=== PATIENT | male | born 1965 | race Caucasian/White ===

== ENCOUNTER 2016-06-28 14:32 | Emergency (ER) | payer MEDICAID, OTHER ==
[~2016-06-28] VITALS: Ht 182.9 cm; Wt 108.9 kg
[2016-06-28 14:45] VITALS: BP 117/72
[2016-06-28] MEDS ORDERED: ACETAMINOPHEN 500 MG TAB PO ONE ×2 (14:51→15:00)
[2016-06-28 15:30] LABS: Urine Bilirubin Negative (Negative); Urine Blood Negative /uL (Negative); Urine Color Yellow (Yellow); Urine Glucose Normal (Normal); Urine Ketone TRACE (Negative); Urine Mucus FEW (None Seen); Urine Nitrite Negative (Negative); Urine RBC 1 /hpf (0 - 3)
[2016-06-28 17:00] LABS: Basophils # (auto) 0 uL; Basophils % (auto) 0.1 % (0.0-2.0); Eosinophils # (auto) 0 uL; Eosinophils % (auto) 0.4 % (0.0-7.0); Hematocrit 44.9 % (41.0-53.0); Hemoglobin 14.4 g/dL (13.5-17.5); Lymphocytes # (auto) 0.4 uL; Lymphocytes % (auto) 4.3 % (10.0-50.0); Mean Corpuscular Hemoglobin 30.3 pg (28.0-32.0); Mean Corpuscular Hgb Conc. 32.1 g/dL (32.0-36.0); Mean Corpuscular Volume 94.4 fL (80.0-100.0); Mean Platelet Volume 7.9 fL (7.4-10.4); Monocytes # (auto) 0.5 uL; Monocytes % (auto) 5.1 % (0.0-12.0); Neutrophils # (auto) 9.2 uL; Neutrophils % (auto) 90.1 % (37.0-80.0); Platelet Count (auto) 232 10^3/uL (140-450); Red Cell Distribution Width 13.3 % (11.6-16.0); White Blood Cell 10.3 10^3/uL (4.4-10.8)
[2016-06-28 17:08] LABS: Albumin 3.3 g/dL (3.4-5.0); BUN/Creatinine Ratio 13.6; Calcium 8.2 mg/dL (8.5-10.1); Potassium 4.2 mmol/L (3.5-5.1)
[2016-06-28 17:11] LABS: Bilirubin, Total 0.5 mg/dL (0.2-1.0); Total Protein 7.7 g/dL (6.4-8.2)
== END 2016-06-28 22:55 | disposition left against medical advice (07) ==
LOC: ER 14:43
DX: J45.909 Unspecified asthma, uncomplicated (principal); R50.9 Fever, unspecified; Z53.21 Procedure and treatment not carried out due to patient leaving prior to being seen by health care provider
CPT/HCPCS: 36415; 71020; 80053; 81001; 83605; 83735; 84484; 85025; 87040; 93005

== ENCOUNTER → 2023-07-23 | Outpatient (CLI) | payer MEDICAID ==
[~2023-07-23] MED LIST: ALBUTEROL SULF 2.5 MG/0.5ML(0.5%) NEB SOLN ONE
== END | disposition home or self-care (01) ==
LOC: RT 08:47
PROVIDERS: ATTEND Internal Medicine Pulmonary Disease
DX: J44.9 Chronic obstructive pulmonary disease, unspecified (principal)
CPT/HCPCS: 94060; 94727; 94729

== ENCOUNTER 2023-08-29 12:25 | Inpatient (IN) | payer MEDICAID ==
[~2023-08-29] VITALS: Ht 182.9 cm; Wt 98.7 kg
[2023-08-29] MEDS: DexAMETHasone SOD PHOS 10MG/1ML VIAL INJ IV ONE (14:21)
[2023-08-29] MEDS: ALBUTEROL SULF 2.5 MG/0.5ML(0.5%) NEB SOLN HHN ONE (14:31)
[2023-08-29] MEDS: IPRATROPIUM BROM 0.5 MG/2.5ML INH SOL HHN ONE (14:31)
[2023-08-29 14:57] LABS: Basophils # (auto) 0.1 10 ^3/uL (0-0.2); Eosinophils # (auto) 0.3 10 ^3/uL (0-0.8); Eosinophils % (auto) 3.3 % (0.0-7.0); Hematocrit 38.7 % (41.0-53.0); Hemoglobin 12.4 g/dL (13.5-17.5); Lymphocytes # (auto) 1.2 10 ^3/uL (0.4-5.4); Lymphocytes % (auto) 13.2 % (10.0-50.0); Mean Corpuscular Hemoglobin 29.6 pg (28.0-32.0); Mean Corpuscular Volume 92.6 fL (80.0-100.0); Monocytes # (auto) 0.6 10 ^3/uL (0-1.3); Monocytes % (auto) 6.6 % (0.0-12.0); Neutrophils # (auto) 7.1 10 ^3/uL (1.6-8.6); Neutrophils % (auto) 75.9 % (37.0-80.0); Red Blood Cells 4.18 10^6/uL (4.5-5.90); White Blood Cell 9.3 10^3/uL (4.4-10.8)
[2023-08-29 15:06] LABS: Alanine Aminotransferase 11 U/L (7-40); Albumin 3.9 g/dL (3.2-4.8); Alkaline Phosphatase 89 U/L (46-116); Anion Gap 6 (5-15); Aspartate Aminotransferase 18 U/L (13-40); BUN/Creatinine Ratio 11.8 (10.0-20.0); Blood Urea Nitrogen 11 mg/dL (9-23); Calcium 9.3 mg/dL (8.7-10.4); Carbon Dioxide 31 mmol/L (20-30); Chloride 102 mmol/L (98-107); Glucose 285 mg/dL (74-106); Magnesium 2.2 mg/dL (1.6-2.6); Potassium 3.9 mmol/L (3.5-5.1); Sodium 139 mmol/L (136-145)
[2023-08-29 15:07] LABS: Bilirubin, Total 0.7 mg/dL (0.2-1.0); Total Protein 7.2 g/dL (5.7-8.2)
[2023-08-29 15:54] LABS: Lactic Acid w/Reflex 2.3 mmol/L (0.4-2.0)
[2023-08-29] MEDS: FUROSEMIDE 40 MG/4 ML VIAL IV ONE (16:54)
[2023-08-29 16:56] VITALS: PULSE 102; RESP 20; O2SAT 95
[2023-08-29] MEDS ORDERED: DEXTROSE (50%) 50ML SYRG IV PRN (17:15)
[2023-08-29] MEDS ORDERED: ONDANSETRON HCL 4 MG/2 ML VIAL IV PRN (17:15)
[2023-08-29] MEDS ORDERED: NITROGLYCERIN 0.4 MG SL TAB SL PRN (17:15)
[2023-08-29] MEDS ORDERED: MORPHINE SULFATE INJ 2 MG/ml SYRG IV PRN (17:15)
[2023-08-29] MEDS ORDERED: DOCUSATE SOD 100 MG CAP PO PRN (17:15)
[2023-08-29] MEDS: cefTRIAXone 1GM/50ML D5W 50 ML IV ONE (18:31)
[2023-08-29 18:52] VITALS: PULSE 100; RESP 18; O2SAT 90
[2023-08-29] MEDS: AZITHROMYCIN 500MG/ 250ML 250 ML IV ONE (18:53)
[2023-08-29 19:02] VITALS: PULSE 97; RESP 18; O2SAT 99
[2023-08-29] MEDS: IPRATROPIUM BROM 0.5 MG/2.5ML INH SOL NEB SCH (19:02)
[2023-08-29] MEDS: ALBUTEROL SULF 2.5 MG/0.5ML(0.5%) NEB SOLN NEB SCH (19:02)
[2023-08-29 19:13] LABS: Urine Bacteria NONE SEEN /hpf (None Seen); Urine Blood TRACE /uL (Negative); Urine Clarity Clear (Clear); Urine Color Colorless (Yellow); Urine Hyaline Cast FEW /lpf (0 - 2); Urine Protein, UAD Negative (Negative); Urine Specific Gravity 1.007 (1.001-1.035); Urine Urobilinogen Normal (Negative); Urine WBC <1 /hpf (0 - 3); Urine pH 6.5 (5.0-8.0)
[2023-08-29 19:21] VITALS: BP 106/61; PULSE 97; RESP 18; TEMP 97.8; O2SAT 99
[2023-08-29 19:30] VITALS: PULSE 101; RESP 25; O2SAT 94
[2023-08-29] MEDS ORDERED: ATOR40TA52 PO (20:49)
[2023-08-29] MEDS ORDERED: FUR20T PO (20:49)
[2023-08-29] MEDS ORDERED: METO25TA93 PO (20:49)
[2023-08-29] MEDS ORDERED: ALBU108A5 INH (21:00)
[2023-08-29] MEDS ORDERED: IPR002IS NEB (21:00)
[2023-08-29] MEDS ORDERED: ALB5IS INH (21:00)
[2023-08-29] MEDS ORDERED: INSU1INJ19 SC (21:00)
[2023-08-29] MEDS ORDERED: ERGO1CAP12 PO (21:00)
[2023-08-29 21:59] VITALS: BP 117/95; PULSE 103; RESP 19; TEMP 98.3; O2SAT 91
[2023-08-29] MEDS ORDERED: PATIENTS OWN MEDICATION (Atorvastatin Calcium 1 TAB) PO SCH (22:00)
[2023-08-29] MEDS: InsuLIN REG 1unit/0.01ml Soln (100units/ml) SC SCH (22:03)
[2023-08-29] MEDS: methylPREDNISolone SOD SUCC 40 MG/ML VL IV SCH (22:03)
[2023-08-29] MEDS: ACCU-CHEK COMFORT CURVE STRIP VI SCH (22:03)
[2023-08-29] MEDS: SODIUM CHLORIDE 0.9% 500 ML IV ONE (22:26)
[2023-08-30] VITALS (19 sets, daily range): BP systolic 93–119; BP diastolic 59–77; PULSE 75–102; RESP 14–22; TEMP 97.3–98.2; O2SAT 94–100
[2023-08-30] MEDS ORDERED: DEXTROSE (50%) 50ML SYRG IV PRN ×2 (02:30→11:45)
[2023-08-30] MEDS: ACCU-CHEK COMFORT CURVE STRIP VI SCH ×2 (04:15→17:41)
[2023-08-30] MEDS: InsuLIN REG 1unit/0.01ml Soln (100units/ml) SC SCH ×3 (05:11→22:39)
[2023-08-30 05:19] LABS: Basophils # (auto) 0 10 ^3/uL (0-0.2); Basophils % (auto) 0.4 % (0.0-2.0); Eosinophils # (auto) 0 10 ^3/uL (0-0.8); Hematocrit 37.6 % (41.0-53.0); Hemoglobin 12.3 g/dL (13.5-17.5); Lymphocytes # (auto) 0.9 10 ^3/uL (0.4-5.4); Lymphocytes % (auto) 11.9 % (10.0-50.0); Mean Corpuscular Hemoglobin 30.1 pg (28.0-32.0); Mean Corpuscular Hgb Conc. 32.6 g/dL (32.0-36.0); Mean Corpuscular Volume 92.2 fL (80.0-100.0); Monocytes # (auto) 0.4 10 ^3/uL (0-1.3); Monocytes % (auto) 5.5 % (0.0-12.0); Neutrophils # (auto) 5.9 10 ^3/uL (1.6-8.6); Neutrophils % (auto) 82.2 % (37.0-80.0); Nucleated Red Blood Cells % 0.1 %; Red Blood Cells 4.08 10^6/uL (4.5-5.90); Red Cell Distribution Width 13.7 % (11.8-14.3); White Blood Cell 7.2 10^3/uL (4.4-10.8)
[2023-08-30 05:37] LABS: Alanine Aminotransferase 10 U/L (7-40); Albumin 3.8 g/dL (3.2-4.8); Alkaline Phosphatase 89 U/L (46-116); Anion Gap 5 (5-15); Aspartate Aminotransferase 13 U/L (13-40); BUN/Creatinine Ratio 12.5 (10.0-20.0); Bilirubin, Total 0.4 mg/dL (0.2-1.0); Blood Urea Nitrogen 10 mg/dL (9-23); Carbon Dioxide 30 mmol/L (20-30); Chloride 103 mmol/L (98-107); Glucose 194 mg/dL (74-106); Potassium 4.8 mmol/L (3.5-5.1); Sodium 138 mmol/L (136-145); Total Protein 6.9 g/dL (5.7-8.2)
[2023-08-30] MEDS: PANTOPRAZOLE 40 MG TAB PO SCH (09:44)
[2023-08-30] MEDS: AZITHROMYCIN 500MG/ 250ML 250 ML IV SCH (09:45)
[2023-08-30] MEDS: FUROSEMIDE 20 MG/2 ML VIAL IV SCH (09:49)
[2023-08-30] MEDS: cefTRIAXone 1GM/50ML D5W 50 ML IV SCH (09:50)
[2023-08-30] MEDS: NICOTINE 21MG/24 HR TOPICAL PATCH TD ONE (13:11)
[2023-08-30] MEDS: IPRATROPIUM BROM 0.5 MG/2.5ML INH SOL NEB SCH (14:53)
[2023-08-30] MEDS: ALBUTEROL SULF 2.5 MG/0.5ML(0.5%) NEB SOLN NEB SCH (14:53)
[2023-08-30] MEDS: TEMAZEPAM 15 MG CAP PO PRN (22:32)
[2023-08-30] MEDS: ATORVASTATIN 20 MG TAB PO SCH (22:32)
[2023-08-30] MEDS: INSULIN LANTUS (GLARGINE) 1 /0.01ml (100units/ml) SC SCH (22:40)
[2023-08-31] VITALS (19 sets, daily range): BP systolic 97–124; BP diastolic 62–73; PULSE 63–108; RESP 18–22; TEMP 97.4–98.8; O2SAT 92–100
[2023-08-31] MEDS: IPRATROPIUM BROM 0.5 MG/2.5ML INH SOL NEB PRN (00:39)
[2023-08-31] MEDS: IPRATROPIUM BROM 0.5 MG/2.5ML INH SOL NEB SCH (01:49)
[2023-08-31] MEDS: ALBUTEROL SULF 2.5 MG/0.5ML(0.5%) NEB SOLN NEB SCH (01:49)
[2023-08-31 05:54] LABS: Basophils # (auto) 0 10 ^3/uL (0-0.2); Basophils % (auto) 0.4 % (0.0-2.0); Eosinophils # (auto) 0 10 ^3/uL (0-0.8); Eosinophils % (auto) 0.1 % (0.0-7.0); Hematocrit 37.2 % (41.0-53.0); Hemoglobin 11.7 g/dL (13.5-17.5); Lymphocytes % (auto) 10.5 % (10.0-50.0); Mean Corpuscular Hemoglobin 29.5 pg (28.0-32.0); Mean Corpuscular Hgb Conc. 31.5 g/dL (32.0-36.0); Mean Corpuscular Volume 93.8 fL (80.0-100.0); Monocytes # (auto) 0.5 10 ^3/uL (0-1.3); Monocytes % (auto) 5.1 % (0.0-12.0); Neutrophils # (auto) 7.6 10 ^3/uL (1.6-8.6); Neutrophils % (auto) 83.9 % (37.0-80.0); Red Blood Cells 3.96 10^6/uL (4.5-5.90); Red Cell Distribution Width 14.2 % (11.8-14.3); White Blood Cell 9.1 10^3/uL (4.4-10.8)
[2023-08-31 06:06] LABS: Chloride 103 mmol/L (98-107); Potassium 4.9 mmol/L (3.5-5.1); Sodium 135 mmol/L (136-145)
[2023-08-31 06:07] LABS: Anion Gap 4 (5-15); Calcium 9.3 mg/dL (8.7-10.4); Carbon Dioxide 28 mmol/L (20-30)
[2023-08-31 06:12] LABS: BUN/Creatinine Ratio 15.3 (10.0-20.0); Blood Urea Nitrogen 17 mg/dL (9-23)
[2023-08-31 06:17] LABS: Glucose 347 mg/dL (74-106)
[2023-08-31] MEDS ORDERED: METOPROLOL SUCCINATE XL 50 MG TAB PO SCH (07:00)
[2023-08-31] MEDS ORDERED: GLIP5TAB12 PO (09:28)
[2023-08-31] MEDS ORDERED: SPIR25TA8 PO (09:28)
[2023-08-31] MEDS ORDERED: IRBE300T79 PO (09:28)
[2023-08-31] MEDS ORDERED: BUDE1AER5 INH (09:28)
[2023-08-31] MEDS ORDERED: MONT-8 PO (09:29)
[2023-08-31] MEDS ORDERED: EMPA1TAB3 PO (09:33)
[2023-08-31] MEDS: NICOTINE 21MG/24 HR TOPICAL PATCH TD SCH (09:40)
[2023-08-31] MEDS: ACETAMINOPHEN 325 MG TAB PO PRN (12:20)
[2023-08-31] MEDS: methylPREDNISolone SOD SUCC 40 MG/ML VL IV ONE (13:25)
[2023-08-31] MEDS: INSULIN LANTUS (GLARGINE) 1 /0.01ml (100units/ml) SC SCH (22:34)
[2023-09-01] VITALS (18 sets, daily range): BP systolic 105–124; BP diastolic 59–79; PULSE 65–105; RESP 16–20; TEMP 97.2–98; O2SAT 91–100
[2023-09-01] MEDS: AZITHROMYCIN 250 MG TAB PO SCH (10:13)
[2023-09-01] MEDS: POTASSIUM CHL 10 Meq TABLET PO ONE (11:16)
[2023-09-01] MEDS: FUROSEMIDE 20 MG/2 ML VIAL IV ONE (11:16)
[2023-09-02] VITALS (19 sets, daily range): BP systolic 93–116; BP diastolic 62–76; PULSE 63–106; RESP 1–20; TEMP 97.4–98.4; O2SAT 92–100
[2023-09-02 05:23] LABS: Chloride 104 mmol/L (98-107); Potassium 4.2 mmol/L (3.5-5.1); Sodium 139 mmol/L (136-145)
[2023-09-02 05:24] LABS: Anion Gap 4 (5-15); Carbon Dioxide 31 mmol/L (20-30)
[2023-09-02 05:25] LABS: Calcium 9.3 mg/dL (8.5-10.1)
[2023-09-02 05:29] LABS: BUN/Creatinine Ratio 19.4 (10.0-20.0); Blood Urea Nitrogen 21 mg/dL (9-23)
[2023-09-02 05:36] LABS: Glucose 170 mg/dL (74-106)
[2023-09-02] MEDS: predniSONE 20 MG TAB PO SCH (09:48)
[2023-09-02] MEDS: SPIRONOLACTONE 25 MG TAB PO ONE (12:48)
[2023-09-02] MEDS: SACUBITRIL-VALSARTAN 24mg/26mg TAB PO SCH (22:09)
[2023-09-03] VITALS (12 sets, daily range): BP systolic 95–110; BP diastolic 54–67; PULSE 86–95; RESP 18–20; TEMP 98.1–98.5; O2SAT 94–98
[2023-09-03 06:18] LABS: Anion Gap 1 (5-15); Carbon Dioxide 33 mmol/L (20-30); Chloride 105 mmol/L (98-107); Potassium 3.8 mmol/L (3.5-5.1); Sodium 139 mmol/L (136-145)
[2023-09-03 06:20] LABS: Calcium 8.6 mg/dL (8.5-10.1)
[2023-09-03 06:24] LABS: Glucose 202 mg/dL (74-106)
[2023-09-03 06:25] LABS: BUN/Creatinine Ratio 16.5 (10.0-20.0); Blood Urea Nitrogen 15 mg/dL (9-23)
[2023-09-03] MEDS: SPIRONOLACTONE 25 MG TAB PO SCH (08:51)
[2023-09-03] MEDS: EMPAGLIFLOZIN 10 MG TAB PO SCH (08:52)
[2023-09-03] MEDS: FUROSEMIDE 40 MG TAB PO SCH (08:52)
[2023-09-03] MEDS ORDERED: SACU1TAB PO (12:20)
[2023-09-03] MEDS ORDERED: ALB5IS INH (12:20)
[2023-09-03] MEDS ORDERED: BUDE1AER5 INH (12:20)
[2023-09-03] MEDS ORDERED: EMPA1TAB3 PO (12:25)
== END 2023-09-03 16:46 | disposition home or self-care (01) | DRG 137 ==
LOC: ER 12:25 → TELE 17:20 → TELE-WESTW 20:46 → WEST WING 08-31 23:53
PROVIDERS: ADMIT Nurse Practitioner Family; ATTEND Nurse Practitioner Acute Care
DX: J15.69 Pneumonia due to other Gram-negative bacteria (principal); J96.01 Acute respiratory failure with hypoxia; I50.23 Acute on chronic systolic (congestive) heart failure; I42.0 Dilated cardiomyopathy; E87.20 Acidosis, unspecified; J45.901 Unspecified asthma with (acute) exacerbation; I42.8 Other cardiomyopathies; J44.0 Chronic obstructive pulmonary disease with (acute) lower respiratory infection; I11.0 Hypertensive heart disease with heart failure; J44.1 Chronic obstructive pulmonary disease with (acute) exacerbation; J98.11 Atelectasis; E11.9 Type 2 diabetes mellitus without complications; E66.9 Obesity, unspecified; Z96.641 Presence of right artificial hip joint; I45.10 Unspecified right bundle-branch block; F17.290 Nicotine dependence, other tobacco product, uncomplicated; E11.65 Type 2 diabetes mellitus with hyperglycemia; I50.82 Biventricular heart failure; Z68.29 Body mass index [BMI] 29.0-29.9, adult; Z79.4 Long term (current) use of insulin
CPT/HCPCS: 36415; 71045; 80048; 80053; 81001; 82962; 83036; 83605; 83735; 83880; 84484; 85025; 87040; 87070; 87205; 93005; 93306; 94640; 96374; 96375; 97110; 97116; 97163; 97530; G0378; J1100; J1815

== ENCOUNTER → 2023-10-19 | Outpatient (CLI) | payer MEDICAID ==
[~2023-10-19] VITALS: Ht 182.9 cm; Wt 102.1 kg
[~2023-10-19] MED LIST changes: +ADENOSINE 86 MG in GIVE UN-DILUTED 0 ML IV ONE; +ADENOSINE 90 MG/30 ML INJ IV ONE; +ALB5IS INH; +ALBU108A5 INH; -ALBUTEROL SULF 2.5 MG/0.5ML(0.5%) NEB SOLN ONE; +ATOR40TA52 PO; +AZITTAB PO; +BUDE1AER5 INH; +EMPA1TAB3 PO; +ERGO1CAP12 PO; +FLUT1AER3 IN; +FUR20T PO; +GLIP5TAB21 PO; +INSU1INJ19 SC; +IPR002IS NEB; +IPRA0.00 IN; +METO25TA93 PO; +MONT-8 PO; +SACU1TAB PO; +SPIR25TA8 PO
== END | disposition home or self-care (01) ==
LOC: Rad HDHVI 13:43
PROVIDERS: ATTEND Internal Medicine Cardiovascular Disease
DX: I50.9 Heart failure, unspecified (principal); R07.89 Other chest pain; J45.50 Severe persistent asthma, uncomplicated; E11.9 Type 2 diabetes mellitus without complications; F17.210 Nicotine dependence, cigarettes, uncomplicated
CPT/HCPCS: 78452; 93005; 94640; 96374; 96375; A9500; J0153

== ENCOUNTER 2023-10-28 10:00 | Emergency (ER) | payer MEDICAID ==
[~2023-10-28] VITALS: Ht 182.9 cm; Wt 104.2 kg
[~2023-10-28 10:00] MED LIST changes: -ADENOSINE 86 MG in GIVE UN-DILUTED 0 ML IV ONE; -ADENOSINE 90 MG/30 ML INJ IV ONE
[2023-10-28 10:50] LABS: Basophils # (auto) 0.1 10 ^3/uL (0-0.2); Basophils % (auto) 1.4 % (0.0-2.0); Eosinophils # (auto) 0.2 10 ^3/uL (0-0.8); Eosinophils % (auto) 3.7 % (0.0-7.0); Hematocrit 47.8 % (41.0-53.0); Hemoglobin 15.6 g/dL (13.5-17.5); Lymphocytes # (auto) 1.6 10 ^3/uL (0.4-5.4); Lymphocytes % (auto) 28.6 % (10.0-50.0); Mean Corpuscular Hemoglobin 30.8 pg (28.0-32.0); Mean Corpuscular Hgb Conc. 32.6 g/dL (32.0-36.0); Mean Corpuscular Volume 94.3 fL (80.0-100.0); Monocytes # (auto) 0.6 10 ^3/uL (0-1.3); Monocytes % (auto) 9.8 % (0.0-12.0); Neutrophils # (auto) 3.3 10 ^3/uL (1.6-8.6); Neutrophils % (auto) 56.5 % (37.0-80.0); Nucleated Red Blood Cells % 0.1 %; Red Blood Cells 5.07 10^6/uL (4.5-5.90); Red Cell Distribution Width 16.3 % (11.8-14.3); White Blood Cell 5.8 10^3/uL (4.4-10.8)
[2023-10-28] MEDS: IPRATROPIUM BROM 0.5 MG/2.5ML INH SOL NEB ONE (10:50)
[2023-10-28 11:04] LABS: Chloride 103 mmol/L (98-107); Potassium 4.2 mmol/L (3.5-5.1); Sodium 140 mmol/L (136-145)
[2023-10-28 11:05] LABS: Anion Gap 7 (5-15); Calcium 10.1 mg/dL (8.5-10.1); Carbon Dioxide 30 mmol/L (20-30)
[2023-10-28 11:10] LABS: BUN/Creatinine Ratio 12.8 (10.0-20.0); Blood Urea Nitrogen 15 mg/dL (9-23); Glucose 152 mg/dL (74-106)
[2023-10-28] MEDS: MAGNESIUM SULFATE 1GM/100ML 100 ML IV ONE (11:18)
[2023-10-28] MEDS: methylPREDNISolone SOD SUCC 125 MG/2 ML VL IV ONE (11:18)
[2023-10-28 11:32] VITALS: BP 101/66; PULSE 87; RESP 18; TEMP 97.8; O2SAT 97
== END 2023-10-28 13:02 | disposition left against medical advice (07) ==
LOC: ER 10:00
DX: J45.901 Unspecified asthma with (acute) exacerbation (principal); J98.4 Other disorders of lung; E11.9 Type 2 diabetes mellitus without complications
CPT/HCPCS: 36415; 71045; 80048; 84484; 85025; 85379; 94640; 96365; 96375; 99284; J2930; J3475; J7644

== ENCOUNTER 2023-11-25 19:08 | Inpatient (IN) | payer MEDICAID ==
[~2023-11-25] VITALS: Ht 188 cm; Wt 108.4 kg
[2023-11-25] MEDS: DexAMETHasone SOD PHOS 10MG/1ML VIAL INJ IM ONE (21:39)
[2023-11-25] MEDS: IPRATROPIUM BROM 0.5 MG/2.5ML INH SOL NEB ONE (21:50)
[2023-11-25] MEDS: ALBUTEROL SULF 2.5 MG/0.5ML(0.5%) NEB SOLN NEB ONE (21:50)
[2023-11-25 21:53] LABS: Alanine Aminotransferase 13 U/L (7-40); Albumin 4.6 g/dL (3.2-4.8); Alkaline Phosphatase 77 U/L (46-116); Anion Gap 7 (5-15); Aspartate Aminotransferase 21 U/L (13-40); BUN/Creatinine Ratio 9.5 (10.0-20.0); Bilirubin, Total 0.7 mg/dL (0.2-1.0); Blood Urea Nitrogen 12 mg/dL (9-23); CRP High Sensitivity 0.05 mg/dL (<1.0); Carbon Dioxide 29 mmol/L (20-30); Chloride 102 mmol/L (98-107); Glucose 144 mg/dL (74-106); Potassium 3.6 mmol/L (3.5-5.1); Sodium 138 mmol/L (136-145); Total Protein 7.8 g/dL (5.7-8.2)
[2023-11-25 22:03] LABS: Basophils # (auto) 0.1 10 ^3/uL (0-0.2); Basophils % (auto) 1.3 % (0.0-2.0); Eosinophils # (auto) 0.3 10 ^3/uL (0-0.8); Eosinophils % (auto) 5.2 % (0.0-7.0); Hematocrit 51.6 % (41.0-53.0); Lymphocytes # (auto) 1.6 10 ^3/uL (0.4-5.4); Mean Corpuscular Hemoglobin 31.5 pg (28.0-32.0); Mean Corpuscular Hgb Conc. 32.9 g/dL (32.0-36.0); Mean Corpuscular Volume 95.6 fL (80.0-100.0); Monocytes # (auto) 0.6 10 ^3/uL (0-1.3); Monocytes % (auto) 10.6 % (0.0-12.0); Neutrophils # (auto) 3.5 10 ^3/uL (1.6-8.6); Neutrophils % (auto) 56.9 % (37.0-80.0); Nucleated Red Blood Cells % 0.1 %; Red Cell Distribution Width 15.2 % (11.8-14.3); White Blood Cell 6.1 10^3/uL (4.4-10.8)
[2023-11-25 22:47] LABS: Lactic Acid w/Reflex 2.1 mmol/L (0.4-2.0)
[2023-11-25 23:01] LABS: Erythrocyte Sedimentation Rate 1 mm/hr (0-20)
[2023-11-25] MEDS ORDERED: VANCOMYCIN PER PHARMACY 0 MG IV SCH (23:30)
[2023-11-25] MEDS: PIPERACILLIN-TAZOB 3.375GM 100 ML IV ONE (23:49)
[2023-11-26] VITALS (11 sets, daily range): BP systolic 95–107; BP diastolic 66–74; PULSE 75–100; RESP 18–21; TEMP 97.9–98.9; O2SAT 93–100
[2023-11-26] MEDS ORDERED: ONDANSETRON HCL 4 MG/2 ML VIAL IV PRN (00:30)
[2023-11-26] MEDS ORDERED: DOCUSATE SOD 100 MG CAP PO PRN (00:30)
[2023-11-26] MEDS ORDERED: ACETAMINOPHEN 325 MG TAB PO PRN (00:30)
[2023-11-26] MEDS ORDERED: MORPHINE SULFATE INJ 2 MG/ml SYRG IV PRN (00:30)
[2023-11-26] MEDS ORDERED: HYDROcodone-ACET 5/325MG TAB PO PRN (00:30)
[2023-11-26] MEDS ORDERED: DEXTROSE (50%) 50ML SYRG IV PRN (00:30)
[2023-11-26] MEDS ORDERED: NITROGLYCERIN 0.4 MG SL TAB SL PRN (00:30)
[2023-11-26] MEDS: IPRATROPIUM BROM 0.5 MG/2.5ML INH SOL NEB PRN (01:02)
[2023-11-26] MEDS: ALBUTEROL SULF 2.5 MG/0.5ML(0.5%) NEB SOLN NEB PRN (01:02)
[2023-11-26] MEDS: VANCOMYCIN 1GM/200ML 200 ML IV ONE (01:56)
[2023-11-26 04:56] LABS: Basophils # (auto) 0 10 ^3/uL (0-0.2); Basophils % (auto) 0.6 % (0.0-2.0); Eosinophils # (auto) 0 10 ^3/uL (0-0.8); Eosinophils % (auto) 0.1 % (0.0-7.0); Hematocrit 49.3 % (41.0-53.0); Hemoglobin 16.1 g/dL (13.5-17.5); Lymphocytes # (auto) 0.3 10 ^3/uL (0.4-5.4); Lymphocytes % (auto) 6.8 % (10.0-50.0); Mean Corpuscular Hemoglobin 30.9 pg (28.0-32.0); Mean Corpuscular Hgb Conc. 32.6 g/dL (32.0-36.0); Mean Corpuscular Volume 94.7 fL (80.0-100.0); Monocytes # (auto) 0.1 10 ^3/uL (0-1.3); Monocytes % (auto) 1.8 % (0.0-12.0); Neutrophils # (auto) 4.1 10 ^3/uL (1.6-8.6); Neutrophils % (auto) 90.7 % (37.0-80.0); Red Blood Cells 5.21 10^6/uL (4.5-5.90); Red Cell Distribution Width 15.6 % (11.8-14.3); White Blood Cell 4.5 10^3/uL (4.4-10.8)
[2023-11-26 05:15] LABS: Alanine Aminotransferase 13 U/L (7-40); Albumin 4.6 g/dL (3.2-4.8); Alkaline Phosphatase 78 U/L (46-116); Anion Gap 7 (5-15); Aspartate Aminotransferase 19 U/L (13-40); BUN/Creatinine Ratio 10.6 (10.0-20.0); Bilirubin, Total 0.6 mg/dL (0.2-1.0); Blood Urea Nitrogen 17 mg/dL (9-23); Calcium 9.6 mg/dL (8.5-10.1); Carbon Dioxide 28 mmol/L (20-30); Chloride 99 mmol/L (98-107); Potassium 4.5 mmol/L (3.5-5.1); Sodium 134 mmol/L (136-145); Total Protein 7.7 g/dL (5.7-8.2)
[2023-11-26 05:21] LABS: Glucose 269 mg/dL (74-106)
[2023-11-26] MEDS: ACCU-CHEK COMFORT CURVE STRIP VI SCH (07:16)
[2023-11-26] MEDS: InsuLIN REG 1unit/0.01ml Soln (100units/ml) SC SCH ×2 (07:16→22:00)
[2023-11-26] MEDS: ENOXAPARIN SOD 40 MG/0.4 ML SYRINGE SC SCH (12:37)
[2023-11-26] MEDS: ASCORBIC ACID 500 MG TAB PO SCH (12:37)
[2023-11-26] MEDS: cefTRIAXone 1GM/50ML D5W 50 ML IV SCH (12:37)
[2023-11-26] MEDS: ZINC SULFATE 220mg CAP or TAB PO SCH (12:37)
[2023-11-26] MEDS: VANCOMYCIN 1GM/200ML 200 ML IV SCH (16:31)
[2023-11-26] MEDS: ATORVASTATIN 20 MG TAB PO SCH (21:48)
[2023-11-27] VITALS (9 sets, daily range): BP systolic 100–114; BP diastolic 61–67; PULSE 70–95; RESP 18–21; TEMP 97.7–98.5; O2SAT 94–100
[2023-11-27 06:53] LABS: Urine Bacteria None Seen /hpf (None Seen)
[2023-11-27 06:54] LABS: Basophils # (auto) 0.1 10 ^3/uL (0-0.2); Basophils % (auto) 1.1 % (0.0-2.0); Eosinophils # (auto) 0.1 10 ^3/uL (0-0.8); Eosinophils % (auto) 1.7 % (0.0-7.0); Hematocrit 46.8 % (41.0-53.0); Hemoglobin 15.4 g/dL (13.5-17.5); Lymphocytes # (auto) 1.9 10 ^3/uL (0.4-5.4); Lymphocytes % (auto) 25.5 % (10.0-50.0); Mean Corpuscular Hemoglobin 31.5 pg (28.0-32.0); Mean Corpuscular Hgb Conc. 32.9 g/dL (32.0-36.0); Mean Corpuscular Volume 95.7 fL (80.0-100.0); Monocytes # (auto) 0.8 10 ^3/uL (0-1.3); Monocytes % (auto) 10.3 % (0.0-12.0); Neutrophils # (auto) 4.6 10 ^3/uL (1.6-8.6); Neutrophils % (auto) 61.4 % (37.0-80.0); Nucleated Red Blood Cells % 0.2 %; Red Blood Cells 4.88 10^6/uL (4.5-5.90); Red Cell Distribution Width 15.4 % (11.8-14.3); White Blood Cell 7.6 10^3/uL (4.4-10.8)
[2023-11-27 07:05] LABS: Alanine Aminotransferase 14 U/L (7-40); Alkaline Phosphatase 74 U/L (46-116); Anion Gap 4 (5-15); BUN/Creatinine Ratio 19.2 (10.0-20.0); Blood Urea Nitrogen 23 mg/dL (9-23); Calcium 9.3 mg/dL (8.7-10.4); Carbon Dioxide 30 mmol/L (20-30); Chloride 103 mmol/L (98-107); Potassium 4.6 mmol/L (3.5-5.1); Sodium 137 mmol/L (136-145)
[2023-11-27 07:06] LABS: Albumin 4.1 g/dL (3.2-4.8)
[2023-11-27 07:07] LABS: Aspartate Aminotransferase 22 U/L (13-40); Bilirubin, Total 0.4 mg/dL (0.2-1.0)
[2023-11-27 07:20] LABS: Glucose 168 mg/dL (74-106)
[2023-11-27 07:31] LABS: Urine Blood TRACE /uL (Negative); Urine Clarity Clear (Clear); Urine Color Light-Yellow (Yellow); Urine Protein, UAD TRACE (Negative); Urine Specific Gravity 1.022 (1.001-1.035); Urine Urobilinogen Normal (Negative); Urine WBC 1 /hpf (0 - 3); Urine pH 5.5 (5.0-9.0)
== END 2023-11-27 13:15 | disposition home or self-care (01) | DRG 383 ==
LOC: ER 19:08 → OVERFLOW 11-26 00:37 → WEST WING 11-26 14:55
PROVIDERS: ADMIT Nurse Practitioner Family; ATTEND Family Medicine
DX: L03.116 Cellulitis of left lower limb (principal); N17.0 Acute kidney failure with tubular necrosis; E44.0 Moderate protein-calorie malnutrition; E87.20 Acidosis, unspecified; L97.529 Non-pressure chronic ulcer of other part of left foot with unspecified severity; E11.21 Type 2 diabetes mellitus with diabetic nephropathy; S91.302A Unspecified open wound, left foot, initial encounter; I50.32 Chronic diastolic (congestive) heart failure; E11.621 Type 2 diabetes mellitus with foot ulcer; E11.40 Type 2 diabetes mellitus with diabetic neuropathy, unspecified; E11.65 Type 2 diabetes mellitus with hyperglycemia; I11.0 Hypertensive heart disease with heart failure; J45.909 Unspecified asthma, uncomplicated; X58.XXXA Exposure to other specified factors, initial encounter; G89.29 Other chronic pain; Z79.899 Other long term (current) drug therapy; Y93.89 Activity, other specified; Y92.89 Other specified places as the place of occurrence of the external cause; Y99.8 Other external cause status; Z82.49 Family history of ischemic heart disease and other diseases of the circulatory system; Z83.3 Family history of diabetes mellitus; Z68.30 Body mass index [BMI] 30.0-30.9, adult
CPT/HCPCS: 36415; 71045; 73700; 73718; 80053; 81001; 82962; 83036; 83605; 85025; 85652; 86141; 93925; 94640; G0378; J1100; J1815; J2543

== ENCOUNTER 2023-12-13 23:57 | Emergency (ER) | payer MEDICAID ==
[~2023-12-13] VITALS: Ht 182.9 cm; Wt 105.0 kg
[2023-12-14] MEDS: IPRATROPIUM BROM 0.5 MG/2.5ML INH SOL NEB ONE (00:38)
[2023-12-14] MEDS: ALBUTEROL SULF 2.5 MG/0.5ML(0.5%) NEB SOLN NEB ONE (00:38)
[2023-12-14 00:48] LABS: Basophils # (auto) 0.1 10 ^3/uL (0-0.2); Basophils % (auto) 1.3 % (0.0-2.0); Eosinophils # (auto) 0.3 10 ^3/uL (0-0.8); Eosinophils % (auto) 4.3 % (0.0-7.0); Hematocrit 53.2 % (41.0-53.0); Hemoglobin 17.6 g/dL (13.5-17.5); Lymphocytes % (auto) 30.2 % (10.0-50.0); Mean Corpuscular Hemoglobin 31.7 pg (28.0-32.0); Mean Corpuscular Hgb Conc. 33.1 g/dL (32.0-36.0); Mean Corpuscular Volume 95.9 fL (80.0-100.0); Monocytes # (auto) 0.7 10 ^3/uL (0-1.3); Monocytes % (auto) 10.6 % (0.0-12.0); Neutrophils # (auto) 3.6 10 ^3/uL (1.6-8.6); Neutrophils % (auto) 53.6 % (37.0-80.0); Nucleated Red Blood Cells % 0.1 %; Red Blood Cells 5.55 10^6/uL (4.5-5.90); Red Cell Distribution Width 14.7 % (11.8-14.3); White Blood Cell 6.6 10^3/uL (4.4-10.8)
[2023-12-14 01:03] LABS: INR 1.03 (0.9-1.15); Prothrombin Time 10.9 sec (9.3-11.8)
[2023-12-14 01:04] LABS: Alanine Aminotransferase 22 U/L (7-40); Albumin 4.5 g/dL (3.2-4.8); Alkaline Phosphatase 85 U/L (46-116); Anion Gap 4 (5-15); Aspartate Aminotransferase 30 U/L (13-40); BUN/Creatinine Ratio 13.4 (10.0-20.0); Bilirubin, Total 0.4 mg/dL (0.2-1.0); Blood Urea Nitrogen 16 mg/dL (9-23); Calcium 10.4 mg/dL (8.7-10.4); Carbon Dioxide 33 mmol/L (20-30); Chloride 104 mmol/L (98-107); Glucose 197 mg/dL (74-106); Potassium 3.7 mmol/L (3.5-5.1); Sodium 141 mmol/L (136-145); Total Protein 7.6 g/dL (5.7-8.2)
[2023-12-14] MEDS ORDERED: IPRA0.00 IN (03:23)
[2023-12-14] MEDS ORDERED: PRED20TA2 PO (03:23)
[2023-12-14] MEDS ORDERED: AZITTAB PO (03:23)
[2023-12-14 04:00] VITALS: BP 118/72; PULSE 94; RESP 18; TEMP 98; O2SAT 98
[2023-12-15] MEDS ORDERED: IRBE300T43 PO (11:14)
[2023-12-15] MEDS ORDERED: FURO40TA4 PO (11:14)
== END 2023-12-14 04:08 | disposition home or self-care (01) ==
LOC: ER 23:57
DX: J45.901 Unspecified asthma with (acute) exacerbation (principal)
CPT/HCPCS: 36415; 71045; 80053; 83880; 84484; 85025; 85379; 85610; 85730; 93005; 94640; 99285; J7644

== ENCOUNTER 2023-12-14 07:34 | Inpatient (IN) | payer MEDICAID ==
[2023-12-14] VITALS (10 sets, daily range): BP systolic 109–124; BP diastolic 73–78; PULSE 68–103; RESP 16–20; TEMP 98.1–98.2; O2SAT 95–98
[~2023-12-14] VITALS: Ht 182.9 cm; Wt 108.0 kg
[~2023-12-14 07:34] MED LIST changes: +PRED20TA2 PO
[2023-12-14] MEDS: methylPREDNISolone SOD SUCC 125 MG/2 ML VL IV ONE (08:28)
[2023-12-14] MEDS: ALBUTEROL SULF 2.5 MG/0.5ML(0.5%) NEB SOLN NEB ONE (08:34)
[2023-12-14] MEDS: IPRATROPIUM BROM 0.5 MG/2.5ML INH SOL NEB ONE (08:34)
[2023-12-14] MEDS ORDERED: MORPHINE SULFATE INJ 2 MG/ml SYRG IV PRN (11:30)
[2023-12-14] MEDS ORDERED: ACETAMINOPHEN 325 MG TAB PO PRN (11:30)
[2023-12-14] MEDS ORDERED: ONDANSETRON HCL 4 MG/2 ML VIAL IV PRN (11:30)
[2023-12-14] MEDS ORDERED: DEXTROSE (50%) 50ML SYRG IV PRN (11:30)
[2023-12-14] MEDS ORDERED: HYDROcodone-ACET 5/325MG TAB PO PRN (11:30)
[2023-12-14] MEDS ORDERED: DOCUSATE SOD 100 MG CAP PO PRN (11:30)
[2023-12-14] MEDS: AZITHROMYCIN 500MG/ 250ML 250 ML IV ONE (11:51)
[2023-12-14] MEDS: InsuLIN REG 1unit/0.01ml Soln (100units/ml) SC SCH (11:53)
[2023-12-14] MEDS: ACCU-CHEK COMFORT CURVE STRIP VI SCH (11:53)
[2023-12-14] MEDS: LEVALBUTEROL HCL 1.25 MG/3 ML NEB NEB SCH (12:12)
[2023-12-14] MEDS: IPRATROPIUM BROM 0.5 MG/2.5ML INH SOL NEB SCH (12:12)
[2023-12-14] MEDS: SACUBITRIL-VALSARTAN 24mg/26mg TAB PO SCH (21:36)
[2023-12-14] MEDS: ATORVASTATIN 20 MG TAB PO SCH (21:36)
[2023-12-14] MEDS ORDERED: METOPROLOL SUCCINATE XL 50 MG TAB PO SCH (22:00)
[2023-12-14] MEDS ORDERED: PATIENTS OWN MEDICATION (Atorvastatin Calcium 1 TAB) PO SCH (22:00)
[2023-12-15] VITALS (18 sets, daily range): BP systolic 99–113; BP diastolic 53–95; PULSE 88–102; RESP 17–20; TEMP 97.4–98.5; O2SAT 92–100
[2023-12-15 06:38] LABS: Basophils # (auto) 0 10 ^3/uL (0-0.2); Basophils % (auto) 0.5 % (0.0-2.0); Eosinophils # (auto) 0 10 ^3/uL (0-0.8); Eosinophils % (auto) 0.1 % (0.0-7.0); Hematocrit 46.2 % (41.0-53.0); Hemoglobin 15.6 g/dL (13.5-17.5); Lymphocytes # (auto) 1.2 10 ^3/uL (0.4-5.4); Lymphocytes % (auto) 14.9 % (10.0-50.0); Mean Corpuscular Hemoglobin 32.2 pg (28.0-32.0); Mean Corpuscular Hgb Conc. 33.8 g/dL (32.0-36.0); Mean Corpuscular Volume 95.4 fL (80.0-100.0); Monocytes # (auto) 0.8 10 ^3/uL (0-1.3); Monocytes % (auto) 9.9 % (0.0-12.0); Neutrophils # (auto) 5.8 10 ^3/uL (1.6-8.6); Neutrophils % (auto) 74.6 % (37.0-80.0); Red Blood Cells 4.85 10^6/uL (4.5-5.90); Red Cell Distribution Width 14.4 % (11.8-14.3); White Blood Cell 7.8 10^3/uL (4.4-10.8)
[2023-12-15 06:52] LABS: Alanine Aminotransferase 17 U/L (7-40); Alkaline Phosphatase 66 U/L (46-116); Anion Gap 5 (5-15); Aspartate Aminotransferase 18 U/L (13-40); BUN/Creatinine Ratio 19.4 (10.0-20.0); Bilirubin, Total 0.6 mg/dL (0.2-1.0); Blood Urea Nitrogen 20 mg/dL (9-23); Calcium 9.3 mg/dL (8.7-10.4); Carbon Dioxide 27 mmol/L (20-30); Chloride 104 mmol/L (98-107); Glucose 247 mg/dL (74-106); Potassium 3.9 mmol/L (3.5-5.1); Sodium 136 mmol/L (136-145); Total Protein 6.5 g/dL (5.7-8.2)
[2023-12-15] MEDS: INSULIN GLARGINE 30 UNIT SC SCH (10:00)
[2023-12-15] MEDS: EMPAGLIFLOZIN PO SCH (10:00)
[2023-12-15] MEDS: FUROSEMIDE 20 MG/2 ML VIAL IV SCH (10:00)
[2023-12-15] MEDS ORDERED: FURO40TA4 PO (11:14)
[2023-12-15] MEDS ORDERED: IRBE300T43 PO (11:14)
[2023-12-15] MEDS: MONTELUKAST SODIUM 10 MG TAB PO SCH (11:31)
[2023-12-15] MEDS: methylPREDNISolone SOD SUCC 40 MG/ML VL IV SCH (11:33)
[2023-12-15] MEDS: AZITHROMYCIN 500MG/ 250ML 250 ML IV SCH (11:33)
[2023-12-15] MEDS: SPIRONOLACTONE 25 MG TAB PO SCH (12:41)
[2023-12-15] MEDS: DAKINS QUARTER STR 0.125% (NaHypochlorite) 473 ML TOPICAL SOL TOP SCH (21:31)
[2023-12-16 01:00] VITALS: BP 97/60; PULSE 74; RESP 18; TEMP 97.3; O2SAT 99
[2023-12-16 05:00] VITALS: BP 100/64; PULSE 76; RESP 18; TEMP 96.5; O2SAT 96
[2023-12-16 08:10] VITALS: BP 105/69; PULSE 88; RESP 19; TEMP 97.8; O2SAT 96
[2023-12-16] MEDS ORDERED: AZIT500T66 PO (09:49)
[2023-12-16] MEDS ORDERED: PRED20TA2 PO (09:49)
[2023-12-16] MEDS ORDERED: ALBUAER3 IN (09:49)
[2023-12-16 11:16] VITALS: PULSE 94; RESP 16; O2SAT 96
[2023-12-16 11:21] VITALS: PULSE 92; RESP 16; O2SAT 100
[2023-12-16 11:59] VITALS: BP 105/69; TEMP 36.6
== END 2023-12-16 13:14 | disposition home or self-care (01) | DRG 194 ==
LOC: ER 07:34 → OVERFLOW 11:29 → EAST 17:32
PROVIDERS: ADMIT Nurse Practitioner Family; ATTEND Family Medicine
DX: I11.0 Hypertensive heart disease with heart failure (principal); J96.20 Acute and chronic respiratory failure, unspecified whether with hypoxia or hypercapnia; E87.20 Acidosis, unspecified; J44.1 Chronic obstructive pulmonary disease with (acute) exacerbation; E44.0 Moderate protein-calorie malnutrition; J45.901 Unspecified asthma with (acute) exacerbation; I50.43 Acute on chronic combined systolic (congestive) and diastolic (congestive) heart failure; E11.21 Type 2 diabetes mellitus with diabetic nephropathy; E11.40 Type 2 diabetes mellitus with diabetic neuropathy, unspecified; F17.210 Nicotine dependence, cigarettes, uncomplicated; Z83.3 Family history of diabetes mellitus; Z82.49 Family history of ischemic heart disease and other diseases of the circulatory system; Z91.199 Patient's noncompliance with other medical treatment and regimen due to unspecified reason; Z68.32 Body mass index [BMI] 32.0-32.9, adult; Z79.899 Other long term (current) drug therapy; Z79.4 Long term (current) use of insulin
CPT/HCPCS: 36415; 80053; 82962; 85025; 94640; 96365; 96366; 96375; G0378; J1815

== ENCOUNTER 2023-12-27 11:57 | Emergency (ER) | payer MEDICAID ==
[~2023-12-27] VITALS: Ht 182.9 cm; Wt 109.8 kg
[~2023-12-27 11:57] MED LIST changes: +ALBUAER3 IN; +AZIT500T66 PO; -AZITTAB PO; -BUDE1AER5 INH; -ERGO1CAP12 PO; -FLUT1AER3 IN; -FUR20T PO; +FURO40TA4 PO; -GLIP5TAB21 PO; -IPR002IS NEB; -IPRA0.00 IN; +IRBE300T43 PO
[2023-12-27 13:17] LABS: Basophils # (auto) 0 10 ^3/uL (0-0.2); Basophils % (auto) 0.5 % (0.0-2.0); Eosinophils # (auto) 0 10 ^3/uL (0-0.8); Hematocrit 45.1 % (41.0-53.0); Hemoglobin 14.9 g/dL (13.5-17.5); Lymphocytes # (auto) 0.5 10 ^3/uL (0.4-5.4); Lymphocytes % (auto) 4.9 % (10.0-50.0); Mean Corpuscular Hemoglobin 31.7 pg (28.0-32.0); Mean Corpuscular Hgb Conc. 33.1 g/dL (32.0-36.0); Mean Corpuscular Volume 95.7 fL (80.0-100.0); Monocytes # (auto) 0.5 10 ^3/uL (0-1.3); Monocytes % (auto) 4.7 % (0.0-12.0); Neutrophils # (auto) 8.8 10 ^3/uL (1.6-8.6); Neutrophils % (auto) 89.9 % (37.0-80.0); Nucleated Red Blood Cells % 0.2 %; Red Blood Cells 4.71 10^6/uL (4.5-5.90); Red Cell Distribution Width 14.7 % (11.8-14.3); White Blood Cell 9.8 10^3/uL (4.4-10.8)
[2023-12-27 13:25] LABS: Alanine Aminotransferase 64 U/L (7-40); Alkaline Phosphatase 80 U/L (46-116); Anion Gap 6 (5-15); Aspartate Aminotransferase 65 U/L (13-40); Blood Urea Nitrogen 18 mg/dL (9-23); Calcium 9.6 mg/dL (8.5-10.1); Carbon Dioxide 29 mmol/L (20-30); Chloride 101 mmol/L (98-107); Glucose 189 mg/dL (74-106); Potassium 4.1 mmol/L (3.5-5.1); Sodium 136 mmol/L (136-145)
[2023-12-27 13:26] LABS: Albumin 4.2 g/dL (3.2-4.8); Bilirubin, Total 0.9 mg/dL (0.2-1.0); Total Protein 6.6 g/dL (5.7-8.2)
[2023-12-27] MEDS: IPRATROPIUM BROM 0.5 MG/2.5ML INH SOL NEB ONE ×2 (15:14→18:14)
[2023-12-27] MEDS: ALBUTEROL SULF 2.5 MG/0.5ML(0.5%) NEB SOLN NEB ONE ×2 (15:14→18:14)
[2023-12-27] MEDS: methylPREDNISolone SOD SUCC 125 MG/2 ML VL IV ONE (16:23)
[2023-12-27] MEDS: FUROSEMIDE 40 MG/4 ML VIAL IV ONE (16:31)
[2023-12-27 16:33] VITALS: BP 114/76; PULSE 103; TEMP 98.5
[2023-12-27] MEDS ORDERED: ALBU108A5 IN (17:35)
[2023-12-27 18:14] VITALS: RESP 20; O2SAT 94
== END 2023-12-27 20:03 | disposition home or self-care (01) ==
LOC: ER 11:57
DX: J45.901 Unspecified asthma with (acute) exacerbation (principal); I50.9 Heart failure, unspecified; E11.9 Type 2 diabetes mellitus without complications; Z98.890 Other specified postprocedural states; Z79.899 Other long term (current) drug therapy
CPT/HCPCS: 36415; 71045; 80053; 83735; 83880; 84484; 85025; 85379; 93005; 94640; 96374; 96375; 99285; J1940; J2919; J7644

== ENCOUNTER 2024-01-03 09:29 | Inpatient (IN) | payer MEDICAID ==
[~2024-01-03] VITALS: Ht 182.9 cm; Wt 114.5 kg
[2024-01-03] VITALS (9 sets, daily range): BP systolic 136; BP diastolic 92; PULSE 106–124; RESP 18–24; TEMP 98.7; O2SAT 96–100
[~2024-01-03 09:29] MED LIST changes: +ALBU108A5 IN
[2024-01-03] MEDS: IPRATROPIUM BROM 0.5 MG/2.5ML INH SOL HHN ONE (11:51)
[2024-01-03] MEDS: ALBUTEROL SULF 2.5 MG/0.5ML(0.5%) NEB SOLN HHN ONE (11:51)
[2024-01-03 12:13] LABS: Basophils # (auto) 0 10 ^3/uL (0-0.2); Basophils % (auto) 0.1 % (0.0-2.0); Eosinophils # (auto) 0 10 ^3/uL (0-0.8); Hematocrit 44.6 % (41.0-53.0); Hemoglobin 14.7 g/dL (13.5-17.5); Lymphocytes # (auto) 0.5 10 ^3/uL (0.4-5.4); Lymphocytes % (auto) 7.9 % (10.0-50.0); Mean Corpuscular Hemoglobin 32.2 pg (28.0-32.0); Mean Corpuscular Volume 97.6 fL (80.0-100.0); Monocytes # (auto) 0.3 10 ^3/uL (0-1.3); Monocytes % (auto) 3.7 % (0.0-12.0); Neutrophils # (auto) 6.1 10 ^3/uL (1.6-8.6); Neutrophils % (auto) 88.3 % (37.0-80.0); Nucleated Red Blood Cells % 0.1 %; Red Blood Cells 4.57 10^6/uL (4.5-5.90); Red Cell Distribution Width 14.9 % (11.8-14.3); White Blood Cell 6.9 10^3/uL (4.4-10.8)
[2024-01-03 12:27] LABS: Chloride 104 mmol/L (98-107); Potassium 4.5 mmol/L (3.5-5.1); Sodium 140 mmol/L (136-145)
[2024-01-03 12:28] LABS: Anion Gap 11 (5-15); Calcium 9.5 mg/dL (8.5-10.1); Carbon Dioxide 25 mmol/L (20-30)
[2024-01-03 12:33] LABS: BUN/Creatinine Ratio 12.5 (10.0-20.0); Blood Urea Nitrogen 17 mg/dL (9-23)
[2024-01-03 12:35] LABS: Glucose 388 mg/dL (74-106)
[2024-01-03] MEDS: FUROSEMIDE 40 MG/4 ML VIAL IV ONE (13:08)
[2024-01-03] MEDS: methylPREDNISolone SOD SUCC 125 MG/2 ML VL IV ONE (13:32)
[2024-01-03] MEDS ORDERED: ONDANSETRON HCL 4 MG/2 ML VIAL IV PRN (14:00)
[2024-01-03] MEDS ORDERED: HYDROcodone-ACET 5/325MG TAB PO PRN (14:00)
[2024-01-03] MEDS ORDERED: ACETAMINOPHEN 325 MG TAB PO PRN (14:00)
[2024-01-03] MEDS ORDERED: DOCUSATE SOD 100 MG CAP PO PRN (14:00)
[2024-01-03] MEDS ORDERED: DEXTROSE (50%) 50ML SYRG IV PRN (14:00)
[2024-01-03] MEDS: SODIUM CHLOR 0.9% PF (SALINE LOCK) 10ML VIAL/SYR IV SCH (14:31)
[2024-01-03] MEDS: methylPREDNISolone SOD SUCC 40 MG/ML VL IV SCH (14:32)
[2024-01-03] MEDS ORDERED: MORPHINE SULFATE INJ 2 MG/ml SYRG IV PRN (14:45)
[2024-01-03] MEDS: ALBUTEROL SULF 2.5 MG/0.5ML(0.5%) NEB SOLN NEB PRN (15:34)
[2024-01-03] MEDS: IPRATROPIUM BROM 0.5 MG/2.5ML INH SOL NEB PRN (15:35)
[2024-01-03] MEDS: ACCU-CHEK COMFORT CURVE STRIP VI SCH (15:35)
[2024-01-03] MEDS: InsuLIN REG 1unit/0.01ml Soln (100units/ml) SC SCH (15:39)
[2024-01-03] MEDS: NITROGLYCERIN 0.4 MG SL TAB SL PRN (16:55)
[2024-01-03] MEDS: MAGNESIUM SULFATE 1GM/100ML 100 ML IV SCH (16:59)
[2024-01-03] MEDS ORDERED: NITROGLYCERIN 0.4 MG SL TAB SL PRN (17:00)
[2024-01-03] MEDS: ATORVASTATIN 20 MG TAB PO SCH (21:34)
[2024-01-03] MEDS: LORazepam 0.5 MG TAB PO PRN (21:37)
[2024-01-03] MEDS: CARVEDILOL 3.125 MG TAB PO SCH (21:40)
[2024-01-04] VITALS (20 sets, daily range): BP systolic 104–148; BP diastolic 73–97; PULSE 59–105; RESP 18–22; TEMP 97.5–98.3; O2SAT 94–100
[2024-01-04] MEDS ORDERED: ERGO1CAP12 PO (02:07)
[2024-01-04] MEDS ORDERED: GLIP5TAB21 PO (02:07)
[2024-01-04] MEDS ORDERED: LORA-622 PO (02:09)
[2024-01-04] MEDS: ALBUTEROL SULF 2.5 MG/0.5ML(0.5%) NEB SOLN NEB SCH (02:11)
[2024-01-04] MEDS: IPRATROPIUM BROM 0.5 MG/2.5ML INH SOL NEB SCH (02:11)
[2024-01-04 09:06] LABS: Alanine Aminotransferase 83 U/L (7-40); Albumin 4.1 g/dL (3.2-4.8); Alkaline Phosphatase 95 U/L (46-116); Anion Gap 6 (5-15); Aspartate Aminotransferase 64 U/L (13-40); BUN/Creatinine Ratio 21.8 (10.0-20.0); Blood Urea Nitrogen 19 mg/dL (9-23); Calcium 8.9 mg/dL (8.5-10.1); Carbon Dioxide 27 mmol/L (20-30); Chloride 103 mmol/L (98-107); Glucose 95 mg/dL (74-106); Sodium 136 mmol/L (136-145)
[2024-01-04 09:07] LABS: Total Protein 6.8 g/dL (5.7-8.2)
[2024-01-04] MEDS: ASPirin 81 mg TAB PO SCH (09:16)
[2024-01-04] MEDS: FUROSEMIDE 40 MG/4 ML VIAL IV SCH (09:17)
[2024-01-04 10:11] LABS: Basophils # (auto) 0 10 ^3/uL (0-0.2); Basophils % (auto) 0.3 % (0.0-2.0); Eosinophils # (auto) 0 10 ^3/uL (0-0.8); Hematocrit 45.3 % (41.0-53.0); Lymphocytes # (auto) 0.6 10 ^3/uL (0.4-5.4); Mean Corpuscular Hemoglobin 31.8 pg (28.0-32.0); Mean Corpuscular Volume 96.4 fL (80.0-100.0); Monocytes # (auto) 0.4 10 ^3/uL (0-1.3); Monocytes % (auto) 3.6 % (0.0-12.0); Neutrophils # (auto) 10.9 10 ^3/uL (1.6-8.6); Neutrophils % (auto) 91.1 % (37.0-80.0); Nucleated Red Blood Cells % 0.1 %; Red Cell Distribution Width 14.8 % (11.8-14.3); White Blood Cell 11.9 10^3/uL (4.4-10.8)
[2024-01-04] MEDS: methylPREDNISolone SOD SUCC 40 MG/ML VL IV ONE (14:15)
[2024-01-04] MEDS ORDERED: IOHEXOL 350 MG/ML 100ML IJ ONE (14:20)
[2024-01-04] MEDS: ENOXAPARIN SOD 40 MG/0.4 ML SYRINGE SC ONE (17:52)
[2024-01-04] MEDS: AZITHROMYCIN 500MG/ 250ML 250 ML IV ONE (17:52)
[2024-01-04] MEDS ORDERED: levoFLOXacin 750MG 150 ML IV ONE (19:30)
[2024-01-04] MEDS ORDERED: DEXTROSE (50%) 50ML SYRG IV PRN (20:15)
[2024-01-04] MEDS: levoFLOXacin 750MG 150 ML IV SCH (21:03)
[2024-01-04] MEDS: methylPREDNISolone SOD SUCC 40 MG/ML VL IV SCH (21:03)
[2024-01-04] MEDS: INSULIN LANTUS (GLARGINE) 1 /0.01ml (100units/ml) SC ONE (21:10)
[2024-01-04 21:35] LABS: COVID19 ANTIGEN SOFIA FIA NEGATIVE (NEGATIVE); Rapid Influenza A Negative (Negative); Rapid Influenza B Negative (Negative)
[2024-01-04] MEDS: ACCU-CHEK COMFORT CURVE STRIP VI SCH (23:47)
[2024-01-04] MEDS: InsuLIN REG 1unit/0.01ml Soln (100units/ml) SC SCH (23:48)
[2024-01-05] VITALS (19 sets, daily range): BP systolic 105–118; BP diastolic 66–81; PULSE 83–98; RESP 16–21; TEMP 97.6–98.4; O2SAT 93–100
[2024-01-05 07:17] LABS: Basophils # (auto) 0 10 ^3/uL (0-0.2); Basophils % (auto) 0.1 % (0.0-2.0); Eosinophils # (auto) 0 10 ^3/uL (0-0.8); Hematocrit 44.1 % (41.0-53.0); Hemoglobin 14.5 g/dL (13.5-17.5); Lymphocytes # (auto) 0.7 10 ^3/uL (0.4-5.4); Mean Corpuscular Hemoglobin 32.3 pg (28.0-32.0); Mean Corpuscular Hgb Conc. 32.8 g/dL (32.0-36.0); Mean Corpuscular Volume 98.4 fL (80.0-100.0); Monocytes # (auto) 0.6 10 ^3/uL (0-1.3); Monocytes % (auto) 5.8 % (0.0-12.0); Neutrophils # (auto) 8.7 10 ^3/uL (1.6-8.6); Neutrophils % (auto) 87.1 % (37.0-80.0); Nucleated Red Blood Cells % 0.1 %; Red Blood Cells 4.48 10^6/uL (4.5-5.90); Red Cell Distribution Width 14.8 % (11.8-14.3)
[2024-01-05 07:39] LABS: Chloride 102 mmol/L (98-107); Potassium 4.8 mmol/L (3.5-5.1); Sodium 134 mmol/L (136-145)
[2024-01-05 07:40] LABS: Anion Gap 6 (5-15); Calcium 8.9 mg/dL (8.5-10.1); Carbon Dioxide 26 mmol/L (20-30)
[2024-01-05 07:45] LABS: BUN/Creatinine Ratio 26.1 (10.0-20.0); Blood Urea Nitrogen 24 mg/dL (9-23); Glucose 96 mg/dL (74-106)
[2024-01-05] MEDS ORDERED: AZITHROMYCIN 500MG/ 250ML 250 ML IV SCH (10:00)
[2024-01-05] MEDS: ENOXAPARIN SOD 40 MG/0.4 ML SYRINGE SC SCH (10:17)
[2024-01-05] MEDS ORDERED: IRBE75TA30 PO (16:32)
[2024-01-05] MEDS ORDERED: ACET-6 PO (16:38)
[2024-01-05] MEDS ORDERED: BUDE1AER15 INH (16:38)
[2024-01-05] MEDS ORDERED: IPRA0.00 INH (16:38)
[2024-01-05] MEDS ORDERED: [UNRECOGNIZED DRUG - CODE] EACHNOSTRI (16:38)
[2024-01-05] MEDS ORDERED: IPR002IS INH (16:38)
[2024-01-05] MEDS ORDERED: ALBU0.084 NEB (16:38)
[2024-01-05] MEDS: INSULIN LANTUS (GLARGINE) 1 /0.01ml (100units/ml) SC SCH (21:42)
[2024-01-06] VITALS (21 sets, daily range): BP systolic 108–139; BP diastolic 63–90; PULSE 52–101; RESP 16–22; TEMP 97.4–98.6; O2SAT 95–100
[2024-01-06 06:57] LABS: Basophils # (auto) 0 10 ^3/uL (0-0.2); Basophils % (auto) 0.1 % (0.0-2.0); Eosinophils # (auto) 0 10 ^3/uL (0-0.8); Hematocrit 44.5 % (41.0-53.0); Hemoglobin 14.8 g/dL (13.5-17.5); Lymphocytes # (auto) 0.6 10 ^3/uL (0.4-5.4); Lymphocytes % (auto) 6.1 % (10.0-50.0); Mean Corpuscular Hemoglobin 32.6 pg (28.0-32.0); Mean Corpuscular Hgb Conc. 33.2 g/dL (32.0-36.0); Monocytes # (auto) 0.4 10 ^3/uL (0-1.3); Monocytes % (auto) 4.2 % (0.0-12.0); Neutrophils # (auto) 8.4 10 ^3/uL (1.6-8.6); Neutrophils % (auto) 89.6 % (37.0-80.0); Nucleated Red Blood Cells % 0.1 %; Red Blood Cells 4.53 10^6/uL (4.5-5.90); Red Cell Distribution Width 14.5 % (11.8-14.3); White Blood Cell 9.4 10^3/uL (4.4-10.8)
[2024-01-06 07:00] LABS: Chloride 104 mmol/L (98-107); Potassium 4.8 mmol/L (3.5-5.1); Sodium 136 mmol/L (136-145)
[2024-01-06 07:01] LABS: Anion Gap 7 (5-15); Calcium 8.9 mg/dL (8.5-10.1); Carbon Dioxide 25 mmol/L (20-30)
[2024-01-06 07:06] LABS: BUN/Creatinine Ratio 25.8 (10.0-20.0); Blood Urea Nitrogen 23 mg/dL (9-23); Glucose 124 mg/dL (74-106)
[2024-01-07] VITALS (14 sets, daily range): BP systolic 107–138; BP diastolic 65–88; PULSE 78–104; RESP 16–22; TEMP 36.3; O2SAT 96–100
[2024-01-07 06:32] LABS: Basophils # (auto) 0 10 ^3/uL (0-0.2); Basophils % (auto) 0.3 % (0.0-2.0); Eosinophils # (auto) 0 10 ^3/uL (0-0.8); Hematocrit 42.4 % (41.0-53.0); Hemoglobin 14.1 g/dL (13.5-17.5); Lymphocytes # (auto) 0.4 10 ^3/uL (0.4-5.4); Lymphocytes % (auto) 4.9 % (10.0-50.0); Mean Corpuscular Hemoglobin 31.8 pg (28.0-32.0); Mean Corpuscular Hgb Conc. 33.3 g/dL (32.0-36.0); Mean Corpuscular Volume 95.5 fL (80.0-100.0); Monocytes # (auto) 0.3 10 ^3/uL (0-1.3); Monocytes % (auto) 3.8 % (0.0-12.0); Neutrophils # (auto) 7.1 10 ^3/uL (1.6-8.6); Nucleated Red Blood Cells % 0.3 %; Red Blood Cells 4.44 10^6/uL (4.5-5.90); Red Cell Distribution Width 14.3 % (11.8-14.3); White Blood Cell 7.8 10^3/uL (4.4-10.8)
[2024-01-07 06:55] LABS: Anion Gap 6 (5-15); Carbon Dioxide 29 mmol/L (20-30); Chloride 101 mmol/L (98-107); Potassium 4.3 mmol/L (3.5-5.1); Sodium 136 mmol/L (136-145)
[2024-01-07 06:56] LABS: Calcium 8.8 mg/dL (8.5-10.1)
[2024-01-07 07:01] LABS: BUN/Creatinine Ratio 25.5 (10.0-20.0); Blood Urea Nitrogen 25 mg/dL (9-23)
[2024-01-07 07:02] LABS: Glucose 235 mg/dL (74-106)
[2024-01-07] MEDS ORDERED: PRED20TA2 PO (16:02)
[2024-01-07] MEDS ORDERED: LEVO750T40 PO (16:02)
== END 2024-01-07 14:40 | disposition home or self-care (01) | DRG 141 ==
LOC: ER 09:29 → TELE 14:35 → TELE-WESTW 01-04 01:58
PROVIDERS: ADMIT Internal Medicine Pulmonary Disease; ATTEND Internal Medicine Pulmonary Disease
DX: J45.901 Unspecified asthma with (acute) exacerbation (principal); J96.01 Acute respiratory failure with hypoxia; I50.23 Acute on chronic systolic (congestive) heart failure; J44.1 Chronic obstructive pulmonary disease with (acute) exacerbation; I11.0 Hypertensive heart disease with heart failure; E66.01 Morbid (severe) obesity due to excess calories; E11.65 Type 2 diabetes mellitus with hyperglycemia; Z87.891 Personal history of nicotine dependence; Z68.34 Body mass index [BMI] 34.0-34.9, adult; Z79.899 Other long term (current) drug therapy; Z79.4 Long term (current) use of insulin
CPT/HCPCS: 36415; 71045; 71275; 80048; 80053; 82962; 83036; 83880; 84484; 85025; 87081; 87426; 87804; 93005; 93306; 93970; 94640; 94644; 96365; 96375; G0378; J1815; J1956

== ENCOUNTER 2024-03-14 22:35 | Inpatient (IN) | payer MEDICAID ==
[~2024-03-14] VITALS: Ht 182.9 cm; Wt 91.8 kg
[~2024-03-14 22:35] MED LIST changes: +ACET-6 PO; +ALBU0.084 NEB; -ALBU108A5 IN; -ALBUAER3 IN; -AZIT500T66 PO; +BUDE1AER15 INH; +ERGO1CAP12 PO; +GLIP5TAB21 PO; +IPR002IS INH; +IPRA0.00 INH; -IRBE300T43 PO; +IRBE75TA30 PO; +LEVO750T40 PO; +LORA-622 PO
[2024-03-14 23:19] LABS: Eosinophils # (auto) 0.1 10 ^3/uL (0-0.8); Hemoglobin 15.4 g/dL (13.5-17.5); Lymphocytes # (auto) 1.2 10 ^3/uL (0.4-5.4); Monocytes # (auto) 0.2 10 ^3/uL (0-1.3); Monocytes % (auto) 3.1 % (0.0-12.0); Nucleated Red Blood Cells % 0.2 %
[2024-03-14 23:20] LABS: Basophils # (auto) 0 10 ^3/uL (0-0.2); Basophils % (auto) 0.6 % (0.0-2.0); Eosinophils % (auto) 1.2 % (0.0-7.0); Hematocrit 44.6 % (41.0-53.0); Lymphocytes % (auto) 17.7 % (10.0-50.0); Mean Corpuscular Hemoglobin 36.2 pg (28.0-32.0); Mean Corpuscular Hgb Conc. 34.6 g/dL (32.0-36.0); Mean Corpuscular Volume 104.6 fL (80.0-100.0); Neutrophils # (auto) 5.1 10 ^3/uL (1.6-8.6); Neutrophils % (auto) 77.4 % (37.0-80.0); Platelet Count (auto) 164 10^3/uL (140-450); Red Blood Cells 4.26 10^6/uL (4.5-5.90); Red Cell Distribution Width 18.8 % (11.8-14.3); White Blood Cell 6.6 10^3/uL (4.4-10.8)
[2024-03-14 23:32] LABS: INR 1.11 (0.9-1.15); Partial Thromboplastin Time 22.7 SEC (24.5-34.5); Prothrombin Time 11.7 sec (9.3-11.8)
[2024-03-14 23:36] LABS: Alanine Aminotransferase 32 U/L (7-40); Albumin 4.4 g/dL (3.2-4.8); Alkaline Phosphatase 107 U/L (46-116); Anion Gap 8 (5-15); Aspartate Aminotransferase 78 U/L (13-40); BUN/Creatinine Ratio 3.2 (10.0-20.0); Bilirubin, Total 1.6 mg/dL (0.2-1.0); Blood Urea Nitrogen 6 mg/dL (9-23); Carbon Dioxide 32 mmol/L (20-30); Chloride 97 mmol/L (98-107); Glucose 204 mg/dL (74-106); Lipase 56 U/L (12-53); Potassium 3.8 mmol/L (3.5-5.1); Sodium 137 mmol/L (136-145)
[2024-03-14 23:41] LABS: Calcium 14.4 mg/dL (8.7-10.4)
[2024-03-14] MEDS: methylPREDNISolone SOD SUCC 125 MG/2 ML VL IV ONE (23:59)
[2024-03-15] VITALS (11 sets, daily range): BP systolic 124; BP diastolic 75; PULSE 113–141; RESP 18–29; O2SAT 90–100
[2024-03-15] MEDS: metroNIDAZOLE 500MG/100ML 100 ML IV ONE
[2024-03-15] MEDS: VANCOMYCIN 1GM/200ML 200 ML IV ONE (00:15)
[2024-03-15] MEDS: POLYETHYLENE GLYCOL 17 GM PWDR PO ONE (00:45)
[2024-03-15] MEDS: SODIUM CHLORIDE 0.9% 1,000 ML IV ONE ×2 (00:45→02:39)
[2024-03-15] MEDS: MORPHINE SULFATE 4 MG/ML SYR/VIAL IV ONE ×2 (01:20→10:45)
[2024-03-15] MEDS: ONDANSETRON HCL 4 MG/2 ML VIAL IV ONE (01:21)
[2024-03-15] MEDS: FUROSEMIDE 40 MG/4 ML VIAL IV ONE (01:21)
[2024-03-15] MEDS: CALCITONIN 400unit/2ml Vial (200unit/ml) SC ONE (01:21)
[2024-03-15] MEDS: METOPROLOL TARTRATE 1MG/1ML-5ML VIAL IV ONE (02:39)
[2024-03-15] MEDS ORDERED: VANCOMYCIN PER PHARMACY 0 MG IV SCH (09:30)
[2024-03-15] MEDS ORDERED: DOCUSATE SOD 100 MG CAP PO PRN (10:30)
[2024-03-15] MEDS ORDERED: NITROGLYCERIN 0.4 MG SL TAB SL PRN (10:30)
[2024-03-15] MEDS ORDERED: SODIUM CHLORIDE 0.9% 1,000 ML IV SCH (10:30)
[2024-03-15] MEDS ORDERED: DEXTROSE (50%) 50ML SYRG IV PRN (10:30)
[2024-03-15] MEDS: PANTOPRAZOLE 40 MG/10 ML VIAL INJ IV ONE ×2 (10:45→12:37)
[2024-03-15] MEDS ORDERED: MORPHINE SULFATE INJ 2 MG/ml SYRG IV PRN (10:45)
[2024-03-15] MEDS: LEVALBUTEROL HCL 1.25 MG/3 ML NEB NEB ONE (11:18)
[2024-03-15] MEDS: IPRATROPIUM BROM 0.5 MG/2.5ML INH SOL NEB ONE (11:18)
[2024-03-15 11:44] LABS: Urine Bacteria None Seen /hpf (None Seen)
[2024-03-15 12:00] LABS: Blood Alcohol < 3.0 mg/dL (<10); Magnesium 2.1 mg/dL (1.6-2.6)
[2024-03-15 12:01] LABS: Phosphorus 8.7 mg/dL (2.4-5.1)
[2024-03-15 12:04] LABS: Calcium 15.3 mg/dL (8.7-10.4); Lactic Acid w/Reflex 3.5 mmol/L (0.4-2.0)
[2024-03-15 12:29] LABS: Urine Blood 1+ /uL (Negative); Urine Clarity Clear (Clear); Urine Color Yellow (Yellow); Urine Hyaline Cast MANY /lpf (0 - 2); Urine Mucus FEW (None Seen); Urine Protein, UAD 1+ (Negative); Urine Specific Gravity 1.025 (1.001-1.035); Urine Urobilinogen Normal (Negative); Urine WBC 2 /hpf (0 - 3)
[2024-03-15] MEDS ORDERED: PIPERACILLIN-TAZOB 3.375GM 100 ML IV ONE (12:30)
[2024-03-15] MEDS: VANCOMYCIN 1GM/200ML 200 ML IV SCH (12:37)
[2024-03-15] MEDS: ACCU-CHEK COMFORT CURVE STRIP VI SCH (12:38)
[2024-03-15] MEDS: InsuLIN REG 1unit/0.01ml Soln (100units/ml) SC SCH (12:39)
[2024-03-15] MEDS: SODIUM CHLORIDE 0.9% 1,000 ML IV SCH ×2 (12:43→18:05)
[2024-03-15] MEDS: IPRATROPIUM BROM 0.5 MG/2.5ML INH SOL NEB SCH (14:22)
[2024-03-15] MEDS: LEVALBUTEROL HCL 1.25 MG/3 ML NEB NEB SCH (14:22)
[2024-03-15] MEDS: PAMIDRONATE DISODIUM 90 MG in SOD CHL 0.45% 1,000 ML IV ONE (15:00)
[2024-03-15] MEDS: methylPREDNISolone SOD SUCC 125 MG/2 ML VL IV SCH (15:52)
[2024-03-15] MEDS: CEFEPIME 2GM/50ML NS 50 ML IV SCH (15:53)
[2024-03-15] MEDS ORDERED: PIPERACILLIN-TAZOB 3.375GM 100 ML IV SCH (18:00)
[2024-03-15] MEDS: MORPHINE SULFATE INJ 2 MG/ml SYRG IV PRN (20:01)
[2024-03-15] MEDS: PANTOPRAZOLE 40 MG/10 ML VIAL INJ IV SCH (21:41)
[2024-03-16] VITALS (42 sets, daily range): BP systolic 76–114; BP diastolic 39–66; PULSE 112–163; RESP 15–28; TEMP 98.1–100; O2SAT 92–100
[2024-03-16] MEDS: ONDANSETRON HCL 4 MG/2 ML VIAL IV PRN (00:57)
[2024-03-16 03:30] LABS: Hemoglobin 14.2 g/dL (13.5-17.5); Mean Corpuscular Hemoglobin 36.5 pg (28.0-32.0); Platelet Count (auto) 108 10^3/uL (140-450)
[2024-03-16 03:32] LABS: Hematocrit 41.8 % (41.0-53.0); Mean Corpuscular Volume 107.3 fL (80.0-100.0); Red Blood Cells 3.89 10^6/uL (4.5-5.90); White Blood Cell 6.2 10^3/uL (4.4-10.8)
[2024-03-16 03:35] LABS: Alanine Aminotransferase 56 U/L (7-40); Alkaline Phosphatase 87 U/L (46-116); Carbon Dioxide 29 mmol/L (20-30); Chloride 101 mmol/L (98-107)
[2024-03-16 03:36] LABS: Albumin 3.7 g/dL (3.2-4.8); Anion Gap 7 (5-15); Aspartate Aminotransferase 281 U/L (13-40); BUN/Creatinine Ratio 7.4 (10.0-20.0); Bilirubin, Total 1.7 mg/dL (0.2-1.0); Blood Urea Nitrogen 22 mg/dL (9-23); Glucose 106 mg/dL (74-106); Sodium 137 mmol/L (136-145); Total Protein 6.7 g/dL (5.7-8.2)
[2024-03-16 03:42] LABS: Calcium 13.3 mg/dL (8.7-10.4); Potassium 5.8 mmol/L (3.5-5.1)
[2024-03-16 03:45] LABS: Basophils % (manual) 0 (0.0-2.0); Blast Cells 0; Eosinophils % (manual) 0 (0-7); Metamyelocytes % 0; Myelocytes % 0; Promyelocytes % 0; Reactive Lymphocytes 0
[2024-03-16 03:56] LABS: Band Neutrophils % (manual) 4; Lymphocytes % (manual) 9 (10.0-50.0); Macrocytosis Moderate; Monocytes % (manual) 7 (0-12); Platelet Estimate Decreased
[2024-03-16] MEDS: SODIUM CHLORIDE 0.9% 2,000 ML IV ONE (07:30)
[2024-03-16] MEDS: SODIUM CHLORIDE 0.9% 500 ML IV ONE (08:06)
[2024-03-16] MEDS ORDERED: ROCURONIUM 10MG/ML 10ML VIAL IV ONE (11:25)
[2024-03-16] MEDS ORDERED: ETOMIDATE (2MG/ML) 20ML VIAL IV ONE (11:25)
[2024-03-16] MEDS ORDERED: fentaNYL CITRATE 100 MCG/2 ML VL ONE (13:10)
[2024-03-16] MEDS ORDERED: EPINEPHrine HCL 1 MG/1 ML AMP ONE (13:14)
[2024-03-16] MEDS: fentaNYL Drip 2500mCg/250mlNS 250 ML IV SCH (15:30)
[2024-03-16] MEDS: MIDAZOLAM DRIP 50 mg/50mL 50 ML IV SCH (15:30)
[2024-03-16] MEDS: NOREPINEPHRINE 8 MG/250ML KIT 250 ML IV SCH (15:54)
[2024-03-16] MEDS: SODIUM CHLORIDE 0.9% 1,000 ML IV SCH (16:00)
[2024-03-16] MEDS ORDERED: CALCIUM GLUC 1,000mg/50ml-NS 50 ML IV ONE (16:00)
[2024-03-16] MEDS: ceFAZolin 2 GM/D5W100ml 100 ML IV ONE (16:10)
[2024-03-16] MEDS: NOREPINEPHRINE 8 MG/250ML KIT 250 ML IV ONE ×2 (16:12→16:17)
[2024-03-16] MEDS: ONDANSETRON HCL 4 MG/2 ML VIAL ONE (16:18)
[2024-03-16 16:56] LABS: Base Excess -3.9 mmol/L (-2.0-3.0)
[2024-03-16 17:06] LABS: Alanine Aminotransferase 53 U/L (7-40); Alkaline Phosphatase 78 U/L (46-116); Anion Gap 5 (5-15); Aspartate Aminotransferase 249 U/L (13-40); BUN/Creatinine Ratio 10.6 (10.0-20.0); Blood Urea Nitrogen 29 mg/dL (9-23); Calcium 10.1 mg/dL (8.7-10.4); Carbon Dioxide 26 mmol/L (20-30); Chloride 107 mmol/L (98-107); Glucose 155 mg/dL (74-106); Magnesium 1.8 mg/dL (1.6-2.6); Sodium 138 mmol/L (136-145)
[2024-03-16 17:07] LABS: Albumin 3.2 g/dL (3.2-4.8); Bilirubin, Total 1.3 mg/dL (0.2-1.0); Phosphorus 7.3 mg/dL (2.4-5.1)
[2024-03-16 17:08] LABS: Total Protein 5.8 g/dL (5.7-8.2)
[2024-03-16 17:15] LABS: Lactic Acid w/Reflex 2.2 mmol/L (0.4-2.0); Potassium 6.2 mmol/L (3.5-5.1)
[2024-03-16] MEDS: ALBUTEROL SULF 2.5 MG/0.5ML(0.5%) NEB SOLN ONE (17:46)
[2024-03-16] MEDS: ALBUTEROL SULF 2.5 MG/0.5ML(0.5%) NEB SOLN NEB ONE (17:57)
[2024-03-16] MEDS: FUROSEMIDE 40 MG/4 ML VIAL IV ONE ×2 (18:01→18:05)
[2024-03-16] MEDS: SODIUM BICARB 8.4% 50Meq/50ml SYR INJ IV ONE (18:04)
[2024-03-16] MEDS: metroNIDAZOLE 500MG/100ML 100 ML IV ONE (18:04)
[2024-03-16] MEDS: DEXTROSE (50%) 50ML SYRG IV ONE ×2 (18:06)
[2024-03-16] MEDS: InsuLIN REG 1unit/0.01ml Soln (100units/ml) IV ONE ×2 (18:07→18:08)
[2024-03-16] MEDS: POVIDONE IODINE 10 % TOPICAL OINT 30GM TOP ONE (18:09)
[2024-03-16 19:12] LABS: Base Excess 11.5 mmol/L (-2.0-3.0)
[2024-03-16] MEDS: CEFEPIME 2GM/50ML NS 50 ML IV SCH (20:00)
[2024-03-16 20:44] LABS: Base Excess -1.2 mmol/L (-2.0-3.0)
[2024-03-16] MEDS: PHENYLEPHRINE IV 250 ML IV SCH (21:45)
[2024-03-16 22:12] LABS: Hemoglobin 12.3 g/dL (13.5-17.5)
[2024-03-16 22:14] LABS: Mean Corpuscular Hemoglobin 35.7 pg (28.0-32.0); Mean Corpuscular Hgb Conc. 33.3 g/dL (32.0-36.0); Mean Corpuscular Volume 107.3 fL (80.0-100.0); Platelet Count (auto) 126 10^3/uL (140-450); Red Blood Cells 3.45 10^6/uL (4.5-5.90); White Blood Cell 8.1 10^3/uL (4.4-10.8)
[2024-03-16 22:21] LABS: Chloride 109 mmol/L (98-107); Potassium 5.1 mmol/L (3.5-5.1); Sodium 140 mmol/L (136-145)
[2024-03-16 22:22] LABS: Anion Gap 4 (5-15); Calcium 9.4 mg/dL (8.7-10.4); Carbon Dioxide 27 mmol/L (20-30)
[2024-03-16 22:27] LABS: BUN/Creatinine Ratio 12.3 (10.0-20.0); Blood Urea Nitrogen 30 mg/dL (9-23); Glucose 131 mg/dL (74-106); Magnesium 1.8 mg/dL (1.6-2.6)
[2024-03-16] MEDS: VANCOMYCIN 1GM/200ML 200 ML IV SCH (22:27)
[2024-03-16] MEDS: metroNIDAZOLE 500MG/100ML 100 ML IV SCH (22:28)
[2024-03-16 22:29] LABS: Basophils % (manual) 0 (0.0-2.0); Blast Cells 0; Metamyelocytes % 0; Myelocytes % 0; Promyelocytes % 0; Reactive Lymphocytes 0
[2024-03-16 22:45] LABS: Band Neutrophils % (manual) 20; Lymphocytes % (manual) 2 (10.0-50.0)
[2024-03-16 22:46] LABS: Eosinophils % (manual) 0 (0-7); Macrocytosis Moderate; Monocytes % (manual) 12 (0-12); Platelet Estimate Decreased
[2024-03-17] VITALS (108 sets, daily range): BP systolic 74–135; BP diastolic 38–122; PULSE 86–152; RESP 22–25; TEMP 91–102.7; O2SAT 92–100
[2024-03-17] MEDS: ACETAMINOPHEN 650 MG RECT SUPP PR PRN (00:15)
[2024-03-17 01:53] LABS: Urine Bacteria None Seen /hpf (None Seen)
[2024-03-17 02:05] LABS: Urine Amorphous Crystal FEW /hpf (None Seen); Urine Blood 3+ /uL (Negative); Urine Clarity Turbid (Clear); Urine Color Yellow (Yellow); Urine Hyaline Cast FEW /lpf (0 - 2); Urine Protein, UAD 1+ (Negative); Urine Specific Gravity 1.018 (1.001-1.035); Urine Urobilinogen Normal (Negative); Urine WBC 4 /hpf (0 - 3)
[2024-03-17 02:10] LABS: Protein, Urine 128.7 mg/dL (0.0-11.9)
[2024-03-17 02:12] LABS: Creatinine, Urine 87.39 mg/dL (30.0-125.0); Urine Protein/Creatinine Ratio 1.47
[2024-03-17 02:13] LABS: Creatinine, Urine 86.18 mg/dL (30.0-125.0)
[2024-03-17 05:17] LABS: Eosinophils # (auto) 0 10 ^3/uL (0-0.8); Lymphocytes # (auto) 0.2 10 ^3/uL (0.4-5.4); Mean Corpuscular Hgb Conc. 33.4 g/dL (32.0-36.0); Monocytes # (auto) 0.6 10 ^3/uL (0-1.3); White Blood Cell 8.2 10^3/uL (4.4-10.8)
[2024-03-17 05:20] LABS: Basophils # (auto) 0.1 10 ^3/uL (0-0.2); Basophils % (auto) 0.9 % (0.0-2.0); Hematocrit 35.1 % (41.0-53.0); Hemoglobin 11.7 g/dL (13.5-17.5); Lymphocytes % (auto) 2.6 % (10.0-50.0); Mean Corpuscular Volume 107.9 fL (80.0-100.0); Neutrophils # (auto) 7.3 10 ^3/uL (1.6-8.6); Neutrophils % (auto) 89.5 % (37.0-80.0); Platelet Count (auto) 115 10^3/uL (140-450); Red Blood Cells 3.25 10^6/uL (4.5-5.90); Red Cell Distribution Width 19.3 % (11.8-14.3)
[2024-03-17 05:33] LABS: INR 1.18 (0.9-1.15); Partial Thromboplastin Time 29.1 SEC (24.5-34.5); Prothrombin Time 12.4 sec (9.3-11.8)
[2024-03-17 05:39] LABS: Alanine Aminotransferase 37 U/L (7-40); Alkaline Phosphatase 59 U/L (46-116); Anion Gap 6 (5-15); Aspartate Aminotransferase 170 U/L (13-40); BUN/Creatinine Ratio 13.7 (10.0-20.0); Bilirubin, Total 1.1 mg/dL (0.2-1.0); Blood Urea Nitrogen 28 mg/dL (9-23); Calcium 8.7 mg/dL (8.7-10.4); Carbon Dioxide 24 mmol/L (20-30); Chloride 109 mmol/L (98-107); Glucose 195 mg/dL (74-106); Magnesium 1.8 mg/dL (1.6-2.6); Phosphorus 3.8 mg/dL (2.4-5.1); Potassium 4.9 mmol/L (3.5-5.1); Sodium 139 mmol/L (136-145); Total Protein 5.4 g/dL (5.7-8.2)
[2024-03-17 07:21] LABS: Base Excess -3.5 mmol/L (-2.0-3.0)
[2024-03-17 08:16] LABS: Amphetamine Screen, Urine Neg (NEGATIVE); Barbiturate Scree,Urine Neg (NEGATIVE); Benzodiazephine Screen, Urine Pos (NEGATIVE); Cannabinoid Screen, Urine Neg (NEGATIVE); Cocaine Screen, Urine Neg (NEGATIVE); Opiate Scree,Urine Neg (NEGATIVE); Phencyclidine Screen, Urine Neg (NEGATIVE)
[2024-03-17 08:16] LABS: Triglycerides 185 mg/dL (< 150)
[2024-03-17 08:17] LABS: LDL Cholesterol 20 mg/dL (< 100)
[2024-03-17 08:18] LABS: Cholesterol 98 mg/dL (< 200); HDL Cholesterol 32 mg/dL (40-59)
[2024-03-17] MEDS ORDERED: BUDE1AER5 IN (10:00)
[2024-03-17] MEDS ORDERED: FURO20TA3 PO (10:00)
[2024-03-17] MEDS ORDERED: CLINIMIX PER PHARMACY 0 ML IV SCH (15:45)
[2024-03-17] MEDS: ENOXAPARIN SOD 40 MG/0.4 ML SYRINGE SC ONE (16:31)
[2024-03-17] MEDS: FUROSEMIDE 40 MG/4 ML VIAL IV ONE (16:32)
[2024-03-17] MEDS: cefTRIAXone 1GM/50ML D5W 50 ML IV ONE (16:32)
[2024-03-17] MEDS: AMINO ACID INFUSION IN D10W 1,000 ML IV SCH (19:34)
[2024-03-17] MEDS: methylPREDNISolone SOD SUCC 40 MG/ML VL IV SCH (21:49)
[2024-03-17] MEDS: ENOXAPARIN SOD 120 MG/0.8 ML SYRINGE SC SCH (21:49)
[2024-03-18] VITALS (112 sets, daily range): BP systolic 84–256; BP diastolic 44–231; PULSE 83–107; RESP 18–25; TEMP 98.2–100.2; O2SAT 89–99
[2024-03-18] MEDS: InsuLIN REG 1unit/0.01ml Soln (100units/ml) SC SCH (00:04)
[2024-03-18] MEDS ORDERED: TPN PER PHARMACY 0 ML IV SCH (05:00)
[2024-03-18 05:38] LABS: Basophils # (auto) 0 10 ^3/uL (0-0.2); Eosinophils # (auto) 0 10 ^3/uL (0-0.8); Hemoglobin 10.5 g/dL (13.5-17.5); Monocytes # (auto) 0.9 10 ^3/uL (0-1.3); Neutrophils # (auto) 11.1 10 ^3/uL (1.6-8.6); White Blood Cell 12.3 10^3/uL (4.4-10.8)
[2024-03-18 05:40] LABS: Basophils % (auto) 0.2 % (0.0-2.0); Hematocrit 31.2 % (41.0-53.0); Lymphocytes # (auto) 0.3 10 ^3/uL (0.4-5.4); Lymphocytes % (auto) 2.1 % (10.0-50.0); Mean Corpuscular Hgb Conc. 33.8 g/dL (32.0-36.0); Mean Corpuscular Volume 106.6 fL (80.0-100.0); Monocytes % (auto) 6.9 % (0.0-12.0); Neutrophils % (auto) 90.8 % (37.0-80.0); Nucleated Red Blood Cells % 0.6 %; Platelet Count (auto) 118 10^3/uL (140-450); Red Blood Cells 2.92 10^6/uL (4.5-5.90); Red Cell Distribution Width 19.1 % (11.8-14.3)
[2024-03-18 05:59] LABS: Alanine Aminotransferase 40 U/L (7-40); Alkaline Phosphatase 59 U/L (46-116); Anion Gap 7 (5-15); BUN/Creatinine Ratio 21.8 (10.0-20.0); Blood Urea Nitrogen 24 mg/dL (9-23); Calcium 8.3 mg/dL (8.7-10.4); Carbon Dioxide 25 mmol/L (20-30); Chloride 112 mmol/L (98-107); Glucose 270 mg/dL (74-106); Magnesium 2.1 mg/dL (1.6-2.6); Potassium 3.8 mmol/L (3.5-5.1); Sodium 144 mmol/L (136-145)
[2024-03-18 06:00] LABS: Aspartate Aminotransferase 137 U/L (13-40); Bilirubin, Total 0.7 mg/dL (0.2-1.0); Phosphorus 1.2 mg/dL (2.4-5.1); Total Protein 5.5 g/dL (5.7-8.2)
[2024-03-18] MEDS: cefTRIAXone 1GM/50ML D5W 50 ML IV SCH (07:21)
[2024-03-18] MEDS: FUROSEMIDE 40 MG/4 ML VIAL IV SCH (07:21)
[2024-03-18 08:08] LABS: Base Excess -0.6 mmol/L (-2.0-3.0)
[2024-03-18] MEDS ORDERED: ENOXAPARIN SOD 40 MG/0.4 ML SYRINGE SC SCH (10:00)
[2024-03-18] MEDS ORDERED: CLINIMIX PER PHARMACY 0 ML IV SCH (10:15)
[2024-03-18] MEDS: POTASSIUM PHOSPHATE 22 MEQ in SODIUM CHL 0.9% 100 ML IV ONE (11:26)
[2024-03-18] MEDS: SODIUM PHOSPHATES 20 MEQ in SODIUM CHL 0.9% 100 ML IV ONE (15:00)
[2024-03-18] MEDS: AMINO ACID INFUSION IN D10W 1,000 ML IV SCH (19:57)
[2024-03-18] MEDS: ENOXAPARIN SOD 120 MG/0.8 ML SYRINGE SC SCH (21:27)
[2024-03-18] MEDS: VANCOMYCIN 1GM/200ML 200 ML IV SCH (21:30)
[2024-03-19] VITALS (111 sets, daily range): BP systolic 78–157; BP diastolic 38–108; PULSE 79–118; RESP 15–28; TEMP 89.4–100.2; O2SAT 88–100
[2024-03-19 05:33] LABS: Basophils # (auto) 0 10 ^3/uL (0-0.2); Eosinophils # (auto) 0 10 ^3/uL (0-0.8); Hemoglobin 9.7 g/dL (13.5-17.5); Lymphocytes # (auto) 0.2 10 ^3/uL (0.4-5.4); Monocytes # (auto) 0.6 10 ^3/uL (0-1.3)
[2024-03-19 05:35] LABS: Basophils % (auto) 0.3 % (0.0-2.0); Hematocrit 28.7 % (41.0-53.0); Lymphocytes % (auto) 2.2 % (10.0-50.0); Mean Corpuscular Hgb Conc. 33.8 g/dL (32.0-36.0); Mean Corpuscular Volume 106.5 fL (80.0-100.0); Monocytes % (auto) 6.7 % (0.0-12.0); Neutrophils # (auto) 8.1 10 ^3/uL (1.6-8.6); Neutrophils % (auto) 90.8 % (37.0-80.0); Nucleated Red Blood Cells % 0.7 %; Platelet Count (auto) 129 10^3/uL (140-450); Red Cell Distribution Width 19.4 % (11.8-14.3); White Blood Cell 8.9 10^3/uL (4.4-10.8)
[2024-03-19 05:52] LABS: Alanine Aminotransferase 33 U/L (7-40); Alkaline Phosphatase 50 U/L (46-116); Anion Gap 6 (5-15); Aspartate Aminotransferase 63 U/L (13-40); BUN/Creatinine Ratio 29.2 (10.0-20.0); Bilirubin, Total 0.7 mg/dL (0.2-1.0); Blood Urea Nitrogen 26 mg/dL (9-23); Calcium 7.8 mg/dL (8.7-10.4); Carbon Dioxide 28 mmol/L (20-30); Chloride 112 mmol/L (98-107); Glucose 271 mg/dL (74-106); Magnesium 2.1 mg/dL (1.6-2.6); Phosphorus 0.8 mg/dL (2.4-5.1); Potassium 3.9 mmol/L (3.5-5.1); Sodium 146 mmol/L (136-145); Total Protein 5.4 g/dL (5.7-8.2)
[2024-03-19] MEDS ORDERED: DEXTROSE (50%) 50ML SYRG IV PRN (08:15)
[2024-03-19] MEDS: methylPREDNISolone SOD SUCC 40 MG/ML VL IV SCH (08:36)
[2024-03-19 08:42] LABS: Base Excess -2.6 mmol/L (-2.0-3.0)
[2024-03-19] MEDS: POTASSIUM PHOSPHATE 26.4 MEQ in SODIUM CHL 0.9% 100 ML IV ONE (08:51)
[2024-03-19] MEDS: D5W 5% 1,000 ML IV SCH (08:51)
[2024-03-19] MEDS: InsuLIN REG 1unit/0.01ml Soln (100units/ml) SC SCH ×2 (10:55→16:37)
[2024-03-19] MEDS: ACCU-CHEK COMFORT CURVE STRIP VI SCH ×2 (10:55→16:34)
[2024-03-19] MEDS ORDERED: DEXTROSE (50%) 50ML SYRG IV SCH (15:30)
[2024-03-20] VITALS (108 sets, daily range): BP systolic 76–138; BP diastolic 47–100; PULSE 81–132; RESP 8–33; TEMP 60.8–100.2; O2SAT 68–100
[2024-03-20 06:38] LABS: Alanine Aminotransferase 26 U/L (7-40); Albumin 3.1 g/dL (3.2-4.8); Alkaline Phosphatase 56 U/L (46-116); Anion Gap 4 (5-15); Aspartate Aminotransferase 40 U/L (13-40); BUN/Creatinine Ratio 37.2 (10.0-20.0); Bilirubin, Total 0.6 mg/dL (0.2-1.0); Blood Urea Nitrogen 29 mg/dL (9-23); Calcium 7.4 mg/dL (8.7-10.4); Carbon Dioxide 28 mmol/L (20-30); Chloride 111 mmol/L (98-107); Glucose 248 mg/dL (74-106); Magnesium 2.1 mg/dL (1.6-2.6); Phosphorus 0.8 mg/dL (2.4-5.1); Potassium 4.1 mmol/L (3.5-5.1); Sodium 143 mmol/L (136-145)
[2024-03-20 06:39] LABS: Hemoglobin 10.5 g/dL (13.5-17.5); Total Protein 5.5 g/dL (5.7-8.2)
[2024-03-20 06:41] LABS: Hematocrit 30.6 % (41.0-53.0); Mean Corpuscular Hemoglobin 36.4 pg (28.0-32.0); Mean Corpuscular Hgb Conc. 34.1 g/dL (32.0-36.0); Mean Corpuscular Volume 106.8 fL (80.0-100.0); Platelet Count (auto) 171 10^3/uL (140-450); Red Blood Cells 2.87 10^6/uL (4.5-5.90); Red Cell Distribution Width 19.2 % (11.8-14.3); White Blood Cell 10.8 10^3/uL (4.4-10.8)
[2024-03-20 06:54] LABS: Base Excess 1.2 mmol/L (-2.0-3.0)
[2024-03-20 06:57] LABS: Basophils % (manual) 0 (0.0-2.0); Blast Cells 0; Eosinophils % (manual) 0 (0-7); Metamyelocytes % 0; Myelocytes % 0; Promyelocytes % 0; Reactive Lymphocytes 0
[2024-03-20 08:58] LABS: Band Neutrophils % (manual) 3; Lymphocytes % (manual) 6 (10.0-50.0); Monocytes % (manual) 7 (0-12)
[2024-03-20 08:59] LABS: Anisocytosis Slight; Macrocytosis Moderate; Platelet Estimate Adequate; Polychromasia Slight; Tear Drop Cells FR
[2024-03-20] MEDS ORDERED: POTASSIUM PHOSPHATE 26.4 MEQ in SODIUM CHL 0.9% 100 ML IV ONE (09:30)
[2024-03-20] MEDS: CEFEPIME 2GM/50ML NS 50 ML IV SCH (14:19)
[2024-03-20] MEDS: FUROSEMIDE 40 MG/4 ML VIAL IV SCH (21:37)
[2024-03-21] VITALS (93 sets, daily range): BP systolic 79–143; BP diastolic 37–96; PULSE 79–117; RESP 7–39; TEMP 98.1–101.5; O2SAT 71–100
[2024-03-21 06:36] LABS: Alanine Aminotransferase 22 U/L (7-40); Albumin 3.1 g/dL (3.2-4.8); Alkaline Phosphatase 59 U/L (46-116); Anion Gap 8 (5-15); Aspartate Aminotransferase 30 U/L (13-40); BUN/Creatinine Ratio 35.5 (10.0-20.0); Blood Urea Nitrogen 22 mg/dL (9-23); Calcium 7.2 mg/dL (8.7-10.4); Carbon Dioxide 28 mmol/L (20-30); Chloride 109 mmol/L (98-107); Glucose 157 mg/dL (74-106); Potassium 3.5 mmol/L (3.5-5.1); Sodium 145 mmol/L (136-145)
[2024-03-21 06:37] LABS: Bilirubin, Total 0.6 mg/dL (0.2-1.0); Phosphorus 0.8 mg/dL (2.4-5.1); Total Protein 5.6 g/dL (5.7-8.2)
[2024-03-21 09:16] LABS: Base Excess 2.1 mmol/L (-2.0-3.0)
[2024-03-21] MEDS: POTASSIUM PHOSPHATE 44 MEQ in D5W 5% 250 ML IV ONE (11:06)
[2024-03-21] MEDS: NICOTINE 21MG/24 HR TOPICAL PATCH TD SCH (11:54)
[2024-03-21] MEDS: CALCIUM GLUC 1,000mg/50ml-NS 50 ML IV ONE (13:00)
[2024-03-21] MEDS ORDERED: VANCOMYCIN 1GM/200ML 200 ML IV SCH (22:00)
[2024-03-21] MEDS: VANCOMYCIN 1GM/200ML 200 ML IV SCH (22:33)
[2024-03-22] VITALS (105 sets, daily range): BP systolic 76–144; BP diastolic 33–79; PULSE 73–92; RESP 13–32; TEMP 97.9–100.8; O2SAT 95–100
[2024-03-22] MEDS: PROPOFOL 100 ML IV ONE (01:24)
[2024-03-22] MEDS: ROCURONIUM 10MG/ML 10ML VIAL IV ONE (01:24)
[2024-03-22] MEDS: MIDAZOLAM DRIP 50 mg/50mL 50 ML IV ONE (01:24)
[2024-03-22 06:24] LABS: Alanine Aminotransferase 16 U/L (7-40); Albumin 2.9 g/dL (3.2-4.8); Alkaline Phosphatase 60 U/L (46-116); Anion Gap 6 (5-15); Aspartate Aminotransferase 21 U/L (13-40); BUN/Creatinine Ratio 38.9 (10.0-20.0); Blood Urea Nitrogen 21 mg/dL (9-23); Calcium 6.7 mg/dL (8.7-10.4); Carbon Dioxide 29 mmol/L (20-30); Chloride 109 mmol/L (98-107); Glucose 222 mg/dL (74-106); Magnesium 1.9 mg/dL (1.6-2.6); Potassium 3.8 mmol/L (3.5-5.1); Sodium 144 mmol/L (136-145)
[2024-03-22 06:25] LABS: Bilirubin, Total 0.5 mg/dL (0.2-1.0); Phosphorus 1.4 mg/dL (2.4-5.1); Total Protein 5.3 g/dL (5.7-8.2)
[2024-03-22 06:51] LABS: Base Excess 3.5 mmol/L (-2.0-3.0)
[2024-03-22 06:54] LABS: Basophils # (auto) 0 10 ^3/uL (0-0.2); Basophils % (auto) 0.2 % (0.0-2.0); Eosinophils # (auto) 0 10 ^3/uL (0-0.8); Eosinophils % (auto) 0.1 % (0.0-7.0); Hematocrit 27.8 % (41.0-53.0); Hemoglobin 9.1 g/dL (13.5-17.5); Lymphocytes # (auto) 0.8 10 ^3/uL (0.4-5.4); Lymphocytes % (auto) 5.7 % (10.0-50.0); Mean Corpuscular Hemoglobin 34.8 pg (28.0-32.0); Mean Corpuscular Hgb Conc. 32.8 g/dL (32.0-36.0); Monocytes # (auto) 0.5 10 ^3/uL (0-1.3); Monocytes % (auto) 3.6 % (0.0-12.0); Neutrophils # (auto) 12.7 10 ^3/uL (1.6-8.6); Neutrophils % (auto) 90.4 % (37.0-80.0); Nucleated Red Blood Cells % 0.4 %; Platelet Count (auto) 254 10^3/uL (140-450); Red Blood Cells 2.62 10^6/uL (4.5-5.90); Red Cell Distribution Width 19.2 % (11.8-14.3)
[2024-03-22] MEDS: PROPOFOL 100 ML IV SCH (09:00)
[2024-03-22] MEDS: CALCIUM GLUC 1,000mg/50ml-NS 50 ML IV ONE (12:00)
[2024-03-22] MEDS: POTASSIUM PHOSPHATE 22 MEQ in SODIUM CHL 0.9% 100 ML IV SCH (12:00)
[2024-03-23] VITALS (109 sets, daily range): BP systolic 89–173; BP diastolic 36–153; PULSE 74–127; RESP 10–31; TEMP 97.7–100.4; O2SAT 96–100
[2024-03-23 04:18] LABS: Basophils # (auto) 0 10 ^3/uL (0-0.2); Basophils % (auto) 0.1 % (0.0-2.0); Eosinophils # (auto) 0 10 ^3/uL (0-0.8); Hematocrit 26.7 % (41.0-53.0); Hemoglobin 8.9 g/dL (13.5-17.5); Lymphocytes # (auto) 0.7 10 ^3/uL (0.4-5.4); Lymphocytes % (auto) 4.7 % (10.0-50.0); Mean Corpuscular Hemoglobin 35.6 pg (28.0-32.0); Mean Corpuscular Hgb Conc. 33.4 g/dL (32.0-36.0); Mean Corpuscular Volume 106.8 fL (80.0-100.0); Monocytes # (auto) 0.7 10 ^3/uL (0-1.3); Monocytes % (auto) 4.6 % (0.0-12.0); Neutrophils # (auto) 13.4 10 ^3/uL (1.6-8.6); Neutrophils % (auto) 90.6 % (37.0-80.0); Nucleated Red Blood Cells % 0.3 %; Platelet Count (auto) 308 10^3/uL (140-450); Red Cell Distribution Width 18.7 % (11.8-14.3); White Blood Cell 14.8 10^3/uL (4.4-10.8)
[2024-03-23 04:44] LABS: Alanine Aminotransferase 14 U/L (7-40); Albumin 3.1 g/dL (3.2-4.8); Alkaline Phosphatase 60 U/L (46-116); Anion Gap 5 (5-15); Aspartate Aminotransferase 19 U/L (13-40); BUN/Creatinine Ratio 30.5 (10.0-20.0); Bilirubin, Total 0.4 mg/dL (0.2-1.0); Blood Urea Nitrogen 18 mg/dL (9-23); Calcium 6.7 mg/dL (8.7-10.4); Carbon Dioxide 30 mmol/L (20-30); Chloride 110 mmol/L (98-107); Glucose 171 mg/dL (74-106); Magnesium 1.9 mg/dL (1.6-2.6); Phosphorus 1.2 mg/dL (2.4-5.1); Potassium 3.7 mmol/L (3.5-5.1); Sodium 145 mmol/L (136-145); Total Protein 5.5 g/dL (5.7-8.2)
[2024-03-23 07:31] LABS: Base Excess 4.8 mmol/L (-2.0-3.0)
[2024-03-23] MEDS: CALCIUM GLUC 1,000mg/50ml-NS 50 ML IV ONE ×2 (10:19→12:26)
[2024-03-23] MEDS: POTASSIUM PHOSPHATE 22 MEQ in SODIUM CHL 0.9% 100 ML IV ONE ×2 (10:44→14:34)
[2024-03-23] MEDS: VANCOMYCIN 1GM/200ML 200 ML IV SCH (10:47)
[2024-03-24] VITALS (109 sets, daily range): BP systolic 79–150; BP diastolic 37–140; PULSE 69–116; RESP 11–32; TEMP 98.9–99.9; O2SAT 95–100
[2024-03-24 04:37] LABS: Basophils # (auto) 0 10 ^3/uL (0-0.2); Eosinophils # (auto) 0 10 ^3/uL (0-0.8); Mean Corpuscular Hemoglobin 34.9 pg (28.0-32.0); Monocytes # (auto) 0.8 10 ^3/uL (0-1.3); Nucleated Red Blood Cells % 0.3 %
[2024-03-24 04:48] LABS: Basophils % (auto) 0.1 % (0.0-2.0); Eosinophils % (auto) 0.2 % (0.0-7.0); Hematocrit 24.8 % (41.0-53.0); Hemoglobin 8.2 g/dL (13.5-17.5); Lymphocytes # (auto) 1.1 10 ^3/uL (0.4-5.4); Lymphocytes % (auto) 8.6 % (10.0-50.0); Mean Corpuscular Volume 105.8 fL (80.0-100.0); Monocytes % (auto) 6.2 % (0.0-12.0); Neutrophils # (auto) 10.8 10 ^3/uL (1.6-8.6); Neutrophils % (auto) 84.9 % (37.0-80.0); Platelet Count (auto) 335 10^3/uL (140-450); Red Blood Cells 2.34 10^6/uL (4.5-5.90); Red Cell Distribution Width 18.2 % (11.8-14.3); White Blood Cell 12.7 10^3/uL (4.4-10.8)
[2024-03-24 04:59] LABS: Alanine Aminotransferase 11 U/L (7-40); Albumin 2.9 g/dL (3.2-4.8); Alkaline Phosphatase 48 U/L (46-116); Anion Gap 5 (5-15); Aspartate Aminotransferase 18 U/L (13-40); Bilirubin, Total 0.4 mg/dL (0.2-1.0); Blood Urea Nitrogen 18 mg/dL (9-23); Calcium 6.9 mg/dL (8.7-10.4); Carbon Dioxide 31 mmol/L (20-31); Chloride 109 mmol/L (98-107); GFR African American 186 mL/min; GFR Non-African American 153 mL/min; Glucose 217 mg/dL (74-106); Magnesium 1.8 mg/dL (1.6-2.6); Potassium 3.5 mmol/L (3.5-5.1); Sodium 145 mmol/L (136-145); Total Protein 5.4 g/dL (5.7-8.2)
[2024-03-24 06:25] LABS: Base Excess 6.5 mmol/L (-2.0-3.0)
[2024-03-24] MEDS: CALCIUM GLUC 1,000mg/50ml-NS 50 ML IV ONE (14:03)
[2024-03-24] MEDS: POTASSIUM PHOSPHATE 44 MEQ in D5W 5% 250 ML IV ONE (15:13)
[2024-03-24] MEDS ORDERED: Glucerna 1.2 Cal 1Liter BOTTLE GT SCH (17:00)
[2024-03-24] MEDS: MICAFUNGIN SODIUM 100 MG in SODIUM CHL 0.9% 100 ML IV SCH (21:38)
[2024-03-24] MEDS: MAGNESIUM SULFATE 1GM/100ML 100 ML IV ONE ×2 (23:47→23:57)
[2024-03-25] VITALS (109 sets, daily range): BP systolic 80–164; BP diastolic 42–155; PULSE 73–121; RESP 13–97; TEMP 98.2–100.2; O2SAT 22–100
[2024-03-25 04:59] LABS: Basophils # (auto) 0 10 ^3/uL (0-0.2); Basophils % (auto) 0.2 % (0.0-2.0); Eosinophils # (auto) 0 10 ^3/uL (0-0.8); Eosinophils % (auto) 0.2 % (0.0-7.0); Lymphocytes # (auto) 1.1 10 ^3/uL (0.4-5.4); Nucleated Red Blood Cells % 0.2 %
[2024-03-25 05:04] LABS: Hematocrit 24.8 % (41.0-53.0); Hemoglobin 8.6 g/dL (13.5-17.5); Lymphocytes % (auto) 9.4 % (10.0-50.0); Mean Corpuscular Hemoglobin 36.2 pg (28.0-32.0); Mean Corpuscular Hgb Conc. 34.6 g/dL (32.0-36.0); Mean Corpuscular Volume 104.7 fL (80.0-100.0); Monocytes # (auto) 0.9 10 ^3/uL (0-1.3); Monocytes % (auto) 7.5 % (0.0-12.0); Neutrophils # (auto) 9.9 10 ^3/uL (1.6-8.6); Neutrophils % (auto) 82.7 % (37.0-80.0); Platelet Count (auto) 325 10^3/uL (140-450); Red Blood Cells 2.36 10^6/uL (4.5-5.90); Red Cell Distribution Width 17.8 % (11.8-14.3)
[2024-03-25 05:16] LABS: Alanine Aminotransferase 11 U/L (7-40); Albumin 3.1 g/dL (3.2-4.8); Alkaline Phosphatase 47 U/L (46-116); Anion Gap 7 (5-15); Aspartate Aminotransferase 21 U/L (13-40); BUN/Creatinine Ratio 31.9 (10.0-20.0); Blood Urea Nitrogen 15 mg/dL (9-23); Calcium 7.2 mg/dL (8.7-10.4); Carbon Dioxide 31 mmol/L (20-31); Chloride 107 mmol/L (98-107); Glucose 145 mg/dL (74-106); Magnesium 1.8 mg/dL (1.6-2.6); Sodium 145 mmol/L (136-145); Triglycerides 132 mg/dL (< 150)
[2024-03-25 05:17] LABS: Bilirubin, Total 0.4 mg/dL (0.2-1.0); Total Protein 5.6 g/dL (5.7-8.2)
[2024-03-25] MEDS: MAGNESIUM SULFATE 1GM/100ML 100 ML IV ONE (07:00)
[2024-03-25] MEDS: POTASSIUM CHL 20MEQ/100ML 100 ML IV SCH (08:11)
[2024-03-25] MEDS: POTASSIUM PHOSPHATE 22 MEQ in SODIUM CHL 0.9% 100 ML IV ONE (09:18)
[2024-03-25 09:55] LABS: Base Excess 2.4 mmol/L (-2.0-3.0)
[2024-03-25] MEDS: MORPHINE SULFATE INJ 2 MG/ml SYRG IV ONE (20:17)
[2024-03-25] MEDS: diphenhdrAMINE HCL 50 MG/1 ML VL IV PRN (23:26)
[2024-03-26] VITALS (76 sets, daily range): BP systolic 86–125; BP diastolic 51–102; PULSE 56–124; RESP 9–22; TEMP 98.1–100.2; O2SAT 93–100
[2024-03-26] MEDS: MORPHINE SULFATE INJ 2 MG/ml SYRG IV PRN (01:25)
[2024-03-26 05:13] LABS: Potassium 3.2 mmol/L (3.5-5.1)
[2024-03-26 05:14] LABS: Calcium 7.2 mg/dL (8.7-10.4)
[2024-03-26 05:19] LABS: BUN/Creatinine Ratio 31.5 (10.0-20.0)
[2024-03-26 05:21] LABS: Albumin 3.1 g/dL (3.2-4.8); Phosphorus 1.5 mg/dL (2.4-5.1)
[2024-03-26] MEDS: POTASSIUM PHOSPHATE 22 MEQ in SODIUM CHL 0.9% 100 ML IV ONE (09:30)
[2024-03-26] MEDS: CALCIUM GLUC 1,000mg/50ml-NS 50 ML IV SCH (11:11)
[2024-03-26] MEDS: POTASSIUM CHL 20MEQ/100ML 100 ML IV SCH (11:39)
[2024-03-26 20:36] LABS: Basophils # (auto) 0 10 ^3/uL (0-0.2); Basophils % (auto) 0.2 % (0.0-2.0); Eosinophils # (auto) 0 10 ^3/uL (0-0.8); Hematocrit 29.3 % (41.0-53.0); Hemoglobin 9.5 g/dL (13.5-17.5); Lymphocytes # (auto) 0.3 10 ^3/uL (0.4-5.4); Lymphocytes % (auto) 2.4 % (10.0-50.0); Mean Corpuscular Hemoglobin 34.3 pg (28.0-32.0); Mean Corpuscular Hgb Conc. 32.4 g/dL (32.0-36.0); Monocytes # (auto) 0.5 10 ^3/uL (0-1.3); Monocytes % (auto) 3.9 % (0.0-12.0); Neutrophils # (auto) 12.7 10 ^3/uL (1.6-8.6); Neutrophils % (auto) 93.5 % (37.0-80.0); Nucleated Red Blood Cells % 0.1 %; Platelet Count (auto) 358 10^3/uL (140-450); Red Blood Cells 2.77 10^6/uL (4.5-5.90); Red Cell Distribution Width 18.3 % (11.8-14.3); White Blood Cell 13.6 10^3/uL (4.4-10.8)
[2024-03-26 20:59] LABS: Anion Gap 8 (5-15); Carbon Dioxide 27 mmol/L (20-31); Chloride 103 mmol/L (98-107); Sodium 138 mmol/L (136-145)
[2024-03-26 21:00] LABS: Calcium 7.5 mg/dL (8.7-10.4)
[2024-03-26 21:05] LABS: BUN/Creatinine Ratio 39.7 (10.0-20.0); Blood Urea Nitrogen 25 mg/dL (9-23); Glucose 301 mg/dL (74-106); Potassium 5.2 mmol/L (3.5-5.1)
[2024-03-27] VITALS (20 sets, daily range): BP systolic 101–140; BP diastolic 54–82; PULSE 59–118; RESP 14–22; TEMP 98.4–98.8; O2SAT 94–100
[2024-03-27 07:44] LABS: Eosinophils # (auto) 0 10 ^3/uL (0-0.8); Eosinophils % (auto) 0.3 % (0.0-7.0); Hemoglobin 9.2 g/dL (13.5-17.5); Neutrophils # (auto) 10.1 10 ^3/uL (1.6-8.6); White Blood Cell 12.1 10^3/uL (4.4-10.8)
[2024-03-27 07:49] LABS: Basophils # (auto) 0.1 10 ^3/uL (0-0.2); Basophils % (auto) 0.4 % (0.0-2.0); Hematocrit 27.8 % (41.0-53.0); Lymphocytes % (auto) 8.2 % (10.0-50.0); Mean Corpuscular Hemoglobin 35.1 pg (28.0-32.0); Mean Corpuscular Volume 106.3 fL (80.0-100.0); Neutrophils % (auto) 83.1 % (37.0-80.0); Nucleated Red Blood Cells % 0.1 %; Platelet Count (auto) 341 10^3/uL (140-450); Red Blood Cells 2.62 10^6/uL (4.5-5.90); Red Cell Distribution Width 18.4 % (11.8-14.3)
[2024-03-27 07:58] LABS: Alanine Aminotransferase 11 U/L (7-40); Albumin 3.3 g/dL (3.2-4.8); Alkaline Phosphatase 50 U/L (46-116); Anion Gap 7 (5-15); Aspartate Aminotransferase 24 U/L (13-40); BUN/Creatinine Ratio 28.8 (10.0-20.0); Blood Urea Nitrogen 17 mg/dL (9-23); Calcium 7.7 mg/dL (8.7-10.4); Carbon Dioxide 28 mmol/L (20-31); Chloride 104 mmol/L (98-107); Magnesium 2.1 mg/dL (1.6-2.6); Potassium 3.7 mmol/L (3.5-5.1); Sodium 139 mmol/L (136-145)
[2024-03-27 07:59] LABS: Phosphorus 1.8 mg/dL (2.4-5.1); Total Protein 5.9 g/dL (5.7-8.2)
[2024-03-27 08:01] LABS: Glucose 156 mg/dL (74-106)
[2024-03-27 08:08] LABS: Bilirubin, Total 0.5 mg/dL (0.2-1.0)
[2024-03-27] MEDS: MAGNESIUM SULFATE 1GM/100ML 100 ML IV SCH ×2 (17:00→22:18)
[2024-03-27] MEDS: CALCIUM GLUC 1,000mg/50ml-NS 50 ML IV ONE (19:53)
[2024-03-27] MEDS: POTASSIUM PHOSPHATE 22 MEQ in SODIUM CHL 0.9% 100 ML IV ONE (22:18)
[2024-03-28] VITALS (19 sets, daily range): BP systolic 95–117; BP diastolic 55–71; PULSE 62–109; RESP 16–21; TEMP 97.8–98.4; O2SAT 90–100
[2024-03-28 07:14] LABS: Basophils # (auto) 0.1 10 ^3/uL (0-0.2); Hemoglobin 9.1 g/dL (13.5-17.5); Lymphocytes # (auto) 0.9 10 ^3/uL (0.4-5.4); Monocytes # (auto) 0.9 10 ^3/uL (0-1.3)
[2024-03-28 07:20] LABS: Basophils % (auto) 0.8 % (0.0-2.0); Eosinophils # (auto) 0.1 10 ^3/uL (0-0.8); Eosinophils % (auto) 0.5 % (0.0-7.0); Hematocrit 26.9 % (41.0-53.0); Lymphocytes % (auto) 8.1 % (10.0-50.0); Mean Corpuscular Hemoglobin 35.8 pg (28.0-32.0); Mean Corpuscular Hgb Conc. 33.7 g/dL (32.0-36.0); Mean Corpuscular Volume 106.1 fL (80.0-100.0); Monocytes % (auto) 8.8 % (0.0-12.0); Neutrophils # (auto) 8.7 10 ^3/uL (1.6-8.6); Neutrophils % (auto) 81.8 % (37.0-80.0); Nucleated Red Blood Cells % 0.4 %; Platelet Count (auto) 326 10^3/uL (140-450); Red Blood Cells 2.54 10^6/uL (4.5-5.90); White Blood Cell 10.6 10^3/uL (4.4-10.8)
[2024-03-28 07:44] LABS: Alanine Aminotransferase 13 U/L (7-40); Albumin 3.2 g/dL (3.2-4.8); Alkaline Phosphatase 55 U/L (46-116); Anion Gap 7 (5-15); Aspartate Aminotransferase 21 U/L (13-40); BUN/Creatinine Ratio 34.9 (10.0-20.0); Blood Urea Nitrogen 22 mg/dL (9-23); Calcium 8.2 mg/dL (8.7-10.4); Carbon Dioxide 29 mmol/L (20-31); Chloride 100 mmol/L (98-107); Glucose 213 mg/dL (74-106); Magnesium 1.9 mg/dL (1.6-2.6); Potassium 3.7 mmol/L (3.5-5.1); Sodium 136 mmol/L (136-145)
[2024-03-28 07:45] LABS: Bilirubin, Total 0.5 mg/dL (0.2-1.0); Phosphorus 2.3 mg/dL (2.4-5.1); Total Protein 5.5 g/dL (5.7-8.2)
[2024-03-28] MEDS ORDERED: POTASSIUM PHOSPHATE 22 MEQ in SODIUM CHL 0.9% 100 ML IV ONE (11:00)
[2024-03-28] MEDS ORDERED: GASTROGRAFIN 120 ML SOL ONE (12:02)
[2024-03-29] VITALS (21 sets, daily range): BP systolic 93–113; BP diastolic 59–75; PULSE 62–115; RESP 14–21; TEMP 97.4–98.5; O2SAT 91–100
[2024-03-29 06:26] LABS: Eosinophils # (auto) 0 10 ^3/uL (0-0.8)
[2024-03-29 06:28] LABS: Basophils # (auto) 0 10 ^3/uL (0-0.2); Basophils % (auto) 0.4 % (0.0-2.0); Eosinophils % (auto) 0.3 % (0.0-7.0); Hemoglobin 9.4 g/dL (13.5-17.5); Lymphocytes # (auto) 1.2 10 ^3/uL (0.4-5.4); Lymphocytes % (auto) 10.6 % (10.0-50.0); Mean Corpuscular Hemoglobin 35.9 pg (28.0-32.0); Mean Corpuscular Hgb Conc. 33.7 g/dL (32.0-36.0); Mean Corpuscular Volume 106.7 fL (80.0-100.0); Monocytes % (auto) 8.6 % (0.0-12.0); Neutrophils # (auto) 9.2 10 ^3/uL (1.6-8.6); Neutrophils % (auto) 80.1 % (37.0-80.0); Nucleated Red Blood Cells % 0.8 %; Platelet Count (auto) 335 10^3/uL (140-450); Red Blood Cells 2.63 10^6/uL (4.5-5.90); White Blood Cell 11.5 10^3/uL (4.4-10.8)
[2024-03-29 06:33] LABS: Alanine Aminotransferase 11 U/L (7-40); Albumin 3.4 g/dL (3.2-4.8); Alkaline Phosphatase 58 U/L (46-116); Anion Gap 7 (5-15); Aspartate Aminotransferase 17 U/L (13-40); BUN/Creatinine Ratio 30.5 (10.0-20.0); Bilirubin, Total 0.5 mg/dL (0.2-1.0); Blood Urea Nitrogen 18 mg/dL (9-23); Calcium 8.7 mg/dL (8.7-10.4); Carbon Dioxide 28 mmol/L (20-31); Chloride 99 mmol/L (98-107); Glucose 188 mg/dL (74-106); Magnesium 2.1 mg/dL (1.6-2.6); Phosphorus 2.5 mg/dL (2.4-5.1); Potassium 3.4 mmol/L (3.5-5.1); Sodium 134 mmol/L (136-145)
[2024-03-29] MEDS: POTASSIUM EFFERVESENT TAB 25 MEQ PO ONE (12:16)
[2024-03-29] MEDS: POTASSIUM PHOSPHATE 22 MEQ in SODIUM CHL 0.9% 100 ML IV ONE (17:07)
[2024-03-29] MEDS: VANCOMYCIN 1.25GM/250ML 250 ML IV SCH (18:22)
[2024-03-30] VITALS (19 sets, daily range): BP systolic 95–101; BP diastolic 55–64; PULSE 85–115; RESP 16–20; TEMP 97.5–98.5; O2SAT 92–100
[2024-03-30 06:43] LABS: Alanine Aminotransferase 10 U/L (7-40); Albumin 3.2 g/dL (3.2-4.8); Alkaline Phosphatase 57 U/L (46-116); Anion Gap 8 (5-15); Aspartate Aminotransferase 16 U/L (13-40); BUN/Creatinine Ratio 20.9 (10.0-20.0); Blood Urea Nitrogen 14 mg/dL (9-23); Calcium 8.7 mg/dL (8.7-10.4); Carbon Dioxide 24 mmol/L (20-31); Chloride 99 mmol/L (98-107); GFR African American 157 mL/min; GFR Non-African American 130 mL/min; Glucose 233 mg/dL (74-106); Magnesium 2.1 mg/dL (1.6-2.6); Phosphorus 2.6 mg/dL (2.4-5.1); Sodium 131 mmol/L (136-145)
[2024-03-30 06:44] LABS: Bilirubin, Total 0.5 mg/dL (0.2-1.0); Total Protein 5.9 g/dL (5.7-8.2)
[2024-03-30 07:21] LABS: Basophils # (auto) 0 10 ^3/uL (0-0.2); Basophils % (auto) 0.4 % (0.0-2.0); Eosinophils # (auto) 0 10 ^3/uL (0-0.8); Eosinophils % (auto) 0.4 % (0.0-7.0); Hematocrit 27.8 % (41.0-53.0); Hemoglobin 9.1 g/dL (13.5-17.5); Lymphocytes # (auto) 1.2 10 ^3/uL (0.4-5.4); Mean Corpuscular Hemoglobin 35.5 pg (28.0-32.0); Mean Corpuscular Hgb Conc. 32.5 g/dL (32.0-36.0); Mean Corpuscular Volume 109.2 fL (80.0-100.0); Monocytes # (auto) 1.1 10 ^3/uL (0-1.3); Monocytes % (auto) 10.2 % (0.0-12.0); Nucleated Red Blood Cells % 1.1 %; Platelet Count (auto) 315 10^3/uL (140-450); Red Blood Cells 2.55 10^6/uL (4.5-5.90); Red Cell Distribution Width 18.7 % (11.8-14.3); White Blood Cell 10.4 10^3/uL (4.4-10.8)
[2024-03-30] MEDS: METOCLOPRAMIDE HCL 5MG/ml INJ 2ml VIAL IV ONE (12:05)
[2024-03-30] MEDS: METOCLOPRAMIDE HCL 5MG/ml INJ 2ml VIAL IV SCH (14:18)
[2024-03-31] VITALS (19 sets, daily range): BP systolic 95–122; BP diastolic 55–77; PULSE 96–121; RESP 16–22; TEMP 97.7–98.2; O2SAT 92–100
[2024-03-31 06:49] LABS: Monocytes # (auto) 0.9 10 ^3/uL (0-1.3); Nucleated Red Blood Cells % 0.7 %
[2024-03-31 06:54] LABS: Basophils # (auto) 0.1 10 ^3/uL (0-0.2); Basophils % (auto) 0.7 % (0.0-2.0); Eosinophils # (auto) 0.1 10 ^3/uL (0-0.8); Eosinophils % (auto) 0.7 % (0.0-7.0); Hematocrit 26.4 % (41.0-53.0); Hemoglobin 9.1 g/dL (13.5-17.5); Lymphocytes # (auto) 1.3 10 ^3/uL (0.4-5.4); Lymphocytes % (auto) 12.4 % (10.0-50.0); Mean Corpuscular Hemoglobin 36.8 pg (28.0-32.0); Mean Corpuscular Hgb Conc. 34.5 g/dL (32.0-36.0); Mean Corpuscular Volume 106.7 fL (80.0-100.0); Monocytes % (auto) 8.6 % (0.0-12.0); Neutrophils # (auto) 8.2 10 ^3/uL (1.6-8.6); Neutrophils % (auto) 77.6 % (37.0-80.0); Platelet Count (auto) 288 10^3/uL (140-450); Red Blood Cells 2.47 10^6/uL (4.5-5.90); Red Cell Distribution Width 18.1 % (11.8-14.3); White Blood Cell 10.5 10^3/uL (4.4-10.8)
[2024-03-31 07:02] LABS: Alanine Aminotransferase 10 U/L (7-40); Albumin 3.3 g/dL (3.2-4.8); Alkaline Phosphatase 62 U/L (46-116); Anion Gap 9 (5-15); Aspartate Aminotransferase 14 U/L (13-40); BUN/Creatinine Ratio 28.3 (10.0-20.0); Bilirubin, Total 0.5 mg/dL (0.2-1.0); Blood Urea Nitrogen 17 mg/dL (9-23); Calcium 9.2 mg/dL (8.7-10.4); Carbon Dioxide 24 mmol/L (20-31); Chloride 100 mmol/L (98-107); Glucose 153 mg/dL (74-106); Magnesium 1.6 mg/dL (1.6-2.6); Phosphorus 2.6 mg/dL (2.4-5.1); Potassium 3.6 mmol/L (3.5-5.1); Sodium 133 mmol/L (136-145); Total Protein 5.6 g/dL (5.7-8.2)
[2024-03-31] MEDS: methylPREDNISolone SOD SUCC 40 MG/ML VL IV SCH (13:16)
[2024-04-01] VITALS (21 sets, daily range): BP systolic 95–107; BP diastolic 55–74; PULSE 101–125; RESP 16–20; TEMP 97.2–98.8; O2SAT 92–100
[2024-04-01 07:42] LABS: Chloride 100 mmol/L (98-107); Potassium 3.7 mmol/L (3.5-5.1); Sodium 130 mmol/L (136-145)
[2024-04-01 07:43] LABS: Anion Gap 8 (5-15); Calcium 9.5 mg/dL (8.7-10.4); Carbon Dioxide 22 mmol/L (20-31)
[2024-04-01 07:48] LABS: BUN/Creatinine Ratio 19.4 (10.0-20.0); Blood Urea Nitrogen 12 mg/dL (9-23); Glucose 252 mg/dL (74-106)
[2024-04-01 07:49] LABS: Magnesium 1.7 mg/dL (1.6-2.6)
[2024-04-01 07:51] LABS: Phosphorus 3.7 mg/dL (2.4-5.1)
[2024-04-01] MEDS: ACETAMINOPHEN/CODEINE#3 (300/30mg) TAB PO PRN (15:15)
[2024-04-02] VITALS (22 sets, daily range): BP systolic 93–104; BP diastolic 60–71; PULSE 100–124; RESP 16–20; TEMP 97.2–98.8; O2SAT 95–100
[2024-04-02] MEDS ORDERED: DEXTROSE (50%) 50ML SYRG IV PRN (13:15)
[2024-04-02] MEDS: ACCU-CHEK COMFORT CURVE STRIP VI SCH (17:29)
[2024-04-02] MEDS: InsuLIN REG 1unit/0.01ml Soln (100units/ml) SC SCH ×2 (17:30→23:46)
[2024-04-03] VITALS (14 sets, daily range): BP systolic 99–121; BP diastolic 7–78; PULSE 60–118; RESP 14–20; TEMP 37; O2SAT 94–100
[2024-04-03] MEDS: FUROSEMIDE 40 MG TAB PO SCH (10:00)
== END 2024-04-03 19:11 | disposition home health service (06) | DRG 710 ==
LOC: ER 22:35 → TELE 03-15 10:36 → DOU IN ICU 03-16 15:15 → ICU CENTRL 03-16 15:27 → ICU WEST 03-22 13:53 → TELE-CENTR 03-26 16:16 → CENTRAL 03-29 16:50
PROVIDERS: ADMIT Internal Medicine; ATTEND Internal Medicine
PROC: 0D1B0Z4 Bypass Ileum to Cutaneous, Open Approach (ICD-10-PCS; 2024-03-16)
PROC: 5A1955Z Respiratory Ventilation, Greater than 96 Consecutive Hours (ICD-10-PCS; 2024-03-16)
PROC: 0DBB0ZZ Excision of Ileum, Open Approach (ICD-10-PCS; 2024-03-16)
PROC: 0D9670Z Drainage of Stomach with Drainage Device, Via Natural or Artificial Opening (ICD-10-PCS; 2024-03-16)
PROC: 0BH17EZ Insertion of Endotracheal Airway into Trachea, Via Natural or Artificial Opening (ICD-10-PCS; 2024-03-16)
PROC: 0DBK0ZZ Excision of Ascending Colon, Open Approach (ICD-10-PCS; 2024-03-16)
PROC: 0DBL0ZZ Excision of Transverse Colon, Open Approach (ICD-10-PCS; 2024-03-16)
PROC: 0DBH0ZZ Excision of Cecum, Open Approach (ICD-10-PCS; 2024-03-16)
PROC: 03HY32Z Insertion of Monitoring Device into Upper Artery, Percutaneous Approach (ICD-10-PCS; principal; 2024-03-16 11:51)
PROC: 0B978ZZ Drainage of Left Main Bronchus, Via Natural or Artificial Opening Endoscopic (ICD-10-PCS; 2024-03-20)
PROC: 0B9D8ZX Drainage of Right Middle Lung Lobe, Via Natural or Artificial Opening Endoscopic, Diagnostic (ICD-10-PCS; 2024-03-20)
DX: A41.9 Sepsis, unspecified organism (principal); J96.21 Acute and chronic respiratory failure with hypoxia; N17.0 Acute kidney failure with tubular necrosis; R65.21 Severe sepsis with septic shock; K55.049 Acute infarction of large intestine, extent unspecified; I48.92 Unspecified atrial flutter; D68.59 Other primary thrombophilia; E87.1 Hypo-osmolality and hyponatremia; E86.0 Dehydration; I48.91 Unspecified atrial fibrillation; K59.31 Toxic megacolon; I42.0 Dilated cardiomyopathy; I50.23 Acute on chronic systolic (congestive) heart failure; D69.6 Thrombocytopenia, unspecified; J44.1 Chronic obstructive pulmonary disease with (acute) exacerbation; J45.901 Unspecified asthma with (acute) exacerbation; K63.89 Other specified diseases of intestine; K85.90 Acute pancreatitis without necrosis or infection, unspecified; E83.52 Hypercalcemia; E87.8 Other disorders of electrolyte and fluid balance, not elsewhere classified; E66.9 Obesity, unspecified; E87.5 Hyperkalemia; K56.50 Intestinal adhesions [bands], unspecified as to partial versus complete obstruction; E78.5 Hyperlipidemia, unspecified; F17.200 Nicotine dependence, unspecified, uncomplicated; D53.9 Nutritional anemia, unspecified; I13.0 Hypertensive heart and chronic kidney disease with heart failure and stage 1 through stage 4 chronic kidney disease, or unspecified chronic kidney disease; E11.22 Type 2 diabetes mellitus with diabetic chronic kidney disease; N18.9 Chronic kidney disease, unspecified; N20.0 Calculus of kidney; J98.11 Atelectasis; I45.10 Unspecified right bundle-branch block; Z83.3 Family history of diabetes mellitus; Z82.49 Family history of ischemic heart disease and other diseases of the circulatory system; Z68.31 Body mass index [BMI] 31.0-31.9, adult; Z79.4 Long term (current) use of insulin; Z79.899 Other long term (current) drug therapy
CPT/HCPCS: 36415; 36600; 71045; 74018; 74176; 74250; 80048; 80053; 80061; 80069; 80202; 80307; 80320; 81001; 82306; 82310; 82378; 82565; 82570; 82607; 82805; 82962; 83036; 83605; 83690; 83735; 83880; 83970; 84100; 84132; 84156; 84300; 84443; 84478; 85007; 85025; 85027; 85048; 85610; 85730; 86850; 86900; 86901; 87040; 87045; 87070; 87075; 87077; 87081; 87086; 87205; 87427; 92507; 93005; 93306; 94002; 94003; 94640; 97110; 97116; 97163; 97530; 99291; G0378; J0171; J0692; J1815; J2248; J2405; J2470; J2704; J3480; J3490; J7060

== ENCOUNTER 2024-04-04 18:29 | Emergency (ER) | payer MEDICAID ==
[~2024-04-04] VITALS: Ht 182.9 cm; Wt 95.0 kg
[~2024-04-04 18:29] MED LIST changes: -ALBU0.084 NEB; -BUDE1AER15 INH; +BUDE1AER5 IN; +FURO20TA3 PO; -FURO40TA4 PO
[2024-04-04 18:41] VITALS: BP 126/88; PULSE 84; RESP 20; TEMP 98; O2SAT 98
[2024-04-04] MEDS: OXYCODONE W/ ACETAMINOPHEN 5/325MG TABLET PO ONE (22:07)
== END 2024-04-04 22:30 | disposition home or self-care (01) ==
LOC: ER 18:29 → EDBD 18:29 → ER 22:30
DX: K94.19 Other complications of enterostomy (principal); I50.9 Heart failure, unspecified; E11.9 Type 2 diabetes mellitus without complications; J45.909 Unspecified asthma, uncomplicated; Z98.890 Other specified postprocedural states; Z87.891 Personal history of nicotine dependence; Z79.899 Other long term (current) drug therapy; Z79.84 Long term (current) use of oral hypoglycemic drugs; Z79.4 Long term (current) use of insulin

== ENCOUNTER → 2024-09-12 | Outpatient (CLI) | payer MEDICAID ==
[~2024-09-12] VITALS: Ht 182.9 cm; Wt 99.8 kg
[~2024-09-12] MED LIST changes: -ATOR40TA52 PO; -EMPA1TAB3 PO; -ERGO1CAP12 PO; -FURO20TA3 PO; -GLIP5TAB21 PO; -IRBE75TA30 PO; -LEVO750T40 PO; +LIDOCAINE W/ EPINEPHRINE 1% 20ML VIAL ONE; -LORA-622 PO; -METO25TA93 PO; -PRED20TA2 PO; -SACU1TAB PO; +SODI325T PO; -SPIR25TA8 PO
--- NOTE | 2024-09-19 14:50 | DVHSR ---
APPROVED REPORT Exam: Nuclear Stress Test Indication: Cardiomyopathy Ht: 6 ft 0 in Wt: 220 lbs BSA: 2.22 m2 HR: 82 bpm BP: 104/74 mmHg BMI: 29.83 Rhythm: NSR, RBBB, Left ventricular hypertrophy Medical History Medical History: HTN, Diabetes, Cardiomyopathy, CHF, Chest pain, Smoking, COPD Medications: Corlanor, Entresto, Albuterol inh, Insulin, Sodium Bicarb, Coreg, Digoxin Allergies: No known drug allergies Stress Test Details Stress Test: Exercise stress testing was performed using a Elias protocol. HR Resting HR: 82 bpmMax Heart Rate (APMHR): 162.784135 bpm Max HR Achieved: 148 bpmTarget HR (85% APMHR): 137.796043 bpm % of APMHR: 91.36 Recovery HR: 98 bpm HR response to stress: Accelerated BP Resting BP: 104/74 mmHg Max BP: 198/100 mmHg Recovery BP: 143/84 mmHg BP response to stress: Exaggerated response ECG Resting ECG: NSR, RBBB, Left ventricular hypertrophy Stress ECG: Sinus Tachycardia, RBBB Arrhythmia: PACs, PVCs Recovery ECG: Sinus Rhythm, RBBB Clinical Reason for Termination: Fatigue, Target HR achieved Stress Symptoms: Fatigue, Dyspnea Exercise duration: 4 min 40 sec Exercise capacity: 7.0 METs Fatigue and dyspnea improved during recovery. Stress ECG Conclusion ISCHEMIC CM EF <20% INFERIOR FIXED DEFECT PARTIAL INFRIOR REVERSIBLE DEFECT NM EXAM: Myocardial Perfusion REST/STRESS Imaging Protocol: Rest Tc-99m/Stress Tc-99m 1 day Resting Data Rest SPECT myocardial perfusion imaging was performed in supine position 30 minutes following the int ravenous injection of 10.7 mCi of Tc-99m Sestamibi. Time of rest injection: 0904 Time of rest imagin Administration Route: IV Administration Site: Right Arm Exercise Stress At peak stress, the patient was injected intravenously with 32.9 mCi of Tc-99m Sestamibi. Time of stress injection: 1005 Time of stress imagin Administration Route: IV Administration Site: Right Arm Heart Rate at time of stress injection: 146 bpm. Patient continued to exercise for 1 minute(s). Gated Stress SPECT was performed 15 minutes after stress injection. The images were gated to evaluate regional wall motion and calculate left ventricular ejection fracti on. Comments Cardiolite injection at 3 minutes, 18 seconds into test. Study Data Post stress, the left ventricular ejection was 14%.. Nuclear Conclusion ISCHEMIC CM EF <20% INFERIOR FIXED DEFECT PARTIAL INFRIOR REVERSIBLE DEFECT
== END | disposition home or self-care (01) ==
LOC: Rad HDHVI 08:40
PROVIDERS: ATTEND Internal Medicine Cardiovascular Disease
DX: E11.40 Type 2 diabetes mellitus with diabetic neuropathy, unspecified (principal); J44.9 Chronic obstructive pulmonary disease, unspecified; I11.0 Hypertensive heart disease with heart failure; I50.33 Acute on chronic diastolic (congestive) heart failure; R07.89 Other chest pain; F17.200 Nicotine dependence, unspecified, uncomplicated; E11.9 Type 2 diabetes mellitus without complications; I25.5 Ischemic cardiomyopathy; I45.10 Unspecified right bundle-branch block; R00.0 Tachycardia, unspecified; R53.83 Other fatigue; I49.3 Ventricular premature depolarization
CPT/HCPCS: 78452; 93017; A9500; 96374; 96375

== ENCOUNTER → 2024-09-13 | Day surgery (SDC) | payer MEDICAID ==
[2024-09-08 09:48] LABS: Urine Bacteria None Seen /hpf (None Seen)
[2024-09-08 10:25] LABS: Urine Blood 2+ /uL (Negative); Urine Clarity Clear (Clear); Urine Color Yellow (Yellow); Urine Mucus FEW (None Seen); Urine Protein, UAD 1+ (Negative); Urine Specific Gravity 1.027 (1.001-1.035); Urine Squamous Epithelial Cell FEW /hpf (<5); Urine Urobilinogen Normal (Negative); Urine WBC 2 /HPF (0-3); Urine pH 5.5 (5.0-9.0)
[2024-09-08 10:26] LABS: Basophils # (auto) 0.1 10 ^3/uL (0-0.2); Basophils % (auto) 1.2 % (0.0-2.0); Eosinophils # (auto) 0.3 10 ^3/uL (0-0.8); Eosinophils % (auto) 3.7 % (0.0-7.0); Hematocrit 37.9 % (41.0-53.0); Hemoglobin 12.5 g/dL (13.5-17.5); Lymphocytes # (auto) 1.2 10 ^3/uL (0.4-5.4); Lymphocytes % (auto) 17.3 % (10.0-50.0); Mean Corpuscular Hemoglobin 31.2 pg (28.0-32.0); Mean Corpuscular Volume 94.5 fL (80.0-100.0); Monocytes # (auto) 0.6 10 ^3/uL (0-1.3); Monocytes % (auto) 8.9 % (0.0-12.0); Neutrophils # (auto) 4.9 10 ^3/uL (1.6-8.6); Neutrophils % (auto) 68.9 % (37.0-80.0); Nucleated Red Blood Cells % 0.1 %; Platelet Count (auto) 233 10^3/uL (140-450); Red Blood Cells 4.01 10^6/uL (4.5-5.90); White Blood Cell 7.1 10^3/uL (4.4-10.8)
[2024-09-08 10:35] LABS: Partial Thromboplastin Time 24.7 SEC (24.5-34.5); Prothrombin Time 10.6 sec (9.3-11.8)
[2024-09-08 11:03] LABS: Alanine Aminotransferase 23 U/L (7-40); Albumin 5.1 g/dL (3.2-4.8); Alkaline Phosphatase 114 U/L (46-116); Anion Gap 13 (5-15); Aspartate Aminotransferase 43 U/L (13-40); BUN/Creatinine Ratio 16.1 (10.0-20.0); Bilirubin, Total 0.4 mg/dL (0.2-1.0); Blood Urea Nitrogen 18 mg/dL (9-23); Calcium 10.6 mg/dL (8.7-10.4); Carbon Dioxide 25 mmol/L (20-31); Chloride 95 mmol/L (98-107); Glucose 188 mg/dL (74-106); Potassium 4.6 mmol/L (3.5-5.1); Sodium 133 mmol/L (136-145); Total Protein 8.2 g/dL (5.7-8.2)
[~2024-09-13] VITALS: Ht 182.9 cm; Wt 101.6 kg
[~2024-09-13] MED LIST changes: -LIDOCAINE W/ EPINEPHRINE 1% 20ML VIAL ONE; +ONDANSETRON HCL 4 MG/2 ML VIAL ONE; +PROPOFOL 10 MG/ML 20 ML IV ONE; +ceFAZolin 2 GM/D5W100ml 0 ML IV ONE; +fentaNYL CITRATE 100 MCG/2 ML VL ONE
[2024-09-13 10:49] VITALS: TEMP 97.6
[2024-09-13] MEDS: InsuLIN REG 1unit/0.01ml Soln (100units/ml) IV ONE (11:30)
--- NOTE | 2024-09-13 12:44 | DVHOP2 ---
Operative Report - 2 Report Details Date: 09/13/24 Preop Diagnosis: 1. Left foot exostectomy 2. Left foot chronic ulcer 3. Left foot pain Postop Diagnosis: Left foot exostosis Surgeon: Clarissa Main MD Anesthesiologist: See anesthesia Anesthesia: General Consent: The patient was informed of the risks and benefits of the procedure. These include but are not limited to complications of anesthesia, postoperative infection, incomplete relief of symptoms, recurrence of symptoms, damage to blood vessels, nerves and tendons, deep venous thrombosis, pulmonary embolism and possible need for repeat surgery in the future. Complications: None Estimated Blood Loss: Minimal Fluids: See anesthesia Findings: Consistent with diagnosis Indications for Surgery: Worsening left foot wound with exostosis Name of Procedure Performed 1. Right foot I&D to bone (43165) 2. Right foot midfoot exostectomy (47132) Procedure Details Procedure Details: PRE-PROCEDURE INFORMATION: In the pre-op holding area, the extremity to be operated on was clearly marked and the patient verified correct laterality of the marking. The patient was transferred to the OR table and placed in a supine position. A timeout was performed in which identification of the correct patient, procedure, location, and materials was done. The left foot and leg were prepped and draped in normal sterile fashion. DESCRIPTION OF PROCEDURE: Attention was directed to the left foot where chronic ulcer was located. An incision was made over this area and was deepened through blunt dissection. The incision was deepened to the level of abscess and bone. Care was taken to the dissection to avoid any neurovascular and tendinous struc tures. The incision was deepened to the bone, and the abscess appeared to be purulent fluid consistent with pus. The cortices of the bone was then removed with Chris an all necrotic tissue. After the abscess was drained, the area was irrigated with 3 L normal saline using cysto tubing. Then using an MIS bur, a midfoot exostectomy was performed and the bone fragment was removed to prevent pressure when patient is ambulating. The incision from the exostectomy was closed with 4-0 nylon. The wound was dressed with a Betadine-soaked gauze. The wound will heal via secondary intention. POSTOPERATIVE INFORMATION: The patient tolerated the above noted procedure and anesthesia well and was transferred to the PACU with vital signs stable, and vascular status intact with capillary refill intact to all digits. Postoperative instructions reviewed in detail with the patient with written instructions provided. Patient will return to clinic in approximately 10-14 days for first postoperative visit. Patient has the number of the clinic and was instructed to call prior to that time should any problems, questions, or concerns arise. Condition Good Disposition Home CLARISSA MAIN DPM Sep 13, 2024 12:44
[2024-09-13 13:15] VITALS: BP 116/87; PULSE 89; RESP 16; O2SAT 98
== END | disposition home or self-care (01) ==
LOC: SUR 10:37
PROVIDERS: ATTEND Podiatrist
DX: E11.621 Type 2 diabetes mellitus with foot ulcer (principal); L97.521 Non-pressure chronic ulcer of other part of left foot limited to breakdown of skin; M89.9 Disorder of bone, unspecified; E11.65 Type 2 diabetes mellitus with hyperglycemia; E11.40 Type 2 diabetes mellitus with diabetic neuropathy, unspecified; Z79.4 Long term (current) use of insulin; J45.909 Unspecified asthma, uncomplicated; Z87.891 Personal history of nicotine dependence
CPT/HCPCS: 28005; 28104; 36415; 80053; 81001; 82962; 85025; 85610; 85730; J1815; J2405; J2704; J3010; L3260

== ENCOUNTER 2024-10-20 20:44 | Inpatient (IN) | payer MEDICAID ==
[~2024-10-20] VITALS: Ht 182.9 cm; Wt 114.0 kg
[~2024-10-20 20:44] MED LIST changes: -ONDANSETRON HCL 4 MG/2 ML VIAL ONE; -PROPOFOL 10 MG/ML 20 ML IV ONE; -ceFAZolin 2 GM/D5W100ml 0 ML IV ONE; -fentaNYL CITRATE 100 MCG/2 ML VL ONE
--- NOTE | 2024-10-20 22:08 | ED.PDOC ---
SOB-HPI HPI Comments 59 year old male came to ER due to shortness of breath. Patient is morbidly obese, does have history of diabetes, asthma and congestive heart failure. States for the past few days he has been having productive cough with yellowish sputum, nasal congestion, chest tightness, shortness of breath and wheezing. Nebulizers taken has offered temporary relief. Persistence prompted patient to come to the ER. Patient is saturating 95% on room air Chief Complaint: Cough Time Seen by MD: 22:07 Primary Care Provider: LOS Cruz notes: Nurses Notes Information Source: Patient Mode of Arrival: EMS Severity: Moderate Timing: Hours Duration: Since onset Context: At Rest, With Light Exertion PE Risk Factors: None History of: Asthma, CHF Prehospital treatment: None Modifying Factors: Nothing Associated Signs and Symptoms: Wheeze, Cough, Nasal Congestion, Chest Pain Quality: Tightness Radiation: No Radiation If cough with SOB: Productive, Yellow Past Medical History PAST MEDICAL HISTORY: Asthma, CHF, DM Surgical History: Hernia Repair Family History Family History: Reviewed,noncontributory to illness Social History Smoker: Non-Smoker, Quit Less Than 1 Year, Cigarettes, Cigar Alcohol: Occasionally Drugs: Denies Drug Use Lives In: Home Constitutional: denies: chills, diaphoresis, fatigue, fever, malaise, sweats, weakness, others EENTM: reports: nose congestion; denies: blurred vision, double vision, ear bleeding, ear discharge, ear drainage, ear pain, ear ringing, eye pain, eye redness, hearing loss, mouth pain, mouth swelling, nasal discharge, nose bleeding, nose pain, photophobia, tearing, throat pain, throat swelling, voice changes, others Respiratory: reports: cough, SOB at rest, shortness of breath; denies: hemoptysis, orthopnea, SOB with excertion, stridor, wheezing, others Cardiovascular: reports: chest pain; denies: dizzy spells, diaphoresis, Dyspnea on exertion, edema, irregular heart beat, left arm pain, lightheadedness, palpitations, PND, syncope, others Gastrointestinal: denies: abdomen distended, abdominal pain, blood streaked bowels, constipated, diarrhea, dysphagia, difficulty swallowing, hematemesis, melena, nausea, poor appetite, poor fluid intake, rectal bleeding, rectal pain, vomiting, others Genitourinary: denies: burning, dysuria, flank pain, frequency, hematuria, incontinence, penile discharge, penile sore, pain, testicle pain, testicle swelling, urgency, others Neurological: denies: dizziness, fainting, headache, left sided numbness, left sided weakness, numbness, paresthesia, pre-existing deficit, right sided numbness, right sided weakness, seizure, speech problems, tingling, tremors, weakness, others Musculoskeletal: denies: back pain, gout, joint pain, joint swelling, muscle pain, muscle stiffness, neck pain, others Integumetry: denies: bruises, change in color, change in hair/nails, dryness, laceration, lesions, lumps, rash, wounds, others Allergic/Immunocompromised: denies: Difficulty Healing, Frequent Infections, Hives, Itching, others Hematologic/Lymphatic: denies: anemia, blood clots, easy bleeding, easy bruising, swollen glands, others Endocrine: denies: excessive hunger, excessive sweating, excessive thirst, excessive urination, flushing, intolerance to cold, intolerance to heat, unexplained weight gain, unexplained weight loss, others Psychiatric: denies: anxiety, bipolar disorder, depression, hopeless, panic disorder, schizophrenia, sleepless, suicidal, others Physical Exam General Appearance: No Apparent Distress, Normal HEENT: Normal ENT Inspection, Pharynx Normal, TMs Normal Neck: Full Range of Motion, Non-Tender, Normal, Normal Inspection Respiratory: Chest Non-Tender, No Accessory Muscle Use, No Respiratory Distress, Wheezing Cardiovascular: No Edema, No JVD, No Murmur, No Gallop, Normal Peripheral Pulses, Regular Rate/Rhythm Breast Exam: Deferred Gastrointestinal: No Organomegaly, Non Tender, No Pulsatile Mass, Normal Bowel Sounds, Soft Genitalia: Deferred Pelvic: Deferred Rectal: Deferred Extremities: No calf tenderness, Normal capillary refill, Normal inspection, Normal range of motion, Non-tender, No pedal edema Musculoskeletal : Apperance: Normal Neurologic: Alert, medical office technician II-XII nml as Tested, No Motor Deficits, Normal Affect, Normal Mood, No Sensory Deficits Cerebellar Function: Normal Reflexes: Normal Skin: Dry, Normal Color, Warm Lymphatic: No Adenopathy Was a procedure done? Was a procedure done?: No Differential Dx Differential Diagnosis: Asthma, Bronchitis, COPD, Pneumonia, Respiratory Distress, Pharyngitis, URI X-Ray, Labs, Meds, VS Vital Signs Date Time Temp Pulse Resp B/P (MAP) Pulse Ox O2 Delivery O2 Flow Rate FiO2 10/20/24 22:24 20 96 Room Air* 0 21 10/20/24 21:53 99.1 117 18 135/87 (103) 95 99.1 10/20/24 21:53 18 95 Room Air* 0 21 Lab Test 10/20/24 22:24 Range/Units White Blood Count 9.0 4.4-10.8 10^3/uL Red Blood Count 3.93 L 4.5-5.90 10^6/uL Hemoglobin 12.0 L 13.5-17.5 g/dL Hematocrit 37.7 L 41.0-53.0 % Mean Corpuscular Volume 96.1 80.0-100.0 fL Mean Corpuscular Hemoglobin 30.5 28.0-32.0 pg Mean Corpuscular Hemoglobin Concent 31.8 L 32.0-36.0 g/dL Red Cell Distribution Width 14.9 H 11.8-14.3 % Platelet Count 189 140-450 10^3/uL Mean Platelet Volume 7.8 6.9-10.8 fL Neutrophils (%) (Auto) 90.7 H 37.0-80.0 % Lymphocytes (%) (Auto) 4.4 L 10.0-50.0 % Monocytes (%) (Auto) 4.3 0.0-12.0 % Eosinophils (%) (Auto) 0.0 0.0-7.0 % Basophils (%) (Auto) 0.6 0.0-2.0 % Neutrophils # (Auto) 8.2 1.6-8.6 10 ^3/uL Lymphocytes # (Auto) 0.4 0.4-5.4 10 ^3/uL Monocytes # (Auto) 0.4 0-1.3 10 ^3/uL Eosinophils # (Auto) 0 0-0.8 10 ^3/uL Basophils # (Auto) 0.1 0-0.2 10 ^3/uL Nucleated Red Blood Cells 0.1 % Sodium Level 136 136-145 mmol/L Potassium Level 4.7 3.5-5.1 mmol/L Chloride Level 101 98-107 mmol/L Carbon Dioxide Level 23 20-31 mmol/L Anion Gap 12 5-15 Blood Urea Nitrogen 19 9-23 mg/dL Creatinine 1.45 H 0.700-1.30 mg/dL Glomerular Filtration Rate Calc 56 >90 mL/min BUN/Creatinine Ratio 13.1 10.0-20.0 Serum Glucose 518 *H 74-106 mg/dL Calcium Level 10.2 8.7-10.4 mg/dL Total Bilirubin 0.4 0.2-1.0 mg/dL Aspartate Amino Transferase (AST) 69 H 13-40 U/L Alanine Aminotransferase (ALT) 59 H 7-40 U/L Alkaline Phosphatase 178 H 46-116 U/L Troponin I High Sensitivity 36 </=54 ng/L B-Type Natriuretic Peptide 1040.20 0-100 pg/mL Total Protein 7.9 5.7-8.2 g/dL Albumin 4.9 H 3.2-4.8 g/dL Current Medications Medications (Trade) Dose Ordered Sig/Juan Miguel Route Start Time Stop Time Status Last Admin Albuterol (Ventolin Medneb) 5 mg ONCE ONCE NEB 10/20/24 22:00 10/20/24 22:01 DC 10/20/24 22:26 Ipratropium Delta (Atrovent Medneb) 0.5 mg ONCE ONCE NEB 10/20/24 22:00 10/20/24 22:01 DC 10/20/24 22:25 Prednisone 40 mg ONCE ONCE PO 10/20/24 22:00 10/20/24 22:01 DC 10/20/24 22:30 Time of 1ST Reevaluation: 22:01 Reevaluation 1ST: Unchanged Patient Education/Counseling: Diagnosis, Treatment Family Education/Counseling: No Family Present Departure 1 Departure Time of Disposition: 00:39 Impression: Primary Impression: Acute bronchospasm Additional Impression: Diabetes mellitus with hyperglycemia Disposition: 01 HOME / SELF CARE / HOMELESS Condition: Fair e-Prescriptions Insulin Glargine-Yfgn (Insulin Glargine) 100 Unit/Ml Inj 30 UNIT SC DAILY for 90 Days, #1 INJ 5 Refills Prov: RHETT CHATTERJEE MD 10/20/24 Azithromycin (Azithromycin) 500 Mg Tab 1 TAB PO DAILY for 7 Days, #7 TAB Prov: RHETT CHATTERJEE MD 10/20/24 Albuterol Sulfate (Albuterol Sulfate Hfa) 108 Mcg/Act Aer 108 MCG IN Q6HP PRN, #1 AER Prov: RHETT CHATTERJEE MD 10/20/24 Albuterol Sulfate (Albuterol Sulfate) 0.083 % Neb 1 VIAL NEB Q4HPRN PRN, #50 VIAL Prov: RHETT CHATTERJEE MD 10/20/24 Discharged With: Self Critical Care Note Critical Care Time?: Yes (35 min-critical care time only) Critical care comment: Shortness a breath Stability Stability form required: No Heart Score Heart Score: Heart Score Response (Comments) Value History N/A 0 EKG N/A 0 Age N/A 0 Risk Factors N/A 0 Troponin N/A 0 Total 0 I personally scribed for RHETT CHATTERJEE MD ([email or web address]) on 10/20/24 at 22:08. Electronically submitted by Jose Ojeda ([facility]). RHETT CHATTERJEE MD Oct 20, 2024 22:08
[2024-10-20] MEDS: IPRATROPIUM BROM 0.5 MG/2.5ML INH SOL NEB ONE (22:25)
[2024-10-20] MEDS: ALBUTEROL SULF 2.5 MG/0.5ML(0.5%) NEB SOLN NEB ONE (22:26)
[2024-10-20] MEDS: predniSONE 20 MG TAB PO ONE (22:30)
[2024-10-20 22:32] LABS: Basophils # (auto) 0.1 10 ^3/uL (0-0.2); Basophils % (auto) 0.6 % (0.0-2.0); Eosinophils # (auto) 0 10 ^3/uL (0-0.8); Hematocrit 37.7 % (41.0-53.0); Lymphocytes # (auto) 0.4 10 ^3/uL (0.4-5.4); Lymphocytes % (auto) 4.4 % (10.0-50.0); Mean Corpuscular Hemoglobin 30.5 pg (28.0-32.0); Mean Corpuscular Hgb Conc. 31.8 g/dL (32.0-36.0); Mean Corpuscular Volume 96.1 fL (80.0-100.0); Monocytes # (auto) 0.4 10 ^3/uL (0-1.3); Monocytes % (auto) 4.3 % (0.0-12.0); Neutrophils # (auto) 8.2 10 ^3/uL (1.6-8.6); Neutrophils % (auto) 90.7 % (37.0-80.0); Nucleated Red Blood Cells % 0.1 %; Platelet Count (auto) 189 10^3/uL (140-450); Red Blood Cells 3.93 10^6/uL (4.5-5.90); Red Cell Distribution Width 14.9 % (11.8-14.3)
--- NOTE | 2024-10-20 22:32 | DVH ---
CHEST RADIOGRAPH Indication: SOB Technique: Single frontal view of the chest was obtained Comparison: XY CHEST XRAY 1 VIEW on DOS: 03/26/24, XY CHEST XRAY 1 VIEW on DOS: 03/25/24, XY CHEST XRAY 1 VIEW on DOS: 03/24/24 Findings/ IMPRESSION: Mild cardiomegaly otherwise no active cardiopulmonary disease.
[2024-10-20 22:53] LABS: Anion Gap 12 (5-15); BUN/Creatinine Ratio 13.1 (10.0-20.0); Bilirubin, Total 0.4 mg/dL (0.2-1.0); Blood Urea Nitrogen 19 mg/dL (9-23); Calcium 10.2 mg/dL (8.7-10.4); Carbon Dioxide 23 mmol/L (20-31); Chloride 101 mmol/L (98-107); Potassium 4.7 mmol/L (3.5-5.1); Sodium 136 mmol/L (136-145); Total Protein 7.9 g/dL (5.7-8.2)
[2024-10-20 22:57] LABS: Alanine Aminotransferase 59 U/L (7-40); Albumin 4.9 g/dL (3.2-4.8); Alkaline Phosphatase 178 U/L (46-116); Aspartate Aminotransferase 69 U/L (13-40)
[2024-10-20 22:58] LABS: Glucose 518 mg/dL (74-106)
[2024-10-20] MEDS ORDERED: InsuLIN REG 1unit/0.01ml Soln (100units/ml) SC ONE (23:15)
[2024-10-20] MEDS ORDERED: AZIT500T66 PO (23:39)
[2024-10-20] MEDS ORDERED: ALBU108A5 IN (23:39)
[2024-10-20] MEDS ORDERED: ALBU0.084 NEB (23:39)
[2024-10-20] MEDS ORDERED: INSU100I70 SC (23:42)
[2024-10-21] VITALS (19 sets, daily range): BP systolic 115–142; BP diastolic 76–88; PULSE 108–115; RESP 17–22; TEMP 97.5–98.3; O2SAT 92–100
[2024-10-21] MEDS: AZITHROMYCIN 250 MG TAB PO ONE (01:45)
[2024-10-21] MEDS: ALBUTEROL SULF 2.5 MG/0.5ML(0.5%) NEB SOLN NEB ONE (01:51)
[2024-10-21] MEDS: InsuLIN REG 1unit/0.01ml Soln (100units/ml) SC ONE (02:06)
[2024-10-21] MEDS ORDERED: HYDROcodone-ACET 5/325MG TAB PO PRN (02:30)
[2024-10-21] MEDS ORDERED: ACETAMINOPHEN 325 MG TAB PO PRN (02:30)
[2024-10-21] MEDS ORDERED: ONDANSETRON HCL 4 MG/2 ML VIAL IV PRN (02:30)
[2024-10-21] MEDS ORDERED: TEMAZEPAM 15 MG CAP PO PRN (02:30)
[2024-10-21] MEDS ORDERED: MORPHINE SULFATE INJ 2 MG/ml SYRG IV PRN (02:30)
[2024-10-21] MEDS ORDERED: DEXTROSE (50%) 50ML SYRG IV PRN (02:30)
[2024-10-21] MEDS ORDERED: MAALOX PLUS or MAALOX 30 ML PO PRN (02:30)
[2024-10-21] MEDS ORDERED: DOCUSATE SOD 100 MG CAP PO PRN (02:30)
[2024-10-21] MEDS ORDERED: LORazepam 0.5 MG TAB PO PRN (02:30)
--- NOTE | 2024-10-21 03:16 | DVHHP2 ---
History of Present Illness Reason for Visit: shortness of breath cough History of Present Illness 59-year-old male with a past medical history of COPD CHF hypertension and diabetes comes to the ED with complaints of cough sore throat for the past three days also concerns of shortness of breath and worsening COPD exacerbation patient was evaluated in the ED and recommended for further evaluation management and treatment on an inpatient basis Cardiovascular: HTN Pulmonary: COPD Endocrine: Diabetes Review of Systems Constitutional: Yes: Weakness; No: Fever, Chills, Sweats, Malaise, Other Eyes: No: Pain, Vision change, Conjunctivae inflammation, Eyelid inflammation, Other, Redness ENT: No: Ear pain, Ear discharge, Nose pain, Nose discharge, Nose congestion, Mouth pain, Mouth swelling, Throat pain, Throat swelling, Other Respiratory: Cough, Shortness of breath, SOB with excertion; No: Dry, Wheezing, Hemoptysis, Pleuritic Pain, Sputum, Wheezing, Other Cardiovascular: No: Chest Pain, Palpitations, Orthopnea, Paroxysmal Noc. Dyspnea, Edema, Lt Headedness, Other Gastrointestinal: No: Nausea, Vomiting, Abdominal Pain, Diarrhea, Constipation, Melena, Hematochezia, Other Genitourinary: No Dysuria, No Frequency, No Incontinence, No Hematuria, No Retention, No Other Musculoskeletal: No: other, neck pain, shoulder pain, arm pain, back pain, hand pain, leg pain, foot pain Skin: No: Rash, Lesions, Jaundice, Bruising, Other Neurological: No: Weakness, Numbness, Incoordination, Change in speech, Confusion, Seizures, Other Allergies: Coded Allergies: NO KNOWN ALLERGIES (Unverified , 03/23/16) Exam Vital Signs Vital Signs Date Time Temp Pulse Resp B/P (MAP) Pulse Ox O2 Delivery O2 Flow Rate FiO2 10/21/24 01:48 18 97 Room Air* 0 21 10/21/24 01:28 111 10/21/24 01:28 98.7 125/88 (100) 98.7 Exam General: Normal body habitus, no acute distress. Skin: No rashes, lumps, ulcers, blisters, purpura or petechiae; no nail abnormalities. HEENT: Sclerae clear, PERRL, normal hearing, gums without lesions or bleeding, oropharynx clear without erythema or exudate. Neck: Supple without enlargement of the thyroid, or lymphadenopathy. Chest: Normal size and shape, no tenderness, lung gamble clear to auscultation and percussion, nonlabored breathing. Heart: No jugular venous distention, normal carotid upstroke without bruits, PMI normal, S1 and S2 normal without murmur or gallop, no varicosities noted. Abdomen: Soft, scaphoid, no tenderness or masses, no hernias, normal bowel sounds, no hepatosplenomegaly. Pelvic/Rectal: No hernias, heme negative stool, no rectal masses. Lymphatics: No cervical, submandibular, supraclavicular, axillary, or inguinal adenopathy. Extremities: Peripheral pulses full and symmetric without bruits, no clubbing, cyanosis or edema. Neurologic: Alert and oriented, memory normal, cranial nerves II-XII are intact; the tendon reflexes are normal and symmetric; normal sensation to pinprick, light touch and proprioception; normal gait; no tremor; normal strength and fine motor control bilaterally; normal plantar flexion of toes bilaterally. Labs/Xrays Labs Test 10/21/24 01:25 10/20/24 22:24 Range/Units POC Glucose 351 H 70-106 mg/dl White Blood Count 9.0 4.4-10.8 10^3/uL Red Blood Count 3.93 L 4.5-5.90 10^6/uL Hemoglobin 12.0 L 13.5-17.5 g/dL Hematocrit 37.7 L 41.0-53.0 % Mean Corpuscular Volume 96.1 80.0-100.0 fL Mean Corpuscular Hemoglobin 30.5 28.0-32.0 pg Mean Corpuscular Hemoglobin Concent 31.8 L 32.0-36.0 g/dL Red Cell Distribution Width 14.9 H 11.8-14.3 % Platelet Count 189 140-450 10^3/uL Mean Platelet Volume 7.8 6.9-10.8 fL Neutrophils (%) (Auto) 90.7 H 37.0-80.0 % Lymphocytes (%) (Auto) 4.4 L 10.0-50.0 % Monocytes (%) (Auto) 4.3 0.0-12.0 % Eosinophils (%) (Auto) 0.0 0.0-7.0 % Basophils (%) (Auto) 0.6 0.0-2.0 % Neutrophils # (Auto) 8.2 1.6-8.6 10 ^3/uL Lymphocytes # (Auto) 0.4 0.4-5.4 10 ^3/uL Monocytes # (Auto) 0.4 0-1.3 10 ^3/uL Eosinophils # (Auto) 0 0-0.8 10 ^3/uL Basophils # (Auto) 0.1 0-0.2 10 ^3/uL Nucleated Red Blood Cells 0.1 % Sodium Level 136 136-145 mmol/L Potassium Level 4.7 3.5-5.1 mmol/L Chloride Level 101 98-107 mmol/L Carbon Dioxide Level 23 20-31 mmol/L Anion Gap 12 5-15 Blood Urea Nitrogen 19 9-23 mg/dL Creatinine 1.45 H 0.700-1.30 mg/dL Glomerular Filtration Rate Calc 56 >90 mL/min BUN/Creatinine Ratio 13.1 10.0-20.0 Serum Glucose 518 *H 74-106 mg/dL Calcium Level 10.2 8.7-10.4 mg/dL Total Bilirubin 0.4 0.2-1.0 mg/dL Aspartate Amino Transferase (AST) 69 H 13-40 U/L Alanine Aminotransferase (ALT) 59 H 7-40 U/L Alkaline Phosphatase 178 H 46-116 U/L Troponin I High Sensitivity 36 </=54 ng/L B-Type Natriuretic Peptide 1040.20 0-100 pg/mL Total Protein 7.9 5.7-8.2 g/dL Albumin 4.9 H 3.2-4.8 g/dL Assessment/Plan Assessment/Plan admitted to [facility] COPD Exacerbation: Continue bronchodilator therapy Continue systemic steroids p.r.n. duo neb treatments CHF Exacerbation elevated BNP on admission continuing diuretic therapy Uncontrolled Type 2 Diabetes with Hyperglycemia: Insulin therapy aggressive sliding scale diabetic diet suspected pharyngitis IV antibiotic covered over for confirmation COVID strep flu swabs order Billing Information: ICD-10: J44.1 - COPD with acute exacerbation ICD-10: I50.9 - Heart failure, unspecified ICD-10: E11.65 - Type 2 diabetes mellitus with hyperglycemia ICD-10: J02.9 - Acute pharyngitis, unspecified Plan discussed with: Patient My Orders Orders - MISHEL KHALIL MD Procedure Category Date Status Time Rapid Strep Screen - LAB 10/21/24 Logged Throat 02:23 Covid19 Antigen Rcista LAB 10/21/24 Logged Rapid Influenza A&B LAB 10/21/24 Logged 02:23 Glucose Blood PHA 10/21/24 In Process (Accu-Chek Comfort 07:00 Insulin R (Human) PHA 10/21/24 In Process (Insulin R) 07:00 Insulin R (Human) PHA 10/21/24 In Process (Insulin R) 22:00 Dextrose 50% Syringe PHA 10/21/24 In Process 02:30 Ceftriaxone 1gm/50ml PHA 10/21/24 In Process D5w (Rocephin) 10:00 Azithromycin Tablet PHA 10/21/24 In Process (Zithromax Tablet) 22:00 Albuterol Medneb PHA 10/21/24 In Process (Ventolin Medneb) 02:30 Ipratropium Medneb PHA 10/21/24 In Process (Atrovent Medneb) 02:30 Cont Med Neb Intial Tx RT 10/21/24 Logged 02:23 Furosemide Injection PHA 10/21/24 In Process (Lasix Injection) 10:00 Admit ADMIT 10/21/24 Transmitted 02:23 Code Status CODE 10/21/24 Transmitted 02:23 Vital Signs ANNABEL 10/21/24 In Process 02:23 Review Orders With ANNABEL 10/21/24 In Process Adm. 02:23 Consistent DIET 10/21/24 Transmitted Carb(Ccho)Diabetes Breakfast Lorazepam Tablet PHA 10/21/24 In Process (Ativan Tablet) 02:30 Alum & Mag PHA 10/21/24 In Process Hydrox-Simethicone 02:30 Docusate Sodium PHA 10/21/24 In Process Capsule (Colace 02:30 Acetaminophen Tablet PHA 10/21/24 In Process (Tylenol Tablet) 02:30 Temazepam (Restoril) PHA 10/21/24 In Process 02:30 Notify Md Of Changes ANNABEL 10/21/24 In Process From Base 02:23 Advance Directive ANNABEL 10/21/24 In Process 02:23 Patient Condition ORDERS 10/21/24 Transmitted 02:23 Allergies ANNABEL 10/21/24 In Process 02:23 Hydrocodone-Acet PHA 10/21/24 In Process 5/325mg Tab ([place] 02:30 Ondansetron Hcl PHA 10/21/24 In Process (Zofran) 02:30 Morphine Sulfate PHA 10/21/24 In Process Injection 02:30 Oxygen By Nasal RT 10/21/24 Transmitted Cannula 02:23 Date of Service: Oct 21, 2024 Billing Provider: MISHEL KHALIL MD Common Visit Codes: [id number] INP/OBS CARE (HIGH) MISHEL KHALIL MD Oct 21, 2024 03:16
[2024-10-21] MEDS: ALBUTEROL SULF 2.5 MG/0.5ML(0.5%) NEB SOLN NEB PRN (03:55)
[2024-10-21] MEDS: IPRATROPIUM BROM 0.5 MG/2.5ML INH SOL NEB PRN (03:55)
[2024-10-21 04:51] LABS: Rapid Strep A Screen-Throat Negative
[2024-10-21] MEDS: FUROSEMIDE 40 MG/4 ML VIAL IV ONE (05:22)
[2024-10-21 05:24] LABS: COVID19 ANTIGEN SOFIA FIA NEGATIVE (NEGATIVE); Rapid Influenza A Negative (Negative); Rapid Influenza B Negative (Negative)
[2024-10-21] MEDS: ACCU-CHEK COMFORT CURVE STRIP VI SCH (06:59)
[2024-10-21] MEDS: InsuLIN REG 1unit/0.01ml Soln (100units/ml) SC SCH ×2 (07:04→21:20)
[2024-10-21] MEDS: cefTRIAXone 1GM/50ML D5W 50 ML IV SCH (10:18)
[2024-10-21] MEDS: FUROSEMIDE 40 MG/4 ML VIAL IV SCH (10:18)
[2024-10-21] MEDS ORDERED: APIX5TAB PO (12:20)
--- NOTE | 2024-10-21 14:22 | DVHPN2 ---
Reviewed: Care Plan, H&P, Labs, Medications, Previous Orders, Radiology Changes from previous H/P or p: No Changes Eyes: No Pain, No Vision change, No Conjunctivae inflammation, No Eyelid inflammation, No Other, No Redness ENT: No Ear pain, No Ear discharge, No Nose pain, No Nose discharge, No Nose congestion, No Mouth pain, No Mouth swelling, No Throat pain, No Throat swelling, No Other Cardiovascular: No Chest Pain, No Palpitations, No Orthopnea, No Paroxysmal Noc. Dyspnea, No Edema, No Lt Headedness, No Other Respiratory: Cough; No Dry; Shortness of breath, SOB with excertion; No Wheezing, No Hemoptysis, No Pleuritic Pain, No Sputum, No Other Gastrointestinal: No Nausea, No Vomiting, No Abdominal Pain, No Diarrhea, No Constipation, No Melena, No Hematochezia, No Other Genitourinary: No Dysuria, No Frequency, No Incontinence, No Hematuria, No Retention, No Other Musculoskeletal: No other, No neck pain, No shoulder pain, No arm pain, No back pain, No hand pain, No leg pain, No foot pain Skin: No Rash, No Lesions, No Jaundice, No Bruising, No Other Objective Vitals Vital Signs Date Time Temp Pulse Resp B/P (MAP) Pulse Ox O2 Delivery O2 Flow Rate FiO2 10/21/24 10:18 126/80 10/21/24 09:25 97.5 111 18 98 97.5 10/21/24 08:42 Room Air 0.0 10/21/24 08:42 21 Medications Current Medications Medications Dose Ordered Sig/Juan Miguel Route Start Time Stop Time Status Last Admin Dose Admin Diagnostic Test (Pha) 1 strip ACHS 10/21/24 07:00 10/21/24 11:17 1 STRIP Insulin Human Regular AC SC 10/21/24 07:00 10/21/24 11:19 4 UNITS Insulin Human Regular HS SC 10/21/24 22:00 Dextrose 50 ml UD PRN IV 10/21/24 02:30 Ceftriaxone Sodium 50 ml @ 100 mls/hr DAILY IV 10/21/24 10:00 10/21/24 10:18 100 MLS/HR Azithromycin 500 mg HS PO 10/21/24 22:00 Albuterol 2.5 mg Q6HP PRN NEB 10/21/24 02:30 10/21/24 08:42 2.5 MG Ipratropium [place] 0.5 mg Q6HPRN PRN NEB 10/21/24 02:30 10/21/24 08:42 0.5 MG Furosemide 40 mg DAILY IV 10/21/24 10:00 10/21/24 10:18 40 MG Lorazepam 0.5 mg Q6HP PRN PO 10/21/24 02:30 Al Hydrox/Mg Hydrox/Simethicone 30 ml Q6HP PRN PO 10/21/24 02:30 Docusate Sodium 100 mg BIDPRN PRN PO 10/21/24 02:30 Acetaminophen 650 mg Q6HP PRN PO 10/21/24 02:30 Temazepam 15 mg QHSP PRN PO 10/21/24 02:30 Acetaminophen/ Hydrocodone Bitart 1 tab Q4HP PRN PO 10/21/24 02:30 Ondansetron HCl 4 mg Q4HP PRN IV 10/21/24 02:30 Morphine Sulfate 2 mg Q4HPRN PRN IV 10/21/24 02:30 Laboratory Results Laboratory Tests 10/20/24 22:24 Chemistry Test 10/20/24 22:24 Albumin 4.9 g/dL (3.2-4.8) H Calcium Level 10.2 mg/dL (8.7-10.4) Total Protein 7.9 g/dL (5.7-8.2) Cardiac Markers Test 10/20/24 22:24 B-Type Natriuretic Peptide 1040.20 pg/mL (0-100) LFT Test 10/20/24 22:24 Alanine Aminotransferase (ALT) 59 U/L (7-40) H Alkaline Phosphatase 178 U/L (46-116) H Aspartate Amino Transferase (AST) 69 U/L (13-40) H Total Bilirubin 0.4 mg/dL (0.2-1.0) Labs and/or images reviewed: Labs reviewed by me, Image(s) reviewed by me Assessment/Plan Assessment/Plan Acute hypoxic respiratory failure: Oxygen by nasal cannula Acute COPD exacerbation: Albuterol Atrovent Possible community-acquired pneumonia: Rocephin azithromycin Uncontrolled diabetes: Insulin sliding scale, we will check A1c Acute exacerbation of CHF BNP 1046, Lasix Flu test negative COVID test negative Hypertension Time spent 50 minutes Patient is full code Advanced care planning time 20 mts Plan discussed with: Patient Date of Service: Oct 21, 2024 Billing Provider: KIAN JOYNER MD Common Visit Codes: [id number] INP/OBS CARE(HIGH) Secondary Visit Codes: [id number] CARE PLAN 30 MINUTES KIAN JOYNER MD Oct 21, 2024 14:22
[2024-10-21] MEDS: AZITHROMYCIN 250 MG TAB PO SCH (21:06)
[2024-10-21] MEDS: ALBUTEROL SULF 2.5 MG/0.5ML(0.5%) NEB SOLN NEB SCH (22:42)
[2024-10-21] MEDS: IPRATROPIUM BROM 0.5 MG/2.5ML INH SOL NEB SCH (22:42)
[2024-10-22] VITALS (18 sets, daily range): BP systolic 95–165; BP diastolic 21–75; PULSE 72–125; RESP 16–20; TEMP 97.2–98; O2SAT 93–100
--- NOTE | 2024-10-22 12:00 | DVHPN2 ---
Reviewed: Care Plan, H&P, Labs, Medications, Previous Orders, Radiology Changes from previous H/P or p: No Changes Eyes: No Pain, No Vision change, No Conjunctivae inflammation, No Eyelid inflammation, No Other, No Redness ENT: No Ear pain, No Ear discharge, No Nose pain, No Nose discharge, No Nose congestion, No Mouth pain, No Mouth swelling, No Throat pain, No Throat swelling, No Other Cardiovascular: No Chest Pain, No Palpitations, No Orthopnea, No Paroxysmal Noc. Dyspnea, No Edema, No Lt Headedness, No Other Respiratory: Cough; No Dry; Shortness of breath, SOB with excertion; No Wheezing, No Hemoptysis, No Pleuritic Pain, No Sputum, No Other Gastrointestinal: No Nausea, No Vomiting, No Abdominal Pain, No Diarrhea, No Constipation, No Melena, No Hematochezia, No Other Genitourinary: No Dysuria, No Frequency, No Incontinence, No Hematuria, No Retention, No Other Musculoskeletal: No other, No neck pain, No shoulder pain, No arm pain, No back pain, No hand pain, No leg pain, No foot pain Skin: No Rash, No Lesions, No Jaundice, No Bruising, No Other Objective Vitals Vital Signs Date Time Temp Pulse Resp B/P (MAP) Pulse Ox O2 Delivery O2 Flow Rate FiO2 10/22/24 10:06 110/73 10/22/24 09:42 115 20 100 10/22/24 09:32 Room Air* 0 21 10/22/24 09:00 97.2 97.2 Intake/Output Intake and Output 10/22/24 07:00 Intake Total 1700 ml Balance 1700 ml Intake Oral 1700 ml # Voids 4 Medications Current Medications Medications Dose Ordered Sig/Juan Miguel Route Start Time Stop Time Status Last Admin Dose Admin Diagnostic Test (Pha) 1 strip ACHS 10/21/24 07:00 10/22/24 10:52 1 STRIP Insulin Human Regular AC SC 10/21/24 07:00 10/22/24 10:57 8 UNITS Insulin Human Regular HS SC 10/21/24 22:00 10/21/24 21:20 4 UNITS Dextrose 50 ml UD PRN IV 10/21/24 02:30 Ceftriaxone Sodium 50 ml @ 100 mls/hr DAILY IV 10/21/24 10:00 10/22/24 10:06 100 MLS/HR Azithromycin 500 mg HS PO 10/21/24 22:00 10/21/24 21:06 500 MG Albuterol 2.5 mg Q6HP PRN NEB 10/21/24 02:30 10/21/24 19:25 2.5 MG Ipratropium [place] 0.5 mg Q6HPRN PRN NEB 10/21/24 02:30 10/21/24 19:25 0.5 MG Furosemide 40 mg DAILY IV 10/21/24 10:00 10/22/24 10:06 40 MG Lorazepam 0.5 mg Q6HP PRN PO 10/21/24 02:30 Al Hydrox/Mg Hydrox/Simethicone 30 ml Q6HP PRN PO 10/21/24 02:30 Docusate Sodium 100 mg BIDPRN PRN PO 10/21/24 02:30 Acetaminophen 650 mg Q6HP PRN PO 10/21/24 02:30 Temazepam 15 mg QHSP PRN PO 10/21/24 02:30 Acetaminophen/ Hydrocodone Bitart 1 tab Q4HP PRN PO 10/21/24 02:30 Ondansetron HCl 4 mg Q4HP PRN IV 10/21/24 02:30 Morphine Sulfate 2 mg Q4HPRN PRN IV 10/21/24 02:30 Ipratropium [place] 0.5 mg Q4HR NEB 10/21/24 22:00 10/22/24 09:32 0.5 MG Albuterol 2.5 mg Q4HR NEB 10/21/24 22:00 10/22/24 09:32 2.5 MG Laboratory Results Laboratory Tests 10/20/24 22:24 Microbiology Microbiology Date/Time Source Procedure Growth Status 10/21/24 04:35 Throat Nose/Throat Culture - Preliminary Resulted Labs and/or images reviewed: Labs reviewed by me, Image(s) reviewed by me Assessment/Plan Assessment/Plan Acute hypoxic respiratory failure: Oxygen by nasal cannula Acute COPD exacerbation: Albuterol Atrovent Possible community-acquired pneumonia: Rocephin azithromycin Uncontrolled diabetes: Insulin sliding scale, we will check A1c Acute exacerbation of CHF BNP 1046, Lasix Flu test negative COVID test negative Hypertension Time spent 50 minutes Patient is full code Advanced care planning time 20 mts Plan discussed with: Patient My Orders Orders - KIAN JOYNER MD Procedure Category Date Status Time * Wound Consult CONS 10/21/24 Transmitted Ipratropium Medneb PHA 10/21/24 In Process (Atrovent Medneb) 22:00 Albuterol Medneb PHA 10/21/24 In Process (Ventolin Medneb) 22:00 Date of Service: Oct 22, 2024 Billing Provider: KIAN JOYNER MD Common Visit Codes: [id number] INP/OBS CARE(HIGH) KIAN JOYNER MD Oct 22, 2024 12:00
[2024-10-23] VITALS (16 sets, daily range): BP systolic 98–139; BP diastolic 59–77; PULSE 80–114; RESP 18–22; TEMP 97.9–98.9; O2SAT 91–100
[2024-10-23] MEDS ORDERED: PRED20TA2 PO (13:09)
[2024-10-23] MEDS ORDERED: LEVO500T91 PO (13:09)
[2024-10-23] MEDS ORDERED: POTA-180 PO (13:09)
[2024-10-23] MEDS ORDERED: FURO1TAB31 PO (13:09)
--- NOTE | 2024-10-23 13:09 | DVHPN2 ---
Reviewed: Care Plan, H&P, Labs, Medications, Previous Orders, Radiology Changes from previous H/P or p: No Changes Eyes: No Pain, No Vision change, No Conjunctivae inflammation, No Eyelid inflammation, No Other, No Redness ENT: No Ear pain, No Ear discharge, No Nose pain, No Nose discharge, No Nose congestion, No Mouth pain, No Mouth swelling, No Throat pain, No Throat swelling, No Other Cardiovascular: No Chest Pain, No Palpitations, No Orthopnea, No Paroxysmal Noc. Dyspnea, No Edema, No Lt Headedness, No Other Respiratory: Cough; No Dry; Shortness of breath, SOB with excertion; No Wheezing, No Hemoptysis, No Pleuritic Pain, No Sputum, No Other Gastrointestinal: No Nausea, No Vomiting, No Abdominal Pain, No Diarrhea, No Constipation, No Melena, No Hematochezia, No Other Genitourinary: No Dysuria, No Frequency, No Incontinence, No Hematuria, No Retention, No Other Musculoskeletal: No other, No neck pain, No shoulder pain, No arm pain, No back pain, No hand pain, No leg pain, No foot pain Skin: No Rash, No Lesions, No Jaundice, No Bruising, No Other Objective Vitals Vital Signs Date Time Temp Pulse Resp B/P (MAP) Pulse Ox O2 Delivery O2 Flow Rate FiO2 10/23/24 10:04 109/61 10/23/24 10:01 107 20 100 10/23/24 09:54 Room Air 0.0 10/23/24 09:54 21 10/23/24 09:00 97.9 97.9 Intake/Output Intake and Output 10/23/24 07:00 Intake Total 2250 ml Balance 2250 ml Intake Oral 2200 ml IV Total 50 ml # Voids 8 Medications Current Medications Medications Dose Ordered Sig/Juan Miguel Route Start Time Stop Time Status Last Admin Dose Admin Diagnostic Test (Pha) 1 strip ACHS 10/21/24 07:00 10/23/24 11:37 1 STRIP Insulin Human Regular AC SC 10/21/24 07:00 10/23/24 11:38 4 UNITS Insulin Human Regular HS SC 10/21/24 22:00 10/22/24 22:57 2 UNITS Dextrose 50 ml UD PRN IV 10/21/24 02:30 Ceftriaxone Sodium 50 ml @ 100 mls/hr DAILY IV 10/21/24 10:00 10/23/24 10:03 100 MLS/HR Azithromycin 500 mg HS PO 10/21/24 22:00 10/22/24 21:57 500 MG Albuterol 2.5 mg Q6HP PRN NEB 10/21/24 02:30 10/23/24 08:36 2.5 MG Ipratropium [place] 0.5 mg Q6HPRN PRN NEB 10/21/24 02:30 10/23/24 08:36 0.5 MG Furosemide 40 mg DAILY IV 10/21/24 10:00 10/23/24 10:04 40 MG Lorazepam 0.5 mg Q6HP PRN PO 10/21/24 02:30 Al Hydrox/Mg Hydrox/Simethicone 30 ml Q6HP PRN PO 10/21/24 02:30 Docusate Sodium 100 mg BIDPRN PRN PO 10/21/24 02:30 Acetaminophen 650 mg Q6HP PRN PO 10/21/24 02:30 Temazepam 15 mg QHSP PRN PO 10/21/24 02:30 Acetaminophen/ Hydrocodone Bitart 1 tab Q4HP PRN PO 10/21/24 02:30 Ondansetron HCl 4 mg Q4HP PRN IV 10/21/24 02:30 Morphine Sulfate 2 mg Q4HPRN PRN IV 10/21/24 02:30 Ipratropium [place] 0.5 mg Q4HR NEB 10/21/24 22:00 10/23/24 09:54 0.5 MG Albuterol 2.5 mg Q4HR NEB 10/21/24 22:00 10/23/24 09:54 2.5 MG Laboratory Results Laboratory Tests 10/20/24 22:24 Microbiology Microbiology Date/Time Source Procedure Growth Status 10/21/24 04:35 Throat Nose/Throat Culture - Final Complete Labs and/or images reviewed: Labs reviewed by me, Image(s) reviewed by me Assessment/Plan Assessment/Plan Acute hypoxic respiratory failure: Oxygen by nasal cannula Acute COPD exacerbation: Albuterol Atrovent Possible community-acquired pneumonia: Rocephin azithromycin Uncontrolled diabetes: Insulin sliding scale, we will check A1c Acute exacerbation of CHF BNP 1046, Lasix Flu test negative COVID test negative Hypertension Time spent 50 minutes Patient is full code Advanced care planning time 20 mts Plan discussed with: Patient My Orders Orders - KIAN JOYNER MD Procedure Category Date Status Time Cleanse Wound W/ ANNABEL 10/22/24 In Process Sterile Gauze 12:58 Date of Service: Oct 23, 2024 Billing Provider: KIAN JOYNER MD Common Visit Codes: [id number] INP/OBS CARE(HIGH) KIAN JOYNER MD Oct 23, 2024 13:09
--- NOTE | 2024-10-23 13:12 | DVHDS2 ---
Discharge Summary Date of Admission Oct 21, 2024 at 02:23 Date of Discharge: Oct 23, 2024 Admitting Diagnosis Shortness of breaths Wounds: None Labs/Diagnostic Data: Laboratory Results Test 10/23/24 11:14 10/21/24 04:35 10/21/24 04:34 10/20/24 22:24 POC Glucose 173 mg/dl (70-106) Group A Streptococcus Rapid Negative Influenza Type A Antigen Negative (Negative) Influenza Type B Antigen Negative (Negative) SARS-CoV-2 Antigen (Rapid) Negative (NEGATIVE) White Blood Count 9.0 10^3/uL (4.4-10.8) Red Blood Count 3.93 10^6/uL (4.5-5.90) Hemoglobin 12.0 g/dL (13.5-17.5) Hematocrit 37.7 % (41.0-53.0) Mean Corpuscular Volume 96.1 fL (80.0-100.0) Mean Corpuscular Hemoglobin 30.5 pg (28.0-32.0) Mean Corpuscular Hemoglobin Concent 31.8 g/dL (32.0-36.0) Red Cell Distribution Width 14.9 % (11.8-14.3) Platelet Count 189 10^3/uL (140-450) Mean Platelet Volume 7.8 fL (6.9-10.8) Neutrophils (%) (Auto) 90.7 % (37.0-80.0) Lymphocytes (%) (Auto) 4.4 % (10.0-50.0) Monocytes (%) (Auto) 4.3 % (0.0-12.0) Eosinophils (%) (Auto) 0.0 % (0.0-7.0) Basophils (%) (Auto) 0.6 % (0.0-2.0) Neutrophils # (Auto) 8.2 10 ^3/uL (1.6-8.6) Lymphocytes # (Auto) 0.4 10 ^3/uL (0.4-5.4) Monocytes # (Auto) 0.4 10 ^3/uL (0-1.3) Eosinophils # (Auto) 0 10 ^3/uL (0-0.8) Basophils # (Auto) 0.1 10 ^3/uL (0-0.2) Nucleated Red Blood Cells 0.1 % Sodium Level 136 mmol/L (136-145) Potassium Level 4.7 mmol/L (3.5-5.1) Chloride Level 101 mmol/L (98-107) Carbon Dioxide Level 23 mmol/L (20-31) Anion Gap 12 (5-15) Blood Urea Nitrogen 19 mg/dL (9-23) Creatinine 1.45 mg/dL (0.700-1.30) Glomerular Filtration Rate Calc 56 mL/min (>90) BUN/Creatinine Ratio 13.1 (10.0-20.0) Serum Glucose 518 mg/dL (74-106) Calcium Level 10.2 mg/dL (8.7-10.4) Total Bilirubin 0.4 mg/dL (0.2-1.0) Aspartate Amino Transferase (AST) 69 U/L (13-40) Alanine Aminotransferase (ALT) 59 U/L (7-40) Alkaline Phosphatase 178 U/L (46-116) Troponin I High Sensitivity 36 ng/L (</=54) B-Type Natriuretic Peptide 1040.20 pg/mL (0-100) Total Protein 7.9 g/dL (5.7-8.2) Albumin 4.9 g/dL (3.2-4.8) Other Laboratory Tests 10/20/24 22:24 Brief Hx & Hospital Course: 81-year-old male with COPD diabetes CHF came in for shortness of breaths flu test negative COVID test negative. Treated with albuterol Atrovent Solu-Medrol for COPD exacerbation and Rocephin azithromycin for possible community-acquired pneumonia. At the time of discharge patient is afebrile on room air. Discharged home on Levaquin prednisone Lasix and potassium he will follow up with his primary Dr. Consults/Reason for consult None Operations or Procedures None Condition at Discharge: Fair Final Diagnosis/Problems List Acute hypoxic respiratory failure: Oxygen by nasal cannula Acute COPD exacerbation: Albuterol Atrovent Possible community-acquired pneumonia: Rocephin azithromycin Uncontrolled diabetes: Insulin sliding scale, we will check A1c Acute exacerbation of CHF BNP 1046, Lasix Flu test negative COVID test negative Hypertension Discharge Disposition: Home Discharge Instruct/Medications Diet: Cardiac 2g Na,low cholest Activity: Light activity Follow Up/Referral: Resume all previous home medications Use new medications as prescribed Follow up with the primary Dr Medications: Prednisone Levaquin Lasix Potassium Transmitted to pharmacy 35 (Time taken for discharge summary 35 minutes) Discharge Statement: "Patient was advised to return to the ER or call 911 if any headaches, dizziness, shortness of breath, chest pain, abdominal pain, bleeding, fevers, or worsening of medical condition. Patient was counseled about treatment plan, medications, possible side effects, patientverbalized understanding. All questions were answered to the best of my ability. This discharge took greater then 30 minutes in planning, reviewing documentation, counseling the patient, and discussing with other team members." ASSESSMENT ASSESSMENT Assessment Acute hypoxic respiratory failure: Oxygen by nasal cannula Acute COPD exacerbation: Albuterol Atrovent Possible community-acquired pneumonia: Rocephin azithromycin Uncontrolled diabetes: Insulin sliding scale, we will check A1c Acute exacerbation of CHF BNP 1046, Lasix Flu test negative COVID test negative Hypertension Date of Service: Oct 23, 2024 Billing Provider: KIAN JOYNER MD Common Visit Codes: [id number] DISCH DAY >30min KIAN JOYNER MD Oct 23, 2024 13:12
== END 2024-10-23 15:30 | disposition home or self-care (01) | DRG 140 ==
LOC: ER 20:44 → OVERFLOW 10-21 02:23 → WEST WING 10-21 15:00
PROVIDERS: ADMIT Family Medicine; ATTEND Family Medicine
DX: J44.1 Chronic obstructive pulmonary disease with (acute) exacerbation (principal); J96.01 Acute respiratory failure with hypoxia; I50.33 Acute on chronic diastolic (congestive) heart failure; J15.69 Pneumonia due to other Gram-negative bacteria; I11.0 Hypertensive heart disease with heart failure; J15.9 Unspecified bacterial pneumonia; E11.65 Type 2 diabetes mellitus with hyperglycemia; J98.01 Acute bronchospasm; Z20.822 Contact with and (suspected) exposure to COVID-19; J44.0 Chronic obstructive pulmonary disease with (acute) lower respiratory infection
CPT/HCPCS: 36415; 71045; 80053; 82962; 83880; 84484; 85025; 87070; 87426; 87804; 87880; 94640; 99291; G0378; J1815

== ENCOUNTER → 2024-12-01 | Outpatient (CLI) | payer MEDICAID ==
[~2024-12-01] MED LIST changes: +ALBU0.084 NEB; +ALBU108A5 IN; +APIX5TAB PO; +AZIT500T66 PO; +FURO1TAB31 PO; +INSU100I70 SC; +LEVO500T91 PO; +POTA-180 PO; +PRED20TA2 PO
== END | disposition home or self-care (01) ==
LOC: Rad HDHVI 12:54
PROVIDERS: ATTEND Internal Medicine Cardiovascular Disease
DX: I08.1 Rheumatic disorders of both mitral and tricuspid valves (principal); I42.9 Cardiomyopathy, unspecified
CPT/HCPCS: 93306

== ENCOUNTER 2025-01-22 18:07 | Inpatient (IN) | payer MEDICAID ==
[~2025-01-22] VITALS: Ht 182.9 cm; Wt 95.1 kg
[2025-01-22] MEDS: AZITHROMYCIN 500MG/ 250ML 250 ML IV ONE (03:00)
[2025-01-22] MEDS: ALBUTEROL SULF 2.5 MG/0.5ML(0.5%) NEB SOLN NEB ONE ×2 (18:38→22:25)
[2025-01-22] MEDS: IPRATROPIUM BROM 0.5 MG/2.5ML INH SOL NEB ONE ×2 (18:39→22:25)
--- NOTE | 2025-01-22 19:13 | ED.PDOC ---
History of Present Illness HPI Comments 59 y/o overweight M is BIBA for c/c shortness of breath, wheezing, and diffused chest wall tightness. 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 Significant asthma, CHF - on Lasix, COPD - on Albuterol and Atrovent, DM, HTN, hypoxic respiratory failure, and former tobacco abuse. Found on scene with expiratory wheezes, bilaterally, and tachycardic. Positive improvement following 1x breathing treatment en route. Upon arrival to ED, patient states on feeling better but still having symptoms. Denies any cough, congestion, fever, chills, extremity swelling, or further associated symptoms. Chief Complaint: Shortness of Breath Time Seen by MD: 18:20 Primary Care Provider: LOS Reviewed Notes: Nurses Notes, R&D Lab Technician Notes, Medications, Allergies Allergies: Coded Allergies: NO KNOWN ALLERGIES (Unverified , 03/23/16) Home Meds Active Scripts Prednisone (Prednisone) 20 Mg Tab, 20 MG PO DAILY, #10 MG Prov:KIAN JOYNER MD 10/23/24 Levofloxacin Hemihydrate (LEVAQUIN 500 MG) 500 Mg Tab, 1 TAB PO DAILY, #10 TAB Prov:KIAN JOYNER MD 10/23/24 Potassium Chloride (Potassium Chloride ER) 20 Meq Tab, 20 MEQ PO DAILY, #30 TAB Prov:KIAN JOYNER MD 10/23/24 Furosemide (Lasix) 40 Mg Tab, 40 MG PO DAILY, #30 TAB Prov:KIAN JOYNER MD 10/23/24 Insulin Glargine-Yfgn (Insulin Glargine) 100 Unit/Ml Inj, 30 UNIT SC DAILY for 90 Days, #1 INJ 5 Refills Prov:RHETT CHATTERJEE MD 10/20/24 Azithromycin (Azithromycin) 500 Mg Tab, 1 TAB PO DAILY for 7 Days, #7 TAB Prov:RHETT CHATTERJEE MD 10/20/24 Albuterol Sulfate (Albuterol Sulfate Hfa) 108 Mcg/Act Aer, 108 MCG IN Q6HP PRN, #1 AER Prov:RHETT CHATTERJEE MD 10/20/24 Albuterol Sulfate (Albuterol Sulfate) 0.083 % Neb, 1 VIAL NEB Q4HPRN PRN, #50 VIAL Prov:RHETT CHATTERJEE MD 10/20/24 Albuterol Sulfate (Ventolin) 2.5 Mg/0.5 Ml Nb, 1 VIAL INH TID for 30 Days, #1 INH 1 Refill Prov:JAN CONNER NP 09/03/23 Reported Medications Apixaban Base (ELIQUIS) 5 Mg Tab, 1 TAB PO BID 10/21/24 Sodium Bicarbonate (Sodium Bicarbonate) 325 Mg Tab, PO DAILY, TAB 09/08/24 Budesonide-Formoterol Fumarate (Budesonide/Formoterol Fum 80-4.5 Mcg/Act) 1 Aer Aer, 2 AER IN BID, AER 03/17/24 Acetaminophen (Acetaminophen Extra Stren) 500 Mg Tab, 1 TAB PO Q6-8HR PRN for PAIN 01/05/24 Ipratropium-Albuterol (Ipratropium Jamieson/Albut) 1 Sangeeta Sangeeta, 1 SANGEETA INH UD 01/05/24 Ipratropium [place]ies[place] (Ipratropium Jamieson) 0.02 % Sangeeta, 1 VIAL INH Q6HR 01/05/24 Montelukast Sodium (MONTELUKAST SODIUM) 10 Mg Tab, 1 TAB PO DAILY 08/31/23 Insulin Glargine (Basaglar Kwikpen) 100 Unit/Ml Inj, 30 UNITS SC DAILY 08/29/23 Albuterol Sulfate (Albuterol Sulfate Hfa) 108 Mcg/Act Aer, 1 PUFF INH Q4HR PRN for WHEEZING 08/29/23 Information Source: Patient, Emergency Med Personnel Mode of Arrival: EMS Severity: Moderate Timing: Minutes Duration: Since onset Prehospital treatment: 12 Lead EKG, Breathing Tx, Java User Interface Developer Past Medical History PAST MEDICAL HISTORY: Asthma, CHF (Lasix), COPD (on Albuterol and Atrovent ), DM, HTN Past Medical History (Other): Acute hypoxic respiratory failure Surgical History: Hernia Repair Family History Family History: Reviewed,noncontributory to illness Social History Smoker: Non-Smoker, Quit Less Than 1 Year, Cigarettes, Cigar Alcohol: Occasionally Drugs: Denies Drug Use Lives In: Home All Other Systems: Reviewed and Negative (Comprehensive systems review obtained and negative except for what is stated in the HPI.) Physical Exam General Appearance: No Apparent Distress, Normal HEENT: Normal ENT Inspection, Pharynx Normal, TMs Normal Neck: Full Range of Motion, Non-Tender, Normal, Normal Inspection Respiratory: Chest Non-Tender, Expiration (Bilateral expiratory wheezes), No Accessory Muscle Use, No Respiratory Distress, Wheezing (Bilateral, expiratory) Cardiovascular: No Edema, No JVD, No Murmur, No Gallop, Normal Peripheral Pulses, Tachycardia, Other (Regular rhythm ) Breast Exam: Deferred Gastrointestinal: No Organomegaly, Non Tender, No Pulsatile Mass, Normal Bowel Sounds, Soft, Other (Colostomy in RLQ) Genitalia: Deferred Pelvic: Deferred Rectal: Deferred Extremities: No calf tenderness, Normal capillary refill, Normal inspection, Normal range of motion, Non-tender, No pedal edema Musculoskeletal : Apperance: Normal Neurologic: Alert, earth science teacher II-XII nml as Tested, No Motor Deficits, Normal Affect, Normal Mood, No Sensory Deficits Cerebellar Function: Normal Reflexes: Normal Skin: Dry, Normal Color, Warm Lymphatic: No Adenopathy Was a procedure done? Was a procedure done?: No EKG EKG : Pulse Rate (adult): 114 [place]: Normal Cardiac Rhythm: ST Block: None Hypertrophy: None ST: Normal Differential Dx Considerations may include: acute asthma exacerbation, acute CHF exacerbation, acute COPD exacerbation, URI, PNA, MN, PE, among others X-Ray, Labs, Meds, VS Vital Signs Date Time Temp Pulse Resp B/P (MAP) Pulse Ox O2 Delivery O2 Flow Rate FiO2 01/22/25 19:13 114 01/22/25 18:42 14 96 Room Air* 0 21 01/22/25 18:33 114 01/22/25 18:31 98.0 117 24 126/86 (99) 96 98.0 Lab Test 01/22/25 19:50 01/22/25 18:54 01/22/25 18:53 Range/Units Troponin I High Sensitivity 57 *H 55 *H </=54 ng/L White Blood Count 5.1 4.4-10.8 10^3/uL Red Blood Count 4.34 L 4.5-5.90 10^6/uL Hemoglobin 13.7 13.5-17.5 g/dL Hematocrit 40.5 L 41.0-53.0 % Mean Corpuscular Volume 93.2 80.0-100.0 fL Mean Corpuscular Hemoglobin 31.6 28.0-32.0 pg Mean Corpuscular Hemoglobin Concent 33.9 32.0-36.0 g/dL Red Cell Distribution Width 14.4 H 11.8-14.3 % Platelet Count 169 140-450 10^3/uL Mean Platelet Volume 7.4 6.9-10.8 fL Neutrophils (%) (Auto) 59.4 37.0-80.0 % Lymphocytes (%) (Auto) 25.9 10.0-50.0 % Monocytes (%) (Auto) 9.7 0.0-12.0 % Eosinophils (%) (Auto) 2.0 0.0-7.0 % Basophils (%) (Auto) 3.0 H 0.0-2.0 % Neutrophils # (Auto) 3.0 1.6-8.6 10 ^3/uL Lymphocytes # (Auto) 1.3 0.4-5.4 10 ^3/uL Monocytes # (Auto) 0.5 0-1.3 10 ^3/uL Eosinophils # (Auto) 0.1 0-0.8 10 ^3/uL Basophils # (Auto) 0.2 0-0.2 10 ^3/uL Nucleated Red Blood Cells 0.0 % Sodium Level 129 L 136-145 mmol/L Potassium Level 3.8 3.5-5.1 mmol/L Chloride Level 93 L 98-107 mmol/L Carbon Dioxide Level 23 20-31 mmol/L Anion Gap 13 5-15 Blood Urea Nitrogen 14 9-23 mg/dL Creatinine 1.17 0.700-1.30 mg/dL Glomerular Filtration Rate Calc 72 >90 mL/min BUN/Creatinine Ratio 12.0 10.0-20.0 Serum Glucose 443 *H 74-106 mg/dL Calcium Level 9.9 8.7-10.4 mg/dL Magnesium Level 1.8 1.6-2.6 mg/dL Total Bilirubin 0.5 0.2-1.0 mg/dL Aspartate Amino Transferase (AST) 160 H 13-40 U/L Alanine Aminotransferase (ALT) 78 H 7-40 U/L Alkaline Phosphatase 264 H 46-116 U/L B-Type Natriuretic Peptide 266.36 0-100 pg/mL Total Protein 6.9 5.7-8.2 g/dL Albumin 4.2 3.2-4.8 g/dL Blood Gas Specimen Type Venous Blood Gas Sample Site Other Blood Gas Patient Temperature 37.0 Arterial Blood Date Drawn [id number] Casey Test N/a Venous Blood pH 7.398 7.320-7.430 Venous Blood pCO2 at Patient Temp 41.8 38.0-54.0 mmHg Venous Blood pO2 at Patient Temp 44.6 23.0-48.0 mmHg Venous Blood HCO3 25.2 22.0-29.0 mmol/L Venous Bld O2 Saturation (Measured) 77.9 60.0-85.0 % Venous Blood Base Excess 0.3 -2.0-3.0 mmol/L Venous Blood Total Hemoglobin 14.6 13.5-17.5 g/dL Venous Blood Oxyhemoglobin 77.0 0.0-79.0 % Venous Blood Carboxyhemoglobin 0.5 0.5-1.5 % Venous Blood Methemoglobin 0.6 0.0-1.5 % Blood Gas Liter Flow 6.00 Blood Gas Modality Vbg - n/a Blood Gas Spontaneous Rate 20 FiO2 % 40.0 Specimen Drawn By Blood Gas Comments Pt is on medneb tx Current Medications Medications (Trade) Dose Ordered Sig/Juan Miguel Route Start Time Stop Time Status Last Admin Albuterol (Ventolin Medneb) 5 mg ONCE ONCE NEB 01/22/25 18:30 01/22/25 18:31 DC 01/22/25 18:38 Ipratropium [place] (Atrovent Medneb) 0.5 mg ONCE ONCE NEB 01/22/25 18:30 01/22/25 18:31 DC 01/22/25 18:39 Time of 1ST Reevaluation: 18:50 Reevaluation 1ST: Unchanged Patient Education/Counseling: Diagnosis, Treatment, Other (need for admission ) Family Education/Counseling: No Family Present SEPSIS Sepsis Screen Date sepsis recognized/suspect: Jan 22, 2025 Time Sepsis recognized/suspect: 1806 Recent Procedure: No On Antibiotic Therapy: No Respiratory Rate >20: No Heart Rate >90: Yes Temp<36 C (96.8 F) or >38.3 C: No SBP <90 or MAP <65 mmHG: No New Acute Mental Status Change: No Is the patient on CPAP, BIPAP,: No Physician Orders Troponin-I Hs (01/23/25 00:00) Troponin-I Hs (01/23/25 03:00) Troponin-I Hs (01/23/25 06:00) Heplock Iv (01/22/25 18:24) Chest Portable (01/22/25 18:24) Java User Interface Developer (01/22/25 18:24) Electrocardigram (01/22/25 18:24) Venous Blood Gas (01/22/25 18:24) Albuterol Medneb (Ventolin Medneb) (01/22/25 21:45) Ipratropium Medneb (Atrovent Medneb) (01/22/25 21:45) Vital Signs Date Time Temp Pulse Resp B/P (MAP) Pulse Ox O2 Delivery O2 Flow Rate FiO2 01/22/25 19:13 114 01/22/25 18:42 14 96 Room Air* 0 21 01/22/25 18:33 114 01/22/25 18:31 98.0 117 24 126/86 (99) 96 98.0 Laboratory Tests Test 01/22/25 18:54 White Blood Count 5.1 10^3/uL (4.4-10.8) Medications Medications Dose Ordered Sig/Juan Miguel Route Start Time Stop Time Status Last Admin Dose Admin Albuterol 5 mg ONCE ONCE NEB 01/22/25 18:30 01/22/25 18:31 DC 01/22/25 18:38 Ipratropium [place] 0.5 mg ONCE ONCE NEB 01/22/25 18:30 01/22/25 18:31 DC 01/22/25 18:39 Departure 1 Departure Time of Disposition: 21:48 Impression: Primary Impression: ACS (acute coronary syndrome) Additional Impressions: Acute hypoxic respiratory failure Asthma exacerbation Diabetes mellitus with hyperglycemia Disposition: 09 ADMITTED INPATIENT Admit to: Tele Condition: Guarded Comments Shortness of Breath with Chest Tightness in 59-year-old Male Chief Complaint: Shortness of breath and chest tightness for 2 days History of Present Illness: Patient is a 59-year-old male with a history of asthma, hypertension, and type 2 diabetes who presents to the Emergency Department with complaints of shortness of breath for the past two days associated with chest tightness. The patient reports progressive worsening of symptoms. He is currently in mild respiratory distress with significant bilateral wheezing noted on examination, though without accessory muscle use. The patient's blood glucose is severely elevated at 443 mg/dL, suggesting poor glycemic control. Additionally, the patient has an elevated troponin level, indicating possible cardiac involvement. Review of Systems: Respiratory: Positive for shortness of breath, chest tightness, and wheezing. No hemoptysis or cough reported. Cardiovascular: Positive for chest tightness. No palpitations, syncope, or edema reported. Constitutional: No fever, chills, or weight changes reported. Remainder of systems: Deferred or negative. Medications: Home medications not specifically mentioned in metal alloy scientist. Medications administered in ED: - Albuterol nebulizer treatment (multiple) - Prednisone - IV fluids - Insulin Allergies: No known allergies documented in metal alloy scientist. Past Medical History: 1. Asthma 2. Hypertension 3. Type 2 Diabetes Mellitus Physical Exam: General: Patient in mild respiratory distress. Respiratory: Significant bilateral wheezing present. No accessory muscle use observed. Cardiovascular: Not specifically documented in metal alloy scientist. Remainder of physical exam: Not specifically documented in metal alloy scientist. Lab Results: CBC: Unremarkable Chemistry Panel: - Sodium: 129 mEq/L (Low) - Chloride: 93 mEq/L (Low) - Glucose: 443 mg/dL (Severely elevated) Cardiac Enzymes: - Troponin: 55 ng/L (Elevated) Liver Function Tests: - AST: 160 U/L (Elevated) - ALT: 78 U/L (Elevated) - Alkaline Phosphatase: 264 U/L (Elevated) Imaging and Other Relevant Results: Chest X-ray: Cardiomegaly noted. Otherwise unremarkable. No infiltrates, effusions, or pneumothorax identified. Medical Decision Making: Summary Statement: 59-year-old male with history of asthma, hypertension, and type 2 diabetes presenting with acute shortness of breath, chest tightness, bilateral wheezing, severe hyperglycemia, elevated troponin, and abnormal liver function tests. Problem List: 1. Asthma/COPD exacerbation with respiratory failure 2. Uncontrolled type 2 diabetes with severe hyperglycemia 3. Elevated troponin 4. Hyponatremia and hypochloremia 5. Abnormal liver function tests 6. Cardiomegaly on chest X-ray Differential Diagnosis: Asthma exacerbation, COPD exacerbation, acute coronary syndrome, diabetic ketoacidosis, pneumonia, heart failure exacerbation, pulmonary embolism, acute liver injury. ED Course: Patient received multiple breathing treatments with albuterol, prednisone for airway inflammation, IV fluids for hydration, and insulin to address severe hyperglycemia. Despite interventions, patient continued to experience shortness of breath and wheezing on reevaluation, indicating need for hospital admission. Assessment and Plan: 1. Asthma/COPD Exacerbation with Respiratory Failure: - Continue bronchodilator therapy with albuterol nebulizer treatments - Administer systemic corticosteroids (prednisone) - Consider adding ipratropium bromide to nebulizer treatments - Monitor oxygen saturation and respiratory status - Possible need for BiPAP if condition worsens 2. Type 2 Diabetes with Severe Hyperglycemia (Glucose 443 mg/dL): - Continue IV insulin therapy with regular monitoring of blood glucose levels - Assess for diabetic ketoacidosis with serum ketones and arterial blood gas - Adjust home diabetic regimen upon discharge - Endocrinology consultation recommended 3. Elevated Troponin (55 ng/L): - Serial cardiac enzymes to trend troponin levels - ECG monitoring - Cardiology consultation to evaluate for possible acute coronary syndrome - Consider stress test or cardiac catheterization if clinically indicated 4. Electrolyte Abnormalities (Hyponatremia, Hypochloremia): - Cautious IV fluid administration - Serial electrolyte monitoring - Evaluate for underlying causes 5. Abnormal Liver Function Tests: - Further evaluation of elevated AST, ALT, and alkaline phosphatase - Consider hepatology consultation if levels continue to rise - Assess for medication-induced liver injury 6. Disposition: Admit to inpatient medical service for management of respiratory failure and uncontrolled diabetes. Additional Notes: Patient admitted for asthma/COPD exacerbation with respiratory failure and uncontrolled hyperglycemia Billing Information: ICD-10: J45.901 - Unspecified asthma with (acute) exacerbation ICD-10: J96.00 - Acute respiratory failure, unspecified whether with hypoxia or hypercapnia ICD-10: E11.65 - Type 2 diabetes mellitus with hyperglycemia ICD-10: I10 - Essential (primary) hypertension ICD-10: E87.1 - Hyponatremia Critical Care Note Critical Care Time?: Yes (35 min-critical care time only) Critical care comment: Total critical care time: Approximately 36 minutes Due to a high probability of clinically significant, life threatening deterioration, the patient required my highest level of preparedness to intervene emergently and I personally spent this critical care time directly and personally managing the patient. This critical care time included obtaining a history; examining the patient; pulse oximetry; ordering and review of studies; arranging urgent treatment with development of a management plan; evaluation of patient's response to treatment; frequent reassessment; and, discussions with other providers. This critical care time was performed to assess and manage the high probability of imminent, life-threatening deterioration that could result in multi-organ failure. It was exclusive of separately billable procedures and treating other patients. Stability Stability form required: No Heart Score Heart Score: Heart Score Response (Comments) Value History Moderate Suspicious 1 EKG Normal 0 Age 45-64 1 Risk Factors >3 or Hx ASHD 2 Troponin 1-2 x's Normal limit 1 Total 5 I personally scribed for RHETT CHATTERJEE MD ([email or web address]) on 01/22/25 at 19:13. Electronically submitted by Pantera Nam ([email or web address]). RHETT CHATTERJEE MD Jan 22, 2025 19:13
[2025-01-22 19:16] LABS: Hematocrit 40.5 % (41.0-53.0); Hemoglobin 13.7 g/dL (13.5-17.5); Mean Corpuscular Hemoglobin 31.6 pg (28.0-32.0); Mean Corpuscular Volume 93.2 fL (80.0-100.0); Nucleated Red Blood Cells % 0.0 %
[2025-01-22 19:30] LABS: Alanine Aminotransferase 78 U/L (7-40); Albumin 4.2 g/dL (3.2-4.8); Alkaline Phosphatase 264 U/L (46-116); Anion Gap 13 (5-15); BUN/Creatinine Ratio 12.0 (10.0-20.0); Bilirubin, Total 0.5 mg/dL (0.2-1.0); Blood Urea Nitrogen 14 mg/dL (9-23); Calcium 9.9 mg/dL (8.7-10.4); Carbon Dioxide 23 mmol/L (20-31); Chloride 93 mmol/L (98-107); Magnesium 1.8 mg/dL (1.6-2.6); Potassium 3.8 mmol/L (3.5-5.1); Sodium 129 mmol/L (136-145); Total Protein 6.9 g/dL (5.7-8.2)
[2025-01-22 19:32] LABS: Glucose 443 mg/dL (74-106)
--- NOTE | 2025-01-22 20:47 | DVH ---
EXAM: XY CHEST PORTABLE CLINICAL HISTORY: SOB TECHNIQUE: Single AP view of the chest WID: COMPARISON: XY CHEST XRAY 1 VIEW on DOS: 10/20/24 FINDINGS: Lines and tubes: None Chest: Mild cardiomegaly. No pulmonary vascular congestion. No pleural effusion, pneumothorax, or consolidation. The osseous structures are grossly intact. IMPRESSION: Mild cardiomegaly without CHF or pneumonia.
[2025-01-22] MEDS ORDERED: MORPHINE SULFATE INJ 2 MG/ml SYRG IV PRN (23:00)
[2025-01-22] MEDS ORDERED: ONDANSETRON HCL 4 MG/2 ML VIAL IV PRN (23:00)
[2025-01-22] MEDS ORDERED: NITROGLYCERIN 0.4 MG SL TAB SL PRN (23:00)
[2025-01-22] MEDS ORDERED: ACETAMINOPHEN 325 MG TAB PO PRN (23:00)
--- NOTE | 2025-01-22 23:07 | DVHHP2 ---
History of Present Illness Reason for Visit: Shortness of breath History of Present Illness 59-year-old male presents for evaluation of shortness for breath. Patient reports a two day history of worsening shortness for breath with associated cough with grayish/greenish phlegm. Denies fever or chills. He states being sent by urgent care for further evaluation. Reports some chest tightness. No swelling. No other acute complaints reported. Past Medical History CHF, COPD, diabetes mellitus, hypertension Past Surgical History Hernia repair Family History Noncontributory Smoke: Quit ALCOHOL: occassional Drugs: None Review of Systems Review of Systems Review of systems are currently negative otherwise addressed in HPI. Allergies: Coded Allergies: NO KNOWN ALLERGIES (Unverified , 03/23/16) Exam Vital Signs Vital Signs Date Time Temp Pulse Resp B/P (MAP) Pulse Ox O2 Delivery O2 Flow Rate FiO2 01/22/25 19:13 114 01/22/25 18:42 14 96 Room Air* 0 21 01/22/25 18:31 98.0 126/86 (99) 98.0 Exam Gen: 59-year-old male in mild distress Skin: Warm, dry, normal color and texture, no rash. HEENT: Normocephalic atraumatic, mucous membranes moist and pink. Neck: Cervical and supraclavicular nodes normal without enlargement, trachea is midline, thyroid gland is normal without masses. Pulmonary: Bilateral wheeze Cardiac: Regular rate and rhythm. No murmur Abdomen: Soft, nontender, nondistended, bowel sounds present all 4 quadrants, no guarding, no rigidity, no organomegaly. Extremities: No cyanosis, clubbing, no edema Neuro: Cranial nerves II through XII grossly intact, normal affect and speech, no focal motor deficits. Labs/Xrays ORDERING PHYSICIAN: RHETT CHATTERJEE MD PROCEDURE(s): CXRP - CHEST PORTABLE REASON: SOB ORDER NUMBER(s): [id number], ACCESSION NUMBER(s): [id number] EXAM: XY CHEST PORTABLE CLINICAL HISTORY: SOB TECHNIQUE: Single AP view of the chest WID: COMPARISON: XY CHEST XRAY 1 VIEW on DOS: 10/20/24 FINDINGS: Lines and tubes: None Chest: Mild cardiomegaly. No pulmonary vascular congestion. No pleural effusion, pneumothorax, or consolidation. The osseous structures are grossly intact. IMPRESSION: Mild cardiomegaly without CHF or pneumonia. Labs Test 01/22/25 19:50 01/22/25 18:54 01/22/25 18:53 Range/Units Troponin I High Sensitivity 57 *H </=54 ng/L White Blood Count 5.1 4.4-10.8 10^3/uL Red Blood Count 4.34 L 4.5-5.90 10^6/uL Hemoglobin 13.7 13.5-17.5 g/dL Hematocrit 40.5 L 41.0-53.0 % Mean Corpuscular Volume 93.2 80.0-100.0 fL Mean Corpuscular Hemoglobin 31.6 28.0-32.0 pg Mean Corpuscular Hemoglobin Concent 33.9 32.0-36.0 g/dL Red Cell Distribution Width 14.4 H 11.8-14.3 % Platelet Count 169 140-450 10^3/uL Mean Platelet Volume 7.4 6.9-10.8 fL Neutrophils (%) (Auto) 59.4 37.0-80.0 % Lymphocytes (%) (Auto) 25.9 10.0-50.0 % Monocytes (%) (Auto) 9.7 0.0-12.0 % Eosinophils (%) (Auto) 2.0 0.0-7.0 % Basophils (%) (Auto) 3.0 H 0.0-2.0 % Neutrophils # (Auto) 3.0 1.6-8.6 10 ^3/uL Lymphocytes # (Auto) 1.3 0.4-5.4 10 ^3/uL Monocytes # (Auto) 0.5 0-1.3 10 ^3/uL Eosinophils # (Auto) 0.1 0-0.8 10 ^3/uL Basophils # (Auto) 0.2 0-0.2 10 ^3/uL Nucleated Red Blood Cells 0.0 % D-Dimer, Quantitative 0.46 0.0-0.49 mg/L FEU Sodium Level 129 L 136-145 mmol/L Potassium Level 3.8 3.5-5.1 mmol/L Chloride Level 93 L 98-107 mmol/L Carbon Dioxide Level 23 20-31 mmol/L Anion Gap 13 5-15 Blood Urea Nitrogen 14 9-23 mg/dL Creatinine 1.17 0.700-1.30 mg/dL Glomerular Filtration Rate Calc 72 >90 mL/min BUN/Creatinine Ratio 12.0 10.0-20.0 Serum Glucose 443 *H 74-106 mg/dL Calcium Level 9.9 8.7-10.4 mg/dL Magnesium Level 1.8 1.6-2.6 mg/dL Total Bilirubin 0.5 0.2-1.0 mg/dL Aspartate Amino Transferase (AST) 160 H 13-40 U/L Alanine Aminotransferase (ALT) 78 H 7-40 U/L Alkaline Phosphatase 264 H 46-116 U/L B-Type Natriuretic Peptide 266.36 0-100 pg/mL Total Protein 6.9 5.7-8.2 g/dL Albumin 4.2 3.2-4.8 g/dL Blood Gas Specimen Type Venous Blood Gas Sample Site Other Blood Gas Patient Temperature 37.0 Arterial Blood Date Drawn [id number] Casey Test N/a Venous Blood pH 7.398 7.320-7.430 Venous Blood pCO2 at Patient Temp 41.8 38.0-54.0 mmHg Venous Blood pO2 at Patient Temp 44.6 23.0-48.0 mmHg Venous Blood HCO3 25.2 22.0-29.0 mmol/L Venous Bld O2 Saturation (Measured) 77.9 60.0-85.0 % Venous Blood Base Excess 0.3 -2.0-3.0 mmol/L Venous Blood Total Hemoglobin 14.6 13.5-17.5 g/dL Venous Blood Oxyhemoglobin 77.0 0.0-79.0 % Venous Blood Carboxyhemoglobin 0.5 0.5-1.5 % Venous Blood Methemoglobin 0.6 0.0-1.5 % Blood Gas Liter Flow 6.00 Blood Gas Modality Vbg - n/a Blood Gas Spontaneous Rate 20 FiO2 % 40.0 Specimen Drawn By Blood Gas Comments Pt is on medneb tx SEPSIS Sepsis Screen Date sepsis recognized/suspect: Jan 22, 2025 Time Sepsis recognized/suspect: 1806 Recent Procedure: No On Antibiotic Therapy: No Respiratory Rate >20: No Heart Rate >90: Yes Temp<36 C (96.8 F) or >38.3 C: No SBP <90 or MAP <65 mmHG: No New Acute Mental Status Change: No Is the patient on CPAP, BIPAP,: No Physician Orders Troponin-I Hs (01/23/25 00:00) Troponin-I Hs (01/23/25 03:00) Troponin-I Hs (01/23/25 06:00) Heplock Iv (01/22/25 18:24) Chest Portable (01/22/25 18:24) Drift Miner (01/22/25 18:24) Electrocardigram (01/22/25 18:24) Venous Blood Gas (01/22/25 18:24) Vital Signs Date Time Temp Pulse Resp B/P (MAP) Pulse Ox O2 Delivery O2 Flow Rate FiO2 01/22/25 19:13 114 01/22/25 18:42 14 96 Room Air* 0 21 01/22/25 18:33 114 01/22/25 18:31 98.0 117 24 126/86 (99) 96 98.0 Laboratory Tests Test 01/22/25 18:54 White Blood Count 5.1 10^3/uL (4.4-10.8) Medications Medications Dose Ordered Sig/Juan Miguel Route Start Time Stop Time Status Last Admin Dose Admin Albuterol 5 mg ONCE ONCE NEB 01/22/25 18:30 01/22/25 18:31 DC 01/22/25 18:38 5 MG Albuterol 5 mg ONCE ONCE NEB 01/22/25 21:45 01/22/25 21:46 DC 01/22/25 22:25 5 MG Ipratropium [place] 0.5 mg ONCE ONCE NEB 01/22/25 18:30 01/22/25 18:31 DC 01/22/25 18:39 0.5 MG Ipratropium [place] 0.5 mg ONCE ONCE NEB 01/22/25 21:45 01/22/25 21:46 DC 01/22/25 22:25 0.5 MG Assessment/Plan Assessment/Plan Assessment Acute on chronic hypoxic respiratory failure COPD exacerbation Uncontrolled diabetes mellitus Mild troponin elevation, demand ischemia Plan Admit the patient to telemetry to the hospitalist Pravin fuchs Resume home medications Continue treatment per orders. Plan discussed with: Patient Date of Service: Jan 22, 2025 Billing Provider: HAM RODRIGUES Common Visit Codes: [id number] INP/OBS CARE (HIGH) HAM RODRIGUES Jan 22, 2025 23:07
[2025-01-23] VITALS (18 sets, daily range): BP systolic 99–126; BP diastolic 55–86; PULSE 50–114; RESP 14–20; TEMP 97.6–98.7; O2SAT 94–100
[2025-01-23] MEDS: MORPHINE SULFATE 4 MG/ML SYR/VIAL IV ONE (02:12)
[2025-01-23] MEDS: ONDANSETRON HCL 4 MG/2 ML VIAL IV ONE (02:13)
[2025-01-23] MEDS: SODIUM CHLORIDE 0.9% 500 ML IV ONE (02:13)
[2025-01-23] MEDS: predniSONE 20 MG TAB PO ONE (02:24)
[2025-01-23] MEDS: InsuLIN REG 1unit/0.01ml Soln (100units/ml) SC ONE ×2 (02:27→17:13)
[2025-01-23] MEDS: HYDROcodone-ACET 5/325MG TAB PO PRN (03:08)
[2025-01-23] MEDS: PANTOPRAZOLE 40 MG TAB PO SCH (05:20)
[2025-01-23] MEDS: IPRATROPIUM BROM 0.5 MG/2.5ML INH SOL NEB PRN (06:36)
[2025-01-23] MEDS: BUDESONIDE (INHALATION) 0.5 MG/2 ML NEB NEB SCH (06:36)
[2025-01-23] MEDS: ALBUTEROL SULF 2.5 MG/0.5ML(0.5%) NEB SOLN NEB PRN (06:36)
[2025-01-23 07:07] LABS: Hematocrit 42.2 % (41.0-53.0); Hemoglobin 14.2 g/dL (13.5-17.5); Mean Corpuscular Hemoglobin 31.7 pg (28.0-32.0); Mean Corpuscular Volume 94.0 fL (80.0-100.0); Nucleated Red Blood Cells % 0.1 %
[2025-01-23 07:13] LABS: Potassium 4.0 mmol/L (3.5-5.1)
[2025-01-23 07:14] LABS: Anion Gap 12 (5-15); Carbon Dioxide 24 mmol/L (20-31)
[2025-01-23 07:15] LABS: Calcium 10.4 mg/dL (8.7-10.4)
[2025-01-23 07:20] LABS: BUN/Creatinine Ratio 15.7 (10.0-20.0); Blood Urea Nitrogen 17 mg/dL (9-23)
[2025-01-23 07:23] LABS: Chloride 96 mmol/L (98-107); Glucose 257 mg/dL (74-106); Sodium 132 mmol/L (136-145)
[2025-01-23] MEDS ORDERED: AZITHROMYCIN 500MG/ 250ML 250 ML IV SCH (10:00)
[2025-01-23] MEDS: APIXABAN 5 MG TAB PO SCH (10:16)
[2025-01-23] MEDS: methylPREDNISolone SOD SUCC 40 MG/ML VL IV SCH (10:16)
[2025-01-23] MEDS: FUROSEMIDE 40 MG TAB PO SCH (10:16)
[2025-01-23] MEDS: SACUBITRIL-VALSARTAN 24mg/26mg TAB PO SCH (10:17)
--- NOTE | 2025-01-23 10:53 | DVHPN2 ---
Subjective Continues to complain of shortness of breath with chest discomfort Reviewed: Care Plan, H&P, Labs, Medications, Previous Orders, Radiology Changes from previous H/P or p: No Changes Objective Vitals Vital Signs Date Time Temp Pulse Resp B/P (MAP) Pulse Ox O2 Delivery O2 Flow Rate FiO2 01/23/25 10:16 102/75 01/23/25 09:30 98.1 102 20 96 98.1 01/23/25 08:00 Room Air* 0 21 Intake/Output Intake and Output 01/23/25 07:00 Intake Total 250 ml Balance 250 ml Intake Oral 0 ml IV Total 250 ml General Appearance: Alert, Oriented X3, Cooperative, mild distress HEENT: Atraumatic Lungs: Other (Decreased air entry bilateral with diffuse expiratory wheezing) Cardiovascular: Normal S1, Normal S2, Other (Tachycardia) Abdomen: Normal bowel sounds, Soft, No tenderness Neuro: Normal speech, Cranial nerves 3-12 NL Psych/Mental Status: Mental status NL, Mood NL Medications Current Medications Medications Dose Ordered Sig/Juan Miguel Route Start Time Stop Time Status Last Admin Dose Admin Azithromycin 250 ml @ 125 mls/hr DAILY IV 01/23/25 10:00 Hold Apixaban 5 mg BID PO 01/23/25 10:00 01/23/25 10:16 5 MG Albuterol 2.5 mg Q6HPRN PRN NEB 01/22/25 23:00 01/23/25 06:36 2.5 MG Ipratropium [place] 0.5 mg Q6HPRN PRN NEB 01/22/25 23:00 01/23/25 06:36 0.5 MG Budesonide 0.5 mg BID NEB 01/23/25 10:00 01/23/25 06:36 0.5 MG Furosemide 40 mg DAILY PO 01/23/25 10:00 01/23/25 10:16 40 MG Methylprednisolone Sodium Succinate 40 mg BID IV 01/23/25 10:00 01/23/25 10:16 40 MG Pantoprazole Sodium 40 mg DAILY@0600 PO 01/23/25 06:00 01/23/25 05:20 40 MG Atorvastatin Calcium 40 mg HS PO 01/23/25 22:00 Sacubitril/ Valsartan 1 tab BID PO 01/23/25 10:00 01/23/25 10:17 1 TAB Acetaminophen/ Hydrocodone Bitart 1 tab Q4HP PRN PO 01/22/25 23:00 01/23/25 03:08 1 TAB Ondansetron HCl 4 mg Q4HP PRN IV 01/22/25 23:00 Acetaminophen 650 mg Q6HP PRN PO 01/22/25 23:00 Nitroglycerin 0.4 mg Q5MINP PRN SL 01/22/25 23:00 Morphine Sulfate 2 mg Q30M PRN IV 01/22/25 23:00 Aspirin 81 mg DAILY PO 01/23/25 10:00 01/23/25 10:17 81 MG Laboratory Results Laboratory Tests 01/23/25 06:45 Chemistry Test 01/22/25 18:54 01/23/25 06:45 Albumin 4.2 g/dL (3.2-4.8) Calcium Level 9.9 mg/dL (8.7-10.4) 10.4 mg/dL (8.7-10.4) Magnesium Level 1.8 mg/dL (1.6-2.6) Total Protein 6.9 g/dL (5.7-8.2) Coagulation Test 01/22/25 18:54 D-Dimer, Quantitative 0.46 mg/L FEU (0.0-0.49) Cardiac Markers Test 01/22/25 18:54 B-Type Natriuretic Peptide 266.36 pg/mL (0-100) LFT Test 01/22/25 18:54 Alanine Aminotransferase (ALT) 78 U/L (7-40) H Alkaline Phosphatase 264 U/L (46-116) H Aspartate Amino Transferase (AST) 160 U/L (13-40) H Total Bilirubin 0.5 mg/dL (0.2-1.0) Blood Gas Results Test 01/22/25 18:53 FiO2 % 40.0 Labs and/or images reviewed: Labs reviewed by me, Image(s) reviewed by me Assessment/Plan Assessment/Plan A 59-year-old male patient; with multiple comorbidities; who presented to emergency department with shortness of breath and chest discomfort. # Chest discomfort; to rule out ACS # Asthma/COPD exacerbation # Chronic systolic heart failure with unspecified arrhythmias; unclear if in exacerbation or not # Secondary hypercoagulable status; on home apixaban # Elevated troponin; most likely type 2 [place]; demand ischemia # Uncontrolled diabetes mellitus with history of diabetic foot ulcers # Hypertensive heart disease with heart failure # History of alcohol and tobacco use disorder; quite one year ago # Elevated LFTs; most likely related to above # RAJ; most likely vasomotor nephropathy # Dyslipidemia # Prolonged QTc # Overweight # PAD Reviewed available lab work and imaging study Continue home medications including apixaban and statin Continue antihypertensive medications and adjust according to blood pressure measurements Continue insulin therapy and adjust according to blood glucose measurements Consulted cardiology Dr. Dockery; primary regional wildlife agent Continue nebulizers and IV steroids Switched azithromycin to doxycycline due to prolonged QTc; continue IV ceftriaxone Avoid QTc prolonging agents Continue diuresis Avoid hepato/nephrotoxic agents Telemetry Continue monitoring Goals of care discussed with the patient for 20 minutes Late Entry. This medical document was created using an electronic medical record system with computerized dictation system. Although this document has been carefully reviewed, there might still be some phonetic and typographical errors. These areas are purely typographical due to imperfections of the software programs, and do not reflect any compromise in the patient's medical care. Plan discussed with: Patient, Other (Nurse) My Orders Orders - CATARINA GONZALES MD Procedure Category Date Status Time * Cardiology Consult CONS 01/23/25 Transmitted 10:48 Date of Service: Jan 23, 2025 Billing Provider: CATARINA GONZALES MD Common Visit Codes: [id number] INP/OBS CARE(HIGH) Secondary Visit Codes: [id number] CARE PLAN 30 MINUTES (20 minutes) CATARINA GONZALES MD Jan 23, 2025 10:53
[2025-01-23] MEDS ORDERED: DEXTROSE (50%) 50ML SYRG IV PRN ×3 (11:00→16:45)
--- NOTE | 2025-01-23 11:05 | ECG ---
[facility] Test Date: 2025-01-22 Test Time: 18:33:33 Pat Name: RAND HELM Department: ED Room: 0293T B Gender: M Operating Room Surgical Technician: patty : 1965 Requested By: RHETT CHATTERJEE Order Number: [id number] Reading MD: Ruben Valentine Measurements Intervals [place] Rate: 114 P: 245 MT: 422 QRS: -84 QRSD: 168 T: 93 QT: 464 QTc: 640 Interpretive Statements Sinus or ectopic atrial tachycardia Right atrial enlargement Right bundle branch block LVH with IVCD and secondary repol abnrm Inferior infarct, acute Prolonged QT interval Electronically Signed On 01-24-2025 17:50:51 PDT by Ruben Valentine Please click the below link to view image of tracing.
[2025-01-23] MEDS ORDERED: ACCU-CHEK COMFORT CURVE STRIP VI SCH (11:30)
[2025-01-23] MEDS ORDERED: InsuLIN REG 1unit/0.01ml Soln (100units/ml) SC SCH ×3 (11:30→22:00)
--- NOTE | 2025-01-23 12:32 | DVHPN2 ---
Progress Note - Dictate Date Seen: Jan 23, 2025 Medical Necessity Reason Pt with a Central, PICC or Fol: No Subjective PT WITH SS COMPLEX SOB COUGH PRODUCTIVE WHEEZING PMH: HTN DIABETES COPD HX OF COLITIS ORGANIC HD HFrEF EF <20% [facility] 2023 NO SIGNIFICANT EPICARDIAL DISEASE PAD vital signs Vital Sign Date Time Temp Pulse Resp B/P (MAP) Pulse Ox O2 Delivery O2 Flow Rate FiO2 01/23/25 12:05 103 16 100 01/23/25 11:59 Room Air* 0 21 01/23/25 10:16 102/75 01/23/25 09:30 98.1 98.1 Total Intake and Output 01/22/25 01/22/25 01/23/25 15:00 23:00 07:00 Intake Total 250 ml Balance 250 ml medications Current Medications Medications Dose Ordered Sig/Juan Miguel Route Start Time Stop Time Status Last Admin Dose Admin Apixaban 5 mg BID PO 01/23/25 10:00 01/23/25 10:16 5 MG Albuterol 2.5 mg Q6HPRN PRN NEB 01/22/25 23:00 01/23/25 11:59 2.5 MG Ipratropium [place] 0.5 mg Q6HPRN PRN NEB 01/22/25 23:00 01/23/25 11:59 0.5 MG Budesonide 0.5 mg BID NEB 01/23/25 10:00 01/23/25 06:36 0.5 MG Furosemide 40 mg DAILY PO 01/23/25 10:00 01/23/25 10:16 40 MG Methylprednisolone Sodium Succinate 40 mg BID IV 01/23/25 10:00 01/23/25 10:16 40 MG Pantoprazole Sodium 40 mg DAILY@0600 PO 01/23/25 06:00 01/23/25 05:20 40 MG Atorvastatin Calcium 40 mg HS PO 01/23/25 22:00 Sacubitril/ Valsartan 1 tab BID PO 01/23/25 10:00 01/23/25 10:17 1 TAB Acetaminophen/ Hydrocodone Bitart 1 tab Q4HP PRN PO 01/22/25 23:00 01/23/25 03:08 1 TAB Ondansetron HCl 4 mg Q4HP PRN IV 01/22/25 23:00 Acetaminophen 650 mg Q6HP PRN PO 01/22/25 23:00 Nitroglycerin 0.4 mg Q5MINP PRN SL 01/22/25 23:00 Morphine Sulfate 2 mg Q30M PRN IV 01/22/25 23:00 Aspirin 81 mg DAILY PO 01/23/25 10:00 01/23/25 10:17 81 MG Diagnostic Test (Pha) 1 strip ACHS 01/23/25 11:30 Insulin Human Regular AC SC 01/23/25 11:30 Insulin Human Regular HS SC 01/23/25 22:00 Dextrose 50 ml UD PRN IV 01/23/25 11:00 Ceftriaxone Sodium 50 ml @ 100 mls/hr DAILY@09 IV 01/24/25 09:00 laboratory and microbiology Laboratory Tests 01/23/25 06:45 Test 01/23/25 06:45 Range/Units Serum Glucose 257 #H 74-106 mg/dL Problem List SS COMPLEX SOB COUGH PRODUCTIVE WHEEZING PMH: HTN DIABETES COPD HX OF COLITIS ORGANIC HD HFrEF EF <20% [facility] 2023 NO SIGNIFICANT EPICARDIAL DISEASE PAD Assessment/Plan CARDIOLITE INFERIOR REVERSIBILITY WOULD TREAT COPD/ COUGH WITH ABX CONSIDER [facility] ON WEDNESDAY Plan discussed with: Patient PHIL BUSH MD Jan 23, 2025 12:32
[2025-01-23] MEDS: cefTRIAXone 1GM/50ML D5W 50 ML IV ONE (14:25)
[2025-01-23] MEDS: DOXYCYCLINE 100MG/100ML 100 ML IV ONE (15:22)
[2025-01-23] MEDS: ACCU-CHEK COMFORT CURVE STRIP VI SCH ×2 (16:44→18:00)
[2025-01-23] MEDS: InsuLIN REG 1unit/0.01ml Soln (100units/ml) SC SCH (18:00)
[2025-01-23] MEDS: ATORVASTATIN 20 MG TAB PO SCH (21:15)
[2025-01-23] MEDS: INSULIN LANTUS (GLARGINE) 1 /0.01ml (100units/ml) SC SCH (21:59)
[2025-01-24] VITALS (12 sets, daily range): BP systolic 91–108; BP diastolic 50–79; PULSE 70–109; RESP 16–20; TEMP 97.6–98.7; O2SAT 96–100
[2025-01-24] MEDS: INSULIN LANTUS (GLARGINE) 1 /0.01ml (100units/ml) SC SCH (07:00)
[2025-01-24 08:25] LABS: Hematocrit 45.1 % (41.0-53.0); Hemoglobin 15.2 g/dL (13.5-17.5); Mean Corpuscular Hemoglobin 31.2 pg (28.0-32.0); Mean Corpuscular Volume 92.6 fL (80.0-100.0); Nucleated Red Blood Cells % 0.0 %
[2025-01-24 08:45] LABS: Albumin 4.5 g/dL (3.2-4.8); Alkaline Phosphatase 90 U/L (46-116); Anion Gap 13 (5-15); BUN/Creatinine Ratio 17.9 (10.0-20.0); Blood Urea Nitrogen 22 mg/dL (9-23); Calcium 10.3 mg/dL (8.7-10.4); Potassium 4.6 mmol/L (3.5-5.1); Total Protein 7.4 g/dL (5.7-8.2)
[2025-01-24 08:46] LABS: Carbon Dioxide 20 mmol/L (20-31); Chloride 96 mmol/L (98-107); Sodium 129 mmol/L (136-145)
[2025-01-24 08:47] LABS: Alanine Aminotransferase 56 U/L (7-40); Bilirubin, Total 1.3 mg/dL (0.2-1.0); Glucose 109 mg/dL (74-106)
--- NOTE | 2025-01-24 09:54 | DVHPN2 ---
Subjective Decreasing shortness of breath and chest discomfort Reviewed: Care Plan, H&P, Labs, Medications, Previous Orders, Radiology Changes from previous H/P or p: Changes Objective Vitals Vital Signs Date Time Temp Pulse Resp B/P (MAP) Pulse Ox O2 Delivery O2 Flow Rate FiO2 01/24/25 08:52 92/53 01/24/25 06:54 100 16 100 01/24/25 06:44 Room Air 01/24/25 06:44 0 21 01/24/25 05:00 97.6 97.6 Intake/Output Intake and Output 01/24/25 07:00 Intake Total 2500 ml Balance 2500 ml Intake Oral 2500 ml # Voids 7 General Appearance: Alert, Oriented X3, Cooperative, mild distress HEENT: Atraumatic Lungs: Other (Decreased air entry bilateral with scattered expiratory wheezing) Cardiovascular: Normal S1, Normal S2, Other (Tachycardia) Abdomen: Normal bowel sounds, Soft, No tenderness Neuro: Normal speech, Cranial nerves 3-12 NL Psych/Mental Status: Mental status NL, Mood NL Medications Current Medications Medications Dose Ordered Sig/Juan Miguel Route Start Time Stop Time Status Last Admin Dose Admin Apixaban 5 mg BID PO 01/23/25 10:00 01/24/25 08:51 5 MG Albuterol 2.5 mg Q6HPRN PRN NEB 01/22/25 23:00 01/24/25 06:44 2.5 MG Ipratropium [place] 0.5 mg Q6HPRN PRN NEB 01/22/25 23:00 01/24/25 06:44 0.5 MG Budesonide 0.5 mg BID NEB 01/23/25 10:00 01/24/25 06:44 0.5 MG Furosemide 40 mg DAILY PO 01/23/25 10:00 01/23/25 10:16 40 MG Methylprednisolone Sodium Succinate 40 mg BID IV 01/23/25 10:00 01/24/25 08:51 40 MG Pantoprazole Sodium 40 mg DAILY@0600 PO 01/23/25 06:00 01/24/25 05:57 40 MG Atorvastatin Calcium 40 mg HS PO 01/23/25 22:00 01/23/25 21:15 40 MG Sacubitril/ Valsartan 1 tab BID PO 01/23/25 10:00 01/23/25 21:23 1 TAB Acetaminophen/ Hydrocodone Bitart 1 tab Q4HP PRN PO 01/22/25 23:00 01/23/25 03:08 1 TAB Ondansetron HCl 4 mg Q4HP PRN IV 01/22/25 23:00 Acetaminophen 650 mg Q6HP PRN PO 01/22/25 23:00 Nitroglycerin 0.4 mg Q5MINP PRN SL 01/22/25 23:00 Morphine Sulfate 2 mg Q30M PRN IV 01/22/25 23:00 Aspirin 81 mg DAILY PO 01/23/25 10:00 01/24/25 08:51 81 MG Ceftriaxone Sodium 50 ml @ 100 mls/hr DAILY@09 IV 01/24/25 09:00 Insulin Human Regular ACHS SC 01/23/25 17:00 01/23/25 17:00 Cancel Dextrose 50 ml UD PRN IV 01/23/25 13:30 Cancel Diagnostic Test (Pha) 1 strip IQ4HR 01/23/25 18:00 01/24/25 08:51 1 STRIP Insulin Human Regular IQ4HR SC 01/23/25 18:00 01/24/25 08:59 4 UNITS Dextrose 50 ml UD PRN IV 01/23/25 16:45 Insulin Glargine 20 units BID@0700,2200 [place] 01/24/25 07:00 Laboratory Results Laboratory Tests 01/24/25 07:57 Chemistry Test 01/24/25 07:57 Albumin 4.5 g/dL (3.2-4.8) Calcium Level 10.3 mg/dL (8.7-10.4) Total Protein 7.4 g/dL (5.7-8.2) LFT Test 01/24/25 07:57 Alanine Aminotransferase (ALT) 56 U/L (7-40) H Alkaline Phosphatase 90 U/L (46-116) Aspartate Amino Transferase (AST) 69 U/L (13-40) H Total Bilirubin 1.3 mg/dL (0.2-1.0) H Labs and/or images reviewed: Labs reviewed by me, Image(s) reviewed by me Assessment/Plan Assessment/Plan A 59-year-old male patient; with multiple comorbidities; who presented to emergency department with shortness of breath and chest discomfort. # Chest discomfort; to rule out ACS # Asthma/COPD exacerbation # Chronic systolic heart failure with unspecified arrhythmias; unclear if in exacerbation or not # Secondary hypercoagulable status; on home apixaban # Elevated troponin; scheduled for left heart catheterization tomorrow # Uncontrolled diabetes mellitus with history of diabetic foot ulcers # Hypertensive heart disease with heart failure # History of alcohol and tobacco use disorder; quite one year ago # Elevated LFTs; most likely related to above # RAJ; most likely vasomotor nephropathy # Leukocytosis; most likely reactive due to IV steroids # Dyslipidemia # Prolonged QTc # Overweight # PAD Reviewed available lab work and imaging study Continue home medications including apixaban and statin Continue antihypertensive medications and adjust according to blood pressure measurements Continue insulin therapy and adjust according to blood glucose measurements Cardiology Dr. Dockery is following; left heart catheterization planned tomorrow; will keep NPO after midnight Continue nebulizers and IV steroids; decreased the dose of IV steroids Switched azithromycin to doxycycline due to prolonged QTc; continue IV ceftriaxone Avoid QTc prolonging agents Continue diuresis Avoid hepato/nephrotoxic agents Telemetry Continue monitoring Late Entry. This medical document was created using an electronic medical record system with computerized dictation system. Although this document has been carefully reviewed, there might still be some phonetic and typographical errors. These areas are purely typographical due to imperfections of the software programs, and do not reflect any compromise in the patient's medical care. Plan discussed with: Patient, Other (Nurse) My Orders Orders - CATARINA GONZALES MD Procedure Category Date Status Time Ceftriaxone 1gm/50ml PHA 01/24/25 In Process D5w (Rocephin) 09:00 Glucose Blood PHA 01/23/25 In Process (Accu-Chek Comfort 18:00 Insulin R (Human) PHA 01/23/25 In Process (Insulin R) 18:00 Dextrose 50% Syringe PHA 01/23/25 In Process 16:45 Insulin Lantus PHA 01/24/25 In Process (Glargine) (Lantus) 07:00 Code Status CODE 01/24/25 Transmitted 09:32 Date of Service: Jan 24, 2025 Billing Provider: CATARINA GONZALES MD Common Visit Codes: [id number] INP/OBS CARE(HIGH) CATARINA GONZALES MD Jan 24, 2025 09:54
[2025-01-24] MEDS: cefTRIAXone 1GM/50ML D5W 50 ML IV SCH (10:29)
[2025-01-24] MEDS: INSULIN LANTUS (GLARGINE) 1 /0.01ml (100units/ml) SC ONE (12:39)
--- NOTE | 2025-01-24 12:58 | DVHPN2 ---
Progress Note - Dictate Date Seen: Jan 24, 2025 Medical Necessity Reason Pt with a Central, PICC or Fol: No Subjective PT WITH SS COMPLEX SOB COUGH PRODUCTIVE WHEEZING PMH: HTN DIABETES COPD HX OF COLITIS ORGANIC HD HFrEF EF <20% [facility] 2023 NO SIGNIFICANT EPICARDIAL DISEASE PAD vital signs Vital Sign Date Time Temp Pulse Resp B/P (MAP) Pulse Ox O2 Delivery O2 Flow Rate FiO2 01/24/25 09:00 97.6 106 18 92/53 (66) 98 97.6 01/24/25 08:15 Room Air* 0 21 Total Intake and Output 01/23/25 01/23/25 01/24/25 15:00 23:00 07:00 Intake Total 900 ml 1600 ml Balance 900 ml 1600 ml medications Current Medications Medications Dose Ordered Sig/Juan Miguel Route Start Time Stop Time Status Last Admin Dose Admin Apixaban 5 mg BID PO 01/23/25 10:00 01/24/25 08:51 5 MG Albuterol 2.5 mg Q6HPRN PRN NEB 01/22/25 23:00 01/24/25 06:44 2.5 MG Ipratropium [place] 0.5 mg Q6HPRN PRN NEB 01/22/25 23:00 01/24/25 06:44 0.5 MG Budesonide 0.5 mg BID NEB 01/23/25 10:00 01/24/25 06:44 0.5 MG Furosemide 40 mg DAILY PO 01/23/25 10:00 01/23/25 10:16 40 MG Methylprednisolone Sodium Succinate 40 mg BID IV 01/23/25 10:00 01/24/25 08:51 40 MG Pantoprazole Sodium 40 mg DAILY@0600 PO 01/23/25 06:00 01/24/25 05:57 40 MG Atorvastatin Calcium 40 mg HS PO 01/23/25 22:00 01/23/25 21:15 40 MG Sacubitril/ Valsartan 1 tab BID PO 01/23/25 10:00 01/23/25 21:23 1 TAB Acetaminophen/ Hydrocodone Bitart 1 tab Q4HP PRN PO 01/22/25 23:00 01/23/25 03:08 1 TAB Ondansetron HCl 4 mg Q4HP PRN IV 01/22/25 23:00 Acetaminophen 650 mg Q6HP PRN PO 01/22/25 23:00 Nitroglycerin 0.4 mg Q5MINP PRN SL 01/22/25 23:00 Morphine Sulfate 2 mg Q30M PRN IV 01/22/25 23:00 Aspirin 81 mg DAILY PO 01/23/25 10:00 01/24/25 08:51 81 MG Ceftriaxone Sodium 50 ml @ 100 mls/hr DAILY@09 IV 01/24/25 09:00 01/24/25 10:29 100 MLS/HR Insulin Human Regular ACHS SC 01/23/25 17:00 01/23/25 17:00 Cancel Dextrose 50 ml UD PRN IV 01/23/25 13:30 Cancel Diagnostic Test (Pha) 1 strip IQ4HR 01/23/25 18:00 01/24/25 12:39 1 STRIP Insulin Human Regular IQ4HR SC 01/23/25 18:00 01/24/25 12:38 20 UNITS Dextrose 50 ml UD PRN IV 01/23/25 16:45 Insulin Glargine 20 units BID@0700,2200 [place] 01/24/25 07:00 laboratory and microbiology Laboratory Tests 01/24/25 07:57 Test 01/24/25 07:57 Range/Units Serum Glucose 109 #H 74-106 mg/dL Problem List SS COMPLEX SOB COUGH PRODUCTIVE WHEEZING PMH: HTN DIABETES COPD HX OF COLITIS ORGANIC HD HFrEF EF <20% [facility] 2023 NO SIGNIFICANT EPICARDIAL DISEASE PAD Assessment/Plan CARDIOLITE INFERIOR REVERSIBILITY WOULD TREAT COPD/ COUGH WITH ABX CONSIDER [facility] ON WEDNESDAY SCHEDULE FOR L/RHC IN AM Plan discussed with: Patient PHIL BUSH MD Jan 24, 2025 12:58
[2025-01-24] MEDS: InsuLIN REG 1unit/0.01ml Soln (100units/ml) SC ONE (17:15)
[2025-01-25] VITALS (16 sets, daily range): BP systolic 87–109; BP diastolic 48–65; PULSE 88–105; RESP 15–18; TEMP 36.5; O2SAT 90–100
--- NOTE | 2025-01-25 09:10 | DVHPN2 ---
Subjective Feeling well after cardiac catheterization Reviewed: Care Plan, H&P, Labs, Medications, Previous Orders, Radiology, Other (Consultation) Changes from previous H/P or p: Changes Objective Vitals Vital Signs Date Time Temp Pulse Resp B/P (MAP) Pulse Ox O2 Delivery O2 Flow Rate FiO2 01/25/25 05:00 97.8 94 18 90/48 (62) 96 97.8 01/24/25 21:55 Room Air* 0 21 Intake/Output Intake and Output 01/25/25 07:00 Intake Total 2100 ml Balance 2100 ml Intake Oral 2050 ml IV Total 50 ml # Voids 7 General Appearance: Alert, Oriented X3, Cooperative, No acute distress HEENT: Atraumatic Lungs: Clear to auscultation, Normal air movement Cardiovascular: Normal S1, Normal S2, Other (Tachycardia) Abdomen: Normal bowel sounds, Soft, No tenderness Neuro: Normal speech, Cranial nerves 3-12 NL Psych/Mental Status: Mental status NL, Mood NL Medications Current Medications Medications Dose Ordered Sig/Juan Miguel Route Start Time Stop Time Status Last Admin Dose Admin Apixaban 5 mg BID PO 01/23/25 10:00 01/24/25 22:01 5 MG Albuterol 2.5 mg Q6HPRN PRN NEB 01/22/25 23:00 01/24/25 22:05 2.5 MG Ipratropium [place] 0.5 mg Q6HPRN PRN NEB 01/22/25 23:00 01/24/25 22:05 0.5 MG Budesonide 0.5 mg BID NEB 01/23/25 10:00 01/24/25 22:05 0.5 MG Furosemide 40 mg DAILY PO 01/23/25 10:00 01/23/25 10:16 40 MG Pantoprazole Sodium 40 mg DAILY@0600 PO 01/23/25 06:00 01/25/25 04:42 40 MG Atorvastatin Calcium 40 mg HS PO 01/23/25 22:00 01/24/25 22:01 40 MG Sacubitril/ Valsartan 1 tab BID PO 01/23/25 10:00 01/24/25 22:02 1 TAB Acetaminophen/ Hydrocodone Bitart 1 tab Q4HP PRN PO 01/22/25 23:00 01/23/25 03:08 1 TAB Ondansetron HCl 4 mg Q4HP PRN IV 01/22/25 23:00 Acetaminophen 650 mg Q6HP PRN PO 01/22/25 23:00 Nitroglycerin 0.4 mg Q5MINP PRN SL 01/22/25 23:00 Morphine Sulfate 2 mg Q30M PRN IV 01/22/25 23:00 Aspirin 81 mg DAILY PO 01/23/25 10:00 01/24/25 08:51 81 MG Ceftriaxone Sodium 50 ml @ 100 mls/hr DAILY@09 IV 01/24/25 09:00 01/24/25 10:29 100 MLS/HR Insulin Human Regular ACHS SC 01/23/25 17:00 01/23/25 17:00 Cancel Dextrose 50 ml UD PRN IV 01/23/25 13:30 Cancel Diagnostic Test (Pha) 1 strip IQ4HR 01/23/25 18:00 01/25/25 08:00 1 STRIP Insulin Human Regular IQ4HR SC 01/23/25 18:00 01/24/25 19:59 20 UNITS Dextrose 50 ml UD PRN IV 01/23/25 16:45 Insulin Glargine 20 units BID@0700,2200 [place] 01/24/25 07:00 01/24/25 21:58 20 UNITS Methylprednisolone Sodium Succinate 40 mg DAILY IV 01/25/25 10:00 Laboratory Results Laboratory Tests 01/24/25 07:57 Labs and/or images reviewed: Labs reviewed by me, Image(s) reviewed by me Assessment/Plan Assessment/Plan A 59-year-old male patient; with multiple comorbidities; who presented to emergency department with shortness of breath and chest discomfort. # Chest discomfort; ACS ruled out; status post cardiac catheterization January 25, 2025 # Asthma/COPD exacerbation # Chronic systolic heart failure with unspecified arrhythmias; unclear if in exacerbation or not # Secondary hypercoagulable status; on home apixaban # Elevated troponin; scheduled for left heart catheterization tomorrow # Uncontrolled diabetes mellitus with history of diabetic foot ulcers # Hypertensive heart disease with heart failure # History of alcohol and tobacco use disorder; quite one year ago # Elevated LFTs; most likely related to above # RAJ; most likely vasomotor nephropathy # Leukocytosis; most likely reactive due to IV steroids; resolved # Dyslipidemia # Prolonged QTc # Overweight # PAD Reviewed available lab work and imaging study Continue home medications including apixaban and statin Continue antihypertensive medications and adjust according to blood pressure measurements Continue insulin therapy and adjust according to blood glucose measurements Cardiology Dr. Dockery is following; reviewed cardiac catheterization operative note from January 25, 2025 Continue nebulizers and IV steroids; decreased the dose of IV steroids; to stop tomorrow Switched azithromycin to doxycycline due to prolonged QTc; continue IV ceftriaxone; to stop all antibiotics tomorrow Avoid QTc prolonging agents Continue diuresis Avoid hepato/nephrotoxic agents Telemetry Continue monitoring Discharge order was placed by the patient could not go home due to lack of transportation Late Entry. This medical document was created using an electronic medical record system with computerized dictation system. Although this document has been carefully reviewed, there might still be some phonetic and typographical errors. These areas are purely typographical due to imperfections of the software programs, and do not reflect any compromise in the patient's medical care. Plan discussed with: Patient, Other (Nurse) My Orders Orders - CATARINA GONZALES MD Procedure Category Date Status Time Code Status CODE 01/24/25 Transmitted 09:32 Npo (Nothing By DIET 01/25/25 Transmitted Mouth) Diet Breakfast Methylprednisolone PHA 01/25/25 In Process Sod Succ (Solu Medrol 10:00 Complete Blood Count LAB 01/25/25 Logged 04:00 Comprehensive LAB 01/25/25 Logged Metabolic Panel 04:00 Date of Service: Jan 25, 2025 Billing Provider: CATARINA GONZALES MD Common Visit Codes: [id number] INP/OBS CARE(HIGH) CATARINA GONZALES MD Jan 25, 2025 09:10
[2025-01-25] MEDS: methylPREDNISolone SOD SUCC 40 MG/ML VL IV SCH (09:43)
[2025-01-25 09:53] LABS: Hematocrit 40.8 % (41.0-53.0); Hemoglobin 13.6 g/dL (13.5-17.5); Mean Corpuscular Hemoglobin 31.2 pg (28.0-32.0); Mean Corpuscular Volume 93.3 fL (80.0-100.0); Nucleated Red Blood Cells % 0.0 %
[2025-01-25 10:12] LABS: Alkaline Phosphatase 100 U/L (46-116); Calcium 9.8 mg/dL (8.7-10.4); Chloride 103 mmol/L (98-107)
[2025-01-25 10:13] LABS: Albumin 3.8 g/dL (3.2-4.8); Anion Gap 9 (5-15); BUN/Creatinine Ratio 31.2 (10.0-20.0); Bilirubin, Total 0.6 mg/dL (0.2-1.0); Carbon Dioxide 22 mmol/L (20-31); Potassium 5.0 mmol/L (3.5-5.1); Total Protein 6.3 g/dL (5.7-8.2)
[2025-01-25 10:15] LABS: Alanine Aminotransferase 42 U/L (7-40); Blood Urea Nitrogen 34 mg/dL (9-23); Glucose 148 mg/dL (74-106); Sodium 134 mmol/L (136-145)
--- NOTE | 2025-01-25 10:57 | DVHPN2 ---
Progress Note - Dictate Date Seen: Jan 25, 2025 Medical Necessity Reason Pt with a Central, PICC or Fol: No Subjective PT WITH SS COMPLEX SOB COUGH PRODUCTIVE WHEEZING PMH: HTN DIABETES COPD HX OF COLITIS ORGANIC HD HFrEF EF <20% [facility] 2023 NO SIGNIFICANT EPICARDIAL DISEASE PAD vital signs Vital Sign Date Time Temp Pulse Resp B/P (MAP) Pulse Ox O2 Delivery O2 Flow Rate FiO2 01/25/25 10:00 97 Room Air 01/25/25 10:00 0 21 01/25/25 09:12 83/53 01/25/25 05:00 97.8 94 18 97.8 Total Intake and Output 01/24/25 01/24/25 01/25/25 15:00 23:00 07:00 Intake Total 50 ml 1750 ml 300 ml Balance 50 ml 1750 ml 300 ml medications Current Medications Medications Dose Ordered Sig/Juan Miguel Route Start Time Stop Time Status Last Admin Dose Admin Apixaban 5 mg BID PO 01/23/25 10:00 01/24/25 22:01 5 MG Albuterol 2.5 mg Q6HPRN PRN NEB 01/22/25 23:00 01/24/25 22:05 2.5 MG Ipratropium [place] 0.5 mg Q6HPRN PRN NEB 01/22/25 23:00 01/24/25 22:05 0.5 MG Budesonide 0.5 mg BID NEB 01/23/25 10:00 01/24/25 22:05 0.5 MG Furosemide 40 mg DAILY PO 01/23/25 10:00 01/23/25 10:16 40 MG Pantoprazole Sodium 40 mg DAILY@0600 PO 01/23/25 06:00 01/25/25 04:42 40 MG Atorvastatin Calcium 40 mg HS PO 01/23/25 22:00 01/24/25 22:01 40 MG Sacubitril/ Valsartan 1 tab BID PO 01/23/25 10:00 01/24/25 22:02 1 TAB Acetaminophen/ Hydrocodone Bitart 1 tab Q4HP PRN PO 01/22/25 23:00 01/23/25 03:08 1 TAB Ondansetron HCl 4 mg Q4HP PRN IV 01/22/25 23:00 Acetaminophen 650 mg Q6HP PRN PO 01/22/25 23:00 Nitroglycerin 0.4 mg Q5MINP PRN SL 01/22/25 23:00 Morphine Sulfate 2 mg Q30M PRN IV 01/22/25 23:00 Aspirin 81 mg DAILY PO 01/23/25 10:00 01/24/25 08:51 81 MG Ceftriaxone Sodium 50 ml @ 100 mls/hr DAILY@09 IV 01/24/25 09:00 01/25/25 09:38 100 MLS/HR Insulin Human Regular ACHS SC 01/23/25 17:00 01/23/25 17:00 Cancel Dextrose 50 ml UD PRN IV 01/23/25 13:30 Cancel Diagnostic Test (Pha) 1 strip IQ4HR 01/23/25 18:00 01/25/25 08:00 1 STRIP Insulin Human Regular IQ4HR SC 01/23/25 18:00 01/24/25 19:59 20 UNITS Dextrose 50 ml UD PRN IV 01/23/25 16:45 Insulin Glargine 20 units BID@0700,2200 VA 01/24/25 07:00 01/24/25 21:58 20 UNITS Methylprednisolone Sodium Succinate 40 mg DAILY IV 01/25/25 10:00 01/25/25 09:43 40 MG laboratory and microbiology Laboratory Tests 01/25/25 08:51 Test 01/25/25 08:51 Range/Units Serum Glucose 148 H 74-106 mg/dL Problem List SS COMPLEX SOB COUGH PRODUCTIVE WHEEZING PMH: HTN DIABETES COPD HX OF COLITIS ORGANIC HD HFrEF EF <20% [facility] 2023 NO SIGNIFICANT EPICARDIAL DISEASE PAD Assessment/Plan CARDIOLITE INFERIOR REVERSIBILITY WOULD TREAT COPD/ COUGH WITH ABX CONSIDER [facility] ON WEDNESDAY SCHEDULE FOR L/RHC S/P MAY DC HOME Plan discussed with: Patient PHIL BUSH MD Jan 25, 2025 10:57
[2025-01-25] MEDS: ANGIOMAX 250 MG VIAL IV ONE (11:44)
[2025-01-25] MEDS: fentaNYL CITRATE 100 MCG/2 ML VL ONE (11:45)
[2025-01-25] MEDS: LIDOCAINE 2%HCL (LOCAL ANESTH.) INJ 20ML MDV ONE (11:45)
[2025-01-25] MEDS: SODIUM CHL 0.9% 0 ML ONE (11:45)
[2025-01-25] MEDS: MIDAZOLAM HCL 2MG/2ML 2ml VIAL (1mg/ml) ONE (11:45)
[2025-01-25] MEDS: IOHEXOL 350 MG/ML 100ML IJ ONE (11:56)
--- NOTE | 2025-01-25 13:29 | DVHOP ---
DATE OF SURGERY: 01/25/2025 CARDIAC CATHETERIZATION REPORT PROCEDURES PERFORMED: * Left and right heart catheterization. * Ventriculogram. * Pease-Angie catheter. * Right iliac angiography. * Conscious sedation. DESCRIPTION OF PROCEDURE: The patient was prepped and draped in a sterile condition. 1% Xylocaine used to anesthetize the right groin. Using Cook needle, right femoral artery was engaged. Using Seldinger technique, a 6[place] sheath in the right femoral artery. Similarly, a 6[place] sheath was introduced in the right femoral vein. Using a 6[place] balloon-tipped thermodilutional catheter, right-sided pressure tracing was obtained. Using a 6[place] JL4 catheter, a 6[place] JR4 catheter, selective left and right coronary angiographies were performed. Using 6-[place] pigtail catheter, ventriculogram was done. Total contrast used was 80 mL of Optiray. Total fluoroscopy time was 3 minutes. RESULTS: * Right heart catheterization. Pease-Angie reading, revealed a RA pressure of 8, RV pressure of 20/8, capillary wedge pressure of 12, and PA pressure of 25/12. LVEDP was 12 mmHg with no gradient across the aortic valve with an aortic valve pressure of 92. * Selective left and right coronary angiography revealed: * Left main patent. * Left anterior descending artery was patent. * Circumflex was patent. * Right coronary artery was patent. * LV function showed global hypokinesis with an estimated EF of less than 20% with an LVEDP as described above, 12 mmHg. CONCLUSION: At this time, the patient with dilated cardiomyopathy. I have once again stressed the need for him to have a Bi-V AICD. He has intraventricular conduction delay, but he has thus far declined. We will continue to follow the patient. Sarkis Duarte MD SA/MORIS TID: [id number] RECEIPT: [id number]
[2025-01-25] MEDS ORDERED: SACU1TAB PO (14:42)
--- NOTE | 2025-01-25 14:46 | DVHDS2 ---
Discharge Summary Date of Admission Jan 22, 2025 at 22:52 Date of Discharge: Jan 25, 2025 Labs/Diagnostic Data: Laboratory Results Test 01/25/25 08:51 01/25/25 04:05 01/23/25 00:57 01/22/25 18:54 White Blood Count 9.5 10^3/uL (4.4-10.8) Red Blood Count 4.38 10^6/uL (4.5-5.90) Hemoglobin 13.6 g/dL (13.5-17.5) Hematocrit 40.8 % (41.0-53.0) Mean Corpuscular Volume 93.3 fL (80.0-100.0) Mean Corpuscular Hemoglobin 31.2 pg (28.0-32.0) Mean Corpuscular Hemoglobin Concent 33.4 g/dL (32.0-36.0) Red Cell Distribution Width 14.9 % (11.8-14.3) Platelet Count 172 10^3/uL (140-450) Mean Platelet Volume 7.7 fL (6.9-10.8) Neutrophils (%) (Auto) 87.3 % (37.0-80.0) Lymphocytes (%) (Auto) 7.5 % (10.0-50.0) Monocytes (%) (Auto) 5.1 % (0.0-12.0) Eosinophils (%) (Auto) 0.0 % (0.0-7.0) Basophils (%) (Auto) 0.1 % (0.0-2.0) Neutrophils # (Auto) 8.3 10 ^3/uL (1.6-8.6) Lymphocytes # (Auto) 0.7 10 ^3/uL (0.4-5.4) Monocytes # (Auto) 0.5 10 ^3/uL (0-1.3) Eosinophils # (Auto) 0 10 ^3/uL (0-0.8) Basophils # (Auto) 0 10 ^3/uL (0-0.2) Nucleated Red Blood Cells 0.0 % Sodium Level 134 mmol/L (136-145) Potassium Level 5.0 mmol/L (3.5-5.1) Chloride Level 103 mmol/L (98-107) Carbon Dioxide Level 22 mmol/L (20-31) Anion Gap 9 (5-15) Blood Urea Nitrogen 34 mg/dL (9-23) Creatinine 1.09 mg/dL (0.700-1.30) Glomerular Filtration Rate Calc 79 mL/min (>90) BUN/Creatinine Ratio 31.2 (10.0-20.0) Serum Glucose 148 mg/dL (74-106) Calcium Level 9.8 mg/dL (8.7-10.4) Total Bilirubin 0.6 mg/dL (0.2-1.0) Aspartate Amino Transferase (AST) 45 U/L (13-40) Alanine Aminotransferase (ALT) 42 U/L (7-40) Alkaline Phosphatase 100 U/L (46-116) Total Protein 6.3 g/dL (5.7-8.2) Albumin 3.8 g/dL (3.2-4.8) POC Glucose 124 mg/dl (70-106) Troponin I High Sensitivity 67 ng/L (</=54) D-Dimer, Quantitative 0.46 mg/L FEU (0.0-0.49) Magnesium Level 1.8 mg/dL (1.6-2.6) B-Type Natriuretic Peptide 266.36 pg/mL (0-100) Test 01/22/25 18:53 Blood Gas Specimen Type Venous Blood Gas Sample Site Other Blood Gas Patient Temperature 37.0 Arterial Blood Date Drawn [id number] Casey Test N/a Venous Blood pH 7.398 (7.320-7.430) Venous Blood pCO2 at Patient Temp 41.8 mmHg (38.0-54.0) Venous Blood pO2 at Patient Temp 44.6 mmHg (23.0-48.0) Venous Blood HCO3 25.2 mmol/L (22.0-29.0) Venous Bld O2 Saturation (Measured) 77.9 % (60.0-85.0) Venous Blood Base Excess 0.3 mmol/L (-2.0-3.0) Venous Blood Total Hemoglobin 14.6 g/dL (13.5-17.5) Venous Blood Oxyhemoglobin 77.0 % (0.0-79.0) Venous Blood Carboxyhemoglobin 0.5 % (0.5-1.5) Venous Blood Methemoglobin 0.6 % (0.0-1.5) Blood Gas Liter Flow 6.00 Blood Gas Modality Vbg - n/a Blood Gas Spontaneous Rate 20 FiO2 % 40.0 Specimen Drawn By Blood Gas Comments Pt is on medneb tx Other Laboratory Tests 01/25/25 08:51 Final Diagnosis/Problems List # Chest discomfort; ACS ruled out; most likely due to Asthma/COPD exacerbation Discharge Disposition: Home Discharge Instruct/Medications Diet: Consistent carbohydrate, Cardiac 2g Na,low cholest Activity: No Restrictions, As Tolerated Follow Up/Referral: Dr. Gonzales/Dr. Rowe at 10:30 am on Wednesday01/29/2025 at [place] [id number]//Dr. Dockery within 2 weeks Medications: As per EMR Scheduled Apixaban Base (Eliquis), 1 TAB PO BID, (Reported) Budesonide-Formoterol Fumarate (Budesonide/Formoterol Fum 80-4.5 Mcg/Act), 2 AER IN BID, (Reported) Furosemide (Lasix), 40 MG PO DAILY Insulin Glargine-Yfgn (Insulin Glargine), 30 UNIT SC DAILY Ipratropium [place] (Ipratropium [place]), 1 VIAL INH Q6HR, (Reported) Montelukast Sodium (Montelukast Sodium), 1 TAB PO DAILY, (Reported) Potassium Chloride (Potassium Chloride ER), 20 MEQ PO DAILY Sacubitril-Valsartan (Entresto 24-26 mg), 1 TAB PO BID Sodium Bicarbonate (Sodium Bicarbonate), Unknown Dose PO DAILY, (Reported) Scheduled PRN Acetaminophen (Acetaminophen Extra Stren), 1 TAB PO Q6-8HR PRN for PAIN, (Reported) Albuterol Sulfate (Albuterol Sulfate Hfa), 1 PUFF INH Q4HR PRN for WHEEZING, (Reported) Albuterol Sulfate (Albuterol Sulfate), 1 VIAL NEB Q4HPRN PRN Discontinued Medications Albuterol Sulfate (Ventolin), 1 VIAL INH TID Albuterol Sulfate (Albuterol Sulfate Hfa), 108 MCG IN Q6HP PRN Azithromycin (Azithromycin), 1 TAB PO DAILY Insulin Glargine (Basaglar Kwikpen), 30 UNITS SC DAILY, (Reported) Ipratropium-Albuterol (Ipratropium [place]/Albut), 1 SANGEETA INH UD, (Reported) Levofloxacin Hemihydrate (Levaquin 500 Mg), 1 TAB PO DAILY Prednisone (Prednisone), 20 MG PO DAILY Discharge Statement: "Patient was advised to return to the ER or call 911 if any headaches, dizziness, shortness of breath, chest pain, abdominal pain, bleeding, fevers, or worsening of medical condition. Patient was counseled about treatment plan, medications, possible side effects, patientverbalized understanding. All questions were answered to the best of my ability. This discharge took greater then 30 minutes in planning, reviewing documentation, counseling the patient, and discussing with other team members." ASSESSMENT ASSESSMENT Assessment # Chest discomfort; ACS ruled out; most likely due to Asthma/COPD exacerbation CATARINA GONZALES MD Jan 25, 2025 14:46
[2025-01-26] VITALS (7 sets, daily range): BP systolic 89–102; BP diastolic 47–52; PULSE 85–107; RESP 17–20; TEMP 97.2–98; O2SAT 96–100
[2025-01-26 06:12] LABS: Hematocrit 41.8 % (41.0-53.0); Hemoglobin 14.1 g/dL (13.5-17.5); Mean Corpuscular Hemoglobin 31.8 pg (28.0-32.0); Mean Corpuscular Volume 93.8 fL (80.0-100.0); Nucleated Red Blood Cells % 0.1 %
[2025-01-26 06:26] LABS: Alanine Aminotransferase 39 U/L (7-40); Albumin 4.2 g/dL (3.2-4.8); Anion Gap 10 (5-15); BUN/Creatinine Ratio 26.2 (10.0-20.0); Bilirubin, Total 0.6 mg/dL (0.2-1.0); Calcium 9.4 mg/dL (8.7-10.4); Carbon Dioxide 21 mmol/L (20-31); Chloride 105 mmol/L (98-107); Potassium 4.2 mmol/L (3.5-5.1); Total Protein 6.7 g/dL (5.7-8.2)
[2025-01-26 06:27] LABS: Alkaline Phosphatase 140 U/L (46-116); Blood Urea Nitrogen 28 mg/dL (9-23); Glucose 68 mg/dL (74-106); Sodium 136 mmol/L (136-145)
--- NOTE | 2025-01-26 08:00 | DVHPN2 ---
Subjective Did not share any complaints Reviewed: Care Plan, H&P, Labs, Medications, Previous Orders, Radiology, Other (Consultation) Changes from previous H/P or p: Changes Objective Vitals Vital Signs Date Time Temp Pulse Resp B/P (MAP) Pulse Ox O2 Delivery O2 Flow Rate FiO2 01/26/25 07:49 107 01/26/25 07:47 Room Air* 0 21 01/26/25 05:00 97.2 18 102/47 (65) 99 97.2 Intake/Output Intake and Output 01/26/25 07:00 Intake Total 1600 ml Balance 1600 ml Intake Oral 1600 ml # Voids 3 # Bowel Movements 3 General Appearance: Alert, Oriented X3, Cooperative, No acute distress HEENT: Atraumatic Lungs: Clear to auscultation, Normal air movement Cardiovascular: Normal S1, Normal S2, Other (Tachycardia) Abdomen: Normal bowel sounds, Soft, No tenderness Neuro: Normal speech, Cranial nerves 3-12 NL Skin: Other (Right femoral artery access site with no signs of bleeding/infection) Psych/Mental Status: Mental status NL, Mood NL Medications Current Medications Medications Dose Ordered Sig/Juan Miguel Route Start Time Stop Time Status Last Admin Dose Admin Apixaban 5 mg BID PO 01/23/25 10:00 01/25/25 21:20 5 MG Albuterol 2.5 mg Q6HPRN PRN NEB 01/22/25 23:00 01/26/25 07:27 2.5 MG Ipratropium [place] 0.5 mg Q6HPRN PRN NEB 01/22/25 23:00 01/26/25 07:26 0.5 MG Budesonide 0.5 mg BID NEB 01/23/25 10:00 01/26/25 07:27 0.5 MG Furosemide 40 mg DAILY PO 01/23/25 10:00 01/23/25 10:16 40 MG Pantoprazole Sodium 40 mg DAILY@0600 PO 01/23/25 06:00 01/26/25 06:21 40 MG Atorvastatin Calcium 40 mg HS PO 01/23/25 22:00 01/25/25 21:20 40 MG Sacubitril/ Valsartan 1 tab BID PO 01/23/25 10:00 01/25/25 21:20 1 TAB Acetaminophen/ Hydrocodone Bitart 1 tab Q4HP PRN PO 01/22/25 23:00 01/23/25 03:08 1 TAB Ondansetron HCl 4 mg Q4HP PRN IV 01/22/25 23:00 Acetaminophen 650 mg Q6HP PRN PO 01/22/25 23:00 Nitroglycerin 0.4 mg Q5MINP PRN SL 01/22/25 23:00 Morphine Sulfate 2 mg Q30M PRN IV 01/22/25 23:00 Aspirin 81 mg DAILY PO 01/23/25 10:00 01/24/25 08:51 81 MG Ceftriaxone Sodium 50 ml @ 100 mls/hr DAILY@09 IV 01/24/25 09:00 01/25/25 09:38 100 MLS/HR Insulin Human Regular ACHS SC 01/23/25 17:00 01/23/25 17:00 Cancel Dextrose 50 ml UD PRN IV 01/23/25 13:30 Cancel Diagnostic Test (Pha) 1 strip IQ4HR 01/23/25 18:00 01/26/25 04:29 1 STRIP Insulin Human Regular IQ4HR SC 01/23/25 18:00 01/25/25 23:59 20 UNITS Dextrose 50 ml UD PRN IV 01/23/25 16:45 Insulin Glargine 20 units BID@0700,2200 MS 01/24/25 07:00 01/25/25 21:21 20 UNITS Methylprednisolone Sodium Succinate 40 mg DAILY IV 01/25/25 10:00 01/25/25 09:43 40 MG Laboratory Results Laboratory Tests 01/26/25 05:34 Chemistry Test 01/25/25 08:51 01/26/25 05:34 Albumin 3.8 g/dL (3.2-4.8) 4.2 g/dL (3.2-4.8) Calcium Level 9.8 mg/dL (8.7-10.4) 9.4 mg/dL (8.7-10.4) Total Protein 6.3 g/dL (5.7-8.2) 6.7 g/dL (5.7-8.2) LFT Test 01/25/25 08:51 01/26/25 05:34 Alanine Aminotransferase (ALT) 42 U/L (7-40) H 39 U/L (7-40) Alkaline Phosphatase 100 U/L (46-116) 140 U/L (46-116) H Aspartate Amino Transferase (AST) 45 U/L (13-40) H 38 U/L (13-40) Total Bilirubin 0.6 mg/dL (0.2-1.0) 0.6 mg/dL (0.2-1.0) Labs and/or images reviewed: Labs reviewed by me, Image(s) reviewed by me Assessment/Plan Assessment/Plan A 59-year-old male patient; with multiple comorbidities; who presented to emergency department with shortness of breath and chest discomfort. # Chest discomfort; ACS ruled out; status post cardiac catheterization January 25, 2025; due to asthma/COPD exacerbation # Asthma/COPD exacerbation # Chronic systolic heart failure with unspecified arrhythmias; unclear if in exacerbation or not # Secondary hypercoagulable status; on home apixaban # Elevated troponin; ACS ruled out # Uncontrolled diabetes mellitus with history of diabetic foot ulcers # Hypertensive heart disease with heart failure # History of alcohol and tobacco use disorder; quite one year ago # Elevated LFTs; most likely related to above; to repeat as outpatient # RAJ; most likely vasomotor nephropathy; to repeat as outpatient # Leukocytosis; most likely reactive due to IV steroids; resolved # Dyslipidemia # Prolonged QTc # Overweight # PAD Reviewed available lab work and imaging study Continue home medications including apixaban and statin Reviewed cardiac catheterization report by Dr. Dockery Continue home antihypertensive medications Continue home antidiabetic medications including insulin therapy Cardiology Dr. Dockery is following; reviewed cardiac catheterization operative note from January 25, 2025 Was on IV steroids and nebulizers; to continue home inhalers Switched azithromycin to doxycycline due to prolonged QTc; received IV ceftriaxone; no oral antibiotics upon discharge Avoid QTc prolonging agents To continue home diuretics Avoid hepato/nephrotoxic agents Was on telemetry To follow up with Dr. Gonzales next Wednesday in discharge clinic To follow up with Dr. Dockery within 2 to 4 weeks Late Entry. This medical document was created using an electronic medical record system with computerized dictation system. Although this document has been carefully reviewed, there might still be some phonetic and typographical errors. These areas are purely typographical due to imperfections of the software programs, and do not reflect any compromise in the patient's medical care. Plan discussed with: Patient, Other (Nurse) My Orders Orders - CATARINA GONZALES MD Procedure Category Date Status Time Communication Order ORDERS 01/25/25 Transmitted 14:45 Consistent DIET 01/25/25 [facility]Diabetes Dinner Discharge DISCHARGE 01/26/25 Transmitted 07:28 Date of Service: Jan 26, 2025 Billing Provider: CATARINA GONZALES MD Common Visit Codes: [id number] INP/OBS CARE(MOD) CATARINA GONZALES MD Jan 26, 2025 08:00
--- NOTE | 2025-01-26 08:01 | DVHDS2 ---
Discharge Summary Date of Admission Jan 22, 2025 at 22:52 Date of Discharge: Jan 25, 2025 Admitting Diagnosis Shortness of breath, and chest discomfort Wounds: Right femoral artery access site surgical wound; healing with no signs of bleeding/inferior Labs/Diagnostic Data: Laboratory Results Test 01/26/25 06:19 01/26/25 05:34 01/23/25 00:57 01/22/25 18:54 POC Glucose 94 mg/dl (70-106) White Blood Count 8.6 10^3/uL (4.4-10.8) Red Blood Count 4.45 10^6/uL (4.5-5.90) Hemoglobin 14.1 g/dL (13.5-17.5) Hematocrit 41.8 % (41.0-53.0) Mean Corpuscular Volume 93.8 fL (80.0-100.0) Mean Corpuscular Hemoglobin 31.8 pg (28.0-32.0) Mean Corpuscular Hemoglobin Concent 33.9 g/dL (32.0-36.0) Red Cell Distribution Width 14.9 % (11.8-14.3) Platelet Count 173 10^3/uL (140-450) Mean Platelet Volume 7.6 fL (6.9-10.8) Neutrophils (%) (Auto) 73.3 % (37.0-80.0) Lymphocytes (%) (Auto) 16.5 % (10.0-50.0) Monocytes (%) (Auto) 9.9 % (0.0-12.0) Eosinophils (%) (Auto) 0.0 % (0.0-7.0) Basophils (%) (Auto) 0.3 % (0.0-2.0) Neutrophils # (Auto) 6.3 10 ^3/uL (1.6-8.6) Lymphocytes # (Auto) 1.4 10 ^3/uL (0.4-5.4) Monocytes # (Auto) 0.9 10 ^3/uL (0-1.3) Eosinophils # (Auto) 0 10 ^3/uL (0-0.8) Basophils # (Auto) 0 10 ^3/uL (0-0.2) Nucleated Red Blood Cells 0.1 % Sodium Level 136 mmol/L (136-145) Potassium Level 4.2 mmol/L (3.5-5.1) Chloride Level 105 mmol/L (98-107) Carbon Dioxide Level 21 mmol/L (20-31) Anion Gap 10 (5-15) Blood Urea Nitrogen 28 mg/dL (9-23) Creatinine 1.07 mg/dL (0.700-1.30) Glomerular Filtration Rate Calc 80 mL/min (>90) BUN/Creatinine Ratio 26.2 (10.0-20.0) Serum Glucose 68 mg/dL (74-106) Calcium Level 9.4 mg/dL (8.7-10.4) Total Bilirubin 0.6 mg/dL (0.2-1.0) Aspartate Amino Transferase (AST) 38 U/L (13-40) Alanine Aminotransferase (ALT) 39 U/L (7-40) Alkaline Phosphatase 140 U/L (46-116) Total Protein 6.7 g/dL (5.7-8.2) Albumin 4.2 g/dL (3.2-4.8) Troponin I High Sensitivity 67 ng/L (</=54) D-Dimer, Quantitative 0.46 mg/L FEU (0.0-0.49) Magnesium Level 1.8 mg/dL (1.6-2.6) B-Type Natriuretic Peptide 266.36 pg/mL (0-100) Test 01/22/25 18:53 Blood Gas Specimen Type Venous Blood Gas Sample Site Other Blood Gas Patient Temperature 37.0 Arterial Blood Date Drawn [id number] Casey Test N/a Venous Blood pH 7.398 (7.320-7.430) Venous Blood pCO2 at Patient Temp 41.8 mmHg (38.0-54.0) Venous Blood pO2 at Patient Temp 44.6 mmHg (23.0-48.0) Venous Blood HCO3 25.2 mmol/L (22.0-29.0) Venous Bld O2 Saturation (Measured) 77.9 % (60.0-85.0) Venous Blood Base Excess 0.3 mmol/L (-2.0-3.0) Venous Blood Total Hemoglobin 14.6 g/dL (13.5-17.5) Venous Blood Oxyhemoglobin 77.0 % (0.0-79.0) Venous Blood Carboxyhemoglobin 0.5 % (0.5-1.5) Venous Blood Methemoglobin 0.6 % (0.0-1.5) Blood Gas Liter Flow 6.00 Blood Gas Modality Vbg - n/a Blood Gas Spontaneous Rate 20 FiO2 % 40.0 Specimen Drawn By Blood Gas Comments Pt is on medneb tx Other Laboratory Tests 01/26/25 05:34 Brief Hx & Hospital Course: A 59-year-old male patient; with multiple comorbidities; who presented to emergency department with shortness of breath and chest discomfort. # Chest discomfort; ACS ruled out; status post cardiac catheterization January 25, 2025; due to asthma/COPD exacerbation # Asthma/COPD exacerbation # Chronic systolic heart failure with unspecified arrhythmias; unclear if in exacerbation or not # Secondary hypercoagulable status; on home apixaban # Elevated troponin; ACS ruled out # Uncontrolled diabetes mellitus with history of diabetic foot ulcers # Hypertensive heart disease with heart failure # History of alcohol and tobacco use disorder; quite one year ago # Elevated LFTs; most likely related to above; to repeat as outpatient # RAJ; most likely vasomotor nephropathy; to repeat as outpatient # Leukocytosis; most likely reactive due to IV steroids; resolved # Dyslipidemia # Prolonged QTc # Overweight # PAD Reviewed available lab work and imaging study Continue home medications including apixaban and statin Reviewed cardiac catheterization report by Dr. Dockery Continue home antihypertensive medications Continue home antidiabetic medications including insulin therapy Cardiology Dr. Dockery is following; reviewed cardiac catheterization operative note from January 25, 2025 Was on IV steroids and nebulizers; to continue home inhalers Switched azithromycin to doxycycline due to prolonged QTc; received IV ceftriaxone; no oral antibiotics upon discharge Avoid QTc prolonging agents To continue home diuretics Avoid hepato/nephrotoxic agents Was on telemetry To follow up with Dr. Gonzales next Wednesday in discharge clinic To follow up with Dr. Dockery within 2 to 4 weeks Late Entry. This medical document was created using an electronic medical record system with computerized dictation system. Although this document has been carefully reviewed, there might still be some phonetic and typographical errors. These areas are purely typographical due to imperfections of the software programs, and do not reflect any compromise in the patient's medical care. Consults/Reason for consult Cardiology for chest discomfort Operations or Procedures Cardiac catheterization on January 25, 2025 Condition at Discharge: Stable Final Diagnosis/Problems List # Chest discomfort; ACS ruled out; most likely due to Asthma/COPD exacerbation Rest of diagnoses as above Discharge Disposition: Home Discharge Instruct/Medications Diet: Consistent carbohydrate, Cardiac 2g Na,low cholest Activity: No Restrictions, As Tolerated Follow Up/Referral: Dr. Gonzales/Dr. Rowe at 10:30 am on Wednesday01/29/2025 at [facility] [place] [facility]//Dr. Dockery within 2 weeks Medications: As per EMR Scheduled Apixaban Base (Eliquis), 1 TAB PO BID, (Reported) Budesonide-Formoterol Fumarate (Budesonide/Formoterol Fum 80-4.5 Mcg/Act), 2 AER IN BID, (Reported) Furosemide (Lasix), 40 MG PO DAILY Insulin Glargine-Yfgn (Insulin Glargine), 30 UNIT SC DAILY Ipratropium [place] (Ipratropium [place]), 1 VIAL INH Q6HR, (Reported) Montelukast Sodium (Montelukast Sodium), 1 TAB PO DAILY, (Reported) Potassium Chloride (Potassium Chloride ER), 20 MEQ PO DAILY Sacubitril-Valsartan (Entresto 24-26 mg), 1 TAB PO BID Sodium Bicarbonate (Sodium Bicarbonate), Unknown Dose PO DAILY, (Reported) Scheduled PRN Acetaminophen (Acetaminophen Extra Stren), 1 TAB PO Q6-8HR PRN for PAIN, (Reported) Albuterol Sulfate (Albuterol Sulfate Hfa), 1 PUFF INH Q4HR PRN for WHEEZING, (Reported) Albuterol Sulfate (Albuterol Sulfate), 1 VIAL NEB Q4HPRN PRN Discontinued Medications Albuterol Sulfate (Ventolin), 1 VIAL INH TID Albuterol Sulfate (Albuterol Sulfate Hfa), 108 MCG IN Q6HP PRN Azithromycin (Azithromycin), 1 TAB PO DAILY Insulin Glargine (Basaglar Kwikpen), 30 UNITS SC DAILY, (Reported) Ipratropium-Albuterol (Ipratropium [place]/Albut), 1 SANGEETA INH UD, (Reported) Levofloxacin Hemihydrate (Levaquin 500 Mg), 1 TAB PO DAILY Prednisone (Prednisone), 20 MG PO DAILY Discharge Statement: "Patient was advised to return to the ER or call 911 if any headaches, dizziness, shortness of breath, chest pain, abdominal pain, bleeding, fevers, or worsening of medical condition. Patient was counseled about treatment plan, medications, possible side effects, patientverbalized understanding. All questions were answered to the best of my ability. This discharge took greater then 30 minutes in planning, reviewing documentation, counseling the patient, and discussing with other team members." ASSESSMENT ASSESSMENT Assessment Date of Service: Jan 26, 2025 Billing Provider: CATARINA GONZALES MD Common Visit Codes: [id number] DISCH DAY >30min CATARINA GONZALES MD Jan 26, 2025 08:00
--- NOTE | 2025-01-26 11:48 | ECG ---
[facility] Test Date: 2025-01-25 Test Time: 00:42:01 Pat Name: RAND HELM Department: Respiratoy Room: 0293T B Gender: M Senior Copywriter: FELIPE FALL : 1965 Requested By: CATARINA GONZALES Order Number: [id number] Reading MD: Ruben Valentine Measurements Intervals Mckee Rate: 98 P: 81 IA: 192 QRS: -77 QRSD: 159 T: 114 QT: 386 QTc: 493 Interpretive Statements Sinus rhythm Probable left atrial enlargement Right bundle branch block LVH with IVCD and secondary repol abnrm Borderline prolonged QT interval Electronically Signed On 01-29-2025 21:38:14 PDT by Ruben Valentine Please click the below link to view image of tracing.
== END 2025-01-26 08:30 | disposition home or self-care (01) | DRG 140 ==
LOC: ER 18:07 → EDBD 18:07 → OVERFLOW 22:52 → TELE-WESTW 23:04
PROVIDERS: ADMIT Internal Medicine; ATTEND Internal Medicine
PROC: 4A023N8 Measurement of Cardiac Sampling and Pressure, Bilateral, Percutaneous Approach (ICD-10-PCS; principal; 2025-01-25)
PROC: B2151ZZ Fluoroscopy of Left Heart using Low Osmolar Contrast (ICD-10-PCS; 2025-01-25)
PROC: B2111ZZ Fluoroscopy of Multiple Coronary Arteries using Low Osmolar Contrast (ICD-10-PCS; 2025-01-25)
PROC: B41F1ZZ Fluoroscopy of Right Lower Extremity Arteries using Low Osmolar Contrast (ICD-10-PCS; 2025-01-25)
DX: J44.1 Chronic obstructive pulmonary disease with (acute) exacerbation (principal); J96.21 Acute and chronic respiratory failure with hypoxia; N17.0 Acute kidney failure with tubular necrosis; J45.31 Mild persistent asthma with (acute) exacerbation; D68.69 Other thrombophilia; I42.0 Dilated cardiomyopathy; E11.51 Type 2 diabetes mellitus with diabetic peripheral angiopathy without gangrene; I50.22 Chronic systolic (congestive) heart failure; I11.0 Hypertensive heart disease with heart failure; E11.65 Type 2 diabetes mellitus with hyperglycemia; Z68.31 Body mass index [BMI] 31.0-31.9, adult; T38.0X5A Adverse effect of glucocorticoids and synthetic analogues, initial encounter; I45.9 Conduction disorder, unspecified; E78.5 Hyperlipidemia, unspecified; E66.3 Overweight; D72.829 Elevated white blood cell count, unspecified; I49.9 Cardiac arrhythmia, unspecified; Z87.891 Personal history of nicotine dependence; Z79.4 Long term (current) use of insulin; Y92.89 Other specified places as the place of occurrence of the external cause
CPT/HCPCS: 36415; 36600; 71045; 80048; 80053; 82805; 82962; 83735; 83880; 84484; 85025; 85379; 93005; 93460; 94640; 96365; 99152; G0378; J1815; J2250

== ENCOUNTER 2025-01-31 02:55 | Inpatient (IN) | payer MEDICAID ==
[~2025-01-31] VITALS: Ht 182.9 cm; Wt 104.1 kg
[~2025-01-31 02:55] MED LIST changes: -ALB5IS INH; -ALBU108A5 IN; -AZIT500T66 PO; -INSU1INJ19 SC; -IPRA0.00 INH; -LEVO500T91 PO; -PRED20TA2 PO; +SACU1TAB PO
--- NOTE | 2025-01-31 03:18 | ED.PDOC ---
GI ASSESSMENT HPI Comments 59-year-old male with a history of hypertension, diabetes, CHF, asthma, and a current colostomy bag to the right lower quadrant, presents to the ED with a chief complaint of abdominal pain with the associated nausea, vomiting. Patient states that he had a colostomy bag placed last February due to scar tissue developing around his colon. Patient states that nothing has passed out since last Wednesday feels like there is a blockage at this time. Patient denies any diarrhea, chest pain, headache, urinary symptoms, or any other associated symptom, factor, or modifying at this time. PHYSICAL EXAM: General: Awake, alert and oriented. Motor acute distress. Skin: Skin in warm, dry and intact. Appropriate color for ethnicity. HEENT: The head is normocephalic and atraumatic. Conjunctivae are clear without exudates or hemorrhage. Sclera is non-icteric. EOM are intact. No signs of nystagmus. Eyelids are normal in appearance without swelling or lesions. Oral mucosa is pink and moist Neck: The neck is supple with normal range of motion. No JVD. Cardiac: Heart rate and rhythm are normal. No murmurs, gallops, or rubs are auscultated. Respiratory: No signs of respiratory distress. Lung sounds are clear in all lobes bilaterally without rales, rhonchi, or wheezes. Abdominal: Colostomy bag noted to the right lower quadrant, generalized abdominal tenderness, diminished bowel sounds Extremities: Upper and lower extremities are atraumatic in appearance without deformity or edema. Neurological: The patient is awake, alert and oriented to person, place, and time with normal speech. Speech is clear. There is no facial asymmetry. Psychiatric: Appropriate mood and affect. Good judgement and insight. REVIEW OF SYSTEMS: No fever, no chills, or fatigue HEENT: No sore throat, no earache, no congestion, no neck pain. Cardiac: No chest pain. No palpitations. Lungs: No shortness of breath, no cough. GI: + nausea, + vomiting, no diarrhea, no constipation, + abdominal pain : No dysuria, frequency, or urgency. No hematuria. Musculoskeletal: No joint pain , no joint swelling, no extremity edema. Skin: No rash, no itching. Neuro: No headache, no dizziness, no weakness Chief Complaint: Abdominal Pain Time Seen by MD: 03:15 Primary Care Provider: LOS Reviewed Notes: Nurses Notes, Medications, Allergies Allergies: Coded Allergies: NO KNOWN ALLERGIES (Unverified , 03/23/16) Home Meds Active Scripts Sacubitril-Valsartan (Entresto 24-26 mg) 1 Tab Tab, 1 TAB PO BID for 30 Days, #60 TAB Prov:CATARINA GONZALES MD 01/25/25 Potassium Chloride (Potassium Chloride ER) 20 Meq Tab, 20 MEQ PO DAILY, #30 TAB Prov:KIAN JOYNER MD 10/23/24 Furosemide (Lasix) 40 Mg Tab, 40 MG PO DAILY, #30 TAB Prov:KIAN JOYNER MD 10/23/24 Insulin Glargine-Yfgn (Insulin Glargine) 100 Unit/Ml Inj, 30 UNIT SC DAILY for 90 Days, #1 INJ 5 Refills Prov:RHETT CHATTERJEE MD 10/20/24 Albuterol Sulfate (Albuterol Sulfate) 0.083 % Neb, 1 VIAL NEB Q4HPRN PRN, #50 VIAL Prov:RHETT CHATTERJEE MD 10/20/24 Reported Medications Apixaban Base (ELIQUIS) 5 Mg Tab, 1 TAB PO BID 10/21/24 Sodium Bicarbonate (Sodium Bicarbonate) 325 Mg Tab, PO DAILY, TAB 09/08/24 Budesonide-Formoterol Fumarate (Budesonide/Formoterol Fum 80-4.5 Mcg/Act) 1 Aer Aer, 2 AER IN BID, AER 03/17/24 Acetaminophen (Acetaminophen Extra Stren) 500 Mg Tab, 1 TAB PO Q6-8HR PRN for PAIN 01/05/24 Ipratropium [place] (Ipratropium [place]) 0.02 % Sangeeta, 1 VIAL INH Q6HR 01/05/24 Montelukast Sodium (MONTELUKAST SODIUM) 10 Mg Tab, 1 TAB PO DAILY 08/31/23 Albuterol Sulfate (Albuterol Sulfate Hfa) 108 Mcg/Act Aer, 1 PUFF INH Q4HR PRN for WHEEZING 08/29/23 Discontinued Reported Medications Ipratropium-Albuterol (Ipratropium [place]/Albut) 1 Sangeeta Sangeeta, 1 SANGEETA INH UD 01/05/24 Insulin Glargine (Basaglar Kwikpen) 100 Unit/Ml Inj, 30 UNITS SC DAILY 08/29/23 Discontinued Scripts Prednisone (Prednisone) 20 Mg Tab, 20 MG PO DAILY, #10 MG Prov:KIAN JOYNER MD 10/23/24 Levofloxacin Hemihydrate (LEVAQUIN 500 MG) 500 Mg Tab, 1 TAB PO DAILY, #10 TAB Prov:KIAN JOYNER MD 10/23/24 Azithromycin (Azithromycin) 500 Mg Tab, 1 TAB PO DAILY for 7 Days, #7 TAB Prov:RHETT CHATTERJEE MD 10/20/24 Albuterol Sulfate (Albuterol Sulfate Hfa) 108 Mcg/Act Aer, 108 MCG IN Q6HP PRN, #1 AER Prov:RHETT CHATTERJEE MD 10/20/24 Albuterol Sulfate (Ventolin) 2.5 Mg/0.5 Ml Nb, 1 VIAL INH TID for 30 Days, #1 INH 1 Refill Prov:JAN CONNER NP 09/03/23 Information Source: Patient Mode of Arrival: Wheelchair Timing: Days Duration: Intermittent, Days Prehospital treatment: None Quality: Aching, Sharp Vomitus: Watery Stool: Normal Severity: Moderate Recent: None Recent Hx of: Abdominal Operations Pain Location: RLQ Modifying Factors: Exertion, Movement Associated sign and symptoms: Nausea, Vomiting, Abdominal Pain Past Medical History PAST MEDICAL HISTORY: Asthma, CHF, COPD, DM, HTN Surgical History: Hernia Repair Family History Family History: Reviewed,noncontributory to illness Social History Smoker: Non-Smoker, Quit Less Than 1 Year, Cigarettes, Cigar Alcohol: Occasionally Drugs: Denies Drug Use Lives In: Home Was a procedure done? Was a procedure done?: No GI differential Dx Differential Diagnosis: Appendicitis, Bowel Obstruction, Cholangitis, Cholecystitis, Constipation, Diverticular disease, Gastritis/PUD, Gastroenteritis, Pancreatitis, UTI, Urolithiasis, Dehydration, Drug toxicity, Electrolyte Imbalance, Food Poisoning, Stress Ulcer, Kidney Stone X-Ray, Labs, Meds, VS Vital Signs Date Time Temp Pulse Resp B/P (MAP) Pulse Ox O2 Delivery O2 Flow Rate FiO2 01/31/25 05:30 87 14 96/63 01/31/25 05:30 98.0 87 14 96/63 (74) 96 98.0 01/31/25 02:59 98.1 93 18 106/68 98 98.1 Lab Test 01/31/25 03:27 Range/Units White Blood Count 9.3 4.4-10.8 10^3/uL Red Blood Count 4.66 4.5-5.90 10^6/uL Hemoglobin 14.6 13.5-17.5 g/dL Hematocrit 43.4 41.0-53.0 % Mean Corpuscular Volume 93.2 80.0-100.0 fL Mean Corpuscular Hemoglobin 31.4 28.0-32.0 pg Mean Corpuscular Hemoglobin Concent 33.7 32.0-36.0 g/dL Red Cell Distribution Width 15.2 H 11.8-14.3 % Platelet Count 195 140-450 10^3/uL Mean Platelet Volume 7.2 6.9-10.8 fL Neutrophils (%) (Auto) 66.0 37.0-80.0 % Lymphocytes (%) (Auto) 23.3 10.0-50.0 % Monocytes (%) (Auto) 8.8 0.0-12.0 % Eosinophils (%) (Auto) 1.3 0.0-7.0 % Basophils (%) (Auto) 0.6 0.0-2.0 % Neutrophils # (Auto) 6.2 1.6-8.6 10 ^3/uL Lymphocytes # (Auto) 2.2 0.4-5.4 10 ^3/uL Monocytes # (Auto) 0.8 0-1.3 10 ^3/uL Eosinophils # (Auto) 0.1 0-0.8 10 ^3/uL Basophils # (Auto) 0.1 0-0.2 10 ^3/uL Nucleated Red Blood Cells 0.1 % Sodium Level 140 136-145 mmol/L Potassium Level 3.3 L 3.5-5.1 mmol/L Chloride Level 102 98-107 mmol/L Carbon Dioxide Level 27 20-31 mmol/L Anion Gap 11 5-15 Blood Urea Nitrogen 17 9-23 mg/dL Creatinine 1.04 0.700-1.30 mg/dL Glomerular Filtration Rate Calc 83 >90 mL/min BUN/Creatinine Ratio 16.3 10.0-20.0 Serum Glucose 86 74-106 mg/dL Lactic Acid Level 1.9 0.4-2.0 mmol/L Calcium Level 9.1 8.7-10.4 mg/dL Total Bilirubin 1.6 H 0.2-1.0 mg/dL Aspartate Amino Transferase (AST) 33 13-40 U/L Alanine Aminotransferase (ALT) 31 7-40 U/L Alkaline Phosphatase 78 46-116 U/L Total Protein 6.6 5.7-8.2 g/dL Albumin 4.1 3.2-4.8 g/dL Current Medications Medications (Trade) Dose Ordered Sig/Juan Miguel Route Start Time Stop Time Status Last Admin Morphine Sulfate 4 mg ONCE ONCE IV 01/31/25 03:15 01/31/25 03:17 DC 01/31/25 05:30 Ondansetron HCl (Zofran) 4 mg ONCE ONCE IV 01/31/25 03:15 01/31/25 03:17 DC 01/31/25 05:30 Potassium Bicarbonate (Klor-Con/Ef) 25 meq ONCE ONCE PO 01/31/25 10:30 01/31/25 10:31 DC 01/31/25 10:30 X-Ray, Labs, Meds, VS Comment Course in the emergency department eventful patient came in because of abdominal pain he has a ileostomy the CBC is normal CMP potassium is 3.3 the rest is normal Lactic acid 1.9 CT abdomen shows small bowel obstruction and the ileostomy is there and there is some fluid in the abdomen Patient will be admitted the surgery will be consulted Dr. Allan has seen the patient we will consult Time of 1ST Reevaluation: 03:45 Reevaluation 1ST: Unchanged Patient Education/Counseling: Diagnosis, Treatment, Need For Follow Up Family Education/Counseling: No Family Present SEPSIS Sepsis Screen Date sepsis recognized/suspect: Jan 31, 2025 Time Sepsis recognized/suspect: 0303 Recent Procedure: No On Antibiotic Therapy: No Respiratory Rate >20: No Heart Rate >90: Yes Temp<36 C (96.8 F) or >38.3 C: No SBP <90 or MAP <65 mmHG: No New Acute Mental Status Change: No Is the patient on CPAP, BIPAP,: No Physician Orders Ct Ab Pel With Oral Con Only (01/31/25 03:14) Ng To Lis (01/31/25 08:33) Vital Signs Date Time Temp Pulse Resp B/P (MAP) Pulse Ox O2 Delivery O2 Flow Rate FiO2 01/31/25 05:30 87 14 96/63 01/31/25 05:30 98.0 87 14 96/63 (74) 96 98.0 01/31/25 02:59 98.1 93 18 106/68 98 98.1 Laboratory Tests Test 01/31/25 03:27 Lactic Acid Level 1.9 mmol/L (0.4-2.0) White Blood Count 9.3 10^3/uL (4.4-10.8) Medications Medications Dose Ordered Sig/Juan Miguel Route Start Time Stop Time Status Last Admin Dose Admin Morphine Sulfate 4 mg ONCE ONCE IV 01/31/25 03:15 01/31/25 03:17 DC 01/31/25 05:30 Ondansetron HCl 4 mg ONCE ONCE IV 01/31/25 03:15 01/31/25 03:17 DC 01/31/25 05:30 Potassium Bicarbonate 25 meq ONCE ONCE PO 01/31/25 10:30 01/31/25 10:31 DC 01/31/25 10:30 Departure 1 Departure Time of Disposition: 10:31 Impression: Primary Impression: Acute abdominal pain Additional Impressions: Small bowel obstruction Hypokalemia Disposition: ADMITTED INPATIENT Admit to: Tele Condition: Serious Critical Care Note Critical Care Time?: No Stability Stability form required: Yes Heart Score Heart Score: Heart Score Response (Comments) Value History N/A 0 EKG N/A 0 Age 45-64 1 Risk Factors 1 or 2 risk factors 1 Troponin N/A 0 Total 2 I personally scribed for CYNTHIA VERDUZCO MD ([email or web address]) on 01/31/25 at 03:18. Electronically submitted by Juan Killian ([email or web address]). CYNTHIA VERDUZCO MD Jan 31, 2025 03:18 JOIE CARRERA MD Jan 31, 2025 09:40
[2025-01-31 03:46] LABS: Hematocrit 43.4 % (41.0-53.0); Hemoglobin 14.6 g/dL (13.5-17.5); Mean Corpuscular Hemoglobin 31.4 pg (28.0-32.0); Mean Corpuscular Volume 93.2 fL (80.0-100.0); Nucleated Red Blood Cells % 0.1 %
[2025-01-31 04:12] LABS: Alanine Aminotransferase 31 U/L (7-40); Albumin 4.1 g/dL (3.2-4.8); Alkaline Phosphatase 78 U/L (46-116); Anion Gap 11 (5-15); BUN/Creatinine Ratio 16.3 (10.0-20.0); Blood Urea Nitrogen 17 mg/dL (9-23); Calcium 9.1 mg/dL (8.7-10.4); Carbon Dioxide 27 mmol/L (20-31); Chloride 102 mmol/L (98-107); Glucose 86 mg/dL (74-106); Sodium 140 mmol/L (136-145); Total Protein 6.6 g/dL (5.7-8.2)
[2025-01-31 04:13] LABS: Bilirubin, Total 1.6 mg/dL (0.2-1.0); Potassium 3.3 mmol/L (3.5-5.1)
[2025-01-31] MEDS: OMNIPAQUE 12mg/ml 500ml ORAL SOLUTION PO ONE (04:59)
[2025-01-31] MEDS: ONDANSETRON HCL 4 MG/2 ML VIAL IV ONE (05:30)
[2025-01-31] MEDS: MORPHINE SULFATE INJ 2 MG/ml SYRG IV ONE (05:30)
--- NOTE | 2025-01-31 07:41 | DVH ---
Exam: CT CT AB PEL WITH ORAL CON ONLY History: Rule out bowel obstruction Comparison Study: XY KUB ABDOMEN SINGLE VIEW on DOS: 03/29/24 Contrast: Type of contrast: Oral Omnipaque Contrast injected: 500 mL Contrast wasted: 0 TECHNIQUE: CT scan of the abdomen pelvis was performed without intravenous contrast. Coronal and sag ittal reformatted images are provided. Oral contrast was given. Radiation Dose Information: CT Dose: CTDI volume is 16.42 mGy. Dose-length product is 3.92 mGy*cm FINDINGS: Lung Bases: Bibasilar airspace disease. Cardiomegaly. No pericardial effusion. Liver: The liver is normal in size. No focal lesions. Normal hepatic vascular enhancement. Gallbladder and Biliary Tree: The gallbladder is distended. Gallstones versus gallbladder sludge note d. Spleen: The spleen is not enlarged. Pancreas: The pancreas is normal in appearance without focal lesions or abnormal enhancement. Adrenal Glands: Unremarkable Kidneys: Kidneys demonstrate normal symmetric enhancement without focal lesions, calculi or hydroneph rosis. Bladder: Unremarkable GI tract: The stomach is unremarkable. There is right colonic resection. There is a right lower quad rant ileostomy. There is a surgical anastomosis in the central abdomen between small bowel loops. Th ere is dilatation of the small bowel loops proximal to the surgical anastomosis. These bowel loops a re fluid-filled and measure up to 4.4 cm in diameter. The bowel loops in the right lower quadrant ost susan are collapsed. Findings are consistent with small-bowel obstruction at the site of the surgical a nastomosis. The appendix is not visualized and may be surgically absent. Intraperitoneal cavity: Small volume intra abdominal and pelvic free fluid. No pneumoperitoneum. Lymphadenopathy: No mesenteric, retroperitoneal or periportal lymphadenopathy. Abdominal Wall and Mesentery: Unremarkable. Vasculature: The visualized abdominal aorta is normal in size and caliber. Abdominal and pelvic vess els demonstrate normal enhancement. Pelvic Organs: Unremarkable Musculoskeletal: Lucency in the bilateral femoral heads surrounded by sclerosis compatible with avasc ular necrosis. No articular collapse. Multilevel lumbar spondylosis. No acute fracture. Postsurgical changes in the pelvic bones. Soft tissues: Fat containing umbilical hernia.. IMPRESSION: 1. Small-bowel obstruction with transition point at a surgical small bowel anastomosis. 2. Right lower quadrant ileostomy. 3. Small volume abdominopelvic fluid. All CT scans at this medical facility are performed using dose modulation techniques as appropriate t o a performed exam including the following: Automated exposure control was utilized; adjustment of th e MA and/or KV according to patient size; and use of iterative reconstruction technique.
[2025-01-31] MEDS: POTASSIUM EFFERVESENT TAB 25 MEQ PO ONE (10:30)
--- NOTE | 2025-01-31 11:46 | DVHINCON2 ---
Date of service: Jan 31, 2025 Family History: Cardiovascular disease G8 MOTHER, G8 FATHER, Diabetes mellitus G8 MOTHER, G8 FATHER, Allergies: Coded Allergies: NO KNOWN ALLERGIES (Unverified , 03/23/16) Home Meds Active Scripts Sacubitril-Valsartan (Entresto 24-26 mg) 1 Tab Tab, 1 TAB PO BID for 30 Days, #60 TAB Prov:CATARINA GONZALES MD 01/25/25 Potassium Chloride (Potassium Chloride ER) 20 Meq Tab, 20 MEQ PO DAILY, #30 TAB Prov:KIAN JOYNER MD 10/23/24 Furosemide (Lasix) 40 Mg Tab, 40 MG PO DAILY, #30 TAB Prov:KIAN JOYNER MD 10/23/24 Insulin Glargine-Yfgn (Insulin Glargine) 100 Unit/Ml Inj, 30 UNIT SC DAILY for 90 Days, #1 INJ 5 Refills Prov:RHETT CHATTERJEE MD 10/20/24 Albuterol Sulfate (Albuterol Sulfate) 0.083 % Neb, 1 VIAL NEB Q4HPRN PRN, #50 VIAL Prov:RHETT CHATTERJEE MD 10/20/24 Reported Medications Apixaban Base (ELIQUIS) 5 Mg Tab, 1 TAB PO BID 10/21/24 Sodium Bicarbonate (Sodium Bicarbonate) 325 Mg Tab, PO DAILY, TAB 09/08/24 Budesonide-Formoterol Fumarate (Budesonide/Formoterol Fum 80-4.5 Mcg/Act) 1 Aer Aer, 2 AER IN BID, AER 03/17/24 Acetaminophen (Acetaminophen Extra Stren) 500 Mg Tab, 1 TAB PO Q6-8HR PRN for PAIN 01/05/24 Ipratropium [place] (Ipratropium [place]) 0.02 % Sangeeta, 1 VIAL INH Q6HR 01/05/24 Montelukast Sodium (MONTELUKAST SODIUM) 10 Mg Tab, 1 TAB PO DAILY 08/31/23 Albuterol Sulfate (Albuterol Sulfate Hfa) 108 Mcg/Act Aer, 1 PUFF INH Q4HR PRN for WHEEZING 08/29/23 Discontinued Reported Medications Ipratropium-Albuterol (Ipratropium [place]/Albut) 1 Sangeeta Sangeeta, 1 SANGEETA INH UD 01/05/24 Insulin Glargine (Basaglar Kwikpen) 100 Unit/Ml Inj, 30 UNITS SC DAILY 08/29/23 Discontinued Scripts Prednisone (Prednisone) 20 Mg Tab, 20 MG PO DAILY, #10 MG Prov:KIAN JOYNER MD 10/23/24 Levofloxacin Hemihydrate (LEVAQUIN 500 MG) 500 Mg Tab, 1 TAB PO DAILY, #10 TAB Prov:KIAN JOYNER MD 10/23/24 Azithromycin (Azithromycin) 500 Mg Tab, 1 TAB PO DAILY for 7 Days, #7 TAB Prov:RHETT CHATTERJEE MD 10/20/24 Albuterol Sulfate (Albuterol Sulfate Hfa) 108 Mcg/Act Aer, 108 MCG IN Q6HP PRN, #1 AER Prov:RHETT CHATTERJEE MD 10/20/24 Albuterol Sulfate (Ventolin) 2.5 Mg/0.5 Ml Nb, 1 VIAL INH TID for 30 Days, #1 INH 1 Refill Prov:JAN CONNER TOURS HOSTESS 09/03/23 Vital Signs Vital Signs Date Time Temp Pulse Resp B/P (MAP) Pulse Ox O2 Delivery O2 Flow Rate FiO2 01/31/25 05:30 87 14 96/63 01/31/25 05:30 98.0 96 98.0 Labs/Diagnostic Data Labs Test 01/31/25 03:27 Range/Units White Blood Count 9.3 4.4-10.8 10^3/uL Red Blood Count 4.66 4.5-5.90 10^6/uL Hemoglobin 14.6 13.5-17.5 g/dL Hematocrit 43.4 41.0-53.0 % Mean Corpuscular Volume 93.2 80.0-100.0 fL Mean Corpuscular Hemoglobin 31.4 28.0-32.0 pg Mean Corpuscular Hemoglobin Concent 33.7 32.0-36.0 g/dL Red Cell Distribution Width 15.2 H 11.8-14.3 % Platelet Count 195 140-450 10^3/uL Mean Platelet Volume 7.2 6.9-10.8 fL Neutrophils (%) (Auto) 66.0 37.0-80.0 % Lymphocytes (%) (Auto) 23.3 10.0-50.0 % Monocytes (%) (Auto) 8.8 0.0-12.0 % Eosinophils (%) (Auto) 1.3 0.0-7.0 % Basophils (%) (Auto) 0.6 0.0-2.0 % Neutrophils # (Auto) 6.2 1.6-8.6 10 ^3/uL Lymphocytes # (Auto) 2.2 0.4-5.4 10 ^3/uL Monocytes # (Auto) 0.8 0-1.3 10 ^3/uL Eosinophils # (Auto) 0.1 0-0.8 10 ^3/uL Basophils # (Auto) 0.1 0-0.2 10 ^3/uL Nucleated Red Blood Cells 0.1 % Sodium Level 140 136-145 mmol/L Potassium Level 3.3 L 3.5-5.1 mmol/L Chloride Level 102 98-107 mmol/L Carbon Dioxide Level 27 20-31 mmol/L Anion Gap 11 5-15 Blood Urea Nitrogen 17 9-23 mg/dL Creatinine 1.04 0.700-1.30 mg/dL Glomerular Filtration Rate Calc 83 >90 mL/min BUN/Creatinine Ratio 16.3 10.0-20.0 Serum Glucose 86 74-106 mg/dL Lactic Acid Level 1.9 0.4-2.0 mmol/L Calcium Level 9.1 8.7-10.4 mg/dL Total Bilirubin 1.6 H 0.2-1.0 mg/dL Aspartate Amino Transferase (AST) 33 13-40 U/L Alanine Aminotransferase (ALT) 31 7-40 U/L Alkaline Phosphatase 78 46-116 U/L Total Protein 6.6 5.7-8.2 g/dL Albumin 4.1 3.2-4.8 g/dL Assessment [id number] C/O ABD APIN N/V AFEBRILE VSS ABD SOFT MILD TENDERNESS FUNCTIONAL/VIAVLE ILEOSTOMY R/O SBO/ILEUS KEEP NPO/NG CLOSE OBSERVATION HIGH RISK FOR SURGERY Plan discussed with: Patient ANDRES FARAH MD Jan 31, 2025 11:46
[2025-01-31 13:30] VITALS: PULSE 90; RESP 14; O2SAT 95
[2025-01-31] MEDS ORDERED: ACETAMINOPHEN 325 MG TAB PO PRN (13:30)
[2025-01-31] MEDS ORDERED: DOCUSATE SOD 100 MG CAP PO PRN (13:30)
[2025-01-31] MEDS ORDERED: HYDROcodone-ACET 5/325MG TAB PO PRN (13:30)
[2025-01-31] MEDS ORDERED: METOCLOPRAMIDE HCL 5MG/ml INJ 2ml VIAL IV PRN (13:30)
[2025-01-31] MEDS ORDERED: DEXTROSE (50%) 50ML SYRG IV PRN (13:45)
[2025-01-31] MEDS: SODIUM CHLORIDE 0.9% 1,000 ML IV ONE (14:00)
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
[2025-01-31 15:40] VITALS: BP 96/63; PULSE 96; RESP 14; TEMP 98; O2SAT 91
--- NOTE | 2025-01-31 15:42 | DVH ---
Procedure: XY KUB ABDOMEN SINGLE VIEW Study Date and Requested Time: 01/31/2025 03:17 PM Technique: Single view of the abdomen and pelvis is available for evaluation. History: NG tube placement verification Comparison: XY KUB ABDOMEN SINGLE VIEW on DOS: 03/29/24, XY KUB ABDOMEN SINGLE VIEW on DOS: 03/29/24, X Y CHEST XRAY 1 VIEW on DOS: 03/26/24 Findings/ Impression: Enteric tube is noted in satisfactory position. Gas-filled distended small bowel within the left lowe r abdominal quadrant measuring up to 4 cm consistent with history of bowel obstruction. Paucity of la rge bowel gas with foci of gas noted within the rectum. No abnormal calcifications are noted. The visualized right lung base is clear. No evidence of acute bony abnormalities.
--- NOTE | 2025-01-31 15:53 | DVHINCON2 ---
DATE OF CONSULTATION: 01/31/2025 HISTORY OF PRESENT ILLNESS: This patient is 59 years old. I was asked to see him in the Emergency Room with a history of abdominal pain, nausea, vomiting. He is 59 years old. History of hypertension, diabetes, CHF, asthma, and has recurrent ileostomy bag to the right lower quadrant. His surgical details include a trauma surgery done. Following that, he had a bowel obstruction apparently and the second surgery was done here with a laparotomy with a creation of ileostomy and he was told that it could be reversed but now he comes with abdominal pain, nausea, vomiting. No hematochezia or melena. No bleeding per rectum. PAST MEDICAL HISTORY: Significant for asthma, CHF, COPD, diabetes, hypertension. SURGICAL HISTORY: Hernia repair and above-mentioned surgical procedures for which the details are not available. PHYSICAL EXAMINATION: VITAL SIGNS: He is afebrile with stable signs. HEENT: No evidence of pallor, cyanosis, or jaundice. NECK: Supple and nontender with no thyromegaly or lymphadenopathy. CHEST AND LUNGS: Clear. HEART: Within normal limits. ABDOMEN: Soft. Relatively benign. No acute tenderness. He does have a functional ileostomy and at this point there is a possibility of small bowel obstruction/ileus. NEUROLOGICAL: Not assessed. EXTREMITIES: Unremarkable. CLINICAL IMPRESSION: Status post ileostomy with possibility of rule out small bowel obstruction/ileus. PLAN: Keep him in close observation. Keep him n.p.o. with NG tube continuous suction and consider emergent surgery based upon ongoing evaluation and his high risk for surgery. MD BARON Gaspar/BULMARO/MARY LOU TID: [id number] RECEIPT: [id number] cc:
[2025-01-31] MEDS: SODIUM CHLORIDE 0.9% 1,000 ML IV SCH (16:33)
[2025-01-31] MEDS: ONDANSETRON HCL 4 MG/2 ML VIAL IV PRN (16:34)
[2025-01-31] MEDS: MORPHINE SULFATE INJ 2 MG/ml SYRG IV PRN (16:35)
[2025-01-31 17:27] LABS: Potassium 3.7 mmol/L (3.5-5.1)
[2025-01-31 17:34] LABS: Magnesium 2.0 mg/dL (1.6-2.6)
[2025-01-31] MEDS: InsuLIN REG 1unit/0.01ml Soln (100units/ml) SC SCH (18:00)
[2025-01-31] MEDS: ACCU-CHEK COMFORT CURVE STRIP VI SCH (18:24)
[2025-01-31 19:30] VITALS: PULSE 87; RESP 13; O2SAT 96
[2025-01-31 23:01] VITALS: O2SAT 96
[2025-02-01] VITALS (11 sets, daily range): BP systolic 109–115; BP diastolic 70–71; PULSE 46–100; RESP 12–20; TEMP 97.5–98.3; O2SAT 93–100
[2025-02-01 06:15] LABS: Hematocrit 40.9 % (41.0-53.0); Hemoglobin 13.8 g/dL (13.5-17.5); Mean Corpuscular Hemoglobin 31.7 pg (28.0-32.0); Mean Corpuscular Volume 93.8 fL (80.0-100.0); Nucleated Red Blood Cells % 0.1 %
[2025-02-01 06:33] LABS: Alanine Aminotransferase 23 U/L (7-40); Albumin 3.7 g/dL (3.2-4.8); Alkaline Phosphatase 62 U/L (46-116); Anion Gap 11 (5-15); BUN/Creatinine Ratio 18.4 (10.0-20.0); Blood Urea Nitrogen 16 mg/dL (9-23); Calcium 8.8 mg/dL (8.7-10.4); Carbon Dioxide 29 mmol/L (20-31); Chloride 100 mmol/L (98-107); Sodium 140 mmol/L (136-145); Total Protein 5.9 g/dL (5.7-8.2)
[2025-02-01 06:35] LABS: Bilirubin, Total 1.3 mg/dL (0.2-1.0); Glucose 73 mg/dL (74-106); Potassium 3.3 mmol/L (3.5-5.1)
[2025-02-01] MEDS: ALBUTEROL SULF 2.5 MG/0.5ML(0.5%) NEB SOLN NEB PRN (07:51)
[2025-02-01] MEDS: IPRATROPIUM BROM 0.5 MG/2.5ML INH SOL NEB PRN (07:52)
[2025-02-01] MEDS ORDERED: FUROSEMIDE 20 MG/2 ML VIAL IV SCH (10:00)
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
[2025-02-01] MEDS: POTASSIUM CHL 20MEQ/100ML 100 ML IV ONE (13:36)
[2025-02-02] VITALS (10 sets, daily range): BP systolic 88–141; BP diastolic 59–81; PULSE 76–95; RESP 16–18; TEMP 97.1–98.5; O2SAT 94–97
[2025-02-02 07:00] LABS: Hematocrit 41.9 % (41.0-53.0); Hemoglobin 13.8 g/dL (13.5-17.5); Mean Corpuscular Hemoglobin 31.3 pg (28.0-32.0); Mean Corpuscular Volume 95.2 fL (80.0-100.0); Nucleated Red Blood Cells % 0.4 %
[2025-02-02 07:04] LABS: Potassium 3.7 mmol/L (3.5-5.1); Sodium 138 mmol/L (136-145)
[2025-02-02 07:05] LABS: Anion Gap 14 (5-15); Carbon Dioxide 26 mmol/L (20-31)
[2025-02-02 07:06] LABS: Calcium 9.1 mg/dL (8.7-10.4)
[2025-02-02 07:10] LABS: BUN/Creatinine Ratio 14.9 (10.0-20.0); Blood Urea Nitrogen 14 mg/dL (9-23); Glucose 84 mg/dL (74-106)
[2025-02-02 07:13] LABS: Chloride 98 mmol/L (98-107)
--- NOTE | 2025-02-02 09:46 | DVH ---
CHEST RADIOGRAPH Indication: fluid overload Technique: Single frontal view of the chest was obtained COMPARISON: XY CHEST PORTABLE on DOS: 01/22/25, XY CHEST XRAY 1 VIEW on DOS: 10/20/24, XY CHEST XRAY 1 VIEW on DOS: 03/26/24, XY CHEST XRAY 1 VIEW on DOS: 03/25/24, XY CHEST XRAY 1 VIEW on DOS: 03/24/24 FINDINGS: Lines and Tubes: Enteric catheter in satisfactory position Lungs: Congestion Pleura: Small bilateral pleural effusions No pneumothorax. Cardiomediastinal contours: Unremarkable Bones: Unremarkable IMPRESSION: Pulmonary edema
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
--- NOTE | 2025-02-02 20:12 | DVHPN2 ---
Progress Note Date Seen: Feb 02, 2025 Medical Necessity Reason Pt with a Central, PICC or Fol: No Objective vital signs Vital Sign Date Time Temp Pulse Resp B/P (MAP) Pulse Ox O2 Delivery O2 Flow Rate FiO2 02/02/25 18:46 97 Room Air 0.0 02/02/25 18:46 21 02/02/25 17:00 97.1 84 17 95/70 (78) 97.1 Total Intake and Output 02/01/25 02/01/25 02/02/25 15:00 23:00 07:00 Intake Total 550 ml 250 ml 100 ml Output Total 1375 ml 825 ml 2050 ml Balance -825 ml -575 ml -1950 ml medications Current Medications Medications Dose Ordered Sig/Juan Miguel Route Start Time Stop Time Status Last Admin Dose Admin Acetaminophen/ Hydrocodone Bitart 1 tab Q4HP PRN PO 01/31/25 13:30 Ondansetron HCl 4 mg Q4HP PRN IV 01/31/25 13:30 01/31/25 16:34 4 MG Acetaminophen 650 mg Q6HP PRN PO 01/31/25 13:30 Morphine Sulfate 2 mg Q4HPRN PRN IV 01/31/25 13:30 02/01/25 17:55 2 MG Metronidazole 100 ml @ 100 mls/hr Q8HR IV 01/31/25 14:00 02/02/25 14:00 100 MLS/HR Metoclopramide HCl 10 mg Q6HPRN PRN IV 01/31/25 13:30 Ipratropium Og[place]vie 0.5 mg Q4HPRN PRN NEB 01/31/25 13:45 02/01/25 19:16 0.5 MG Albuterol 2.5 mg Q4HPRN PRN NEB 01/31/25 13:45 02/01/25 19:16 2.5 MG Diagnostic Test (Pha) 1 strip Q6HR 01/31/25 18:00 02/02/25 17:31 1 STRIP Insulin Human Regular Q6HR SC 01/31/25 18:00 Dextrose 50 ml UD PRN IV 01/31/25 13:45 laboratory and microbiology Laboratory Tests 02/02/25 05:17 Test 02/02/25 05:17 Range/Units Serum Glucose 84 74-106 mg/dL Problem List/Assessment/Plan Problem List/Assessment/Plan AFEBRILE VSS ABD SOFT NON TENDER ILEOSTOMY FUNCTIONAL SBO/ILEUS RESOLVED DC NG ALLOW CLEAR LIQUIDS Plan discussed with: Patient ANDRES FARAH MD Feb 02, 2025 20:12
[2025-02-03] VITALS (7 sets, daily range): BP systolic 91–131; BP diastolic 64–83; PULSE 70–105; RESP 18–20; TEMP 97.5–98; O2SAT 91–99
[2025-02-03 07:26] LABS: Hematocrit 38.9 % (41.0-53.0); Hemoglobin 13.0 g/dL (13.5-17.5); Mean Corpuscular Hemoglobin 31.5 pg (28.0-32.0); Mean Corpuscular Volume 93.9 fL (80.0-100.0); Nucleated Red Blood Cells % 0.0 %
[2025-02-03 07:39] LABS: Anion Gap 10 (5-15); Carbon Dioxide 29 mmol/L (20-31)
[2025-02-03 07:40] LABS: Calcium 8.9 mg/dL (8.7-10.4); Chloride 96 mmol/L (98-107); Potassium 3.4 mmol/L (3.5-5.1); Sodium 135 mmol/L (136-145)
[2025-02-03 07:45] LABS: BUN/Creatinine Ratio 11.1 (10.0-20.0); Blood Urea Nitrogen 11 mg/dL (9-23)
[2025-02-03 07:51] LABS: Glucose 245 mg/dL (74-106)
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
== END 2025-02-03 14:40 | disposition home or self-care (01) | DRG 247 ==
LOC: ER 02:55 → OVERFLOW 13:27 → WEST WING 02-01 17:05
PROVIDERS: ADMIT Internal Medicine Geriatric Medicine; ATTEND Nurse Practitioner Family
PROC: 0D9670Z Drainage of Stomach with Drainage Device, Via Natural or Artificial Opening (ICD-10-PCS; principal; 2025-01-31)
DX: K56.609 Unspecified intestinal obstruction, unspecified as to partial versus complete obstruction (principal); J81.1 Chronic pulmonary edema; I50.22 Chronic systolic (congestive) heart failure; I11.0 Hypertensive heart disease with heart failure; E11.9 Type 2 diabetes mellitus without complications; E87.6 Hypokalemia; E78.5 Hyperlipidemia, unspecified; J44.89 Other specified chronic obstructive pulmonary disease; Z93.2 Ileostomy status; Z82.49 Family history of ischemic heart disease and other diseases of the circulatory system; Z83.3 Family history of diabetes mellitus; Z86.718 Personal history of other venous thrombosis and embolism
CPT/HCPCS: 36415; 71045; 74018; 74176; 80048; 80053; 82962; 83605; 83735; 84132; 85025; 94640; 96374; 96375; G0378; J1815; J2405; J3480; J3490

== ENCOUNTER 2025-02-05 17:52 | Inpatient (IN) | payer MEDICAID ==
[~2025-02-05] VITALS: Ht 182.9 cm; Wt 100.9 kg
--- NOTE | 2025-02-05 18:10 | ED.PDOC ---
History of Present Illness HPI Comments This is a 59 years old male with past medical history of bronchial asthma, CHF, DVT on Eliquis, status post ileostomy presented to the ED with a chief complaint of intractable abdominal pain, nausea and vomiting since Wednesday night prior to this visit. Patient stated that he was discharged from [facility] on last Wednesday with a diagnosis of resolved partial SBO and at the home he ate sandwich and after that started having abdominal pain which is colicky in nature, 02/04, and associated with nausea and vomiting and since morning ileostomy is not functioning well. He denies fever, chills, dysuria, hematuria. Chief Complaint: Abdominal Pain Time Seen by MD: 17:54 Primary Care Provider: LOS Allergies: Coded Allergies: NO KNOWN ALLERGIES (Unverified , 03/23/16) Home Meds Active Scripts Sacubitril-Valsartan (Entresto 24-26 mg) 1 Tab Tab, 1 TAB PO BID for 30 Days, #60 TAB Prov:CATARINA GONZALES MD 01/25/25 Potassium Chloride (Potassium Chloride ER) 20 Meq Tab, 20 MEQ PO DAILY, #30 TAB Prov:KIAN JOYNER MD 10/23/24 Furosemide (Lasix) 40 Mg Tab, 40 MG PO DAILY, #30 TAB Prov:KIAN JOYNER MD 10/23/24 Insulin Glargine-Yfgn (Insulin Glargine) 100 Unit/Ml Inj, 30 UNIT SC DAILY for 90 Days, #1 INJ 5 Refills Prov:RHETT CHATTERJEE MD 10/20/24 Albuterol Sulfate (Albuterol Sulfate) 0.083 % Neb, 1 VIAL NEB Q4HPRN PRN, #50 VIAL Prov:RHETT CHATTERJEE MD 10/20/24 Reported Medications Apixaban Base (ELIQUIS) 5 Mg Tab, 1 TAB PO BID 10/21/24 Sodium Bicarbonate (Sodium Bicarbonate) 325 Mg Tab, PO DAILY, TAB 09/08/24 Budesonide-Formoterol Fumarate (Budesonide/Formoterol Fum 80-4.5 Mcg/Act) 1 Aer Aer, 2 AER IN BID, AER 03/17/24 Acetaminophen (Acetaminophen Extra Stren) 500 Mg Tab, 1 TAB PO Q6-8HR PRN for PAIN 01/05/24 Ipratropium Ord (Ipratropium Ord) 0.02 % Jumana, 1 VIAL INH Q6HR 01/05/24 Montelukast Sodium (MONTELUKAST SODIUM) 10 Mg Tab, 1 TAB PO DAILY 08/31/23 Albuterol Sulfate (Albuterol Sulfate Hfa) 108 Mcg/Act Aer, 1 PUFF INH Q4HR PRN for WHEEZING 08/29/23 Information Source: Patient Mode of Arrival: Ambulatory Severity: Moderate Timing: Days Duration: Since onset Prehospital treatment: None Past Medical History PAST MEDICAL HISTORY: Asthma, CHF, COPD, DM, HTN Surgical History: Hernia Repair Family History Family History: Reviewed,noncontributory to illness Social History Smoker: Non-Smoker, Quit Less Than 1 Year, Cigarettes, Cigar Alcohol: Occasionally Drugs: Denies Drug Use Lives In: Home Constitutional: denies: chills, diaphoresis, fatigue, fever, malaise, sweats, weakness, others EENTM: denies: blurred vision, double vision, ear bleeding, ear discharge, ear drainage, ear pain, ear ringing, eye pain, eye redness, hearing loss, mouth pain, mouth swelling, nasal discharge, nose bleeding, nose congestion, nose pain, photophobia, tearing, throat pain, throat swelling, voice changes, others Respiratory: denies: cough, hemoptysis, orthopnea, SOB at rest, shortness of breath, SOB with excertion, stridor, wheezing, others Cardiovascular: denies: chest pain, dizzy spells, diaphoresis, Dyspnea on exertion, edema, irregular heart beat, left arm pain, lightheadedness, palpitations, PND, syncope, others Gastrointestinal: reports: abdomen distended, abdominal pain, nausea, vomiting; denies: blood streaked bowels, constipated, diarrhea, dysphagia, difficulty swallowing, hematemesis, melena, poor appetite, poor fluid intake, rectal bleeding, rectal pain, others Genitourinary: denies: burning, dysuria, flank pain, frequency, hematuria, incontinence, penile discharge, penile sore, pain, testicle pain, testicle swelling, urgency, others Neurological: denies: dizziness, fainting, headache, left sided numbness, left sided weakness, numbness, paresthesia, pre-existing deficit, right sided numbness, right sided weakness, seizure, speech problems, tingling, tremors, weakness, others Musculoskeletal: denies: back pain, gout, joint pain, joint swelling, muscle pain, muscle stiffness, neck pain, others Integumetry: denies: bruises, change in color, change in hair/nails, dryness, laceration, lesions, lumps, rash, wounds, others Allergic/Immunocompromised: denies: Difficulty Healing, Frequent Infections, Hives, Itching, others Hematologic/Lymphatic: denies: anemia, blood clots, easy bleeding, easy bruising, swollen glands, others Endocrine: denies: excessive hunger, excessive sweating, excessive thirst, excessive urination, flushing, intolerance to cold, intolerance to heat, unexplained weight gain, unexplained weight loss, others Psychiatric: denies: anxiety, bipolar disorder, depression, hopeless, panic disorder, schizophrenia, sleepless, suicidal, others Physical Exam General Appearance: Mild Distress HEENT: Normal ENT Inspection, Pharynx Normal, TMs Normal Neck: Full Range of Motion, Non-Tender, Normal, Normal Inspection Respiratory: Wheezing, Other (Vesicular with prolonged expiration) Cardiovascular: No Edema, No JVD, No Murmur, No Gallop, Normal Peripheral Pulses, Regular Rate/Rhythm Breast Exam: Deferred Gastrointestinal: Distended, LLQ, RLQ, Tenderness, Other (Sluggish bowel sounds) Genitalia: Deferred Pelvic: Deferred Rectal: Deferred Extremities: No calf tenderness, Normal capillary refill, Normal inspection, Normal range of motion, Non-tender, No pedal edema Neurologic: Alert, wharfinger chief II-XII nml as Tested, No Motor Deficits, Normal Affect, Normal Mood, No Sensory Deficits Cerebellar Function: NOT DONE Reflexes: NOT DONE Skin: NOT DONE Peripheral Pulses: 2+ carotid (R), 2+ carotid (L), 2+ femoral (R), 2+ femoral (L), 2+ dorsalis pedis (R), 2+ dorsalis pedis (L), 2+ Radial (R), 2+ Radial (L), 2+ Brachial (R), 2+ Brachial (L) Lymphatic: NOT DONE Was a procedure done? Was a procedure done?: No Differential Dx Considerations may include: SBO, electrolyte imbalance, [place] syndrome, bronchial asthma, CHF, DVT X-Ray, Labs, Meds, VS Vital Signs Date Time Temp Pulse Resp B/P (MAP) Pulse Ox O2 Delivery O2 Flow Rate FiO2 02/05/25 18:35 16 97 Room Air* 0 21 02/05/25 17:53 98.0 106 15 105/55 98 98.0 Lab Test 02/05/25 18:59 Range/Units White Blood Count Pending Red Blood Count Pending Hemoglobin Pending Hematocrit Pending Mean Corpuscular Volume Pending Mean Corpuscular Hemoglobin Pending Mean Corpuscular Hemoglobin Concent Pending Red Cell Distribution Width Pending Platelet Count Pending Mean Platelet Volume Pending Neutrophils (%) (Auto) Pending Lymphocytes (%) (Auto) Pending Monocytes (%) (Auto) Pending Basophils (%) (Auto) Pending Neutrophils # (Auto) Pending Lymphocytes # (Auto) Pending Monocytes # (Auto) Pending Sodium Level Pending Potassium Level Pending Chloride Level Pending Carbon Dioxide Level Pending Anion Gap Pending Blood Urea Nitrogen Pending Creatinine Pending Glomerular Filtration Rate Calc Pending BUN/Creatinine Ratio Pending Serum Glucose Pending Lactic Acid Level Pending Calcium Level Pending Lipase Pending Current Medications Medications (Trade) Dose Ordered Sig/Juan Miguel Route Start Time Stop Time Status Last Admin Albuterol (Ventolin Medneb) 2.5 mg ONCE ONCE NEB 02/05/25 18:15 02/05/25 18:16 DC 02/05/25 18:28 Ipratropium Ord (Atrovent Medneb) 0.5 mg ONCE ONCE NEB 02/05/25 18:15 02/05/25 18:16 DC 02/05/25 18:28 X-Ray, Labs, Meds, VS Comment Exam: CT CT AB PEL WO CON-NO ORAL OR IV History: Abdominal pain Findings: Evaluation of solid organs is limited due to lack of intravenous contrast use. Lung Bases: No acute or significant lung base finding. Normal heart size. No pleural or pericardial effusion. Liver: The liver is normal in size. No focal lesions. Gallbladder and Biliary Tree: Unremarkable Spleen: Unremarkable Pancreas: The pancreas is grossly normal in appearance. Adrenal Glands: Unremarkable Kidneys: Kidneys are grossly normal without calculi or hydronephrosis. Bladder: Grossly unremarkable for degree of distention. Bowel: The stomach is grossly normal in appearance. Multiple abnormally dilated loops of small bowel are seen throughout the abdomen with probable transition point in the lower midline abdomen at the level of a surgical anastomosis. The appendix is not visualized; however, no secondary findings of acute appendicitis identified. Ascites: Trace pelvic ascites Lymphadenopathy: No mesenteric, retroperitoneal or periportal lymphadenopathy. Abdominal Wall and Mesentery: Ileostomy seen in the right lower quadrant. Vasculature: The visualized abdominal aorta is normal in size and caliber. Evaluation of abdominal and pelvic vessels is limited due to lack of intravenous contrast. Pelvic Organs: Unremarkable Musculoskeletal: No aggressive focal bony lesions, acute fractures or dislocation. IMPRESSION: 1. Small-bowel obstruction with probable transition point in the lower midline abdomen at the level of a surgical anastomosis. The degree of obstruction has worsened since January 31, 2025 2. Trace pelvic ascites. Images Reviewed?: Images reviewed and evaluated by me Time of 1ST Reevaluation: 19:35 Reevaluation 1ST: Unchanged Patient Education/Counseling: Diagnosis, Treatment Family Education/Counseling: No Family Present Comments This is a 59-year-old male with past medical history of status post ileostomy presented to the ED with a complaint of intractable abdominal pain, nausea and vomiting since Wednesday prior to this visit Initial physical exam demonstrated abdomen is distended, tenderness in the lower quadrant, sluggish bowel sounds and nonfunctioning ileostomy. CT abdomen pelvis without IV contrast demonstrated small bowel obstruction with transition point at lower abdomen at the site of previous surgery and also worsening than the previous scan done on earlier in the January. Initially patient was given IV normal saline 500 mL bolus, IV morphine 2 mg once, IV ondansetron 4 mg once and breathing treatment NPO, NG tube with low intermittent suction and consulted surgery Patient will be admitted for further evaluation and management of small-bowel obstruction SEPSIS Sepsis Screen Date sepsis recognized/suspect: Feb 05, 2025 Time Sepsis recognized/suspect: 1755 Recent Procedure: No On Antibiotic Therapy: No Respiratory Rate >20: No Heart Rate >90: No Temp<36 C (96.8 F) or >38.3 C: No SBP <90 or MAP <65 mmHG: No New Acute Mental Status Change: No Is the patient on CPAP, BIPAP,: No Physician Orders Complete Blood Count (02/05/25 18:07) Lipase (02/05/25 18:07) Urinalysis (02/05/25 18:07) Ct Ab Pel Wo Con-No Oral Or Iv (02/05/25 18:07) Basic Metabolic Panel (02/05/25 18:07) Lactic Acid W/ Reflex Order (02/05/25 18:07) Npo (Nothing By Mouth) Diet (02/06/25 Breakfast) Ng To Lis (02/05/25 19:30) B-Type Natriuretic Peptide (02/05/25 19:30) Vital Signs Date Time Temp Pulse Resp B/P (MAP) Pulse Ox O2 Delivery O2 Flow Rate FiO2 02/05/25 18:35 16 97 Room Air* 0 21 02/05/25 17:53 98.0 106 15 105/55 98 98.0 Laboratory Tests Test 02/05/25 18:59 Lactic Acid Level Pending White Blood Count Pending Medications Medications Dose Ordered Sig/Juan Miguel Route Start Time Stop Time Status Last Admin Dose Admin Albuterol 2.5 mg ONCE ONCE NEB 02/05/25 18:15 02/05/25 18:16 DC 02/05/25 18:28 Ipratropium Ord 0.5 mg ONCE ONCE NEB 02/05/25 18:15 02/05/25 18:16 DC 02/05/25 18:28 Departure 1 Departure Time of Disposition: 19:36 Impression: Primary Impression: Small bowel obstruction Additional Impression: CHF (congestive heart failure) Disposition: 30 STILL A PATIENT Admit to: Med Surg Condition: Guarded Critical Care Note Critical Care Time?: No Stability Stability form required: MICHAEL Ragsdale RESIDENT Feb 05, 2025 18:10
[2025-02-05] MEDS: ALBUTEROL SULF 2.5 MG/0.5ML(0.5%) NEB SOLN NEB ONE (18:28)
[2025-02-05] MEDS: IPRATROPIUM BROM 0.5 MG/2.5ML INH SOL NEB ONE (18:28)
--- NOTE | 2025-02-05 19:15 | DVH ---
Exam: CT CT AB PEL WO CON-NO ORAL OR IV History: Abdominal pain Comparison Study: XY KUB ABDOMEN SINGLE VIEW on DOS: 01/31/25, CT CT AB PEL WITH ORAL CON ONLY on DOS: 01/31/25, XY KUB ABDOMEN SINGLE VIEW on DOS: 03/29/24, XY KUB ABDOMEN SINGLE VIEW on DOS: 03/29/24, XY KU B ABDOMEN SINGLE VIEW on DOS: 03/17/24 Technique: Multidetector spiral CT of the abdomen was performed from lung bases to pubic symphysis. Imaging was performed without IV contrast. Axial, coronal and sagittal multiplanar reformats were ob tained from the axial data set by the technologist. Radiation Dose : 1. Abdomen/Pelvis: CTDIvol 14.53 mGy, DLP 3.92 mGy*cm. Findings: Evaluation of solid organs is limited due to lack of intravenous contrast use. Lung Bases: No acute or significant lung base finding. Normal heart size. No pleural or pericardial effusion. Liver: The liver is normal in size. No focal lesions. Gallbladder and Biliary Tree: Unremarkable Spleen: Unremarkable Pancreas: The pancreas is grossly normal in appearance. Adrenal Glands: Unremarkable Kidneys: Kidneys are grossly normal without calculi or hydronephrosis. Bladder: Grossly unremarkable for degree of distention. Bowel: The stomach is grossly normal in appearance. Multiple abnormally dilated loops of small bowel are seen throughout the abdomen with probable transition point in the lower midline abdomen at the le giovanna of a surgical anastomosis. The appendix is not visualized; however, no secondary findings of acu te appendicitis identified. Ascites: Trace pelvic ascites Lymphadenopathy: No mesenteric, retroperitoneal or periportal lymphadenopathy. Abdominal Wall and Mesentery: Ileostomy seen in the right lower quadrant. Vasculature: The visualized abdominal aorta is normal in size and caliber. Evaluation of abdominal a nd pelvic vessels is limited due to lack of intravenous contrast. Pelvic Organs: Unremarkable Musculoskeletal: No aggressive focal bony lesions, acute fractures or dislocation. IMPRESSION: 1. Small-bowel obstruction with probable transition point in the lower midline abdomen at the level o f a surgical anastomosis. The degree of obstruction has worsened since January 31, 2025 2. Trace pelvic ascites. Radiation optimization: All CT scans at this facility use at least one of these dose optimization vicente hniques: automated exposure control mA and/or kV adjustment per patient size (includes targeted exam s where dose is matched to clinical indication) or iterative reconstruction.
[2025-02-05 19:28] LABS: Potassium 4.0 mmol/L (3.5-5.1)
[2025-02-05 19:29] LABS: Anion Gap 13 (5-15); Carbon Dioxide 26 mmol/L (20-31)
[2025-02-05 19:30] LABS: Calcium 9.5 mg/dL (8.7-10.4)
[2025-02-05 19:33] LABS: Hematocrit 44.3 % (41.0-53.0); Hemoglobin 14.8 g/dL (13.5-17.5); Mean Corpuscular Hemoglobin 31.7 pg (28.0-32.0); Mean Corpuscular Volume 94.5 fL (80.0-100.0); Nucleated Red Blood Cells % 0.1 %
[2025-02-05 19:34] LABS: BUN/Creatinine Ratio 8.3 (10.0-20.0); Blood Urea Nitrogen 12 mg/dL (9-23)
[2025-02-05 19:35] LABS: Lipase 30 U/L (12-53)
[2025-02-05 19:51] LABS: Chloride 93 mmol/L (98-107); Glucose 281 mg/dL (74-106); Sodium 132 mmol/L (136-145)
[2025-02-05 19:58] LABS: Lactic Acid w/Reflex 3.4 mmol/L (0.4-2.0)
[2025-02-05] MEDS ORDERED: HYDROcodone-ACET 5/325MG TAB PO PRN (21:00)
[2025-02-05] MEDS ORDERED: MORPHINE SULFATE INJ 2 MG/ml SYRG IV PRN (21:00)
[2025-02-05] MEDS ORDERED: ONDANSETRON HCL 4 MG/2 ML VIAL IV PRN (21:00)
[2025-02-05] MEDS ORDERED: DEXTROSE (50%) 50ML SYRG IV PRN (21:45)
[2025-02-05] MEDS: InsuLIN REG 1unit/0.01ml Soln (100units/ml) SC SCH (22:00)
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
[2025-02-06] VITALS (9 sets, daily range): BP systolic 80–101; BP diastolic 50–71; PULSE 71–92; RESP 16–20; TEMP 97.6–98.8; O2SAT 94–98
[2025-02-06] MEDS: ONDANSETRON HCL 4 MG/2 ML VIAL IV ONE (02:06)
[2025-02-06] MEDS: cefTRIAXone 1GM/50ML D5W 50 ML IV ONE (02:06)
[2025-02-06] MEDS: MORPHINE SULFATE INJ 2 MG/ml SYRG IV PRN (02:07)
[2025-02-06] MEDS: ACCU-CHEK COMFORT CURVE STRIP VI SCH (02:07)
[2025-02-06] MEDS: SODIUM CHLORIDE 0.9% 500 ML IVB ONE (02:14)
[2025-02-06] MEDS: SODIUM CHLORIDE 0.9% 1,000 ML IV ONE (04:14)
[2025-02-06 06:54] LABS: Alanine Aminotransferase 34 U/L (7-40); Albumin 3.9 g/dL (3.2-4.8); Alkaline Phosphatase 68 U/L (46-116); Anion Gap 10 (5-15); BUN/Creatinine Ratio 6.8 (10.0-20.0); Blood Urea Nitrogen 10 mg/dL (9-23); Calcium 8.8 mg/dL (8.7-10.4); Carbon Dioxide 28 mmol/L (20-31); Total Protein 6.2 g/dL (5.7-8.2)
[2025-02-06 06:55] LABS: Bilirubin, Total 0.4 mg/dL (0.2-1.0)
[2025-02-06 06:56] LABS: Chloride 98 mmol/L (98-107); Glucose 236 mg/dL (74-106); Potassium 3.8 mmol/L (3.5-5.1); Sodium 136 mmol/L (136-145)
[2025-02-06] MEDS: PANTOPRAZOLE 40 MG/10 ML VIAL INJ IV SCH (08:45)
[2025-02-06] MEDS: ENOXAPARIN SOD 40 MG/0.4 ML SYRINGE SC SCH (08:45)
[2025-02-06] MEDS ORDERED: SODIUM CHLORIDE 0.9% 1,000 ML IV ONE (09:00)
[2025-02-06 09:34] LABS: Hematocrit 39.9 % (41.0-53.0); Hemoglobin 13.1 g/dL (13.5-17.5); Mean Corpuscular Hemoglobin 30.9 pg (28.0-32.0); Mean Corpuscular Volume 94.2 fL (80.0-100.0); Nucleated Red Blood Cells % 0.1 %
[2025-02-06] MEDS: cefTRIAXone 1GM/50ML D5W 50 ML IV SCH (09:45)
[2025-02-06] MEDS: SODIUM CHLORIDE 0.9% 1,000 ML IV STA (09:53)
[2025-02-06] MEDS: INSULIN LISPRO (HUMAN) 100 UNITS/ML ML SC SCH (10:00)
[2025-02-06] MEDS: INSULIN LANTUS (GLARGINE) 1 /0.01ml (100units/ml) SC SCH (10:05)
[2025-02-06] MEDS: MORPHINE SULFATE 4 MG/ML SYR/VIAL IV ONE (10:51)
[2025-02-06] MEDS ORDERED: INSULIN LISPRO (HUMAN) 100 UNITS/ML ML SC SCH (11:30)
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
[2025-02-06] MEDS: KETOROLAC TROMETH 30 MG/ML 1ML VIAL IV PRN (21:04)
[2025-02-07] VITALS (9 sets, daily range): BP systolic 80–107; BP diastolic 49–69; PULSE 74–97; RESP 16–20; TEMP 97.7–98.2; O2SAT 94–99
[2025-02-07] MEDS: INSULIN LISPRO (HUMAN) 100 UNITS/ML ML SC SCH
[2025-02-07] MEDS: ACCU-CHEK COMFORT CURVE STRIP VI SCH (04:01)
[2025-02-07 07:20] LABS: Alanine Aminotransferase 27 U/L (7-40); Albumin 3.8 g/dL (3.2-4.8); Alkaline Phosphatase 61 U/L (46-116); Anion Gap 10 (5-15); BUN/Creatinine Ratio 8.8 (10.0-20.0); Bilirubin, Total 0.4 mg/dL (0.2-1.0); Blood Urea Nitrogen 12 mg/dL (9-23); Carbon Dioxide 26 mmol/L (20-31); Chloride 103 mmol/L (98-107); Sodium 139 mmol/L (136-145); Total Protein 6.1 g/dL (5.7-8.2)
[2025-02-07 07:25] LABS: Hematocrit 40.6 % (41.0-53.0); Hemoglobin 13.5 g/dL (13.5-17.5); Mean Corpuscular Hemoglobin 31.6 pg (28.0-32.0); Mean Corpuscular Volume 95.3 fL (80.0-100.0); Nucleated Red Blood Cells % 0.1 %
[2025-02-07 07:28] LABS: Calcium 8.6 mg/dL (8.7-10.4); Glucose 70 mg/dL (74-106); Potassium 3.5 mmol/L (3.5-5.1)
[2025-02-07] MEDS ORDERED: GASTROGRAFIN 120 ML SOL ONE (10:12)
--- NOTE | 2025-02-07 12:45 | DVH ---
Procedure: XY SMALL BOWEL SERIES-W GASTROGRA Exam Date: 02/07/2025 11:52 AM Reason for study/Clinical History: r/o obstruction Comparison Study: XY SMALL BOWEL SERIES-W GASTROGRA on DOS: 03/28/24 Technique: Single contrast small bowel series performed. Findings: Initial baby formula worker view of the abdomen and pelvis appears demonstrates no acute process. Diffusely dilated loops of small bowel measuring up to 5 cm. Contrast seen in the colon at 1 hr. IMPRESSION: Diffusely dilated loops of small bowel measuring up to 5 cm. Contrast seen in the colon at 1 hr. END IMPRESSION:
--- NOTE | 2025-02-07 14:15 | DVHPN2 ---
Subjective Date Seen: Feb 07, 2025 Post op day Post op day: 0 Patient reports: Other (abdominal pain) General: Normal HNT: Normal Cardiovascular: Normal Respiratory: Normal Gastrointestinal: Abdominal Pain Genitourinary: Normal Musculoskeletal: Normal Neurological: Normal Objective Vitals Vital Sign Date Time Temp Pulse Resp B/P (MAP) Pulse Ox O2 Delivery O2 Flow Rate FiO2 02/07/25 09:00 97.7 81 20 94/66 (75) 97 97.7 02/06/25 20:00 Room Air* 0 21 Total Intake and Output 02/06/25 02/06/25 02/07/25 14:59 22:59 06:59 Intake Total 0 ml 0 ml Balance 0 ml 0 ml Medications Current Medications Medications Dose Ordered Sig/Juan Miguel Route Start Time Stop Time Status Last Admin Dose Admin Ondansetron HCl 4 mg Q4HP PRN IV 02/05/25 21:00 Pantoprazole Sodium 40 mg DAILY IV 02/06/25 10:00 02/07/25 09:16 40 MG Dextrose 50 ml UD PRN IV 02/05/25 21:45 Metronidazole 100 ml @ 100 mls/hr Q8HR IV 02/06/25 14:00 02/07/25 13:05 100 MLS/HR Ceftriaxone Sodium 50 ml @ 100 mls/hr DAILY@09 IV 02/06/25 09:00 02/07/25 09:16 100 MLS/HR Insulin Glargine 30 units DAILY@1000 SC 02/06/25 10:00 02/06/25 10:05 30 UNITS Ketorolac Tromethamine 15 mg Q6HPRN PRN IV 02/06/25 09:45 02/11/25 09:44 02/07/25 13:11 15 MG Insulin Human Lispro Q4H SC 02/07/25 00:00 Diagnostic Test (Pha) 1 strip IQ4HR 02/07/25 04:00 02/07/25 11:51 1 STRIP General: Normal, Obese Head/Eyes: Normal ENT: Normal Neck: Normal Lungs: Normal Cardiovascular: Normal Abdominal: Other (ileostomy) Abdomen quadrants: LLQ Tenderness; RLQ Tenderness Skin: Normal Neurological: Normal Labs and Microbiology Laboratory Tests 02/07/25 06:16 Test 02/07/25 06:16 Range/Units Serum Glucose 70 #L 74-106 mg/dL Ass/Plan Labs and/or images reviewed: Labs reviewed by me, Image(s) reviewed by me Problem List Intractable abdominal pain due to Small-bowel obstruction, possible partial Recurrent small-bowel obstruction History of laparotomy, status post ileostomy End-stage systolic heart failure, dilated Uncontrolled diabetes with hyperglycemia History of DVT and pulmonary emboli Asthma, stable Hypertension * CT scan showed, Small-bowel obstruction with probable transition point in the lower midline abdomen at the level of a surgical anastomosis. The degree of obstruction has worsened since January 31, 2025 Plan/recommendation * NPO * Empiric antibiotic Rocephin and Flagyl * IV fluid * Ondansetron * Pain management * Lantus 30 units daily, and insulin lispro according to sliding scale * Consulted surgery DIET: NPO GI PROPHYLAXIS:: Protonix CODE STATUS: Goal of care discussed for more than 18 minutes, full code DISPOSITION: Med/surge Patient's status and plan discussed with the patient. Case discussed with Dr. Medina. Assessment/Plan patient complaint of abdominal pain small bowel series reviewed abdomen non distended, tender to palpation some fecal matter and gas in bag Plan: NPO reevaluate to morning discussed with Dr. Abbasi agrees with plan Prognosis: Good Plan discussed with Dr. Abbasi, patient Visit Coding Surgery Date of Service if different f: Feb 07, 2025 Billing Provider: BETTY ABBASI MD Surgery Visit Codes: [id number] INP/OBS CARE(HIGH) TRANG TIRADO BUS ASSISTANT Feb 07, 2025 14:15
--- NOTE | 2025-02-07 15:21 | DVHPNRES ---
Progress Note Date Seen: Feb 07, 2025 Resident Creating Document: CHUY GREEN ANDRADE Has the PT tested + for MRSA If YES, has PT been informed?: No Medical Necessity Reason Pt with a Central, PICC or Fol: No Subjective Review of Systems Patient seen and examined at the bedside. Patient is feeling better since admission. Surgery evaluated the patient recommended NPO and re-evaluation for tomorrow morning. Objective vital signs Vital Sign Date Time Temp Pulse Resp B/P (MAP) Pulse Ox O2 Delivery O2 Flow Rate FiO2 02/07/25 13:00 97.9 97 19 98/59 (72) 95 97.9 02/06/25 20:00 Room Air* 0 21 Total Intake and Output 02/06/25 02/06/25 02/07/25 15:00 23:00 07:00 Intake Total 0 ml 0 ml Balance 0 ml 0 ml medications Current Medications Medications Dose Ordered Sig/Juan Miguel Route Start Time Stop Time Status Last Admin Dose Admin Ondansetron HCl 4 mg Q4HP PRN IV 02/05/25 21:00 Pantoprazole Sodium 40 mg DAILY IV 02/06/25 10:00 02/07/25 09:16 40 MG Dextrose 50 ml UD PRN IV 02/05/25 21:45 Metronidazole 100 ml @ 100 mls/hr Q8HR IV 02/06/25 14:00 02/07/25 13:05 100 MLS/HR Ceftriaxone Sodium 50 ml @ 100 mls/hr DAILY@09 IV 02/06/25 09:00 02/07/25 09:16 100 MLS/HR Insulin Glargine 30 units DAILY@1000 SC 02/06/25 10:00 02/06/25 10:05 30 UNITS Ketorolac Tromethamine 15 mg Q6HPRN PRN IV 02/06/25 09:45 02/11/25 09:44 02/07/25 13:11 15 MG Insulin Human Lispro Q4H SC 02/07/25 00:00 Diagnostic Test (Pha) 1 strip IQ4HR 02/07/25 04:00 02/07/25 11:51 1 STRIP Examination General Appearance: Alert, Oriented X3, Cooperative, No acute distress HEENT: Atraumatic, PERRLA, EOMI, Mucous membrane moist/pink Respiratory: Clear to auscultation, Normal air movement Cardiovascular: Regular rate, Normal S1, Normal S2, No murmurs, no chest wall tenderness Abdominal: Mild abdominal tenderness, ileostomy area is clean with no sign of infection or drainage Extremities: No clubbing, No cyanosis, No edema, Normal pulses, No tenderness/swelling Skin: No rashes, No breakdown, No significant lesion Neuro: Normal gait, Normal speech, Strength at 5/5 X4 ext, Normal tone, Sensation intact, Cranial nerves 3-12 NL, Reflexes 2+ Psych/Mental Status: Mental status NL, Mood NL laboratory and microbiology Laboratory Tests 02/07/25 06:16 Test 02/07/25 06:16 Range/Units Serum Glucose 70 #L 74-106 mg/dL Labs and/or images reviewed: Labs reviewed by me, Image(s) reviewed by me Problem List/Assessment/Plan Problem List/Assessment/Plan Intractable abdominal pain due to Small-bowel obstruction, possible partial Recurrent small-bowel obstruction History of laparotomy, status post ileostomy End-stage systolic heart failure, dilated Uncontrolled diabetes with hyperglycemia History of DVT and pulmonary emboli Asthma, stable Hypertension * CT scan showed, Small-bowel obstruction with probable transition point in the lower midline abdomen at the level of a surgical anastomosis. The degree of obstruction has worsened since January 31, 2025 * Small bowel series performed, showed diffusely dilated loops of small bowel measuring up to 5 cm. Contrast seen in the colon at 1 hr Plan/recommendation * NPO * Empiric antibiotic Rocephin and Flagyl * IV fluid * Ondansetron * Pain management * Lantus 30 units daily, and insulin lispro according to sliding scale * Consulted surgery , recommended medical management, NPO and re-evaluation with the warmer DIET: NPO GI PROPHYLAXIS:: Protonix CODE STATUS: Goal of care discussed for more than 18 minutes, full code DISPOSITION: Med/surge Patient's status and plan discussed with the patient. Case discussed with Dr. Padilla. Plan discussed with: Patient, Other (RN) My Orders My Orders Orders - CHUY GREEN RESDIKRIS Procedure Category Date Status Time Npo (Nothing By DIET 02/07/25 Transmitted Mouth) Diet Breakfast Communication Order ORDERS 02/06/25 Transmitted 15:55 Insulin Lispro PHA 02/07/25 In Process (Human) (Humalog) 00:00 Glucose Blood PHA 02/07/25 In Process (Accu-Chek Comfort 04:00 Date of Service: Feb 07, 2025 Billing Provider: DWIGHT PADILLA MD Common Visit Codes: [id number] INP/OBS CARE(HIGH) CHUY GREEN Feb 07, 2025 15:21 DWIGHT PADILLA MD Feb 09, 2025 22:38
[2025-02-08] VITALS (7 sets, daily range): BP systolic 89–113; BP diastolic 53–80; PULSE 79–95; RESP 16–18; TEMP 97.4–98.8; O2SAT 92–98
[2025-02-08 06:50] LABS: Anion Gap 11 (5-15); Carbon Dioxide 26 mmol/L (20-31); Chloride 101 mmol/L (98-107); Potassium 3.7 mmol/L (3.5-5.1); Sodium 138 mmol/L (136-145)
[2025-02-08 06:52] LABS: Calcium 9.4 mg/dL (8.7-10.4)
[2025-02-08 06:57] LABS: BUN/Creatinine Ratio 10.3 (10.0-20.0); Blood Urea Nitrogen 15 mg/dL (9-23); Glucose 210 mg/dL (74-106)
[2025-02-08 07:13] LABS: Hematocrit 39.7 % (41.0-53.0); Hemoglobin 13.5 g/dL (13.5-17.5); Mean Corpuscular Hemoglobin 31.9 pg (28.0-32.0); Mean Corpuscular Volume 94.1 fL (80.0-100.0); Nucleated Red Blood Cells % 0.3 %
--- NOTE | 2025-02-08 13:21 | DVHPN2 ---
Subjective Date Seen: Feb 08, 2025 Post op day Post op day: 0 Patient reports: Other (abdominal pain) General: Normal HNT: Normal Cardiovascular: Normal Respiratory: Normal Gastrointestinal: Abdominal Pain Genitourinary: Normal Musculoskeletal: Normal Neurological: Normal Objective Vitals Vital Sign Date Time Temp Pulse Resp B/P (MAP) Pulse Ox O2 Delivery O2 Flow Rate FiO2 02/08/25 09:00 97.7 82 17 89/58 (68) 96 97.7 02/08/25 08:15 Room Air* 0 21 Total Intake and Output 02/07/25 02/07/25 02/08/25 15:00 23:00 07:00 Intake Total 150 ml 100 ml 1000 ml Balance 150 ml 100 ml 1000 ml Medications Current Medications Medications Dose Ordered Sig/Juan Miguel Route Start Time Stop Time Status Last Admin Dose Admin Ondansetron HCl 4 mg Q4HP PRN IV 02/05/25 21:00 Pantoprazole Sodium 40 mg DAILY IV 02/06/25 10:00 02/08/25 09:50 40 MG Dextrose 50 ml UD PRN IV 02/05/25 21:45 Metronidazole 100 ml @ 100 mls/hr Q8HR IV 02/06/25 14:00 02/07/25 20:55 100 MLS/HR Ceftriaxone Sodium 50 ml @ 100 mls/hr DAILY@09 IV 02/06/25 09:00 02/08/25 10:07 100 MLS/HR Insulin Glargine 30 units DAILY@1000 SC 02/06/25 10:00 02/06/25 10:05 30 UNITS Ketorolac Tromethamine 15 mg Q6HPRN PRN IV 02/06/25 09:45 02/11/25 09:44 02/08/25 10:06 15 MG Insulin Human Lispro Q4H SC 02/07/25 00:00 02/08/25 11:32 2 UNITS Diagnostic Test (Pha) 1 strip IQ4HR 02/07/25 04:00 02/08/25 11:14 1 STRIP General: Normal, Obese Head/Eyes: Normal ENT: Normal Neck: Normal Lungs: Normal Cardiovascular: Normal Abdominal: Normal, Soft, Other (ileostomy) Skin: Normal Neurological: Normal Labs and Microbiology Laboratory Tests 02/08/25 06:00 Test 02/08/25 06:00 Range/Units Serum Glucose 210 #H 74-106 mg/dL Ass/Plan Labs and/or images reviewed: Labs reviewed by me, Image(s) reviewed by me Problem List Intractable abdominal pain due to Small-bowel obstruction, possible partial Recurrent small-bowel obstruction History of laparotomy, status post ileostomy End-stage systolic heart failure, dilated Uncontrolled diabetes with hyperglycemia History of DVT and pulmonary emboli Asthma, stable Hypertension * CT scan showed, Small-bowel obstruction with probable transition point in the lower midline abdomen at the level of a surgical anastomosis. The degree of obstruction has worsened since January 31, 2025 * Small bowel series performed, showed diffusely dilated loops of small bowel measuring up to 5 cm. Contrast seen in the colon at 1 hr Plan/recommendation * NPO * Empiric antibiotic Rocephin and Flagyl * IV fluid * Ondansetron * Pain management * Lantus 30 units daily, and insulin lispro according to sliding scale * Consulted surgery , recommended medical management, NPO and re-evaluation with the warmer DIET: NPO GI PROPHYLAXIS:: Protonix CODE STATUS: Goal of care discussed for more than 18 minutes, full code DISPOSITION: Med/surge Patient's status and plan discussed with the patient. Case discussed with Dr. Medina. Assessment/Plan patient complaint of abdominal pain small bowel series reviewed abdomen non distended, tender to palpation some fecal matter and gas in bag Plan: NPO reevaluate to morning discussed with Dr. Abbasi agrees with plan 02/08/2025 no new complaints, denies nausea and vomiting small bowel series reviewed abdomen non distended, non tender fecal matter and gas in bag Plan: regular diet no surgical intervention, ok to discharge per surgery point of view patient to follow up with Dr. Abbasi in two weeks discussed with Dr. Abbasi agrees with plan Prognosis: Good Plan discussed with patient, Dr. Abbasi Visit Coding Surgery Date of Service if different f: Feb 08, 2025 Billing Provider: BETTY ABBASI MD Surgery Visit Codes: [id number] INP/OBS CARE(HIGH) TRANG TIRADO NP Feb 08, 2025 13:21
--- NOTE | 2025-02-08 17:23 | DVHPNRES ---
Progress Note Date Seen: Feb 08, 2025 Resident Creating Document: GLENROY WALTER RESIDENT Has the PT tested + for MRSA If YES, has PT been informed?: No Medical Necessity Reason Pt with a Central, PICC or Fol: No Subjective Review of Systems Patient seen and examined at the bedside. Patient is feeling better since admission. The patient is NPO , awaiting surgery. Objective vital signs Vital Sign Date Time Temp Pulse Resp B/P (MAP) Pulse Ox O2 Delivery O2 Flow Rate FiO2 02/08/25 13:00 97.7 84 16 93/58 (70) 95 97.7 02/08/25 08:15 Room Air* 0 21 Total Intake and Output 02/07/25 02/07/25 02/08/25 15:00 23:00 07:00 Intake Total 150 ml 100 ml 1000 ml Balance 150 ml 100 ml 1000 ml medications Current Medications Medications Dose Ordered Sig/Juan Miguel Route Start Time Stop Time Status Last Admin Dose Admin Ondansetron HCl 4 mg Q4HP PRN IV 02/05/25 21:00 Pantoprazole Sodium 40 mg DAILY IV 02/06/25 10:00 02/08/25 09:50 40 MG Dextrose 50 ml UD PRN IV 02/05/25 21:45 Metronidazole 100 ml @ 100 mls/hr Q8HR IV 02/06/25 14:00 02/08/25 13:43 100 MLS/HR Ceftriaxone Sodium 50 ml @ 100 mls/hr DAILY@09 IV 02/06/25 09:00 02/08/25 10:07 100 MLS/HR Insulin Glargine 30 units DAILY@1000 SC 02/06/25 10:00 02/06/25 10:05 30 UNITS Ketorolac Tromethamine 15 mg Q6HPRN PRN IV 02/06/25 09:45 02/11/25 09:44 02/08/25 10:06 15 MG Insulin Human Lispro Q4H SC 02/07/25 00:00 02/08/25 16:08 3 UNITS Diagnostic Test (Pha) 1 strip IQ4HR 02/07/25 04:00 02/08/25 16:02 1 STRIP Examination General Appearance: Alert, Oriented X3, Cooperative, No acute distress HEENT: Atraumatic, PERRLA, EOMI, Mucous membrane moist/pink Respiratory: Clear to auscultation, Normal air movement Cardiovascular: Regular rate, Normal S1, Normal S2, No murmurs, no chest wall tenderness Abdominal: Mild abdominal tenderness, ileostomy area is clean with no sign of infection or drainage Extremities: No clubbing, No cyanosis, No edema, Normal pulses, No tenderness/swelling Skin: No rashes, No breakdown, No significant lesion Neuro: Normal gait, Normal speech, Strength at 5/5 X4 ext, Normal tone, Sensation intact, Cranial nerves 3-12 NL, Reflexes 2+ Psych/Mental Status: Mental status NL, Mood NL laboratory and microbiology Laboratory Tests 02/08/25 06:00 Test 02/08/25 06:00 Range/Units Serum Glucose 210 #H 74-106 mg/dL Problem List/Assessment/Plan Problem List/Assessment/Plan Intractable abdominal pain due to Small-bowel obstruction, possible partial Recurrent small-bowel obstruction History of laparotomy, status post ileostomy End-stage systolic heart failure, dilated Uncontrolled diabetes with hyperglycemia History of DVT and pulmonary emboli Asthma, stable Hypertension CT scan showed, Small-bowel obstruction with probable transition point in the lower midline abdomen at the level of a surgical anastomosis. The degree of obstruction has worsened since January 31, 2025 Small bowel series performed, showed diffusely dilated loops of small bowel measuring up to 5 cm. Contrast seen in the colon at 1 hr Plan/recommendation NPO Empiric antibiotic Rocephin and Flagyl IV fluid Ondansetron Pain management Lantus 30 units daily, and insulin lispro according to sliding scale Surgery on board, NPO. Pending surgery tomorrow DIET: NPO GI PROPHYLAXIS:: Protonix CODE STATUS: Goal of care discussed for more than 18 minutes, full code DISPOSITION: Med/surge Patient's status and plan discussed with the patient. Case discussed with Dr. Padilla. Plan discussed with: Patient Date of Service: Feb 08, 2025 Billing Provider: DWIGHT PADILLA MD Common Visit Codes: [id number] INP/OBS CARE(HIGH) GLENROY WALTER Feb 08, 2025 17:23 DWIGHT PADILLA MD Feb 09, 2025 23:13
[2025-02-08] MEDS: LACTATED RINGER'S 500 ML IV ONE (23:31)
[2025-02-09] MEDS: LACTATED RINGER'S 1,000 ML IV SCH (00:55)
[2025-02-09 01:00] VITALS: BP 87/52; PULSE 80; RESP 17; TEMP 97.4; O2SAT 96
[2025-02-09 05:00] VITALS: BP 124/108; PULSE 88; RESP 18; TEMP 97.9; O2SAT 98
[2025-02-09 05:55] LABS: Urine Protein, UAD TRACE (Negative)
[2025-02-09] MEDS: SODIUM CHLORIDE 0.9% 1,000 ML IV ONE (08:14)
[2025-02-09 08:25] LABS: Hematocrit 40.7 % (41.0-53.0); Hemoglobin 13.3 g/dL (13.5-17.5); Mean Corpuscular Hemoglobin 31.9 pg (28.0-32.0); Mean Corpuscular Volume 97.9 fL (80.0-100.0); Nucleated Red Blood Cells % 0.3 %
[2025-02-09 08:41] LABS: Chloride 105 mmol/L (98-107); Potassium 4.4 mmol/L (3.5-5.1); Sodium 139 mmol/L (136-145)
[2025-02-09 08:42] LABS: Anion Gap 13 (5-15); Carbon Dioxide 21 mmol/L (20-31)
[2025-02-09 08:43] LABS: Calcium 8.9 mg/dL (8.7-10.4)
[2025-02-09 08:48] LABS: BUN/Creatinine Ratio 16.9 (10.0-20.0); Blood Urea Nitrogen 20 mg/dL (9-23)
[2025-02-09 08:55] LABS: Glucose 231 mg/dL (74-106)
[2025-02-09 09:04] VITALS: BP 101/66; PULSE 85; RESP 18; TEMP 97.9; O2SAT 95
--- NOTE | 2025-02-09 11:24 | DVHPN2 ---
Progress Note Date Seen: Feb 09, 2025 Has the PT tested + for MRSA If YES, has PT been informed?: No Medical Necessity Reason Pt with a Central, PICC or Fol: No Objective vital signs Vital Sign Date Time Temp Pulse Resp B/P (MAP) Pulse Ox O2 Delivery O2 Flow Rate FiO2 02/09/25 09:04 97.9 85 18 101/66 (78) 95 97.9 02/09/25 08:02 Room Air* 0 21 Total Intake and Output 02/08/25 02/08/25 02/09/25 15:00 23:00 07:00 Intake Total 150 ml 800 ml 1200 ml Balance 150 ml 800 ml 1200 ml medications Current Medications Medications Dose Ordered Sig/Juan Miguel Route Start Time Stop Time Status Last Admin Dose Admin Ondansetron HCl 4 mg Q4HP PRN IV 02/05/25 21:00 Pantoprazole Sodium 40 mg DAILY IV 02/06/25 10:00 02/09/25 09:57 40 MG Dextrose 50 ml UD PRN IV 02/05/25 21:45 Metronidazole 100 ml @ 100 mls/hr Q8HR IV 02/06/25 14:00 02/09/25 05:10 100 MLS/HR Ceftriaxone Sodium 50 ml @ 100 mls/hr DAILY@09 IV 02/06/25 09:00 02/09/25 08:09 100 MLS/HR Insulin Glargine 30 units DAILY@1000 SC 02/06/25 10:00 02/06/25 10:05 30 UNITS Ketorolac Tromethamine 15 mg Q6HPRN PRN IV 02/06/25 09:45 02/11/25 09:44 02/08/25 10:06 15 MG Insulin Human Lispro Q4H SC 02/07/25 00:00 02/09/25 07:57 3 UNITS Diagnostic Test (Pha) 1 strip IQ4HR 02/07/25 04:00 02/09/25 07:39 1 STRIP Lactated Ringer's 1,000 ml @ 75 mls/hr [id number] IV 02/08/25 19:00 02/09/25 07:39 75 MLS/HR laboratory and microbiology Laboratory Tests 02/09/25 06:50 Test 02/09/25 06:50 Range/Units Serum Glucose 231 H 74-106 mg/dL Problem List/Assessment/Plan Problem List/Assessment/Plan 02/09/25 feeling well, abdomen non tender, stoma functioning advance diet, return to see me about three weeks to plan stoma reversal after cardiac clearance. Plan discussed with: Patient BETTY MONTOYA MD Feb 09, 2025 11:24
[2025-02-09 12:03] VITALS: BP 101/66; PULSE 85; TEMP 36.6
[2025-02-09 12:30] VITALS: BP 94/67; PULSE 83; RESP 18; TEMP 97.6; O2SAT 98
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
== END 2025-02-09 12:34 | disposition home or self-care (01) | DRG 247 ==
LOC: ER 17:52 → OVERFLOW 20:54 → WEST WING 02-06 16:52
PROVIDERS: ADMIT Student in an Organized Health Care Education/Training Program; ATTEND Emergency Medicine
DX: K56.609 Unspecified intestinal obstruction, unspecified as to partial versus complete obstruction (principal); I50.84 End stage heart failure; I50.22 Chronic systolic (congestive) heart failure; I11.0 Hypertensive heart disease with heart failure; E11.65 Type 2 diabetes mellitus with hyperglycemia; J44.89 Other specified chronic obstructive pulmonary disease; Z86.711 Personal history of pulmonary embolism; Z79.4 Long term (current) use of insulin; Z93.2 Ileostomy status; Z86.718 Personal history of other venous thrombosis and embolism
CPT/HCPCS: 36415; 74176; 74250; 80048; 80053; 81001; 82962; 83036; 83605; 83690; 83880; 85025; 87081; 94640; G0378; J1815; J1885; J2405; J2470; J3490

== ENCOUNTER 2025-03-03 17:35 | Emergency (ER) | payer MEDICARE, MEDICAID ==
[~2025-03-03] VITALS: Ht 182.9 cm; Wt 104.3 kg
--- NOTE | 2025-03-03 18:17 | DVH ---
XY CHEST TWO VIEWS ROUTINE CLINICAL HISTORY: DX COVID SOB COMPARISON: XY CHEST TWO VIEWS ROUTINE on DOS: 02/17/25, XY CHEST XRAY 1 VIEW on DOS: 02/02/25, XY CHEST PORTABLE on DOS: 01/22/25 TECHNIQUE: Frontal and lateral view of the chest was obtained FINDINGS: Lines and Tubes: None Lungs: Improved airspace disease atelectasis right lower lobe Pleura: No effusion. No pneumothorax. Cardiomediastinal contours: Unremarkable Bones: No acute osseous abnormality. IMPRESSION: 1. Improved airspace disease.
--- NOTE | 2025-03-03 19:36 | ED.PDOC ---
History of Present Illness HPI Comments 59 y/o obese M presents with c/c shortness of breath, cough, generalized bodyaches, fever, and chills. Endorsement of 2x day history of symptoms. Recently discharged from urgent care with Covid19 Dx. Patient still reports on having difficulty breathing still after having 2x breathing treatment. Denial of any chest pain, congestion, fever, chills, or associated symptoms. Chief Complaint: Shortness of Breath Time Seen by MD: 17:30 Primary Care Provider: LOS Reviewed Notes: Nurses Notes, Medications, Allergies Allergies: Coded Allergies: NO KNOWN ALLERGIES (Unverified , 03/23/16) Home Meds Active Scripts Sacubitril-Valsartan (Entresto 24-26 mg) 1 Tab Tab, 1 TAB PO BID for 30 Days, #60 TAB Prov:CATARINA GONZALES MD 01/25/25 Potassium Chloride (Potassium Chloride ER) 20 Meq Tab, 20 MEQ PO DAILY, #30 TAB Prov:KIAN JOYNER MD 10/23/24 Furosemide (Lasix) 40 Mg Tab, 40 MG PO DAILY, #30 TAB Prov:KIAN JOYNER MD 10/23/24 Insulin Glargine-Yfgn (Insulin Glargine) 100 Unit/Ml Inj, 30 UNIT SC DAILY for 90 Days, #1 INJ 5 Refills Prov:RHETT CHATTERJEE MD 10/20/24 Albuterol Sulfate (Albuterol Sulfate) 0.083 % Neb, 1 VIAL NEB Q4HPRN PRN, #50 VIAL Prov:RHETT CHATTERJEE MD 10/20/24 Reported Medications Apixaban Base (ELIQUIS) 5 Mg Tab, 1 TAB PO BID 10/21/24 Sodium Bicarbonate (Sodium Bicarbonate) 325 Mg Tab, PO DAILY, TAB 09/08/24 Budesonide-Formoterol Fumarate (Budesonide/Formoterol Fum 80-4.5 Mcg/Act) 1 Aer Aer, 2 AER IN BID, AER 03/17/24 Acetaminophen (Acetaminophen Extra Stren) 500 Mg Tab, 1 TAB PO Q6-8HR PRN for PAIN 01/05/24 Ipratropium Agenda (Ipratropium Agenda) 0.02 % Jumana, 1 VIAL INH Q6HR 01/05/24 Montelukast Sodium (MONTELUKAST SODIUM) 10 Mg Tab, 1 TAB PO DAILY 08/31/23 Albuterol Sulfate (Albuterol Sulfate Hfa) 108 Mcg/Act Aer, 1 PUFF INH Q4HR PRN for WHEEZING 08/29/23 Information Source: Patient Mode of Arrival: Ambulatory Severity: Moderate Timing: Hours Duration: Since onset Prehospital treatment: None Past Medical History PAST MEDICAL HISTORY: Asthma, CHF, COPD, DM, HTN Surgical History: Hernia Repair Family History Family History: Reviewed,noncontributory to illness Social History Smoker: Non-Smoker, Quit Less Than 1 Year, Cigarettes, Cigar Alcohol: Occasionally Drugs: Denies Drug Use Lives In: Home All Other Systems: Reviewed and Negative (As per HPI) Physical Exam General Appearance: No Apparent Distress, Obese HEENT: Normal ENT Inspection, Pharynx Normal, TMs Normal Neck: Full Range of Motion, Non-Tender, Normal, Normal Inspection Respiratory: Chest Non-Tender, Lungs Clear, No Accessory Muscle Use, No Respiratory Distress, Normal Breath Sounds Cardiovascular: No Edema, No JVD, No Murmur, No Gallop, Normal Peripheral Pul ses, Regular Rate/Rhythm Breast Exam: Deferred Gastrointestinal: No Organomegaly, Non Tender, No Pulsatile Mass, Normal Bowel Sounds, Soft Genitalia: Deferred Pelvic: Deferred Rectal: Deferred Extremities: No calf tenderness, Normal capillary refill, Normal inspection, Normal range of motion, Non-tender, No pedal edema Musculoskeletal : Apperance: Normal Neurologic: Alert, mines safety engineer II-XII nml as Tested, No Motor Deficits, Normal Affect, Normal Mood, No Sensory Deficits Cerebellar Function: Normal Reflexes: Normal Skin: Dry, Normal Color, Warm Lymphatic: No Adenopathy Was a procedure done? Was a procedure done?: No Differential Dx Considerations may include: URI, viral syndrome, among others X-Ray, Labs, Meds, VS Vital Signs Date Time Temp Pulse Resp B/P (MAP) Pulse Ox O2 Delivery O2 Flow Rate FiO2 03/03/25 17:37 97.9 120 24 132/67 98 97.9 X-Ray, Labs, Meds, VS Comment PATIENT GIVEN SOLU-MEDROL. REPORTS IMPROVEMENT REQUESTING DISCHARGE AT THIS TIME ER RETURN PRECAUTIONS GIVEN PATIENT INDICATES UNDERSTANDING AGREES WITH DISCHARGE PLAN OF CARE Time of 1ST Reevaluation: 17:50 Reevaluation 1ST: Unchanged Time of 2ND Reevaluation: 19:41 Reevaluation 2ND: Improved Patient Education/Counseling: Diagnosis, Treatment, Need For Follow Up Family Education/Counseling: No Family Present SEPSIS Sepsis Screen Date sepsis recognized/suspect: Mar 03, 2025 Time Sepsis recognized/suspect: 1736 Recent Procedure: No On Antibiotic Therapy: No Respiratory Rate >20: Yes Heart Rate >90: Yes Temp<36 C (96.8 F) or >38.3 C: No SBP <90 or MAP <65 mmHG: No New Acute Mental Status Change: No Is the patient on CPAP, BIPAP,: No Physician Orders Chest Two Views Routine (03/03/25 17:42) Methylprednisolone Sod Succ (Solu Medrol (03/03/25 19:45) Vital Signs Date Time Temp Pulse Resp B/P (MAP) Pulse Ox O2 Delivery O2 Flow Rate FiO2 03/03/25 17:37 97.9 120 24 132/67 98 97.9 Departure 1 Departure Time of Disposition: 17:50 Impression: Primary Impression: COVID-19 Disposition: 01 HOME / SELF CARE / HOMELESS Condition: Good Critical Care Note Critical Care Time?: No Stability Stability form required: No Heart Score Heart Score: Heart Score Response (Comments) Value History N/A 0 EKG N/A 0 Age N/A 0 Risk Factors N/A 0 Troponin N/A 0 Total 0 I personally scribed for ER ([email or web address]) on 03/03/25 at 19:36. Electronically submitted by Pantera Nam [email or web address]). ER Mar 03, 2025 19:36 EDDIE RICHARDSON SURVEYING TEACHER Mar 03, 2025 19:42
[2025-03-03 20:27] VITALS: BP 122/73; PULSE 111; RESP 20; TEMP 97.8; O2SAT 97
[2025-03-03] MEDS: methylPREDNISolone SOD SUCC 125 MG/2 ML VL IM ONE (20:32)
== END 2025-03-03 20:39 | disposition home or self-care (01) ==
LOC: ER 17:35
DX: U07.1 COVID-19 (principal); I11.0 Hypertensive heart disease with heart failure; I50.9 Heart failure, unspecified; E11.9 Type 2 diabetes mellitus without complications; J45.909 Unspecified asthma, uncomplicated; J44.89 Other specified chronic obstructive pulmonary disease; Z79.899 Other long term (current) drug therapy; Z98.890 Other specified postprocedural states
CPT/HCPCS: 71046; 96372; 99283; J2919; 29125

== ENCOUNTER 2025-03-21 05:30 | Emergency (ER) | payer MEDICARE, MEDICAID ==
[~2025-03-21] VITALS: Ht 182.9 cm; Wt 109.0 kg
[2025-03-21] MEDS: ALBUTEROL SULF 2.5 MG/0.5ML(0.5%) NEB SOLN NEB ONE (05:56)
[2025-03-21] MEDS: IPRATROPIUM BROM 0.5 MG/2.5ML INH SOL NEB ONE (05:56)
--- NOTE | 2025-03-21 06:51 | DVH ---
CHEST RADIOGRAPH Indication: sob Technique: Single frontal view of the chest was obtained COMPARISON: XY CHEST TWO VIEWS ROUTINE on DOS: 03/03/25, XY CHEST TWO VIEWS ROUTINE on DOS: 02/17/25, XY CHEST XRAY 1 VIEW on DOS: 02/02/25, XY CHEST PORTABLE on DOS: 01/22/25, IH-X-RAY, CHEST, PA AND LATERAL on DOS: 11/13/24 FINDINGS: Lines and Tubes: None Lungs: Clear Pleura: No effusion. No pneumothorax. Cardiomediastinal contours: Borderline cardiomegaly. Bones: Unremarkable IMPRESSION: 1. No radiographic evidence of acute cardiopulmonary abnormality.
--- NOTE | 2025-03-21 07:11 | ED.PDOC ---
History of Present Illness HPI Comments 59-YEAR-OLD MALE PRESENTS TO THE ER WITH PRIOR MEDICAL HISTORY OF ASTHMA, CHF, COPD, DIABETES, HYPERTENSION: SURGICAL HISTORY OF HERNIA REPAIR AND THE CHIEF COMPLAINT OF ASTHMA. PATIENT REPORTS ON HAVING ASTHMA ATTACK FOR TWO DAYS ASSOCIATED WITH A LINGERING COUGH, AND TRIED USING HIS NEBULIZER AT HOME WHICH DID NOT HELP. DENIES CHILLS, FEVER, N/V/D, CP. NO OTHER ASSOCIATED SYMPTOMS, MODIFIERS, RECENT INJURIES OR SICK CONTACTS PRESENT AT THIS TIME. Chief Complaint: Shortness of Breath Time Seen by MD: 07:00 Primary Care Provider: LOS Reviewed Notes: Nurses Notes, Medications, Allergies Allergies: Coded Allergies: NO KNOWN ALLERGIES (Unverified , 03/23/16) Home Meds Active Scripts Sacubitril-Valsartan (Entresto 24-26 mg) 1 Tab Tab, 1 TAB PO BID for 30 Days, #60 TAB Prov:CATARINA GONZALES MD 01/25/25 Potassium Chloride (Potassium Chloride ER) 20 Meq Tab, 20 MEQ PO DAILY, #30 TAB Prov:KIAN JOYNER MD 10/23/24 Furosemide (Lasix) 40 Mg Tab, 40 MG PO DAILY, #30 TAB Prov:KIAN JOYNER MD 10/23/24 Insulin Glargine-Yfgn (Insulin Glargine) 100 Unit/Ml Inj, 30 UNIT SC DAILY for 90 Days, #1 INJ 5 Refills Prov:RHETT CHATTERJEE MD 10/20/24 Albuterol Sulfate (Albuterol Sulfate) 0.083 % Neb, 1 VIAL NEB Q4HPRN PRN, #50 VIAL Prov:RHETT CHATTERJEE MD 10/20/24 Reported Medications Apixaban Base (ELIQUIS) 5 Mg Tab, 1 TAB PO BID 10/21/24 Sodium Bicarbonate (Sodium Bicarbonate) 325 Mg Tab, PO DAILY, TAB 09/08/24 Budesonide-Formoterol Fumarate (Budesonide/Formoterol Fum 80-4.5 Mcg/Act) 1 Aer Aer, 2 AER IN BID, AER 03/17/24 Acetaminophen (Acetaminophen Extra Stren) 500 Mg Tab, 1 TAB PO Q6-8HR PRN for PAIN 01/05/24 Ipratropium [place] (Ipratropium [place]) 0.02 % Jumana, 1 VIAL INH Q6HR 01/05/24 Montelukast Sodium (MONTELUKAST SODIUM) 10 Mg Tab, 1 TAB PO DAILY 08/31/23 Albuterol Sulfate (Albuterol Sulfate Hfa) 108 Mcg/Act Aer, 1 PUFF INH Q4HR PRN for WHEEZING 08/29/23 Information Source: Patient Mode of Arrival: Ambulatory Severity: Moderate Timing: Hours Duration: Hours Prehospital treatment: None Past Medical History PAST MEDICAL HISTORY: Asthma, CHF, COPD, DM, HTN Surgical History: Hernia Repair Family History Family History: Reviewed,noncontributory to illness, Unknown Social History Smoker: Non-Smoker, Quit Less Than 1 Year, Cigarettes, Cigar Alcohol: Occasionally Drugs: Denies Drug Use Lives In: Home Constitutional: denies: chills, diaphoresis, fatigue, fever, malaise, sweats, weakness, others EENTM: denies: blurred vision, double vision, ear bleeding, ear discharge, ear drainage, ear pain, ear ringing, eye pain, eye redness, hearing loss, mouth pain, mouth swelling, nasal discharge, nose bleeding, nose congestion, nose pain, photophobia, tearing, throat pain, throat swelling, voice changes, others Respiratory: reports: cough, shortness of breath; denies: hemoptysis, orthopnea, SOB at rest, SOB with excertion, stridor, wheezing, others Cardiovascular: denies: chest pain, dizzy spells, diaphoresis, Dyspnea on exertion, edema, irregular heart beat, left arm pain, lightheadedness, palpitations, PND, syncope, others Gastrointestinal: denies: abdomen distended, abdominal pain, blood streaked bowels, constipated, diarrhea, dysphagia, difficulty swallowing, hematemesis, melena, nausea, poor appetite, poor fluid intake, rectal bleeding, rectal pain, vomiting, others Genitourinary: denies: burning, dysuria, flank pain, frequency, hematuria, incontinence, penile discharge, penile sore, pain, testicle pain, testicle swelling, urgency, others Neurological: denies: dizziness, fainting, headache, left sided numbness, left sided weakness, numbness, paresthesia, pre-existing deficit, right sided numbness, right sided weakness, seizure, speech problems, tingling, tremors, weakness, others Musculoskeletal: denies: back pain, gout, joint pain, joint swelling, muscle pain, muscle stiffness, neck pain, others Integumetry: denies: bruises, change in color, change in hair/nails, dryness, laceration, lesions, lumps, rash, wounds, others Allergic/Immunocompromised: denies: Difficulty Healing, Frequent Infections, Hives, Itching, others Hematologic/Lymphatic: denies: anemia, blood clots, easy bleeding, easy bruising, swollen glands, others Endocrine: denies: excessive hunger, excessive sweating, excessive thirst, excessive urination, flushing, intolerance to cold, intolerance to heat, unexplained weight gain, unexplained weight loss, others Psychiatric: denies: anxiety, bipolar disorder, depression, hopeless, panic disorder, schizophrenia, sleepless, suicidal, others All Other Systems: Reviewed and Negative Physical Exam General Appearance: No Apparent Distress, Normal HEENT: Normal ENT Inspection, Pharynx Normal, TMs Normal Neck: Full Range of Motion, Non-Tender, Normal, Normal Inspection Respiratory: Chest Non-Tender, Lungs Clear, No Accessory Muscle Use, No Respiratory Distress, Normal Breath Sounds Cardiovascular: No Edema, No JVD, No Murmur, No Gallop, Normal Peripheral Pulses, Regular Rate/Rhythm Breast Exam: Deferred Gastrointestinal: No Organomegaly, Non Tender, No Pulsatile Mass, Normal Bowel Sounds, Soft Genitalia: Deferred Pelvic: Deferred Rectal: Deferred Extremities: No calf tenderness, Normal capillary refill, Normal inspection, Normal range of motion, Non-tender, No pedal edema Musculoskeletal : Apperance: Normal Neurologic: Alert, biomedical engineering technologist II-XII nml as Tested, No Motor Deficits, Normal Affect, Normal Mood, No Sensory Deficits Cerebellar Function: Normal Reflexes: Normal Skin: Dry, Normal Color, Warm Lymphatic: No Adenopathy Was a procedure done? Was a procedure done?: No Differential Dx Considerations may include: Asthma exacerbation, COPD, diabetes X-Ray, Labs, Meds, VS Vital Signs Date Time Temp Pulse Resp B/P (MAP) Pulse Ox O2 Delivery O2 Flow Rate FiO2 03/21/25 08:21 98.6 105 16 136/83 (100) 96 98.6 03/21/25 05:56 99 Room Air* 0 21 03/21/25 05:56 20 99 Room Air* 0 21 03/21/25 05:32 98.2 110 22 150/81 94 98.2 Lab Test 9/24/25 10:56 03/21/25 08:44 03/21/25 07:12 03/21/25 07:06 Range/Units POC Glucose Pending 418 *H 70-106 mg/dl Sodium Level 134 L 136-145 mmol/L Potassium Level 4.1 3.5-5.1 mmol/L Chloride Level 99 98-107 mmol/L Carbon Dioxide Level 21 20-31 mmol/L Anion Gap 14 5-15 Blood Urea Nitrogen 14 9-23 mg/dL Creatinine 1.36 H 0.700-1.30 mg/dL Glomerular Filtration Rate Calc 60 >90 mL/min BUN/Creatinine Ratio 10.3 10.0-20.0 Serum Glucose 457 *H 74-106 mg/dL Calcium Level 9.5 8.7-10.4 mg/dL White Blood Count 7.7 4.4-10.8 10^3/uL Red Blood Count 3.95 L 4.5-5.90 10^6/uL Hemoglobin 12.9 L 13.5-17.5 g/dL Hematocrit 38.8 L 41.0-53.0 % Mean Corpuscular Volume 98.3 80.0-100.0 fL Mean Corpuscular Hemoglobin 32.8 H 28.0-32.0 pg Mean Corpuscular Hemoglobin Concent 33.3 32.0-36.0 g/dL Red Cell Distribution Width 15.6 H 11.8-14.3 % Platelet Count 183 140-450 10^3/uL Mean Platelet Volume 7.1 6.9-10.8 fL Neutrophils (%) (Auto) 79.1 37.0-80.0 % Lymphocytes (%) (Auto) 12.3 10.0-50.0 % Monocytes (%) (Auto) 7.5 0.0-12.0 % Eosinophils (%) (Auto) 0.3 0.0-7.0 % Basophils (%) (Auto) 0.8 0.0-2.0 % Neutrophils # (Auto) 6.1 1.6-8.6 10 ^3/uL Lymphocytes # (Auto) 0.9 0.4-5.4 10 ^3/uL Monocytes # (Auto) 0.6 0-1.3 10 ^3/uL Eosinophils # (Auto) 0 0-0.8 10 ^3/uL Basophils # (Auto) 0.1 0-0.2 10 ^3/uL Nucleated Red Blood Cells 0.2 % Current Medications Medications (Trade) Dose Ordered Sig/Juan Miguel Route Start Time Stop Time Status Last Admin Albuterol (Ventolin Medneb) 5 mg ONCE ONCE NEB 03/21/25 05:45 03/21/25 05:46 DC 03/21/25 05:56 Ipratropium [place] (Atrovent Medneb) 0.5 mg ONCE ONCE NEB 03/21/25 05:45 03/21/25 05:46 DC 03/21/25 05:56 Insulin Human Regular (InsuLIN R) 10 units ONCE ONCE SC 03/21/25 08:00 03/21/25 08:07 DC 03/21/25 08:50 Time of 1ST Reevaluation: 07:30 Reevaluation 1ST: Unchanged Patient Education/Counseling: Diagnosis, Treatment, Prognosis Family Education/Counseling: No Family Present SEPSIS Sepsis Screen Date sepsis recognized/suspect: Mar 21, 2025 Time Sepsis recognized/suspect: 535 Recent Procedure: No On Antibiotic Therapy: No Respiratory Rate >20: Yes Heart Rate >90: Yes Temp<36 C (96.8 F) or >38.3 C: No SBP <90 or MAP <65 mmHG: No New Acute Mental Status Change: No Is the patient on CPAP, BIPAP,: No Physician Orders Chest Portable (03/21/25 06:10) Check Blood Glucose (03/21/25 09:10) Glucose (03/21/25 10:37) Vital Signs Date Time Temp Pulse Resp B/P (MAP) Pulse Ox O2 Delivery O2 Flow Rate FiO2 03/21/25 08:21 98.6 105 16 136/83 (100) 96 98.6 03/21/25 05:56 99 Room Air* 0 21 03/21/25 05:56 20 99 Room Air* 0 21 03/21/25 05:32 98.2 110 22 150/81 94 98.2 Laboratory Tests Test 03/21/25 07:06 White Blood Count 7.7 10^3/uL (4.4-10.8) Medications Medications Dose Ordered Sig/Juan Miguel Route Start Time Stop Time Status Last Admin Dose Admin Albuterol 5 mg ONCE ONCE NEB 03/21/25 05:45 03/21/25 05:46 DC 03/21/25 05:56 Insulin Human Regular 10 units ONCE ONCE SC 03/21/25 08:00 03/21/25 08:07 DC 03/21/25 08:50 Ipratropium [place] 0.5 mg ONCE ONCE NEB 03/21/25 05:45 03/21/25 05:46 DC 03/21/25 05:56 Departure 1 Departure Time of Disposition: 11:26 (Patient likely with asthma exacerbation. Patient is feeling better. We will discharge patient home with outpatient follow up) Impression: Primary Impression: Asthma exacerbation Qualified Codes: J45.21 - Mild intermittent asthma with (acute) exacerbation Additional Impression: Diabetes mellitus with hyperglycemia Qualified Codes: E11.65 - Type 2 diabetes mellitus with hyperglycemia; Z79.4 - halfway (current) use of insulin Disposition: 01 HOME / SELF CARE / HOMELESS Condition: Stable Additional Instructions: You likely had an asthma exacerbation. You should use your inhaler as directed. Please take as directed. It is important to follow up with the regular doctor within 1 week. If your symptoms worsen or you have any other concerns please return to the emergency room. e-Prescriptions Albuterol Sulfate (VENTOLIN MDI) 90 Mcg Ih 90 MCG IN QID PRN for 7 Days, #1 INH Prov: DAYANARA PLOANCO MD 03/21/25 Discharged With: Self Critical Care Note Critical Care Time?: No Stability Stability form required: No I personally scribed for DAYANARA POLANCO MD ([email or web address]) on 03/21/25 at 07:11. Kasey ctronically submitted by Iban Herman ([email or web address]). DAYANARA POLANCO MD Mar 21, 2025 07:11
[2025-03-21 07:27] LABS: Hematocrit 38.8 % (41.0-53.0); Hemoglobin 12.9 g/dL (13.5-17.5); Mean Corpuscular Hemoglobin 32.8 pg (28.0-32.0); Mean Corpuscular Volume 98.3 fL (80.0-100.0); Nucleated Red Blood Cells % 0.2 %
[2025-03-21 07:35] LABS: Chloride 99 mmol/L (98-107); Potassium 4.1 mmol/L (3.5-5.1)
[2025-03-21 07:36] LABS: Anion Gap 14 (5-15); Carbon Dioxide 21 mmol/L (20-31)
[2025-03-21 07:37] LABS: Calcium 9.5 mg/dL (8.7-10.4)
[2025-03-21 07:41] LABS: BUN/Creatinine Ratio 10.3 (10.0-20.0); Blood Urea Nitrogen 14 mg/dL (9-23); Sodium 134 mmol/L (136-145)
[2025-03-21 07:43] LABS: Glucose 457 mg/dL (74-106)
[2025-03-21 08:21] VITALS: BP 136/83; PULSE 105; RESP 16; TEMP 98.6; O2SAT 96
[2025-03-21] MEDS: InsuLIN REG 1unit/0.01ml Soln (100units/ml) SC ONE (08:50)
[2025-03-21] MEDS ORDERED: ALBUAER3 IN (11:27)
== END 2025-03-21 11:34 | disposition home or self-care (01) ==
LOC: ER 05:30
DX: J45.901 Unspecified asthma with (acute) exacerbation (principal); E11.65 Type 2 diabetes mellitus with hyperglycemia; I11.0 Hypertensive heart disease with heart failure; I50.9 Heart failure, unspecified; Z98.890 Other specified postprocedural states; Z79.899 Other long term (current) drug therapy
CPT/HCPCS: 36415; 71045; 80048; 82947; 85025; 94640; 99284; J1815; 82962; 96372